=== PATIENT | female | born 1985 | race Caucasian/White ===

== ENCOUNTER 2020-12-20 15:36 | Emergency (ER) | payer OTHER, SELFPAY ==
[2020-12-20 15:43] VITALS: BP 152/84; PULSE 92; RESP 17; TEMP 36.2; O2SAT 100
[2020-12-20 16:01] LABS: Basophils Percent Auto 0.3 % (0.2-1.2); Eosinophils Absolute Auto 0.3 K/mm3 (0-0.3); Eosinophils Percent Auto 5.2 % (0-4.4); Hematocrit 41.9 % (37.0-47.0); Hemoglobin 14.3 g/dL (12.0-15.0); Immature Granulocyte Absolute 0.01 K/mm3 (0.00-0.031); Immature Granulocyte Percent A 0.2 % (0-0.5); Lymphocytes Absolute Auto 1.57 K/mm3 (0.9-3.2); Lymphocytes Percent Auto 27.1 % (18.3-44.2); Mean Corpuscular HGB Conc 34.1 g/dl (32-36); Mean Corpuscular Hemoglobin 29.1 pg (26-34); Mean Corpuscular Volume 85.3 fl (80-100); Mean Platelet Volume 9.7 fl (7.4-10.4); Monocytes Absolute Auto 0.4 K/mm3 (0.1-0.6); Monocytes Percent Auto 6.2 % (2.6-8.5); Neutrophils Absolute Auto 3.5 K/mm3 (1.3-6.7); Platelet Count Result 223 k/mm3 (150-375); Red Blood Count 4.91 M/mm3 (4.2-5.4); Red Cell Distribution Width 12.7 % (11.5-14.5); White Blood Count 5.8 K/mm3 (4.5-10.0)
[2020-12-20 16:10] LABS: Alanine Aminotransferase 22 U/L (4-35); Albumin Level 3.9 g/dL (3.5-5.1); Alkaline Phosphatase 51 U/L (38-126); Anion Gap 5 mmol/L (8-16); Aspartate Amino Transferase 32 U/L (14-36); Bilirubin,Total 0.2 mg/dL (0.2-1.3); Blood Urea Nitrogen 8 mg/dL (7-17); Calcium 8.7 mg/dL (8.4-10.2); Carbon Dioxide 29 mmol/L (22-30); Chloride 104 mmol/L (98-107); Estimated CRCL calculation 119 ml/min; Estimated Glomerular Filt Rate > 60; Glucose 104 mg/dL (65-105); Lipase 42 U/L (23-300); Potassium 3.3 mmol/L (3.4-5.0); Sodium 138 mmol/L (137-145)
--- NOTE | 2020-12-20 16:31 | PC.NURSE ---
pt states pmd never saw pt but sent her in for this possible dx over the phone. pt states was in [facility] last weekend. pt c/o generalized rash and itching. onset last .
--- NOTE | 2020-12-20 16:40 | ED.GENADULT ---
HPI - General Adult General Chief complaint: Unspecified Stated complaint: I think I have Stebbins spotted fever Time Seen by Provider: 12/20/20 16:40 History of Present Illness HPI narrative: Not feeling well for the past 4 days. Initially symptoms included diarrhea and nausea. The following day she developed a fever up to 101.5. She also noted a rash. She thinks that the rash may have started on her hands between her fingers. She now has a diffuse rash on all extremities. She reports that when she gets a rash it usually starts on her hands because she has eczema. Last fever was 2 days ago. She continues to have diarrhea. She saw her PCP and she sent her here for suspected RMSF. The patient is not aware of any tick bites, but says she has been around dogs that had ticks. Related Data Allergies Allergy/AdvReac Type Severity Reaction Status Date / Time Penicillins Allergy Mild Hives Verified 12/20/20 17:30 adhesive Allergy Unknown Rash Verified 12/20/20 17:30 amoxicillin Allergy Unknown Hives Verified 12/20/20 17:30 tramadol Allergy Unknown Other Verified 12/20/20 17:30 Review of Systems Review of Systems: All systems reviewed & are unremarkable except as noted in HPI and below Constitutional: Constitutional: Reports fever(s) Eyes: Eyes: Reports no additional eye complaints ENT: Reports system reviewed and no additional complaints, except as documented Cardiovascular: Cardiovascular: Denies chest pain Respiratory: Respiratory: Reports no additional respiratory complaints Gastrointestinal: Gastrointestinal: Denies abdominal pain, Reports diarrhea and Reports nausea Genitourinary: Genitourinary: Reports no additional female genitourinary complaints Musculoskeletal: Musculoskeletal: Reports no additional musculoskeletal complaints Integumentary/Breasts: Skin/Breast: Reports as per HPI Neurologic: Reports system reviewed and no additional complaints, except as documented [facility] Social History Social History Smoking status: Never smoker Alcohol intake: never Gender identity (if verbalized by the patient): Female Exam Const: General: no acute distress and alert Nutritional Appearance: overweight Orientation/consciousness: patient oriented x3 HENMT: Head: normal to inspection Neck: Neck: normal visual inspection and no lymphadenopathy Resp: Effort & Inspection: normal respiratory effort Auscultation: clear to auscultation bilaterally, no rales, no rhonchi and no wheezes Cardio: Jugular venous distension: no JVD Rate: regular rate Rhythm: regular rhythm Heart sounds: no murmurs GI: Inspection: non-distended GI Palp: Yes Soft to palpation and No Tenderness to palpation present (GI) Skin: Other: diffuse fine papular rash on trunk and extremities. Present on dorsum of hands with relative sparing of palms Neuro: General: patient oriented x3 and moves all extremities Speech: normal speech Extrem: General: no edema Psych: Appearance: well kempt Affect: normal affect Course Vital Signs Vital signs: Vital Signs Temperature 36.2 C L 12/20/20 15:43 Pulse Rate 92 12/20/20 15:43 Respiratory Rate 17 12/20/20 15:43 Blood Pressure 152/84 H 12/20/20 15:43 Pulse Oximetry 100 12/20/20 15:43 Temperature 36.2 C L 12/20/20 15:43 Pulse Rate 92 12/20/20 15:43 Respiratory Rate 16 12/20/20 18:35 Blood Pressure 152/84 H 12/20/20 15:43 Pulse Oximetry 100 12/20/20 15:43 Medical Decision Making MDM Narrative Medical decision making narrative: I think RMSF is very unlikely. But given that the disease has a high degree of variability it is difficult to completely rule it out. She has known tick exposure and a diffuse rash with some involvement of the palms. I will send confirmatory testing and start treatment empirically. I think this is reasonable given the high mortality rate of untreated infection. Differential Diagnosis
[2020-12-20 17:04] LABS: Add Urine Microscopic? YES; Appearance Urine Cloudy (Clear); Bacteria Urine 1+ /hpf; Bilirubin Urine Negative (Negative); Blood Urine 3+ (Negative); Calcium Oxalate Crystals Urine Present /hpf; Color Urine Red (Yellow); Glucose Urine UA Negative (Negative); Ketones Urine Negative (Negative); Leukocyte Esterase Ur Trace LEU/UL (Negative); Mucus Urine Heavy /lpf; Nitrate Urine Negative (Negative); Protein Urine 2+ mg/dL (Negative); RBC Urine >75 /hpf (0-2); Specific Grav Ur 1.024 (1.001-1.035); Squamous Epithelial Cell Urine Occasional /hpf (Few); Urobilinogen Urine Negative mg/dL (<2.0); WBC Urine 21-30 /hpf
--- NOTE | 2020-12-20 17:06 | PC.NURSE ---
Called Lab spoke with doe and added on rickettsia DNA.
[2020-12-20] MEDS: DOXYCYCLINE HYCLATE 100 MG TABLET PO (17:31)
[2020-12-20] MEDS: predniSONE 20 MG TABLET 60 MG PO (17:31)
[2020-12-20 18:35] VITALS: RESP 16
[2020-12-20] MEDS: LOPERAMIDE HCL 2 MG CAPSULE 4 MG PO (18:38)
[2020-12-24 11:29] LABS: Rickettsia rickettsii DNA, PCR NOT DETECTED
== END 2020-12-20 18:35 | disposition home or self-care (01) ==
PROVIDERS: Emergency Provider Emergency Medicine; PCP Family Medicine
DX: R21 Rash and other nonspecific skin eruption (principal); R19.7 Diarrhea, unspecified; R82.998 Other abnormal findings in urine
CPT/HCPCS: 36415; 80053; 81001; 81025; 83690; 85025; 87086; 87088; 87798; 99283; A9270; J7512

== ENCOUNTER 2022-12-03 01:45 | Emergency (ER) | payer BC, SELFPAY ==
--- NOTE | ~2022-12-03 | XR_ITS ---
Portable chest x-ray Comparison: 09/11/2016 Clinical History: Altered mental status Findings: Lungs are clear, without focal consolidation or pleural effusion. Cardiomediastinal silho uette is stable. Bones and soft tissues are unremarkable. Impression: Normal chest. Reviewed, dictated and finalized at location . Impression: Normal chest.
--- NOTE | ~2022-12-03 | CT_ITS ---
Non-contrast Head CT History: Altered mental status Technique: Axial non-contrast imaging of the brain was performed. Dose reduction technique was used on this scan by utilizing automated exposure control and iterative reconstruction technique. The dose -length product (DLP) was 605.33 mGy-cm. Findings: There is no evidence of intracranial hemorrhage, mass lesion, or acute infarct. Brain par enchyma appears normal. The ventricles and subarachnoid spaces are normal in size. The calvarium ap pears normal. The visualized paranasal sinuses and mastoid air cells are clear. Impression: No significant abnormality seen. Reviewed, dictated and finalized at location . Impression: No significant abnormality seen.
[2022-12-03 01:51] VITALS: BP 143/88; PULSE 76; RESP 16; TEMP 36.7; O2SAT 100
--- NOTE | 2022-12-03 02:50 | ECG_ITS ---
Measurements Intervals Early [place] Rate: 72 P: 54 AL: 144 QRS: 12 QRSD: 92 T: 26 QT: 402 QTc: 441 Interpretive Statements SINUS RHYTHM POOR R-WAVE PROGRESSION RSR' V1 BORDERLINE ECG NO PREVIOUS ECG AVAILABLE FOR COMPARISON Electronically Signed On 12-03-2022 16:56:58 CDT by Patrick Bonilla M.D.
--- NOTE | 2022-12-03 02:57 | ED.ANXIETY ---
HPI - Anxiety General Chief Complaint: Anxiety <Eloisa Marks PA-C - Last Filed: 12/03/22 03:15> Stated Complaint: panic attack <Eloisa Marks PA-C - Last Filed: 12/03/22 03:15> Time Seen by Provider: 12/03/22 02:35 <Eloisa Marks PA-C - Last Filed: 12/03/22 03:15> History of Present Illness HPI narrative: 37-year-old female with a history of anxiety, depression, hypoglycemia, endometriosis reports with her for evaluation of panic attack . Patient states she started having a panic attack while she was eating cookies. The cookie stuck her mouth and she became scared. Patient is reporting she is not anxious at this time, but she is complaining of a frontal headache and right arm paresthesias, which she reports is baseline secondary to herniated disks in her neck due to an injury that occurred 2 years ago. Patient's assist with history and states the patient was laying in bed when the heard the patient laugh, then cry, finished eating her cookies but then continued to act like she was still eating food. Pt's states this is bizarre behavior for the patient and she has never acted like this before. Pt and her deny history of panic attacks. She take buspirone TID for anxiety, took 2 today. Denies SI/HI, drug use, alcohol use, fever, body aches, chills, chest pain or shortness of breath, difficulty ambulating, vision changes. <Eloisa Marks PA-C - Last Filed: 12/03/22 03:15> Related Data Home Medications: Home Medications Medication Instructions Recorded Confirmed bupropion HCl 150 mg 24 hr tablet, mg PO 12/03/22 extended release buspirone 10 mg tablet mg 12/03/22 cyclobenzaprine 10 mg tablet mg 12/03/22 escitalopram oxalate 20 mg tablet mg 12/03/22 meloxicam 7.5 mg tablet mg 12/03/22 metoprolol succinate 25 mg mg PO 12/03/22 tablet,extended release 24 hr <FIDEL Mcmanus Last Filed: 12/03/22 03:15> Allergies/Adverse Reactions: Allergies Allergy/AdvReac Type Severity Reaction Status Date / Time Penicillins Allergy Mild Hives Verified 12/03/22 01:45 adhesive Allergy Unknown Rash Verified 12/03/22 01:45 amoxicillin Allergy Unknown Hives Verified 12/03/22 01:45 tramadol Allergy Unknown Other Verified 12/03/22 01:45 <Eloisa Marks PA-C - Last Filed: 12/03/22 03:15> Review of Systems Review of Systems: CONSTITUTIONAL: Denies fever, chills EYES: Denies visual changes, redness, or discharge. ENT: Denies rhinorrhea, congestion, sore throat, or otalgia. CARDIOVASCULAR: Denies chest pain, palpitations, or edema. RESPIRATORY: Denies cough or dyspnea. GASTROINTESTINAL: Denies abdominal pain, nausea, vomiting, or diarrhea. GENITOURINARY: Denies dysuria or hematuria. SKIN: Denies rash or itching. MUSCULOSKELETAL: Denies back pain, joint pain, or myalgia. NEUROLOGIC: See HPI PSYCHIATRIC: See HPI <Eloisa Marks PA-C - Last Filed: 12/03/22 03:15> [facility] Social History Social History: Social History Smoking status: Never smoker Alcohol intake: never Gender identity (if verbalized by the patient): Female <Eloisa Marks PA-C - Last Filed: 12/03/22 03:15> Exam Narrative: GENERAL: Well-appearing, well-nourished, and in no acute distress. Patient resting in the exam bed. She is conversational. HEAD: Normocephalic, atraumatic. EYES: PERRLA and EOMI. ENT: Nares clear, no rhinorrhea or epistaxis. Mucous membranes moist. Oropharynx without tonsillar hypertrophy exudate or other lesions. NECK: Supple. No adenopathy or masses. CHEST: Clear to auscultation. No respiratory distress. No wheezes rales or rhonchi HEART: Regular rate and rhythm. No murmur heard. Normal peripheral pulses. ABDOMEN: Soft, nontender, nondistended, normal active bowel sounds. EXTREMITIES: Normal range of motion. No edema. Radial and DP pulses 2+. SKIN: Warm, dry, no rash. NEURO: No foc
[2022-12-03] MEDS: PROCHLORPERAZINE EDISYLATE 10 MG/2 ML VIAL IM (03:26)
[2022-12-03] MEDS: diphenhydrAMINE HCl INJ 50 MG/ML VIAL 25 MG IV PUSH (03:26)
[2022-12-03] MEDS: KETOROLAC 15 MG/ML VIAL (*BKC) IV PUSH (03:27)
[2022-12-03 03:39] LABS: Basophils Absolute Auto 0.1 K/mm3 (0.0-0.1); Basophils Percent Auto 0.5 % (0.2-1.2); Eosinophils Absolute Auto 0.1 K/mm3 (0-0.3); Eosinophils Percent Auto 0.9 % (0-4.4); Hematocrit 39.8 % (37.0-47.0); Hemoglobin 12.9 g/dL (12.0-15.0); Immature Granulocyte Absolute 0.02 K/mm3 (0.00-0.031); Immature Granulocyte Percent A 0.2 % (0-0.5); Lymphocytes Percent Auto 24.4 % (18.3-44.2); Mean Corpuscular HGB Conc 32.4 g/dl (32-36); Mean Corpuscular Hemoglobin 27.3 pg (26-34); Mean Corpuscular Volume 84.1 fl (80-100); Mean Platelet Volume 9.7 fl (7.4-10.4); Monocytes Absolute Auto 0.7 K/mm3 (0.1-0.6); Monocytes Percent Auto 5.5 % (2.6-8.5); Neutrophils Absolute Auto 8.2 K/mm3 (1.3-6.7); Neutrophils Percent Auto 68.5 % (45.5-73.1); Platelet Count Result 284 k/mm3 (150-375); Red Blood Count 4.73 M/mm3 (4.2-5.4); Red Cell Distribution Width 13.4 % (11.5-14.5); White Blood Count 11.9 K/mm3 (4.5-10.0)
[2022-12-03 03:48] LABS: Appearance Urine Clear (Clear); Bacteria Urine 1+ /hpf; Bilirubin Urine Negative (Negative); Blood Urine Negative (Negative); Color Urine Yellow (Yellow); Glucose Urine UA Negative (Negative); Ketones Urine Negative (Negative); Leukocyte Esterase Ur 1+ LEU/UL (Negative); Nitrate Urine Negative (Negative); Non Pathogenic Casts 0-2; Protein Urine Negative (Negative); RBC Urine 0-2 /hpf (0-2); Specific Grav Ur 1.015 (1.001-1.035); Squamous Epithelial Cell Urine Few /hpf (Few); Urobilinogen Urine 0.2 mg/dL (<2.0); pH Urine 5.5 (5.0-9.0)
[2022-12-03 03:56] LABS: Add Urine Microscopic? YES
[2022-12-03 04:16] LABS: Acetaminophen < 10 ug/mL (10-30); Alanine Aminotransferase 15 U/L (6-35); Albumin Level 4.3 g/dL (3.5-5.1); Alkaline Phosphatase 70 U/L (38-126); Anion Gap 5 mmol/L (8-16); Aspartate Amino Transferase 19 U/L (14-36); Bilirubin,Total 0.4 mg/dL (0.2-1.3); Blood Urea Nitrogen 12 mg/dL (7-17); Calcium 9.2 mg/dL (8.4-10.2); Carbon Dioxide 29 mmol/L (22-30); Chloride 104 mmol/L (98-107); Estimated CRCL calculation 129 ml/min; Estimated Glomerular Filt Rate > 60; Ethanol < 10 mg/dL (<10); Glucose 185 mg/dL (65-110); Potassium 3.8 mmol/L (3.4-5.0); Salicylate < 1.0 mg/dL (2-20); Sodium 138 mmol/L (137-145)
[2022-12-03 04:27] LABS: Troponin I < 0.012 ng/mL (0.000-0.034)
[2022-12-03] MEDS: SODIUM CHLORIDE 0.9% IV 1,000 ML 999 ML IV CONT (04:39)
[2022-12-03 04:48] LABS: Barbiturate Screen Urine Negative (Negative); Benzodiazepines Screen Urine Negative (Negative)
[2022-12-03 04:49] LABS: Cannabinoid Screen Urine Negative (Negative); Cocaine Screen Urine Negative (Negative); Methadone Screen Urine Negative (Negative); Opiate Screen Urine Negative (Negative); Phencyclidine Screen Urine Negative (Negative)
[2022-12-03 04:53] LABS: Amphetamine Screen Urine Negative (Negative)
[2022-12-03 04:55] LABS: Lactic Acid Reflex 1.3 mmol/L (0.7-2.0)
[2022-12-03 06:11] VITALS: BP 126/74; PULSE 75; RESP 17; O2SAT 100
[2022-12-03 06:16] VITALS: BP 128/74; PULSE 74; RESP 16; O2SAT 100
[2022-12-03] MEDS: HYDROcodone/acetaminophen (*CRX) 5-325 MG TABLET 1 TAB PO (06:35)
== END 2022-12-03 06:40 | disposition home or self-care (01) ==
PROVIDERS: Emergency Provider Physician Assistant; PCP Family Medicine Sports Medicine
DX: F41.9 Anxiety disorder, unspecified (principal)
CPT/HCPCS: 36415; 70450; 71045; 80053; 80307; 81001; 81025; 83605; 84484; 85025; 87086; 87088; 93005; 96361; 96372; 96374; 96375; 99284; A9270; J0780; J1200; J1885; J7030

== ENCOUNTER 2023-07-12 09:31 | Emergency (ER) | payer BC, SELFPAY ==
--- NOTE | ~2023-07-12 | XR_ITS ---
Clinical Indication: Cough PA and lateral views of the chest: Comparison: 12/03/2022 Findings: The lungs are clear, without evidence of focal consolidation or pleural effusion. Cardiome diastinal silhouette is within normal limits. Bones and soft tissues are unremarkable. Impression: Normal chest. Reviewed, dictated and finalized at location . COM MANAGER Impression: Normal chest.
--- NOTE | 2023-07-12 09:34 | ED.GENADULT ---
HPI - General Adult General Chief complaint: Upper Respiratory Infection Stated complaint: cough, wheezing Time Seen by Provider: 07/12/23 09:45 Source: patient, RN notes reviewed and old records reviewed Mode of arrival: ambulatory Limitations: no limitations History of Present Illness HPI narrative: 38-year-old female presents to the [facility] with complaints cough and wheezing. Tried getting in with her primary care provider but was unable to. Onset (ago): week(s) (1.5) Related Data Home Medications Medication Instructions Recorded Confirmed bupropion HCl 150 mg 24 hr tablet, 150 mg PO DAILY 12/03/22 07/12/23 extended release buspirone 10 mg tablet 10 mg PO DAILY 12/03/22 07/12/23 cyclobenzaprine 10 mg tablet 10 mg PO DAILY 12/03/22 07/12/23 escitalopram oxalate 20 mg tablet 20 mg PO DAILY 12/03/22 07/12/23 meloxicam 7.5 mg tablet 7.5 mg PO DAILY 12/03/22 07/12/23 metoprolol succinate 25 mg 25 mg PO DAILY 12/03/22 07/12/23 tablet,extended release 24 hr atorvastatin 10 mg tablet 10 mg PO DAILY 07/12/23 07/12/23 lamotrigine 25 mg tablet 25 mg PO DAILY 07/12/23 07/12/23 lisinopril 20 mg tablet 20 mg PO DAILY 07/12/23 07/12/23 montelukast 10 mg tablet 10 mg PO DAILY 07/12/23 07/12/23 pantoprazole 20 mg tablet,delayed 20 mg PO DAILY 07/12/23 07/12/23 release prazosin 1 mg capsule 1 mg PO DAILY 07/12/23 07/12/23 Allergies Allergy/AdvReac Type Severity Reaction Status Date / Time Penicillins Allergy Mild Hives Verified 07/12/23 09:42 adhesive Allergy Unknown Rash Verified 07/12/23 09:42 amoxicillin Allergy Unknown Hives Verified 07/12/23 09:42 tramadol Allergy Unknown Other Verified 07/12/23 09:42 Review of Systems Review of Systems: All systems reviewed & are unremarkable except as noted in HPI and below Constitutional: Constitutional: Reports no additional constitutional complaints Eyes: Eyes: Reports no additional eye complaints ENT: Reports system reviewed and no additional complaints, except as documented Cardiovascular: Cardiovascular: Reports no additional cardiovascular complaints, Denies chest pain and Denies dyspnea Respiratory: Respiratory: Reports as per HPI, Reports chest congestion, Reports cough, Denies hemoptysis, Denies excessive phlegm production, Reports dyspnea and Reports wheezing Gastrointestinal: Gastrointestinal: Reports no additional gastrointestinal complaints, Denies abdominal pain, Denies nausea and Denies vomiting Musculoskeletal: Musculoskeletal: Reports no additional musculoskeletal complaints Integumentary/Breasts: Skin/Breast: Reports system reviewed and no additional complaints, except as docu Neurologic: Reports system reviewed and no additional complaints, except as documented Psychiatric: Psychiatric: Reports no additional psychiatric complaints Allergic/Immunologic: Allergic/Immunologic: Reports no additional allergic/immunologic complaints PMFSH Past Medical History Medical History (Updated 07/12/23 @ 10:40 by Janine Méndez APRN) Anxiety and depression Asthma Endometriosis History of high blood pressure Social History Social History Smoking status: Never smoker Alcohol intake: never Gender identity (if verbalized by the patient): Female Comments At the time of my signature, I reviewed and agree with the nursing past medical, surgical, social, and family history. There is no relevant family history pertinent to the patient complaint. Exam Const: General: cooperative, healthy appearing, comfortable, no acute distress, well developed, alert and well nourished Nutritional Appearance: well nourished and obese Orientation/consciousness: patient oriented x3 Limitations: no limitations HENMT: Head: normal to inspection Ears: hearing grossly normal bilaterally, external ears normal, TM's normal bilaterally, EAC's normal, mastoids normal and no periauricular adenopathy Face/Nose/Sinus: Normal exte
[2023-07-12 09:43] VITALS: BP 119/73; PULSE 75; RESP 16; TEMP 37.3; O2SAT 98
[2023-07-12 09:47] VITALS: BP 119/73; PULSE 75; RESP 16; TEMP 37.3; O2SAT 98
[2023-07-12] MEDS: IPRATROPIUM BR 0.02% INH SOLN 0.5 MG/2.5 ML VIAL INHALATION (10:04)
[2023-07-12] MEDS: ALBUTEROL SULFATE NEB 2.5 MG/3 ML INH INHALATION (10:04)
[2023-07-12] MEDS: predniSONE 20 MG TABLET 40 MG PO (10:04)
== END 2023-07-12 10:45 | disposition home or self-care (01) ==
PROVIDERS: Emergency Provider Nurse Practitioner; PCP Physician Assistant
DX: J45.901 Unspecified asthma with (acute) exacerbation (principal); N80.9 Endometriosis, unspecified; I10 Essential (primary) hypertension; F41.9 Anxiety disorder, unspecified; F32.A Depression, unspecified
CPT/HCPCS: 71046; 87081; 87880; 94640; 99213; G0463; J7512

== ENCOUNTER 2023-10-23 23:12 | Emergency (ER) | payer BC, SELFPAY ==
[2023-10-23 23:14] VITALS: BP 119/66; PULSE 84; RESP 16; TEMP 37.2; O2SAT 100
[2023-10-23 23:37] VITALS: BP 106/60; PULSE 74; RESP 14; TEMP 37.1; O2SAT 100
--- NOTE | 2023-10-24 00:01 | ED.GENADULT ---
HPI - General Adult General Chief complaint: Unspecified Stated complaint: bruising to face, needles going down neck Time Seen by Provider: 10/23/23 23:45 Source: patient Mode of arrival: ambulatory Limitations: no limitations History of Present Illness HPI narrative: This is a 38 year old female that presents to the ER for left sided facial pain. Ongoing over the last couple of days. Reports tingling, sharp pains. Reports today she started to develop a rash. Denies fever, vision changes, vomiting. Related Data Home Medications Medication Instructions Recorded Confirmed bupropion HCl 150 mg 24 hr tablet, 150 mg PO DAILY 12/03/22 07/12/23 extended release buspirone 10 mg tablet 10 mg PO DAILY 12/03/22 07/12/23 cyclobenzaprine 10 mg tablet 10 mg PO DAILY 12/03/22 07/12/23 escitalopram oxalate 20 mg tablet 20 mg PO DAILY 12/03/22 07/12/23 meloxicam 7.5 mg tablet 7.5 mg PO DAILY 12/03/22 07/12/23 metoprolol succinate 25 mg 25 mg PO DAILY 12/03/22 07/12/23 tablet,extended release 24 hr atorvastatin 10 mg tablet 10 mg PO DAILY 07/12/23 07/12/23 lamotrigine 25 mg tablet 25 mg PO DAILY 07/12/23 07/12/23 lisinopril 20 mg tablet 20 mg PO DAILY 07/12/23 07/12/23 montelukast 10 mg tablet 10 mg PO DAILY 07/12/23 07/12/23 pantoprazole 20 mg tablet,delayed 20 mg PO DAILY 07/12/23 07/12/23 release prazosin 1 mg capsule 1 mg PO DAILY 07/12/23 07/12/23 Allergies Allergy/AdvReac Type Severity Reaction Status Date / Time Penicillins Allergy Mild Hives Verified 07/12/23 09:42 adhesive Allergy Unknown Rash Verified 07/12/23 09:42 amoxicillin Allergy Unknown Hives Verified 07/12/23 09:42 tramadol Allergy Unknown Other Verified 07/12/23 09:42 Review of Systems Review of Systems: CONSTITUTIONAL: Denies fever EYES: Denies visual changes GASTROINTESTINAL: Denies vomiting SKIN: Reports rash All systems reviewed & are unremarkable except as noted in HPI and below PMFSH Past Medical History Medical History (Updated 10/24/23 @ 00:04 by Zandra Boateng PA-C) Anxiety and depression Asthma Endometriosis History of high blood pressure Social History Social History Smoking status: Never smoker Alcohol intake: never Gender identity (if verbalized by the patient): Female Exam Narrative: GENERAL: Well-appearing, well-nourished, and in no acute distress. HEAD: Normocephalic, atraumatic. EYES: PERRLA and EOMI. ENT: Nares clear, no rhinorrhea or epistaxis. Mucous membranes moist. Oropharynx without tonsillar hypertrophy exudate or other lesions. Bilateral TMs pearly heart non-bulging NECK: Supple. No adenopathy or masses. CHEST: Clear to auscultation. No respiratory distress. No wheezes rales or rhonchi HEART: Regular rate and rhythm. No murmur heard. Normal peripheral pulses. EXTREMITIES: Normal range of motion. No edema. SKIN: Warm, dry. Vesicles present on the left side of the chin/cheek NEURO: No focal deficits. Alert and oriented x3. PSYCH: Normal mood and affect Course Course Emergency Course: Patient agrees with plan of care Vital Signs Vital signs: Vital Signs Temperature 98.9 F 10/23/23 23:14 Pulse Rate 84 10/23/23 23:14 Respiratory Rate 16 10/23/23 23:14 Blood Pressure 119/66 10/23/23 23:14 Pulse Oximetry 100 10/23/23 23:14 Oxygen Delivery Room Air 10/23/23 23:14 Temperature 98.8 F 10/23/23 23:37 Pulse Rate 74 10/23/23 23:37 Respiratory Rate 14 10/23/23 23:37 Blood Pressure 106/60 10/23/23 23:37 Pulse Oximetry 100 10/23/23 23:37 Oxygen Delivery Room Air 10/23/23 23:14 Medical Decision Making MDM Narrative Medical decision making narrative: Patient presents to the emergency department for a rash on her face. Reports prodromal pain in the area. History and exam consistent with likely shingles. Patient will be started on Valtrex and was instructed to have follow-up with her primary provider. Anni
[2023-10-24] MEDS: valACYclovir HCL 500 MG TABLET 1000 MG PO (00:23)
== END 2023-10-24 00:30 | disposition home or self-care (01) ==
PROVIDERS: Emergency Provider Physician Assistant; PCP Physician Assistant
DX: B02.9 Zoster without complications (principal); I10 Essential (primary) hypertension; J45.909 Unspecified asthma, uncomplicated; N80.9 Endometriosis, unspecified; F41.9 Anxiety disorder, unspecified; F32.A Depression, unspecified
CPT/HCPCS: 99283; A9270

== ENCOUNTER 2023-11-27 18:22 | Emergency (ER) | payer BC, SELFPAY ==
--- NOTE | ~2023-11-27 | CT_ITS ---
EXAMINATION: CT cervical spine wo con DATE: 11/27/2023 21:28 INDICATION: Neck pain TECHNIQUE: Computed tomography (CT) of the cervical spine was performed without intravenous contrast. Automated exposure control and iterative reconstruction technique were employed. The dose-length pro duct was 575.01 mGy-cm. COMPARISON: None FINDINGS: Likely positional mild reversal of the normal cervical lordosis. No spondylolisthesis or facet sublux ation. Vertebral body heights are normal. No fracture. Mild disc height loss at C3-C4 through C6-C7. There are small posterior endplate osteophytes at C3-C4 and at C5-C6. There is also some ossification along the posterior longitudinal ligament posterior to the C6 vertebral body. This results in mild c entral canal stenosis at both C3-C4 and C5-C6. There is multilevel minimal to mild cervical facet and osteoarthritis. There is mild neural foraminal stenosis on the right at C3-C4 and minimal on the rig ht at C4-C5. Remaining cervical neural foramina appear patent. Cervical soft tissues are unremarkable . IMPRESSION: 1. Mild cervical spondylosis. No acute osseous abnormalities. Reviewed, dictated and finalized at location A.
[2023-11-27 18:32] VITALS: BP 137/80; PULSE 101; RESP 20; TEMP 36.5; O2SAT 100
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
[2023-11-27] MEDS: KETOROLAC 30 MG/ML VIAL (*BKC) 15 MG IM (21:10)
[2023-11-27] MEDS: ACETAMINOPHEN 500 MG TABLET 1000 MG PO (21:10)
== END 2023-11-27 22:14 | disposition home or self-care (01) ==
PROVIDERS: Emergency Provider Student in an Organized Health Care Education/Training Program; PCP Physician Assistant
DX: M47.812 Spondylosis without myelopathy or radiculopathy, cervical region (principal); W51.XXXA Accidental striking against or bumped into by another person, initial encounter; F41.8 Other specified anxiety disorders
CPT/HCPCS: 72125; 96372; 99284; A9270; J1885

== ENCOUNTER 2024-08-16 11:41 | Emergency (ER) | payer OTHER, SELFPAY ==
[2024-08-16] VITALS (20 sets, daily range): BP systolic 101–145; BP diastolic 60–80; PULSE 78–128; RESP 12–21; TEMP 36.3; O2SAT 97–100
[2024-08-16] MEDS: KETOROLAC 15 MG/ML VIAL (*BKC) IV PUSH (12:20)
[2024-08-16] MEDS: diazePAM INJ (*CRX) 10 MG/2 ML SYRINGE 5 MG IV PUSH (12:21)
[2024-08-16 12:31] LABS: Basophils Percent Auto 0.6 % (0.2-1.2); Eosinophils Absolute Auto 0.2 K/mm3 (0-0.3); Eosinophils Percent Auto 3.2 % (0-4.4); Hematocrit 35.2 % (37.0-47.0); Hemoglobin 11.4 g/dL (12.0-15.0); Immature Granulocyte Absolute 0.01 K/mm3 (0.00-0.031); Immature Granulocyte Percent A 0.2 % (0-0.5); Lymphocytes Absolute Auto 2.01 K/mm3 (0.9-3.2); Lymphocytes Percent Auto 30.5 % (18.3-44.2); Mean Corpuscular HGB Conc 32.4 g/dl (32-36); Mean Corpuscular Hemoglobin 28.3 pg (26-34); Mean Corpuscular Volume 87.3 fl (80-100); Mean Platelet Volume 10.3 fl (7.4-10.4); Monocytes Absolute Auto 0.4 K/mm3 (0.1-0.6); Monocytes Percent Auto 6.2 % (2.6-8.5); Neutrophils Absolute Auto 3.9 K/mm3 (1.3-6.7); Neutrophils Percent Auto 59.3 % (45.5-73.1); Platelet Count Result 239 k/mm3 (150-375); Red Blood Count 4.03 M/mm3 (4.2-5.4); Red Cell Distribution Width 13.1 % (11.5-14.5); White Blood Count 6.6 K/mm3 (4.5-10.0)
--- NOTE | 2024-08-16 12:36 | ED_ITS ---
HPI - General Adult General Chief complaint: Unspecified Stated complaint: I'm having tremors , herniated discs, passed out Time Seen by Provider: 08/16/24 11:50 History of Present Illness HPI narrative: Patient is a 39-year-old female with history of chronic neck issues and anxiety who presents the ER with reports of tremors in her right arm and right leg. Began yesterday. She has had which she reports is unprovoked syncope while at rest. No chest pain or chest pressure. She also reports increased stress in the past has caused her to have the mental capacity of a 6-year-old for 4 hours. No chest pain or chest pressure. No new numbness or tingling. Has achiness in her neck bilaterally but maintains full range of motion. Typically treats her neck pain with meloxicam and cyclobenzaprine. Related Data Home Medications ?Medication ?Instructions ?Recorded ?Confirmed ?Last Taken ?Type bupropion HCl 150 mg 24 hr tablet, 150 mg PO DAILY 12/03/22 07/12/23 Unknown History extended release buspirone 10 mg tablet 10 mg PO DAILY 12/03/22 07/12/23 Unknown History cyclobenzaprine 10 mg tablet 10 mg PO DAILY 12/03/22 07/12/23 Unknown History escitalopram oxalate 20 mg tablet 20 mg PO DAILY 12/03/22 07/12/23 Unknown History meloxicam 7.5 mg tablet 7.5 mg PO DAILY 12/03/22 07/12/23 Unknown History metoprolol succinate 25 mg 25 mg PO DAILY 12/03/22 07/12/23 Unknown History tablet,extended release 24 hr atorvastatin 10 mg tablet 10 mg PO DAILY 07/12/23 07/12/23 Unknown History lamotrigine 25 mg tablet 25 mg PO DAILY 07/12/23 07/12/23 Unknown History lisinopril 20 mg tablet 20 mg PO DAILY 07/12/23 07/12/23 Unknown History montelukast 10 mg tablet 10 mg PO DAILY 07/12/23 07/12/23 Unknown History pantoprazole 20 mg tablet,delayed 20 mg PO DAILY 07/12/23 07/12/23 Unknown History release prazosin 1 mg capsule 1 mg PO DAILY 07/12/23 07/12/23 Unknown History Allergies Allergy/AdvReac Type Severity Reaction Status Date / Time Penicillins Allergy Mild Hives Verified 11/17/23 09:42 adhesive Allergy Unknown Rash Verified 07/12/23 09:42 amoxicillin Allergy Unknown Hives Verified 07/12/23 09:42 tramadol Allergy Unknown Other Verified 07/12/23 09:42 Review of Systems 2 Review of Systems: All systems reviewed & are unremarkable except as noted in HPI and below Constitutional: Constitutional: Reports no additional constitutional complaints ENT: Reports system reviewed and no additional complaints, except as documented Cardiovascular: Cardiovascular: Reports no additional cardiovascular complaints Respiratory: Respiratory: Reports no additional respiratory complaints Neurologic: Denies focal weakness, Denies numbness and Reports tremor(s) PMFSH Past Medical History Medical History (Updated 08/16/24 @ 14:39 by George Engel MD) Endometriosis Asthma History of high blood pressure Anxiety and depression Social History Social History Smoking status: Never smoker Alcohol intake: never Gender identity (if verbalized by the patient): Female Exam 2 Narrative: GENERAL: Well-appearing, well-nourished, and in no acute distress. HEAD: Normocephalic, atraumatic. ENT: Mucous membranes moist. NECK: Supple. Full range of motion without midline tenderness and mild paraspinal discomfort in the lower cervical area. CHEST: Clear to auscultation. No respiratory distress. HEART: Regular rate and rhythm. Normal peripheral pulses. EXTREMITIES: Normal range of motion. No edema. SKIN: Warm, dry, no rash. NEURO: Alert and oriented x3. Tremors right arm and right leg that improved with examination of the affected extremity. PSYCH: Normal mood and affect. Course Course Emergency Course: Patient may even have cramping from dehydration as well as syncope given mild elevation in creatinine and elevated BUN. Patient received IV fluids. Her tremors and discomfort abated with Toradol and Valium. She has been ambulatory in the ER without issue and is appropriate for discharge home. Previous imaging studies of the neck reviewed. Vital Signs Vital signs: Vital Signs Temperature 97.4 F L 08/16/24 11:43 Pulse Rate 108 H 08/16/24 11:43 Respiratory Rate 17 08/16/24 11:43 Blood Pressure 145/78 H 08/16/24 11:43 Pulse Oximetry 100 08/16/24 11:43 Oxygen Delivery Room Air 08/16/24 11:43 Temperature 97.4 F L 08/16/24 11:43 Pulse Rate 107 H 08/16/24 12:09 Respiratory Rate 17 08/16/24 12:09 Blood Pressure 115/80 08/16/24 12:09 Pulse Oximetry 100 08/16/24 12:09 Oxygen Delivery Room Air 08/16/24 11:43 Medical Decision Making Vital Signs Vital Signs: Vital Signs Temperature 97.4 F L 08/16/24 11:43 Pulse Rate 108 H 08/16/24 11:43 Respiratory Rate 17 08/16/24 11:43 Blood Pressure 145/78 H 08/16/24 11:43 Pulse Oximetry 100 08/16/24 11:43 Oxygen Delivery Room Air 08/16/24 11:43 Temperature 97.4 F L 08/16/24 11:43 Pulse Rate 107 H 08/16/24 12:09 Respiratory Rate 17 08/16/24 12:09 Blood Pressure 115/80 08/16/24 12:09 Pulse Oximetry 100 08/16/24 12:09 Oxygen Delivery Room Air 08/16/24 11:43 Lab Data 08/16/24 12:23 08/16/24 12:23 Labs: Lab Results 08/16/24 Range/Units 12:23 WBC 6.6 (4.5-10.0) K/mm3 RBC 4.03 L (4.2-5.4) M/mm3 Hgb 11.4 L (12.0-15.0) g/dL Hct 35.2 L (37.0-47.0) % MCV 87.3 (80-100) fl MCH 28.3 (26-34) pg MCHC 32.4 (32-36) g/dl RDW 13.1 (11.5-14.5) % Plt Count 239 (150-375) k/mm3 MPV 10.3 (7.4-10.4) fl Immature Gran % (Auto) 0.2 (0-0.5) % Neut % (Auto) 59.3 (45.5-73.1) % Lymph % (Auto) 30.5 (18.3-44.2) % Floyd % (Auto) 6.2 (2.6-8.5) % Eos % (Auto) 3.2 (0-4.4) % Baso % (Auto) 0.6 (0.2-1.2) % Lymph # (Auto) 2.01 (0.9-3.2) K/mm3 Floyd # (Auto) 0.4 (0.1-0.6) K/mm3 Eos # (Auto) 0.2 (0-0.3) K/mm3 Baso # (Auto) 0.0 (0.0-0.1) K/mm3 Abs Immat Gran (auto) 0.01 (0.00-0.031) K/mm3 Absolute Neuts (auto) 3.9 (1.3-6.7) K/mm3 Absolute Nucleated RBC 0.000 (0.0-0.012) K/mm3 Nucleated RBC % 0.0 (0.0-0.2) % Sodium 137 (137-145) mmol/L Potassium 4.4 (3.4-5.0) mmol/L Chloride 106 (98-107) mmol/L Carbon Dioxide 26 (22-30) mmol/L Anion Gap 5 (4-12) mmol/L BUN 23 H D (7-17) mg/dL Creatinine 1.20 H (0.7-1.0) mg/dL Estim Creat Clear Calc 69 ml/min Estimated GFR 50 L (59 - ) Glucose 129 H (65-110) mg/dL Calcium 9.3 (8.4-10.2) mg/dL Magnesium 2.0 (1.6-2.3) mg/dL Total Bilirubin 0.5 (0.2-1.3) mg/dL AST 21 (14-36) U/L ALT 15 (6-35) U/L Alkaline Phosphatase 63 (38-126) U/L Total Protein 7.0 (6.3-8.2) g/dL Albumin 4.3 (3.5-5.1) g/dL Discharge Plan Discharge Clinical Impression: Dehydration, Neck pain Patient Disposition: Home, Self-Care Condition: Stable Instructions: Dehydration (ED) Additional Instructions: return ER if you have chest pain and shortness of breath, he can not keep down food water, you lose consciousness, or have additional concerns. Patient Language: Icelandic Prescriptions: No Action atorvastatin 10 mg tablet 10 mg PO DAILY prazosin 1 mg capsule 1 mg PO DAILY lisinopril 20 mg tablet 20 mg PO DAILY lamotrigine 25 mg tablet 25 mg PO DAILY pantoprazole 20 mg tablet,delayed release (DR/EC) 20 mg PO DAILY montelukast 10 mg tablet 10 mg PO DAILY prednisone 20 mg tablet See Rx Instructions .ROUTE .COMPLEX Qty: 9 0RF Rx Instructions: Take 40 mg daily for 3 days, 20 mg daily for 3 days doxycycline monohydrate 100 mg tablet 100 mg PO BID Qty: 14 0RF (DME) Aerochamber MV Spacer See Rx Instructions .Route Qty: 1 0RF Rx Instructions: As directed cyclobenzaprine 10 mg tablet 10 mg PO DAILY meloxicam 7.5 mg tablet 7.5 mg PO DAILY buspirone 10 mg tablet 10 mg PO DAILY metoprolol succinate 25 mg tablet extended release 24 hr 25 mg PO DAILY escitalopram oxalate 20 mg tablet 20 mg PO DAILY bupropion HCl 150 mg tablet extended release 24 hr 150 mg PO DAILY acetaminophen 500 mg capsule 1,000 mg PO Q6H PRN (Reason: pain) Qty: 20 0RF ibuprofen 600 mg tablet 600 mg PO TID PRN (Reason: pain) Qty: 20 0RF valacyclovir 1 gram tablet 1,000 mg PO Q8H 10 Days Qty: 30 0RF Follow-up/Referrals: María,CESAR Meneses [Primary Care Provider] - 1 Week
[2024-08-16 12:40] LABS: Alanine Aminotransferase 15 U/L (6-35); Albumin Level 4.3 g/dL (3.5-5.1); Alkaline Phosphatase 63 U/L (38-126); Anion Gap 5 mmol/L (4-12); Aspartate Amino Transferase 21 U/L (14-36); Bilirubin,Total 0.5 mg/dL (0.2-1.3); Blood Urea Nitrogen 23 mg/dL (7-17); Calcium 9.3 mg/dL (8.4-10.2); Carbon Dioxide 26 mmol/L (22-30); Chloride 106 mmol/L (98-107); Estimated CRCL calculation 69 ml/min; Estimated Glomerular Filt Rate 50; Glucose 129 mg/dL (65-110); Potassium 4.4 mmol/L (3.4-5.0); Sodium 137 mmol/L (137-145)
[2024-08-16] MEDS: SODIUM CHLORIDE 0.9% IV 1,000 ML 999 ML IV CONT (13:00)
--- NOTE | 2024-08-16 13:29 | ECG_ITS ---
Test Date: 2024-08-16 13:36:45 Measurements Intervals [place] Rate: 78 P: 53 DC: 125 QRS: 26 QRSD: 93 T: 44 QT: 358 QTc: 408 Interpretive Statements SINUS RHYTHM No previous ECG available for comparison Electronically Signed On 08-16-2024 14:24:02 WEB INTERFACE DEVELOPER by Dante Guzman M.D.
--- OUTSIDE RECORDS SUMMARY | 2024-08-23 17:12 | XMS_ITS | CONTINUITY OF CARE DOCUMENT ---
Author Name josé miguel valdez Address Unknown Organization [facility] Address [address] [place] [address] Phone [phone] Care Team Providers Care Newsstand Vendor Name Role Phone Mario Rodriguez MD Unavailable [phone] Mario Rodriguez MD Unavailable [phone] SIL SAUCEDO MD Unavailable [phone] INSURANCE PROVIDERS Payer name Policy type / Coverage type [place] [employer] green party ID [place] [employer] Medicare [id number] [facility] [id number]
--- OUTSIDE RECORDS SUMMARY | 2024-08-23 17:12 | XMS_ITS | Encounter Summary ---
Author Organization [facility] Address [address] [place] [address]. [place], [place] [id number] [place] [address] Care Team Providers Care Tanning Wheel Operator Name Role Phone Merlyn Jeffers MD Primary Care Provider [phone] Reason for Visit * Reason Comments Toe Pain Encounter Details Date Type Department Care Team (Late st Contact Info) Description 07/19/2020 12:02 PM PROCEDURE ANALYST - 07/19/2020 12:52 PM PROCEDURE ANALYST Emergency [facility] [place] [address] Sabrina Dimas, PASTING INSPECTOR- Toe Pain Discharge Disposition: Home or Self Care (Routine Discharge) Social History Tobacco Use Types Packs/Day Years Used Date Smoking Tobacco: Former Cigars Smokeless Tobacco: Never Comments:social Alcohol Use Standard Drinks/Week Comments Yes 0 (1 standard drink = 0.6 oz pur e alcohol) rare Comments No Sex and Gender Information Value Date Recorded Sex Assigned at Not on file Legal Sex Female 8:51 AM CDT Gender Identity Not on file Sexual Orientation Not on file COVID-19 Exposure Response Date Recorded In the last month, have you been in contact with someone who was confirmed or suspected to have Coronavirus / COVID-19? No / Unsure 07/19/2020 11:51 AM PROCEDURE ANALYST documented as of this encounter Last Filed Vital Signs Vital Sign Reading Time Taken Comments Blood Pressure 154/84 07/19/2020 11:58 AM PROCEDURE ANALYST Pulse 80 07/19/2020 11:58 AM PROCEDURE ANALYST Temperature 36.1 ??C (97 ??F) 07/19/2020 11:58 AM PROCEDURE ANALYST Respiratory Rate 16 07/19/2020 11:58 AM PROCEDURE ANALYST Oxygen Saturation 100% 07/19/2020 11:58 AM PROCEDURE ANALYST Inhaled Oxygen Concentration - - Weight 102.1 kg (225 lb) 07/19/2020 11:58 AM PROCEDURE ANALYST Height 165.1 cm (5' 5 ) 07/19/2020 11:58 AM PROCEDURE ANALYST Body Mass Index 37.44 07/19/2020 11:58 AM PROCEDURE ANALYST documented in this encounter Discharge Instructions * Discharge Instructions* SABRINA Green - 07/19/2020 12:45 PM PROCEDURE ANALYST As discussed, DO NOT pick at or vigorously scrub the area. Picking or scrubbing will only make the abscess worse and/or worsen the infection. Shower and wash gently, keep clean with soapy water. Towel dry and keep area clean and dry. Reapply bandage daily or more often if soiled. Apply warm moist heat for 20 minutes 4 x daily. Take the full course of antibiotics as prescribed. Follow up with primary care medical provider in 7-10 days, sooner if condition worsens. Call for appointment. Return to ER for worsening symptoms or problems. EDURE ANALYST * Attachments The following attachments cannot be sent through Care Everywhere. * Paronychia Discharge Instructions (Uzbek) documented in this encounter Medications at Time of Discharge albuterol sulfate HFA 108 (90 Base) MCG/ACT inhaler Inhale 2 puffs into the lungs every 6 (six) hours as needed for Wheezing. cloNIDine 0.1 MG tablet Take 0.1 mg by mouth 4 (four) times daily as needed. escitalopram 20 MG tablet Take 20 mg by mouth daily. loratadine 10 MG tablet Take 10 mg by mouth daily. naproxen 500 MG tablet Take 1 tablet (500 mg total) by mouth 2 (two) times daily with meals for 40 doses. Take with food 40 tablet 07/19/2020 08/08/2020 sulfamethoxazole- trimethoprim (BACTRIM DS) 800-160 MG tablet Take 1 tablet by mouth 2 (two) times daily for 5 days. 10 tablet 07/19/2020 07/24/2020 documented as of this encounter ED Notes * SABRINA Green - 07/19/2020 12:38 PM CST History Chief Complaint Patient presents with ??? Toe Pain Maryann Philippe is a 35-year-old female who presented to the ED with c/o right great toe pain. Patient states that she had an ingrown toenail approximately 1 week ago and remove part of it. She reports that now it is red, swollen, and painful. She states she has been putting bacitracin and a Band-Aid on it. She states it sore to the touch. She said no medications for pain. She denies fevers. Shedenies nausea/vomiting. Past Medical History: Diagnosis Date ??? Abnormal uterine bleeding (AUB) ??? Asthma allergies ??? Depression ??? Endometrial polyp ??? Generalized anxiety disorder Anxiety, Generalized depression ??? Hearing loss left ear ??? Migraine without status migrainosus, not intractable Migraine Prior to Admission medications Medication Sig Start Date End Date Taking? Authorizing Provider albuterol sulfate HFA 108 (90 Base) MCG/ACT inhaler Inhale 2 puffs into the lungs every 6 (six) hours as needed for Wheezing. Yes Doc Abstract cloNIDine 0.1 MG tablet Take 0.1 mg by mouth 4 (four) times daily as needed. Yes Doc Abstract escitalopram 20 MG tablet Take 20 mg by mouth daily. Yes Doc Abstract loratadine 10 MG tablet Take 10 mg by mouth daily. Yes Doc Abstract naproxen 500 MG tablet Take 1 tablet (500 mg total) by mouth 2 (two) times daily with meals for 40 doses. Take with food 07/19/20 08/08/20 Yes SABRINA Green sulfamethoxazole-trimethoprim (BACTRIM DS) 800-160 MG tablet Take 1 tablet by mouth 2 (two) times daily for 5 days. 07/19/20 07/24/20 Yes SABRINA Green Past Surgical History: Procedure Laterality Date ??? ADENOIDECTOMY ??? CREATE EARDRUM OPENING,GEN ANESTH EAR TUBES x4 ??? DENTAL PROCEDURE wisdom teeth ??? HYSTEROSCOPY,DX,SEP PROC HYSTEROSCOPY, DIAGNOSTIC ??? LAP,DIAGNOSTIC ABDOMEN LAPAROSCOPY ??? MYRINGOTOMY WITH TUBE INSERTION ??? REMOV ETHMOID SINUS,INTRANASAL,ANT ETHMOIDECTOMY ? ? REMOVAL ADENOIDS,PRIMARY,<12 Y/O ADENOIDECTOMY <12 YEARS OLD Family History Adopted: Yes Problem Relation Name Age of Onset ??? Diabetes Father Social History Tobacco Use ??? Smoking status: Former Smoker Types: Cigars ??? Smokeless tobacco: Never Used ??? Tobacco comment: social Substance Use Topics ??? Alcohol use: Yes Comment: rare ??? Drug use: No No LMP recorded. (Menstrual status: Oral Contraception). Review of Systems Constitutional: Negative for fever. Respiratory: Negative for cough, shortness of breath, wheezing and stridor. Cardiovascular: Negative for chest pain, palpitations and leg swelling. Gastrointestinal: Negative for abdominal pain. Skin: Positive for color change and wound. All other systems reviewed and are negative. Physical Exam Filed Vitals: 07/19/20 1158 BP: (!) 154/84 Pulse: 80 Resp: 16 Temp: 97 ??F (36.1 ??C) TempSrc: Oral SpO2: 100% Weight: 102.1 kg (225 lb) Height: 5' 5 (1.651 m) Physical Exam Constitutional: She is oriented to person, place, and time. She appears well- developed and well-nourished. HENT: Head: Normocephalic and atraumatic. Right Ear: External ear normal. Left Ear: External ear normal. Nose: Nose normal. Mouth/Throat: Oropharynx is clear and moist. Eyes: Pupils are equal, round, and reactive to light. Conjunctivae and EOM are normal. Neck: Normal range of motion. Neck supple. Cardiovascular: Normal rate, regular rhythm, normal heart sounds and intact distal pulses. Pulmonary/Chest: Effort normal and breath sounds normal. Abdominal: Soft. Bowel sounds are normal. Musculoskeletal: Normal range of motion. Neurological: She is alert and oriented to person, place, and time. Skin: Skin is warm and dry. There is erythema. Right great toe with medial aspect of the nailbed with erythema, mild edema, and tenderness upon palpation. Scant purulent drainage noted to to the medial aspect of the nailbed with scabbing present.2+ pedal pulses, cap refill < 2 secs. Sensation intact. Psychiatric: She has a normal mood and affect. Her behavior is normal. Thought content normal. Vitals reviewed. ED Course Procedures Plan of care discussed with patient. Patient agreeable with plan of care. I have discussed today's findings with the patient and provided information regarding the likely diagnosis. I believe at thistime that the patient has no medical emergency and is appropriate for outpatient management. The patient has been given information regarding their treatment, follow up and concerning symptoms for which they should seek urgent or emergent attention; all questions were answered. I have expressed thethe importance of seeking attention should there be any new, or worsening symptoms or persistence of their condition. The patient is stable at discharge and has verbalized understanding of these instructions. Medications - No data to display Current Discharge Medication List START taking these medications Details naproxen 500 MG tablet Take 1 tablet (500 mg total) by mouth 2 (two) times daily with meals for 40 doses. Take with food Qty: 40 tablet, Refills: 0 Class: Eprescribe Pharmacy: [facility]/pharmacy #[address] [place] [place] [address] - [address] [place] [address] (Ph #: [phone]) sulfamethoxazole-trimethoprim (BACTRIM DS) 800-160 MG tablet Take 1 tablet by mouth 2 (two) times daily for 5 days. Qty: 10 tablet, Refills: 0 Class: Eprescribe Pharmacy: [facility]/pharmacy [address] [place], [place] [address] (Ph #: [phone]) MDM Number of Diagnoses or Management Options Patient Progress Patient progress: stable SNOMED CT(R) 1. Onychia, toe, right ONYCHIA OF TOE OF RIGHT FOOT Disposition: Discharge Follow up instructions: Tarik Ramirez DPM [address] [facility] [address] [address] Call today call for a wound recheck SABRINA GREEN Please excuse any grammatical or spelling errors as this chart was documented using Zazoom, a dictation software. SABRINA Green 07/19/20 1246 Cosigned by Frank Najera MD at 07/19/2020 1:32 PM PROCEDURE ANALYST EDURE ANALYST EDURE ANALYST * Merlyn Mathias RN - 07/19/2020 11:57 AM CST Amb to ED with limp, c/o infected RT great toe x 1 week, pps 05/05, no pain meds taken. EDURE ANALYST documented in this encounter Plan of Treatment Not on file documented as of this encounter Visit Diagnoses Diagnosis Onychia, toe, right- Primary documented in this encounter Care Teams Tanning Wheel Operator Relationship Specialty Start Date End Date Merlyn Jeffers MD [facility] [place] [address] PCP - General FAMILY PRACTICE 07/19/20 documented as of this encounter
--- OUTSIDE RECORDS SUMMARY | 2024-08-23 17:12 | XMS_ITS | Clinical Summary ---
Author Organization [facility] Address [address] [facility] Attn: Epic Prelude ADT [place] [address] Care Team Providers Care Supervisor Receiving And Processing Name Role Phone Unavailable Primary Care Provider Unavailabl e Social History Tobacco Use Types Packs/Day Years Used Date Smoking Tobacco: Never Assessed Sex and Gender Information Value Date Recorded Sex Assigned at Not on file Gender Identity Not on file Sexual Orientation Not on file Plan of Treatment Health Maintenance Due Date Last Done Comments DTAP/TDAP/TD VACCINES (1 - Tdap) 01/24/2004 HEPATITIS B VACCINES (1 of 3 - 19+ 3-dose series) 01/24/2004 CERVICAL CANCER SCREENING 2015 INFLUENZA VACCINE (#1) 2024 HPV VACCINES Aged Out No longer eligi ble based on patient's age to complete this topic PNEUMOCOCCAL VACCINE 0-64 YEARS Aged Out No longer eligible based on patient's age to complete this topic
--- OUTSIDE RECORDS SUMMARY | 2024-08-23 17:12 | XMS_ITS | Encounter Summary ---
Author Organization [facility] Address [address] [place] [address]. [place], [place] [address] [place] [address] Care Team Providers Care Anhydrous Ammonia Production Supervisor Name Role Phone eMrlyn Jeffers MD Primary Care Provider [phone] Encounter Details Date Type Department Care Team (Latest Contact Info) Description 07/19/2020 Travel Social History Tobacco Use Types Packs/Day Years [...] COVID-19? No / Unsure 07/19/2020 11:51 AM DINING HOST documented as of this encounter Plan of Treatment Not on file documented as of this encounter Visit Diagnoses Not on filedocumented in this encounter Care Teams Anhydrous Ammonia Production Supervisor Relationship Specialty Start Date End Date Merlyn Jeffers MD [facility] [address] [place] [address] PCP - General FAMILY PRACTICE 07/19/20 documented as of this encounter
--- OUTSIDE RECORDS SUMMARY | 2024-08-23 17:12 | XMS_ITS | Encounter Summary ---
Author Organization [employer] [facility] Address [address] [place] [address] Care Team Providers Care Law Firm Administrator Name Role Phone Unavailable Primary Care Provider Unavailabl e Encounter Details Date Type Department Care Team (Late st Contact Info) Description 10/12/2004 Outpatient Historical HIS MRI DEPT Wilver Robledo MD [address] [address] OTOSCLEROSIS NOS (Primary Dx) Social History Tobacco Use Types Packs/Day Years Used Date Smoking Tobacco: Never Assessed Sex and Gender Information Value Date Recorded Sex Assigned at Not on file Gender Identity Not on file Sexual Orientation Not on file documented as of this encounter Plan of Treatment Not on file documented as of this encounter Visit Diagnoses Diagnosis Otosclerosis, unspecified- Primary documented in this encounter
--- OUTSIDE RECORDS SUMMARY | 2024-08-23 17:12 | XMS_ITS | Clinical Summary ---
Author Organization [facility] Address [facility]. [place], [place] [id number] [place] [id number] Care Team Providers Care Sports Statistician Name Role Phone Merlyn Jeffers MD Primary Care Provider [phone] Allergies Active Allergy Reactions Criticality Noted Date Comments Amoxicillin Hives High 04/30/2019 Tramadol Hallucinations Medium 04/30/2019 Medications escitalopram 20 MG tablet Take 20 mg by mouth daily. Active cloNIDine 0.1 MG tablet Take 0.1 mg by mouth 4 (four) times daily as needed. Active albuterol sulfate HFA 108 (90 Base) MCG/ACT inhaler Inhale 2 puffs into the lungs every 6 (six) hours as needed for Wheezing. Active loratadine 10 MG tablet Take 10 mg by mouth daily. Active Active Problems No known active problems Family History * Patient is adopted Medical History Relation Comments Diabetes Father Relation Status Comments Father Alive Mother Alive Social History Tobacco Use Types Packs/Day Years [...] on file Sexual Orientation Not on file Last Filed Vital Signs Vital Sign Reading Time Taken Comments Blood Pressure 154/84 07/19/2020 11:58 AM PHYSICIST [employer] Pulse 80 07/19/2020 11:58 AM PHYSIC[employer] Temperature 36.1 ??C (97 ??F) 07/19/2020 11:58 AM PHYSICIST [employer] Respiratory Rate 16 07/19/2020 11:58 AM PHYSICIST [employer] Oxygen Saturation 100% 07/19/2020 11:58 AM PHYSICIST [employer] Inhaled Oxygen Concentration - - Weight 102.1 kg (225 lb) 07/19/2020 11:58 AM PHYSICIST [employer] Height 165.1 cm (5' 5 ) 07/19/2020 11:58 AM PHYSICIST [employer] Body Mass Index 37.44 07/19/2020 11:58 AM PHYSICIST [employer] Plan of Treatment Health Maintenance Due Date Last Done Comments Cervical Cancer Screening Pa p Smear (Age 30 to 64) Every 3 Years 1985 Annual Physical 01/24/1988 Hepatitis C 2003 DTaP, Tdap and Td Vaccines ( 1 - Tdap) 01/24/2004 Hepatitis B Vaccines (1 of 3 - 19+ 3-dose series) 01/24/2004 Cervical Cancer Screening Pa p with HPV Testing (Age 30 to 64) Every 5 Years 2015 Cervical Cancer Screening with HPV 2015 COVID-19 Vaccine (2023-2 5 season) 2024 Influenza Adult (#1) 2024 HPV Vaccines Aged Out No longer eligi ble based on patient's age to complete this topic Meningococcal Vaccine Aged Out No jelly edmund eligible based on patient's age to complete this topic Pneumococcal Vaccine: Pediat rics (0 to 5 Years) and At-Risk Patients (6 to 64 Years) Aged Out No longer eligible b ased on patient's age to complete this topic RSV Immunizations Under 20 Months Aged Out No longer eligible based on patient's age to complete this topic Insurance MEDICAID Member Subscriber Plan / Payer (Ef fective 2019-Present) Name:Maryann Philippe Relation to Subscriber:Self Name:Maryann Philippe Payer ID:Not on file Group ID:Not on file Type:Not on file Address[facility] [address] [address] Advance Directives * Full Code (Latest Code Status on File) Date Activated Date Inactivated Comments 05/05/2019 10:16 AM 05/05/2019 1:31 PM Care Teams Sports Statistician Relationship Specialty Start Date End Date Merlyn Jeffers MD [facility] [address] [address] PCP - General FAMILY PRACTICE 07/19/20
--- OUTSIDE RECORDS SUMMARY | 2024-08-23 17:12 | XMS_ITS | Data Portability ---
Author Organization [facility] Address [address] [place] [address] Care Team Providers Care Baseball Coach Name Role Phone VENKATESH MARCELINO Primary Care Provider Assessment No assessment recorded. Plan of Treatment Reminders Order Date Submit Date Provider Last Modified By Organization Details Last Modified Time Details Appointments None recorded. Lab CBC w/ auto diff 2023 [facility] (Lab), [address] [place], [address], 4 04:07:54 CMP, serum or plasma 2023 024 [facility] (Lab), [address] [place], [address], 4 04:07:54 type + screen, serum 2023 024 [facility] (Lab), [address] [place], [address], 4 04:07:55 Referral None recorded. Procedures None recorded. Surgeries robotic assisted hysterectom y with salpingecto my (SURG) [address], [address], 4 16:35:16 oophorectom y (SURG) [address], [address] [place] [address], [address], 4 16:35:16 Imaging None recorded. Medication Orders None recorded. Patient TargetsNo targets recorded. Patient InstructionsNo instructions recorded. Reason for Referral None Reported. Problems Name Problem SNOMED Code Status Onset Date Resolution Date Notes Provider Name and Address Organization Details Recorded Time Finding of menstrual bleeding Active 2016 Excessive and frequent menstruati on with regular cycle;Matthew rded Elsewhere: No Locatio n: [facility] rce: EHR Chroni c: N Practice ID: [id number] Billa ble Time: 03:15:00 PM Not Available [facility] 0 17:42:43 Adult health 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 Active 2014 ROUTINE MEDICAL EXAM;Recor ded Elsewhere: No Locatio n: [facility] rce: EHR Chroni c: N Practice ID: [id number] Billa ble Time: 03:15:00 PM Not Available [facility] 0 17:42:43 Endometri osis (clinical ) 945840013 Active 2012 Endometrio sis, site unspecifie d;Recorded Elsewhere: No Locatio n: [facility] rce: EHR Chroni c: N Practice ID: [id number] Billa ble Time: 02:30:00 PM Not Available [facility] 0 17:42:43 Pre-surge ry evaluatio n Active 2012 Pre-operat hira examinatio n, unspecifie d;Recorded Elsewhere: No Locatio n: [facility] rce: EHR Chroni c: N Practice ID: [id number] Billa ble Time: 02:30:00 PM Not Available [facility] 0 17:42:43 Screening for malignant neoplasm of cervix Active 2012 Screening for malignant neoplasms of the cervix;Rec orded Elsewhere: No Locatio n: [facility] rce: EHR Chroni c: N Practice ID: [id number] Billa ble Time: 10:30:00 AM Not Available [facility] 0 17:42:43 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 care managemen t Active 2014 Encounter for other general counseling on procreatio n;Recorded Elsewhere: No Locatio n: [facility] rce: EHR Chroni c: N Practice ID: [id number] Billa ble Time: 03:00:00 PM Not Available [facility] 0 17:[facility]:[address] Concept Active 2016 Encntr for acquisition editor exam (general) (routine) w/o abn findings;R ecorded Elsewhere: No Locatio n: [facility] rce: EHR Chroni c: N Practice ID: [id number] Billa ble Time: 04:30:00 PM Not Available [facility] 0 17:42:43 Hypertrop hy of uterus 156473415 Active 2012 Hypertroph y of uterus;Rec orded Elsewhere: No Locatio n: [facility] rce: EHR Chroni c: N Practice ID: [id number] Billa ble Time: 02:00:00 PM Not Available [facility] 0 17:42:43 Body mass index 30+ - obesity 981795178 Active 2016 Body mass index (BMI) 33.0-33.9, adult;Matthew rded Elsewhere: No Locatio n: [facility] rce: EHR Chroni c: N Practice ID: [id number] Billa ble Time: 04:30:00 PM Not Available [facility] 0 17:42:43 Specializ ed medical 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 Active 2014 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 N;Recorded Elsewhere: No Locatio n: [facility] rce: EHR Chroni c: N Practice ID: 0001 Billa ble Time: 03:15:00 PM Not Available [facility] 0 17:42:43 Pain in female genitalia Active 2016 Dysmenorrh ea;Recorde d Elsewhere: No Locatio n: [facility] rce: EHR Chroni c: N Practice ID: 0001 Billa ble Time: 03:15:00 PM Not Available [facility] 0 17:42:43 Polyp of corpus uteri 33377775 Active 2012 Polyp of corpus uteri;Matthew rded Elsewhere: No Locatio n: [facility] rce: EHR Chroni c: N Practice ID: 0001 Billa ble Time: 05:00:00 PM Not Available [facility] 0 17:42:[address] Concept Active 2016 Encntr for general adult medical exam w/o abnormal findings;R ecorded Elsewhere: No Locatio n: [facility] rce: EHR Chroni c: N Practice ID: 0001 Billa ble Time: 04:30:00 PM Not Available [facility] 0 17:42:43 test negative 416294897 Active 2014 examinatio n or test, negative result;Rec orded Elsewhere: No Locatio n: [facility] rce: EHR Chroni c: N Practice ID: [id number] Billa ble Time: 03:15:00 PM Not Available [facility] 0 17:42:43 Obesity 223259456 Active 2014 Obesity;Re corded Elsewhere: No Locatio n: [facility] rce: EHR Chroni c: N Practice ID: 0001 Billa ble Time: 03:15:00 PM Not Available [facility] 0 17:42:43 Menstruat ion finding Active 2012 Excessive or frequent menstruati on;Recorde d Elsewhere: No Locatio n: [facility] rce: EHR Chroni c: N Practice ID: 0001 Billa ble Time: 02:30:00 PM Not Available [facility] 0 17:42:44 Radiology result abnormal 720861218 Active 2012 Nonspecifi c abnormal findings on radiologic al and other examinatio n of genitourin augustin organs;Rec orded Elsewhere: No Locatio n: [facility] rce: EHR Chroni c: N Practice ID: 0001 Billa ble Time: 04:30:00 PM Not Available [facility] 0 17:42:44 Female genital organ symptoms 391694428 Active 2012 Unspecifie d symptom associated with female genital organs;Pra ctice ID: 0001 Not Available [facility] 0 17:42:44 Postopera tive follow-up visit Active 2012 Follow-up examinatio n, following other surgery;Pr actice ID: 0001 Not Available [facility] 0 17:42:45 Problem Notes None recorded. Procedures Surgical History Date Name Laterality Status Provider Name and Address Organization Details Recorded Time 3 Date of Last Pap Smear completed [facility] 07/30/2024 15:37:48 0 Laparoscopy completed [facility] 07/30/2024 15:37:59 4 Other completed [facility] 07/30/2024 15:37:59 0 completed [facility] 07/30/2024 15:37:48 0 Date of Last Colonoscopy completed [facility] 07/30/2024 15:37:48 Imaging Results None recorded. Procedure Notes None recorded. Medical Equipment None Reported. Allergies Allergen ID Allergen Name Allergen Category Reaction Reaction Severity Criticality Documentation Date Start Date Code Code System Note Provider Name and Address Organization Details Recorded Time 77135 tramadol medicatio n palpitati ons severe Not available 08/12/2020 23389 [facility] 4 15:37:36 03598 amoxicill in medicatio n hives severe Not available 08/12/2020 723 [facility] 4 15:37:36 Medications Name Sig Start Date Stop Date Status Note LastModified by Organization Details LastModified Time cyclobenz aprine 10 mg tablet TAKE 1 TABLET BY MOUTH AT BEDTIME NEEDED FOR SPASM active Not Available Not Available No t Available Aviane 0.1 mg-20 mcg tablet take 1 tablet by oral route every day 06/01 completed Prescrib ed Elsewher e: No Locat ion: [facility] odify By: hortensia villalpando DateTime : 06/01/20 13 05:00:00 PM Not Available Not Available Not Available cetirizin e 10 mg tablet TAKE 1 TABLET BY MOUTH EVERY MORNING active Not Available Not Available No t Available atorvasta tin 10 mg tablet TAKE 1 TABLET BY MOUTH EVERY DAY AT BEDTIME FOR HIGH CHOLESTE ROL active Not Available Not Available No t Available valacyclo vir 1 gram tablet TAKE 1 TABLET BY MOUTH EVERY 8 HOURS FOR 10 DAYS active Not Available Not Available No t Available Loestrin 1.5/30 (21) 1.5 mg-30 mcg tablet take 1 tablet by oral route every day 07/30 completed Prescrib ed Elsewher e: No Locat ion: [facility] jena By: louise villalpando DateTime : 03/29/20 17 03:15:00 PM Not Available Not Available Not Available prazosin 1 mg capsule TAKE 1 CAPSULE BY MOUTH DAILY AT BEDTIME active Not Available Not Available No t Available lisinopri l 20 mg tablet TAKE 1 TABLET BY MOUTH EVERY MORNING active Not Available Not Available No t Available lamotrigi ne 25 mg tablet TAKE 2 TABLETS BY MOUTH DAILY 07/30 completed Not Available Not Available Not Available pantopraz ole 20 mg tablet,de layed release TAKE 1 TABLET BY MOUTH EVERY DAY DIRECTED active Not Available Not Available No t Available meloxicam 7.5 mg tablet TAKE 1 TABLET BY MOUTH TWICE DAILY NEEDED FOR PAIN active Not Available Not Available No t Available gabapenti n 300 mg capsule TAKE 1 CAPSULE BY MOUTH THREE TIMES DAILY NEEDED active Not Available Not Available No t Available monteluka st 10 mg tablet TAKE 1 TABLET BY MOUTH EVERY DAY IN THE MORNING active Not Available Not Available No t Available metoprolo l succinate ER 25 mg tablet,ex tended release 24 hr TAKE 1 TABLET BY MOUTH EVERY DAY IN THE MORNING active Not Available Not Available No t Available ibuprofen 600 mg tablet TAKE 1 TABLET BY MOUTH THREE TIMES DAILY NEEDED FOR PAIN active Not Available Not Available No t Available albuterol sulfate HFA 90 mcg/actua tion aerosol inhaler INHALE 2 PUFFS BY MOUTH EVERY 4 TO 6 HOURS DIRECTED active Not Available Not Available No t Available Vitamin D2 1,250 mcg (50,000 unit) capsule take 1 capsule by oral route every week 07/15 completed Prescrib ed Elsewher e: No Locat ion: [facility] odify By: [email or web address] trick En counter DateTime : 11/19/19 15 09:31:19 AM Not Available Not Available Not Available lamotrigi ne 100 mg tablet TAKE 1 TABLET BY MOUTH DAILY active Not Available Not Available No t Available Xanax 1 mg tablet take 1 tablet by oral route 3 times every day 07/30 completed Prescrib ed Elsewher e: Yes Loca tion: [facility] odify By: [email or web address] trick En counter DateTime : 11/11/19 15 03:15:00 PM Not Available Not Available Not Available buspirone 15 mg tablet TAKE 1 TABLET BY MOUTH TWICE DAILY active Not Available Not Available No t Available escitalop alia 20 mg tablet TAKE 1 TABLET BY MOUTH DAILY active Not Available Not Available No t Available bupropion HCl XL 300 mg 24 hr tablet, extended release TAKE 1 TABLET BY MOUTH DAILY IN THE MORNING active Not Available Not Available No t Available bupropion HCl XL 150 mg 24 hr tablet, extended release TAKE 1 TABLET BY MOUTH EVERY DAY IN THE MORNING 07/30 completed Not Available Not Available Not Available Lexapro 5 mg tablet take 1 tablet by oral route every day 07/30 completed Prescrib ed Elsewher e: Yes Loca tion: [facility] odify By: [email or web address] trick En counter DateTime : 11/11/19 15 03:15:00 PM Not Available Not Available Not Available duloxetin e 20 mg capsule,d elayed release TAKE 1 CAPSULE BY MOUTH DAILY FOR 7 DAYS. INCREASE TO 2 CAPSULES 40 MG DAILY 30 DAYS 07/30 completed Not Available Not Available Not Available duloxetin e 60 mg capsule,d elayed release active Not Available Not Available Not Available Nicki 30 mg/5 mL oral suspensio n 11/10 completed Prescrib ed Elsewher e: Yes Loca tion: [facility] odify By: [email or web address] trick En counter DateTime : 04/10/20 13 10:30:00 AM Not Available Not Available Not Available ProChambe r USE DIRECTED 07/30 completed Not Available Not Available Not Available Lo Loestrin Fe 1 mg-10 mcg (24)/10 mcg (2) tablet take 1 tablet by oral route every day 11/18 completed Prescrib nydia Rao e: No Locat ion: [facility] M odify By: louise villalpando DateTime : 11/15/19 05:37:55 PM Not Available Not Available Not Available duloxetin e 60 mg capsule,d elayed release sprinkle 07/30 completed Not Available Not Available Not Available Vitals Date Recorded Body height Body mass index (BMI) Body weight Systolic blood pressure Diastolic blood pressure Provider Name and Address Organization Details Last Updated DateTime 07/30/2024 165.1 cm 40.3 kg/m2 043861.3 5 g 115 mm[Hg] 78 mm[Hg] Марина Guy [facility] 15:37:31 Social History Question Answer Notes LastModified by Organizat ion Details LastModified Time Do You Have An Advance Directive? No Information not available 07/30/2024 What Is Your Level Of Alcohol Consumption? Occasional Information not available 07/30/2024 How Many Years Have You Consumed Alcohol? 18 Information not available 07/30/2024 Are You Blind Or Do You Have Difficulty Seeing? No Information not available 07/30/2024 What Is Your Level Of Caffeine Consumption? Heavy Information not available 07/30/2024 How Much Tobacco Do You Chew? None Information not available 07/30/2024 In The 14 Days Before Symptom Onset, Have You Had Close Contact With A Laboratory-confir med COVID-19 While That Case Was Ill? No Information not available 07/30/2024 In The 14 Days Before Symptom Onset, Have You Had Close Contact With A Person Who Is Under Investigation For COVID-19 While That Person Was Ill? No Information not available 07/30/2024 Have You Been To An Area Known To Be High Risk For COVID-19? Yes Information not available 07/30/2024 Are You Deaf Or Do You Have Serious Difficulty Hearing? Yes Information not available 07/30/2024 What Type Of Diet Are You Following? SPECIFIC Information not available 07/30/2024 What Is The Highest Grade Or Level Of School You Have Completed Or The Highest Degree You Have Received? 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 No Information not available 07/30/2024 Do You Use Protection During Sex? No Information not available 07/30/2024 Do You Use Your Seat Belt Or Car Seat Routinely? Yes Information not available 07/30/2024 Do You Have Smoke And Carbon Monoxide Detectors In Your Home? Yes Information not available 07/30/2024 At What Age Did You Start Smoking Tobacco? 22 Information not available 07/30/2024 How Much Tobacco Do You Smoke? No Information not available 07/30/2024 Do You Feel Stressed (tense, Restless, Nervous, Or Anxious, Or Unable To Sleep At Night)? [id number] Information not available 07/30/2024 Do You Use Any Illicit Or Recreational Drugs? Yes Information not available 07/30/2024 Do You Use Sunscreen Routinely? Yes Information not available 07/30/2024 How Many Years Have You Smoked Tobacco? 2 Information not available 07/30/2024 Have You Used IV Drugs? No Information not available 07/30/2024 Sex: Unknown Functional Status Question Answer Note LastModified by Organization D etails LastModified Time Are you able to walk? YESWOREST Information not available 07/30/2024 What is your exercise level? Moderate Information not available 07/30/2024 Mental Status None recorded. Family History Relationship Description Onset Age of this Age Resolved Age Notes LastModified by Organization Details LastModified Time Father No current problems or disability Not available 07/30 15:41:38 Mother No current problems or disability Not available 07/30 15:41:38 Notes:Sister: Endometriosis, Asthma Medical History Condition Response Allergies (Food, seasonal, environmental ) N Other N Breast Cancer N Drug/Latex Allergies/Reactions N Blood Transfusion N Dermatologic Disorders N Lung Disease N Defects or Inherited Disease N Breast Problem N Gestational Diabetes N Hematologic disorders N Anesthesia Complications N History of STI Y Deep Vein Thrombosis N Polycystic ovary syndrome N Anxiety Disorder Y Autoimmune disease N Arthritis N Infertility N Polyps N Acid Reflux (GERD) N History of abnormal pap Y Cancer N Stroke N Varicosities N Neurologic/Epilepsy N Endometriosis Y High Cholesterol Y Headaches N Fibromyalgia N Kidney Disease N Heart Problems N Kidney or Bladder Problems N Thyroid Problems N GI Problems N Eating Disorder N Anemia N Art (IVF or FET) N Psychiatric Illness N Ovarian Cancer N Diabetes N Pulmonary (TB, Asthma) N Hepatitis/Liver Disease N No Past Medical History N Eczema N Urinary Tract Infection N Abuse/Domestic Violence N Asthma N Trauma/Violence N Depression/ depression Y Heart Disease N Pre-Eclampsia N Hypertension Y Osteoporosis N Thrombophilias N Gynecological History Statement/Question Response Flow Heavy Date of LMP 07/20/2024 N Was last menstrual period normal N STIs/STDs N Date of control 08/26/2019 Date of Last Colonoscopy 2010 Multiple Methods Desired Control Method Hysterectom y Abnormal Pap N On BCP's at Conception? N HPV Vaccine N Duration of Flow (days) 10 Current Control Method None Are cycles usually normal N Frequency of Cycle (Q days) 14 Sexually Active? Y Menses Monthly Y Age of first menstrual cycle 13 Date of Last Pap Smear 04/26/2023 Sexual Problems? N LMP Approximate 2010 N Obstetrics History GPAL:G 0 P 0 0 0 0 Past Encounters Encounter ID Performer Location Encounter Start Date Encounter Closed Date Diagnosis/Indication Diagnosis SNOMED-CT Code Diagnosis ICD10 Code [id number] Frederick Cantu MD [facility] [address] [address] 07/30/2024 14:38:08 07/30/2024 16:36:13 Menorrhagia 399914427 N92.0 Health Concerns Section Related Observation LastModified by Organization Detai ls LastModified Time None Recorded Concern Status LastModified by Organization Details LastModified Time None Recorded Advance Directives Directive N: Payers Encounter Date Sequence Insurance Name Policy Number Policy Mcclendon Covered Member ID Mcclendon Member ID Guarantor Name 07/30/2024 1 [facility] [id number] Maryann Philippe [id number] Maryann Philippe Notes Date Note Type Note Provider Name and Address Organization Details Recorded Time 07/30/2024 text/html This patient is a 39-year-old female presents for heavy vaginal bleeding. She has longstanding very heavy bleeding. Her menses are regular. However, they require double protection. Patient has accidents, getting blood on her bedding and clothing. Is affected work. She changes a pad or tampon every hour. She leaks blood around the pad and tampon. This bleeding has a profound impact on her quality of life and her activities of daily living. history of endometriosis. would like definitive treatment. we discussed medical treatments in detail. We discussed ablation and surgical procedures. She would like definitive surgical treatment. We agreed to proceed with total laparoscopic hysterectomy bilateral salpingectomy with left oophorectomy. I spent over 30 minutes in total on the care of this patient. Frederick Cantu MD [address], [place], [address], [facility] 07/30/2024 16:35:33 OBGyn Episode No OBEpisode recorded.
--- OUTSIDE RECORDS SUMMARY | 2024-08-23 17:12 | XMS_ITS | Continuity of Care Document ---
Author Organization [facility] Address [address] [place] [address] Care Team Providers Care Steam And Power Superintendent Name Role Phone VENKATESH MARCELINO Primary Care Provider [phone] Assessment No assessment recorded. Plan of Treatment Reminders Order Date Submit Date Provider Last Modified By Organization Details Last Modified Time Details Appointments None recorded. Lab CBC w/ auto diff 2023 [facility] (Lab), [address] [place], [address], 4 04:07:54 CMP, serum or plasma 2023 024 [facility] (Lab), [address] [place], [address], 4 04:07:54 type + screen, serum 2023 024 [facility] (Lab), [address] [place], [address], 4 04:07:55 Referral None recorded. Procedures None recorded. Surgeries robotic assisted hysterectom y with salpingecto my (SURG) [address], [address], 4 16:35:16 oophorectom y (SURG) [address], [facility] [address], [address], 4 16:35:16 Imaging None recorded. Medication Orders None recorded. Patient TargetsNo targets recorded. Patient InstructionsNo instructions recorded. Reason for Referral None Reported. Problems Name Problem SNOMED Code Status Onset Date Resolution Date Notes Provider Name and Address Organization Details Recorded Time Finding of menstrual bleeding Active 2016 Excessive and frequent menstruati on with regular cycle;Matthew rded Elsewhere: No Locatio n: [facility] rce: EHR Chroni c: N Practice ID: 0001 Billa ble Time: 03:15:00 PM Not Available [facility] 0 17:42:43 Adult health 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 Active 2014 ROUTINE MEDICAL EXAM;Recor ded Elsewhere: No Locatio n: [facility] rce: EHR Chroni c: N Practice ID: 0001 Billa ble Time: 03:15:00 PM Not Available [facility] 0 17:42:43 Endometri osis (clinical ) 880211341 Active 2012 Endometrio sis, site unspecifie d;Recorded Elsewhere: No Locatio n: [facility] rce: EHR Chroni c: N Practice ID: 0001 Billa ble Time: 02:30:00 PM Not Available [facility] 0 17:42:43 Pre-surge ry evaluatio n Active 2012 Pre-operat hira examinatio n, unspecifie d;Recorded Elsewhere: No Locatio n: [facility] rce: EHR Chroni c: N Practice ID: 0001 Billa ble Time: 02:30:00 PM Not Available [facility] 0 17:42:43 Screening for malignant neoplasm of cervix Active 2012 Screening for malignant neoplasms of the cervix;Rec orded Elsewhere: No Locatio n: [facility] rce: EHR Chroni c: N Practice ID: 0001 Billa ble Time: 10:30:00 AM Not Available [facility] 0 17:42:43 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 care 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 t Active 2014 Encounter for other general counseling on procreatio n;Recorded Elsewhere: No Locatio n: [facility] rce: EHR Chroni c: N Practice ID: 0001 Billa ble Time: 03:00:00 PM Not Available [facility] 0 [facility] Concept Active 2016 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) (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) w/o abn findings;R ecorded Elsewhere: No Locatio n: [facility] rce: EHR Chroni c: N Practice ID: 0001 Billa ble Time: 04:30:00 PM Not Available [facility] 0 17:42:43 Hypertrop hy of uterus 772691177 Active 2012 Hypertroph y of uterus;Rec orded Elsewhere: No Locatio n: [facility] rce: EHR Chroni c: N Practice ID: 0001 Billa ble Time: 02:00:00 PM Not Available [facility] 0 17:42:43 Body mass index 30+ - obesity 922882923 Active 2016 Body mass index (BMI) 33.0-33.9, adult;Matthew rded Elsewhere: No Locatio n: [facility] rce: EHR Chroni c: N Practice ID: 0001 Billa ble Time: 04:30:00 PM Not Available [facility] 0 17:42:43 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 ed medical 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 Active 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;Recorded Elsewhere: No Locatio n: [facility] rce: EHR Chroni c: N Practice ID: 0001 Billa ble Time: 03:15:00 PM Not Available [facility] 0 17:42:43 Pain in female genitalia Active 2016 Dysmenorrh ea;Recorde d Elsewhere: No Locatio n: [facility] rce: EHR Chroni c: N Practice ID: 0001 Billa ble Time: 03:15:00 PM Not Available [facility] 0 17:42:43 Polyp of corpus uteri 59942000 Active 2012 Polyp of corpus uteri;Matthew rded Elsewhere: No Locatio n: [facility] rce: EHR Chroni c: N Practice ID: 0001 Billa ble Time: 05:00:00 PM Not Available [facility] 0 17:42:[address] Concept Active 2016 Encntr for general adult medical exam w/o abnormal findings;R ecorded Elsewhere: No Locatio n: [facility] rce: EHR Chroni c: N Practice ID: 0001 Billa ble Time: 04:30:00 PM Not Available [facility] 0 17:42:43 test negative 640197997 Active 2014 examinatio n or test, negative result;Rec orded Elsewhere: No Locatio n: [facility] rce: EHR Chroni c: N Practice ID: 0001 Billa ble Time: 03:15:00 PM Not Available [facility] 0 17:42:43 Obesity 292762135 Active 2014 Obesity;Re corded Elsewhere: No Locatio n: [facility] rce: EHR Chroni c: N Practice ID: 0001 Billa ble Time: 03:15:00 PM Not Available [facility] 0 17:42:43 Menstruat ion finding Active 2012 Excessive or frequent menstruati on;Recorde d Elsewhere: No Locatio n: [facility] rce: EHR Chroni c: N Practice ID: 0001 Billa ble Time: 02:30:00 PM Not Available [facility] 0 17:42:44 Radiology result abnormal 710319167 Active 2012 Nonspecifi c abnormal findings on radiologic al and other examinatio n of genitourin augustin organs;Rec orded Elsewhere: No Locatio n: [facility] rce: EHR Chroni c: N Practice ID: 0001 Billa ble Time: 04:30:00 PM Not Available [facility] 0 17:42:44 Female genital organ symptoms 725164226 Active 2012 Unspecifie d symptom associated with female genital organs;Pra ctice ID: 0001 Not Available [facility] 0 17:42:44 Postopera tive follow-up visit Active 2012 Follow-up examinatio n, following other surgery;Pr actice ID: 0001 Not Available [facility] 0 17:42:45 Problem Notes None recorded. Procedures Surgical History Date Name Laterality Status Provider Name and Address Organization Details Recorded Time 3 Date of Last Pap Smear completed [facility] 07/30/2024 15:37:48 0 Laparoscopy completed [facility] 07/30/2024 15:37:59 4 Other completed [facility] 07/30/2024 15:37:59 0 completed [facility] 07/30/2024 15:37:48 0 Date of Last Colonoscopy completed [facility] 07/30/2024 15:37:48 Imaging Results None recorded. Procedure Notes None recorded. Medical Equipment None Reported. Allergies Allergen ID Allergen Name Allergen Category Reaction Reaction Severity Criticality Documentation Date Start Date Code Code System Note Provider Name and Address Organization Details Recorded Time 77912 tramadol medicatio n palpitati ons severe Not available 08/12/2020 24510 [facility]Norm [facility] 4 15:37:36 71467 amoxicill in medicatio n hives severe Not available 08/12/2020 723 [facility] 4 15:37:36 Medications Name Sig [...] Prescrib ed Elsewher e: No Locat ion: [place] [facility] odify By: hortensia villalpando DateTime : [...] Prescrib ed Elsewher e: No Locat ion: [facility] odify By: louise villalpando DateTime : 03/29/20 17 [...] Elsewher e: No Locat ion: [place] [facility] odify By: [email or web address] trick En counter DateTime : 11/19/19 15 09:31:19 AM Not Available Not Available Not Available lamotrigi ne 100 mg tablet TAKE 1 TABLET BY MOUTH DAILY active Not Available Not Available No t Available Xanax 1 mg tablet take 1 tablet by oral route 3 times every day 07/30 completed Prescrib ed Elsewher e: Yes [facility] By: [email or web address] trick En counter DateTime : 11/11/19 15 03:15:00 PM Not Available Not Available Not Available buspirone 15 mg tablet TAKE 1 TABLET BY MOUTH TWICE DAILY active Not Available Not Available No t Available escitalop laia 20 mg tablet TAKE 1 TABLET BY [...] Prescrib ed Elsewher e: Yes Loca tion: [facility] odify By: [email or web address] trick En counter [...] Prescrib ed Elsewher e: Yes Loca tion: [facility] odify By: [email or web address] trick En counter DateTime : 04/10/20 13 10:30:00 AM Not Available Not Available Not Available ProChambe r USE DIRECTED 07/30 completed Not Available Not Available Not Available Lo Loestrin Fe 1 mg-10 mcg (24)/10 mcg (2) tablet take 1 tablet by oral route every day 11/18 completed Prescrib nydia Rao e: No Locat ion: [facility] odify By: louise villalpando DateTime : 11/15/19 17 05:37:55 PM Not Available Not Available Not Available duloxetin e 60 mg capsule,d elayed release sprinkle 07/30 completed Not Available Not Available Not Available Vitals Date Recorded Body height Body mass index (BMI) Body weight Systolic blood pressure Diastolic blood pressure Provider Name and Address Organization Details Last Updated DateTime 07/30/2024 165.1 cm 40.3 kg/m2 935342.3 5 g 115 mm[Hg] 78 mm[Hg] Марина Guy [facility] 15:37:31 Social History Question Answer Notes [...] Or The Highest Degree You Have Received? 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 [id number] Information not available 07/30/2024 Do You Use [...] N Drug/Latex Allergies/Reactions N Blood Transfusion N Lung Disease N Dermatologic Disorders N Defects or Inherited Disease N Breast [...] Diagnosis/Indication Diagnosis SNOMED-CT Code Diagnosis ICD10 Code [id number] Frederick Cantu MD [place] [address] [address] 07/30/2024 14:38:08 07/30/2024 16:36:13 Menorrhagia 329878274 N92.0 Health Concerns Section Related Observation LastModified by Organization Detai ls LastModified Time None Recorded Concern Status LastModified by Organization Details LastModified Time None Recorded Payers Encounter Date Sequence Insurance Name Policy Number Policy Mcclendon Covered Member ID Mcclendon Member ID Guarantor Name 07/30/2024 1 [facility] [id number] Maryann Philippe [id number] Maryann Philippe Notes Date Note Type Note [...] patient. Frederick Cantu MD [address], [place], [address], [facility] 07/30/2024 16:35:33 OBGyn Episode No OBEpisode recorded.
--- OUTSIDE RECORDS SUMMARY | 2024-08-23 17:12 | XMS_ITS | Encounter Summary ---
Author Organization [facility] Address [address] [place] [address]. [place], [place] [id number] [place] [id number] Care Team Providers Care Carbon Paper Machine Operator Name Role Phone None, Provider Primary Care Provider Arnulfo ware Encounter Details Date Type Department Care Team (Latest Contact Info) Description 05/13/2019 Abstract [facility] , Generic MD Parminder Social History Tobacco Use Types Packs/Day Years Used Date Smoking Tobacco: Some Days Cigars Smokeless Tobacco: Never Comments:social Alcohol Use Standard Drinks/Week Comments Yes 0 (1 standard drink = 0.6 oz pur e alcohol) social Comments No Sex and Gender Information Value Date Recorded Sex Assigned at Not on file Legal Sex Female 8:51 AM CDT Gender Identity Not on file Sexual Orientation Not on file documented as of this encounter Last Filed Vital Signs Vital Sign Reading Time Taken Comments Blood Pressure 118/68 05/13/2019 1:52 PM CDT Pulse - - Temperature - - Respiratory Rate - - Oxygen Saturation - - Inhaled Oxygen Concentration - - Weight 91.2 kg (201 lb) 05/13/2019 1:52 PM CDT Height 165.1 cm (5' 5 ) 05/13/2019 1:52 PM CDT Body Mass Index 33.45 05/13/2019 1:52 PM CDT documented in this encounter Progress Notes * Trista Patterson MD - 05/13/2019 12:00 AM CDT CHIEF COMPLAINT The Chief Complaint is: Pt. here for post-op #1-TW. HISTORY OF PRESENT ILLNESS Maryann Philippe is a 34 year old female. ? Medication list reviewed ?? Allergy list reviewed ?? Medication reconciliation performed ?? No symptoms Pt presents s/p hysteroscopy d&c for AUB. Doing well. States developed a UTI andwent to ED on 05/09 @ [facility] and received 7 day course of cipro. No pelvic pain or bleeding CURRENT MEDICATION ? cloNIDine HCl ER 0.1MG Oral Tablet Extended Release 12 Hour 0.1 MG 0 days, 0 refills ? Lexapro 20MG Oral Tablet 20 MG 0 days, 0 refills ? Ortho Micronor 0.35MG Oral Tablet 0.35 MG one once daily, 28 days, 11 refills PAST MEDICAL/SURGICAL HISTORY Reported: LMP: 05/07/2019, Last pap smear date 03/2018 result: abnormal, and Contraception: Surgical / Procedural: Prior surgery Adnoids 1994 Exploritory Left ear 1996 Colon/endoscopy 2009 Endometriosis 2010 Uterian polyp 2013 [place] teeth 2002 Tubes (3 sets) [id number] and recent surgery HYSTEROCOPY and D&C-05/05/19. : 0 and para 0. Diagnoses: Asthma. Depression Anxiety disorder NOS Allergies . SOCIAL HISTORY Behavioral: Cigarette smoking and smoking status: Current everyday smoker. Alcohol: Alcohol use alcohol use: 2 drinks or less per day. Drug Use: Not using drugs. Sexual: Sexually active. ALLERGIES ? Amoxicillin 250 MG Oral Capsule, conventional ? tramadol 50mg Oral Capsule, conventional FAMILY HISTORY Pt is adopted. Pt states there is a family hx of diabetes, depression, anxiety, bipolar, endometriosis, cancers, pneumonia. --ALS No malignant neoplasm of large intestine Malignant female breast neoplasm pts aunt and uncle No malignant neoplasm of the ovary PHYSICAL FINDINGS ? Vitals taken 05/13/2019 01:52 pm BP-Sitting L 118/68 mmHg Height 65 in Weight 201 lbs Body Mass Index 33.4 kg/m2 Body Surface Area 1.98 m2 General Appearance: ?? Well developed. ?? Well nourished. ?? In no acute distress. ASSESSMENT ? Follow-up exam following other surgery THERAPY ? Clinical summary provided to patient. DISCUSSED Discussed benign pathology results Discussed OCP for management of AUB- patient will start ortho micronor Complete abx RTC in 1 year for annual exam or CANDIDA Leroy MD. HEALTH REMINDERS ? Assess Alcohol Use satisfied 04/29/2019. ? Assess BMI satisfied 05/13/2019. ? Assess Tobacco Use satisfied 04/29/2019. ? Blood Pressure Measurement satisfied 05/13/2019. Trista Patterson M.D. Electronically signed by: Trista Patterson Date: 05/13/2019 14:18 documented in this encounter Plan of Treatment Not on file documented as of this encounter Visit Diagnoses Not on filedocumented in this encounter Care Teams Carbon Paper Machine Operator Relationship Specialty Start Date End Date None, Provider, PCP - General 05/01/19 07/18/20 documented as of this encounter
--- OUTSIDE RECORDS SUMMARY | 2024-08-23 17:13 | XMS_ITS | Encounter Summary ---
Author Organization [facility] Address [address] [place] [address]. 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 Name Role Phone None, Provider Primary Care Provider Unavaila ble Reason for Referral * Imaging (Emergency) - Closed Specialty Diagnoses / Procedures Referred By Contac t Referred To Contact RADIOLOGY Procedures CT ABD+PEL W IV CON ONLY Mimi Schreiber MD [address] [place] [address] [place] [address] Phone: tel: fax: Referral ID Status Reason Start Date Expiration Date Visits Re quested Visits Authorized [id number] Closed 05/09/2019 06/08/2020 1 1 Reason for Visit * Reason Comments Abdominal Pain Flank Pain Encounter Details Date Type Department Care Team (Late st Contact Info) Description 05/09/2019 7:12 PM CDT - 05/09/2019 9:36 PM CDT Emergency [facility] [address] [place] [address] [place] [address] Mimi Schreiber MD [address] [place] [address] [address] [place] [id number] Abdominal Pain; Flank Pain Discharge Disposition: Home or Self Care [...] Sign Reading Time Taken Comments Blood Pressure 135/80 05/09/2019 9:08 PM CDT Pulse 80 05/09/2019 9:08 PM CDT Temperature 36.7 ??C (98.1 ??F) 05/09/2019 9:08 PM CD T Respiratory Rate 18 05/09/2019 9:08 PM CDT Oxygen Saturation 99% 05/09/2019 9:08 PM CDT Inhaled Oxygen Concentration - - Weight - - Height - - Body Mass Index - - documented in this encounter Discharge Instructions * Discharge Instructions* Mimi Schreiber MD - 05/09/2019 9:22 PM CDT Return to the ER as needed or if symptoms get any worse Follow-up with OB and primary care physician next week. Call for appointment to discuss about abnormal CT results and visit to the emergency room. Antibiotic as instructed with food for 7 days. Rleq-rbo-[id number] probiotics daily. Plenty of fluids. * Attachments The following attachments cannot be sent through Care Everywhere. * Urinary Tract Infections in Adults ([place]) * Mesenteric Lymphadenitis Discharge Instructions ([place]) documented in this encounter Medications at Time of Discharge albuterol sulfate HFA 108 (90 Base) MCG/ACT inhaler Inhale 2 puffs into the lungs every 6 (six) hours as needed for Wheezing. cloNIDine 0.1 MG tablet Take 0.1 mg by mouth 4 (four) times daily as needed. escitalopram 20 MG tablet Take 20 mg by mouth daily. cephALEXin 500 MG capsule Take 500 mg by mouth 4 (four) times daily. 07/19/2020 ciprofloxacin (CIPRO) 500 MG tablet Take 1 tablet (500 mg total) by mouth 2 (two) times daily for 7 days. 14 tablet 05/09/2019 05/16/2019 docusate sodium 100 MG capsule Take 1 capsule (100 mg total) by mouth 2 (two) times daily as needed for Constipation. 60 capsule 1 05/05/2019 05/15/2019 ibuprofen 800 MG tablet Take 1 tablet (800 mg total) by mouth every 8 (eight) hours as needed for Pain. 40 tablet 05/05/2019 05/15/2019 documented as of this encounter ED Notes * Delma Parson RN - 05/09/2019 8:00 PM CDT PATIENT PRESENTS TO THE ER VIA WALK IN WITH COMPLAINT OF ABDOMINAL PAIN AND FLANK PAIN. PATIENT STSSYMPTOMS DEVELOPED Saturday. PT STATES ON Saturday SHE HAD A D/C PROCEDURE, AND HAD A PALMA PLACED.PT STATES SINCE THEN SHE HAS HAD EXTREME BELLY PAIN AND FLANK PAIN WITH TENDERNESS. PT STATES SHE HAS MILD VAGINAL BLEEDING. PATIENT ASSESSMENT REVEALED PATIENT IN NO ACUTE DISTRESS, ALERT AND ORIENTED X 4, PINK WARM DRY, LUNGS CLEAR IN ALL EDMONDS, AND PUPILS PERRL. BOWEL SOUNDS ACTIVE IN ALL FOUR QUADRANTS, ABDOMEN SOFT, TENDER, LEFT SIDED FLANK PAIN. * Mimi Schreiber MD - 05/09/2019 7:14 PM CDT I, nathanael Calix, am personally taking down the notes in the presence of Mimi Schreiber MD.?Take no action on this note until reviewed and authenticated??by the physician. Chief Complaint Chief Complaint Patient presents with ??? Abdominal Pain History of Present Illness Maryann Philippe is a 34-year-old female who presents to the ED for evaluation of left sided abdominal pain with associated left flank pain that has been began 3 days ago. The patient reports that she had a D&C done 4 days ago that was performed by a doctor from [facility]. The patient also complainsof increase in urinary frequency, fever and chills. The patient denies any nausea, vomiting, and dysuria. The patient does not report any further symptoms upon examination. Medical History ALLERGIES: Allergies Allergen Reactions ??? Amoxicillin Hives ??? Tramadol Hallucinations MEDICATIONS: Prior to Admission medications Medication Sig Start Date End Date Taking? Authorizing Provider ciprofloxacin (CIPRO) 500 MG tablet Take 1 tablet (500 mg total) by mouth 2 (two) times daily for 7days. 05/09/19 05/16/19 Yes Mimi Schreiber MD albuterol sulfate HFA 108 (90 Base) MCG/ACT inhaler Inhale 2 puffs into the lungs every 6 (six) hours as needed for Wheezing. Doc Abstract cephALEXin 500 MG capsule Take 500 mg by mouth 4 (four) times daily. Doc Abstract cloNIDine 0.1 MG tablet Take 0.1 mg by mouth 4 (four) times daily as needed. Doc Abstract docusate sodium 100 MG capsule Take 1 capsule (100 mg total) by mouth 2 (two) times daily as neededfor Constipation. 05/05/19 05/15/19 Trista Patterson MD escitalopram 20 MG tablet Take 20 mg by mouth daily. Doc Abstract ibuprofen 800 MG tablet Take 1 tablet (800 mg total) by mouth every 8 (eight) hours as needed for Pain. 05/05/19 05/15/19 Trista Patterson MD PAST MEDICAL HISTORY: Past Medical History: Diagnosis Date ??? Abnormal uterine bleeding (AUB) ??? Asthma allergies ??? Depression ??? Endometrial polyp ??? Generalized anxiety disorder Anxiety, Generalized depression ??? Migraine without status migrainosus, not intractable Migraine PAST SURGICAL HISTORY: Past Surgical History: Procedure Laterality Date ??? CREATE EARDRUM OPENING,GEN ANESTH EAR TUBES x4 ??? DENTAL PROCEDURE wisdom teeth ??? HYSTEROSCOPY,DX,SEP PROC HYSTEROSCOPY, DIAGNOSTIC ??? LAP,DIAGNOSTIC ABDOMEN LAPAROSCOPY ??? REMOV ETHMOID SINUS,INTRANASAL,ANT ETHMOIDECTOMY ? ? REMOVAL ADENOIDS,PRIMARY,<12 Y/O ADENOIDECTOMY <12 YEARS OLD FAMILY HISTORY: No family history on file. SOCIAL HISTORY: Social History Tobacco Use ??? Smoking status: Current Some Day Smoker Types: Cigars ??? Smokeless tobacco: Never Used ??? Tobacco comment: social Substance Use Topics ??? Alcohol use: Yes Comment: social ??? Drug use: No Review of Systems Review of Systems Constitutional: Positive for chills and fever. HENT: Negative. Eyes: Negative. Respiratory: Negative. Cardiovascular: Negative. Gastrointestinal: Positive for abdominal pain. Negative for nausea and vomiting. Endocrine: Negative. Genitourinary: Positive for flank pain and frequency. Negative for dysuria. Skin: Negative. Allergic/Immunologic: Negative. Neurological: Negative. Hematological: Negative. Psychiatric/Behavioral: Negative. All other systems reviewed and are negative. Physical Exam Filed Vitals: 05/09/19 1907 05/09/19 2108 BP: 138/83 135/80 Pulse: 78 80 Resp: 18 18 Temp: 98.1 ??F (36.7 ??C) 98.1 ??F (36.7 ??C) TempSrc: Oral Tympanic SpO2: 98% 99% Physical Exam Constitutional: She is oriented to person, place, and time. She appears well- developed and well-nourished. No distress. HENT: Head: Normocephalic and atraumatic. Mouth/Throat: Oropharynx is clear and moist. Eyes: Conjunctivae and EOM are normal. Pupils are equal, round, and reactive to light. Neck: Neck supple. No thyromegaly present. Cardiovascular: Normal rate, regular rhythm, normal heart sounds and intact distal pulses. No murmur heard. Pulmonary/Chest: Effort normal and breath sounds normal. No respiratory distress. Abdominal: Soft. Bowel sounds are normal. She exhibits no mass. There is tenderness in the suprapubic area, left upper quadrant and left lower quadrant. There is CVA tenderness (left). Musculoskeletal: She exhibits no edema or deformity. Lymphadenopathy: She has no cervical adenopathy. Neurological: She is alert and oriented to person, place, and time. No cranial nerve deficit. Skin: Skin is warm and dry. Psychiatric: She has a normal mood and affect. Her behavior is normal. Nursing note and vitals reviewed. Diagnostic Studies / Procedures ELECTROCARDIOGRAMS: No results found for this visit on 05/09/19. LABORATORY STUDIES: Results for orders placed or performed during the hospital encounter of 05/09/19 URINALYSIS WI REFLEX TO CULTURE Result Value Ref Range Specimen Type URINE VOIDED COLOR YELLOW TRANSPARENCY HAZY Specific [place] (U) 1.010 1.002 - 1.035 U PH 6.0 5.0 - 9.0 LEUKOCYTE ESTERASE 1+ (A) NEGATIVE NITRITES NEGATIVE NEGATIVE PROTEIN, URINE NEGATIVE NEGATIVE URINE GLUCOSE NEGATIVE NEGATIVE U KETONES NEGATIVE NEGATIVE UROBILINOGEN < 2.0 0 - 1 EU/DL Urine Bilirubin NEGATIVE NEGATIVE BLOOD 3+ (A) NEGATIVE CULTURE & SENSITIVITY INDICATED? CULTURE IS INDICATED WBC/HPF 10-20 /HPF RBC/HPF FILLED FIELD /HPF SQUAMOUS EPITHELIALS MODERATE CBC W/DIFF AUTOMATED Result Value Ref Range WBC 8.0 3.6 - 10.6 x10'3/uL RBC 4.55 3.71 - 5.17 x10'6/uL HGB 12.5 12.0 - 15.0 G/DL HCT 37.8 35.0 - 49.0 % MCV 83.1 81.0 - 99.0 FL MCH 27.5 27.0 - 34.0 PG MCHC 33.1 32.0 - 36.0 G/DL RDW 13.4 11.5 - 14.5 % PLT 224 150.0 - 450.0 x10'3/uL MPV 10.5 7.0 - 12.0 FL DIFFERENTIAL TYPE AUTOMATED SEG NEUTROPHILS 54.4 % LYMPHOCYTES 37.4 % MONOCYTES 5.2 % EOSINOPHILS 2.4 % BASOPHILS 0.5 % IMMATURE GRANS 0.1 % NRBC 0.0 % ABS. NEUTROPHILS 4.33 1.7 - 7.0 x10'3/uL ABS. LYMPHOCYTES 2.97 (H) 0.90 - 2.90 x10'3/uL ABS. MONOCYTES 0.41 0.30 - 0.90 x10'3/uL ABS. EOSINOPHILS 0.19 0.05 - 0.50 x10'3/uL ABS. BASOPHILS 0.04 0.00 - 0.30 x10'3/uL ABS. IMMATURE GRANULOCYTES 0.01 0.00 - 0.03 x10'3/uL ABS. NUCLEATED RBC'S 0.00 0.00 x10'3/uL COMPREHENSIVE METABOLIC PANEL Result Value Ref Range SODIUM 141 136 - 145 MMOL/L POTASSIUM 3.6 3.6 - 5.0 MMOL/L CHLORIDE 108 (H) 98 - 107 MMOL/L CO2 27.3 21.0 - 32.0 MMOL/L GLUCOSE 76 74 - 106 MG/DL BUN 15 7 - 18 MG/DL CREATININE 0.79 0.55 - 1.02 MG/DL CALCIUM 9.2 8.5 - 10.1 MG/DL TOTAL BILIRUBIN 0.2 0.2 - 1.0 MG/DL ALK PHOS 59 37 - 98 U/L AST 8 (L) 15 - 37 U/L ALT 11 (L) 13 - 56 U/L TOTAL PROTEIN 7.0 6.4 - 8.2 G/DL ALBUMIN 3.5 3.4 - 5.0 G/DL ANION GAP 5.7 5 - 15 MMOL/L OSMOLALITY (CALC) 292 MOSM/KG eGFR Non-Afr. Amer. >90 >90 ML/MIN/1.73 M2 eGFR Afr. Amer. >90 >90 ML/MIN/1.73 M2 GFR NOTES THE ESTIMATED GFR IS CALCULATED USING THE 2009 CKD-EPI EQUATION. THE FOLLOWING CATEGORIES FOR GRADING RENAL FUNCTION ARE RECOMMENDED BY THE INTERNATIONAL SOCIETY OF NEPHROLOGY (KDIGO 2012 CLINICAL PRACTICE GUIDELINE). LACTIC ACID - SINGLE Result Value Ref Range LACTIC ACID 0.9 0.4 - 2.0 MMOL/L LIPASE Result Value Ref Range LIPASE 114 73 - 393 UNITS/L IMAGING STUDIES CT ABD+PEL W IV CON ONLY Final Result by User, [id number] (05/09 2109) EXAMINATION: CT ABDOMEN AND PELVIS WITH CONTRAST HISTORY: Left-sided flank and abdominal pain. Recent D&C. COMPARISON: None Available. TECHNIQUE: 3 mm axial images were obtained through the abdomen and pelvis following the administration of 100 MLS of ISOVUE-370 intravenous contrast through an existing IV line. Additional sagittal & coronal reconstructions were performed. FINDINGS: ABDOMEN: Imaging of the lung bases demonstrates no airspace consolidation or effusions. Liver: Normal in size and CT density. No masses. Spleen: Normal size and CT density. Pancreas: Normal size and CT density. No duct dilatation. No masses. Adrenal Glands: Normal in size and CT density. No masses. Gallbladder and bile ducts: Normal in appearance. No duct dilatation. Kidneys: Normal shape, size and position. No right or left hydronephrosis. Symmetric perfusion. No masses. Aorta: Patent. Normal in caliber. IVC: Patent. Normal in caliber. GI Tract: No small bowel obstruction. Multiple enlarged central mesenteric lymph nodes with the largest measuring up to 1.5 cm. No ascites or pneumoperitoneum is seen. PELVIS: Colon: Normal in caliber and appearance without focal inflammatory changes. Appendix: Not distinctly visualized. Urinary Bladder: Well distended. Uterus & Adnexa: Unremarkable. No pelvic free fluid, hematoma, mass or adenopathy. BONES: No distinct destructive bony lesions. IMPRESSION: 1. Multiple nonspecific enlarged central mesenteric lymph nodes which can be seen with mesenteric adenitis and enteritis in the appropriate clinical setting. 2. No bowel obstruction or acute inflammation. 3. No acute obstructive uropathy. A radiation dose lowering technique was used for this procedure, which may include, but is not limited to, dose reduction technique, automated exposure control, the use of iterative reconstruction, ALARA (As Low As Reasonably Achievable) techniques, and Image Gently techniques. Interpreted By: Jameel Yin MD, 05/09/2019 9:03 PM ED Course / Medical Decision Making Clinical Impression Urinary tract infection (Primary) Mesenteric lymphadenitis Urine shows a blood along with leukocyte esterase and WBCs. CT scan of abdomen and pelvis showed nonspecific mesenteric adenitis otherwise negative for any other acute abnormalities. No stone or obstruction. Cipro 500 mg 1 p.o. twice daily for 7 days with food. Plenty of fluids. Further follow-up with PCP next week to discuss about the abnormal CT results and follow-up on UTI. Return to the ER ifsymptoms get any worse. All questions answered. Continue to follow-up with [facility] as well. Disposition: Discharge Hope Jones Sidhu, 05/09/19, 20:00. Provider Attestation: I, Mimi Schreiber MD personally Performed the services described in this documentation. All Medical record entries made by the scribe were at my direction and in my presence. I have reviewed the chart and agree that the record reflects my personal performance and is accurate and complete. MIMI SCHREIBER MD, 05/09/19, 21:22 Mimi Schreiber MD 05/09/192121 * Judson Uribe RN - 05/09/2019 7:12 PM CDT Bed: 20 Expected date: Expected time: Means of arrival: Comments: Next patient * Tong Pedro RN - 05/09/2019 7:07 PM CDT Patient presents to ed with complaint on left side abd pain & flank pain onset Saturday. Patient sts having d&c procedure Saturday. Patient in no acute distress at this time. A&ox4 documented in this encounter Plan of Treatment Not on file documented as of this encounter Procedures Procedure Name Priority Date/Time Associated Diagnosis Comments CT ABD+PEL W CON STAT 05/09/2019 8:43 PM CDT LACTIC ACID TIMED 05/09/2019 8:34 PM CDT COMPREHENSIVE METABOLIC PANEL STAT 05/09/2019 8:33 PM CDT CBC W/DIFF AUTOMATED STAT 05/09/2019 8:33 PM CDT LIPASE STAT 05/09/2019 8:33 PM CDT URINALYSIS WI REFLEX TO CULTURE STAT 05/09/2019 7:05 PM CDT URINE BACTERIA CULTURE Routine 9 7:05 PM CDT documented in this encounter Results * CT ABD+PEL W IV CON ONLY (05/09/2019 8:43 PM CDT) Anatomical Region Laterality Modality Abdomen Computed Tomogra phy 05/09/2019 9:03 PM CDT Impressions 05/09/2019 9:08 PM CDT IMPRESSION: 1. Multiple nonspecific enlarged central mesenteric lymph nodes which can be seen with mesenteric adenitis and enteritis in the appropriate clinical setting. 2. No bowel obstruction or acute inflammation. 3. No acute obstructive uropathy. A radiation dose lowering technique was used for this procedure, which may include, but is not limited to, dose reduction technique, automated exposure control, the use of iterative reconstruction, ALARA (As Low As Reasonably Achievable) techniques, and Image Gently techniques. Interpreted By: Jameel Yin MD, 05/09/2019 9:03 PM Narrative 05/09/2019 9:08 PM CDT EXAMINATION: CT ABDOMEN AND PELVIS WITH CONTRAST HISTORY: Left-sided flank and abdominal pain. ??Recent D&C. COMPARISON: None Available. TECHNIQUE: 3 mm axial images were obtained through the abdomen and pelvis following the administration of 100 MLS of ISOVUE-370 intravenous contrast through an existing IV line. Additional sagittal & coronal reconstructions were performed. FINDINGS: ABDOMEN: Imaging of the lung bases demonstrates no airspace consolidation or effusions. Liver: Normal in size and CT density. No masses. Spleen: Normal size and CT density. Pancreas: Normal size and CT density. No duct dilatation. No masses. Adrenal Glands: Normal in size and CT density. No masses. Gallbladder and bile ducts: Normal in appearance. No duct dilatation. Kidneys: Normal shape, size and position. No right or left hydronephrosis. Symmetric perfusion. No masses. Aorta: Patent. Normal in caliber. IVC: Patent. Normal in caliber. ?? GI Tract: No small bowel obstruction. Multiple enlarged central mesenteric lymph nodes with the largest measuring up to 1.5 cm. No ascites or pneumoperitoneum is seen. PELVIS: Colon: Normal in caliber and appearance without focal inflammatory changes. Appendix: Not distinctly visualized. Urinary Bladder: Well distended. Uterus & Adnexa: Unremarkable. No pelvic free fluid, hematoma, mass or adenopathy. BONES: No distinct destructive bony lesions. Procedure Note Jonathon Yin MD - 05/09/2019 EXAMINATION: CT ABDOMEN AND PELVIS WITH CONTRAST HISTORY: Left-sided flank and abdominal pain. Recent D&C. COMPARISON: None Available. TECHNIQUE: 3 mm axial images were obtained through the abdomen and pelvis followingthe administration of 100 MLS of ISOVUE-370 intravenous contrast throughan existing IV line. Additional sagittal & coronal reconstructions wereperformed. FINDINGS: ABDOMEN: Imaging of the lung bases demonstrates no airspace consolidation oreffusions. Liver: Normal in size and CT density. No masses. Spleen: Normal size and CT density. Pancreas: Normal size and CT density. No duct dilatation. No masses. Adrenal Glands: Normal in size and CT density. No masses. Gallbladder and bile ducts: Normal in appearance. No duct dilatation. Kidneys: Normal shape, size and position. No right or left hydronephrosis.Symmetric perfusion. No masses. Aorta: Patent. Normal in caliber. IVC: Patent. Normal in caliber. GI Tract: No small bowel obstruction. Multiple enlarged central mesenteric lymph nodes with the largestmeasuring up to 1.5 cm. No ascites or pneumoperitoneum is seen. PELVIS: Colon: Normal in caliber and appearance without focal inflammatorychanges. Appendix: Not distinctly visualized. Urinary Bladder: Well distended. Uterus & Adnexa: Unremarkable. No pelvic free fluid, hematoma, mass or adenopathy. BONES: No distinct destructive bony lesions. IMPRESSION: 1. Multiple nonspecific enlarged central mesenteric lymph nodes which canbe seen with mesenteric adenitis and enteritis in the appropriate clinicalsetting. 2. No bowel obstruction or acute inflammation. 3. No acute obstructive uropathy. A radiation dose lowering technique was used for this procedure, which mayinclude, but is not limited to, dose reduction technique, automatedexposure control, the use of iterative reconstruction, ALARA (As Low AsReasonably Achievable) techniques, and Image Gently techniques. Interpreted By: Jameel Yin MD, 05/09/2019 9:03 PM us Mimi Schreiber MD CT Final Result * LACTIC ACID - SINGLE (05/09/2019 8:34 PM CDT) LACTIC ACID VENOUS 0.9 0.4 - 2.0 MMOL/L 05/09/2019 9:02 PM CDT [facility] 05/09/2019 8:34 PM CDT us Mimi Schreiber MD LABORATORY Final Result [facility] [address] [place] [address], * LIPASE (05/09/2019 8:33 PM CDT) LIPASE 114 73 - 393 UNITS/L 05/09/2019 8:54 PM CDT [facility] 05/09/2019 8:33 PM CDT us Mimi Schreiber MD LABORATORY Final Result [facility] [address] [place] [id number], * (ABNORMAL) COMPREHENSIVE METABOLIC PANEL (05/09/2019 8:33 PM CDT) SODIUM S/P/B 141 136 - 145 MMOL/L 05/09/2019 9:00 PM CDT [facility] POTASSIUM S/P/B 3.6 3.6 - 5.0 MMOL/L 05/09/2019 9:00 PM T [facility] CHLORIDE S/P/B 108(H) 98 - 107 MMOL/L 05/09/2019 9:00 PM CDT [facility] CO2 27.3 21.0 - 32.0 MMOL/L 05/09/2019 9:00 PM T [facility] GLUCOSE 76 74 - 106 MG/DL 05/09/2019 9:00 PM T [facility] BUN 15 7 - 18 MG/DL 05/09/2019 9:00 PM T [facility] CREATININE S/P/B 0.79 0.55 - 1.02 MG/DL 05/09/2019 9:00 PM T [facility] CALCIUM S/P/B 9.2 8.5 - 10.1 MG/DL 05/09/2019 9:00 PM T [facility] BILIRUBIN TOTAL S/P/B 0.2 0.2 - 1.0 MG/DL 05/09/2019 9:00 PM T [facility] ALKALINE PHOSPHATASE S/P/B 59 37 - 98 U/L 05/09/2019 9:00 PM T [facility] AST 8(L) 15 - 37 U/L 05/09/2019 9:00 PM [facility] ALT 11(L) 13 - 56 U/L 05/09/2019 9:00 PM [facility] TOTAL PROTEIN S/P/B 7.0 6.4 - 8.2 G/DL 05/09/2019 9:00 PM [facility] ALBUMIN S/P/B 3.5 3.4 - 5.0 G/DL 05/09/2019 9:00 PM [facility] ANION GAP 5.7 5 - 15 MMOL/L 05/09/2019 9:00 PM [facility] Comment:PLEASE NOTE: Potassi um has been eliminated from the anion gap calculation OSMOLALITY (CALC) 292 MOSM/KG 05/09/2019 9:00 PM [facility] EGFR NON-AFR. AMER. >90 >90 ML/MIN/1 .73 M2 05/09/2019 9:00 PM [facility] EGFR AFR. AMER. >90 >90 ML/MIN/1 .73 M2 05/09/2019 9:00 PM [facility] GFR NOTES THE ESTIMATED GFR IS CALCULATED USING THE 2009 CKD-EPI EQUATION. THE FOLLOWING CATEGORIES FOR GRADING RENAL FUNCTION ARE RECOMMENDED BY THE INTERNATIONAL SOCIETY OF NEPHROLOGY (KDIGO 2012 CLINICAL PRACTICE GUIDELINE). 05/09/2019 9:00 PM [facility] Comment: G1,NORMAL OR HIGH: >89 ml/min/1.73 m2 G2,MILDLY DECREASED: 60-89 ml/min/1.73 m2 G3A,MILDLY TO MODERATELY DECREASED: 45-59 ml/min/1.73 m2 G3B,MODERATELY TO SEVERELY DECREASED: 30-44 ml/min/1.73 m2 G4,SEVERELY DECREASED: 15-29 ml/min/1.73 m2 G5,KIDNEY FAILURE: <15 ml/min/1.73 m2 05/09/2019 8:33 PM CDT Mimi Schreiber MD LABORATORY Final Result [facility] [address] [id number], * (ABNORMAL) CBC W/DIFF AUTOMATED (05/09/2019 8:33 PM CDT) [facility] WBC 8.0 3.6 - 10.6 x10'3/uL 05/09/2019 8:40 PM CDT [facility] RBC 4.55 3.71 - 5.17 x10'6/uL 05/09/2019 8:40 PM CDT [facility] HGB 12.5 12.0 - 15.0 G/DL 05/09/2019 8:40 PM CDT [facility] HCT 37.8 35.0 - 49.0 % 05/09/2019 8:40 PM CDT [facility] MCV 83.1 81.0 - 99.0 FL 05/09/2019 8:40 PM CDT [facility] MCH 27.5 27.0 - 34.0 PG 05/09/2019 8:40 PM CDT [facility] MCHC 33.1 32.0 - 36.0 G/DL 05/09/2019 8:40 PM CDT [facility] RDW 13.4 11.5 - 14.5 % 05/09/2019 8:40 PM CDT [facility] PLT 224 150.0 - 450.0 x10'3/uL 05/09/2019 8:40 PM CDT [facility] MPV 10.5 7.0 - 12.0 FL 05/09/2019 8:40 PM CDT [facility] DIFFERENTIAL TYPE AUTOMATED 05/09/2019 8:40 PM CDT [facility] SEG NEUTROPHILS 54.4 % 9 8:40 PM T [facility] LYMPHOCYTES 37.4 % 05/09/2019 8:40 PM T [facility] MONOCYTES 5.2 % 05/09/2019 8:40 PM T [facility] EOSINOPHILS 2.4 % 05/09/2019 8:40 PM T [facility] BASOPHILS 0.5 % 05/09/2019 8:40 PM T [facility] IMMATURE GRANS % 0.1 % 05/09/20 19 8:40 PM T [facility] NRBC 0.0 % 05/09/2019 8:40 PM [facility] ABS. NEUTROPHILS 4.33 1.7 - 7.0 x10'3/uL 05/09/2019 8:40 PM T [facility] ABS. LYMPHOCYTES 2.97(H) 0.90 - 2.90 x10'3/uL 05/09/2019 8:40 PM T [facility] ABS. MONOCYTES 0.41 0.30 - 0.90 x10'3/uL 05/09/2019 8:40 PM [facility] ABS. EOSINOPHILS 0.19 0.05 - 0.50 x10'3/uL 05/09/2019 8:40 PM T [facility] ABS. BASOPHILS 0.04 0.00 - 0.30 x10'3/uL 05/09/2019 8:40 PM [facility] ABS. IMMATURE GRANULOCYTES 0.01 0.00 - 0.03 x10'3/uL 05/09/2019 8:40 PM [facility] ABS. NUCLEATED RBC'S 0.00 0.00 x10'3/uL 05/09/2019 8:40 PM [facility] [facility] 05/09/2019 8:33 PM CDT Mimi Schreiber MD LABORATORY Final Result [facility] [address] [place] [address], [place] [phone] * CULTURE URINE (05/09/2019 7:05 PM CDT) SPEC DESCRIPTION URINE VOIDED 05/09/2019 7:23 PM CDT [facility] SPECIAL REQUESTS NO SPECIAL REQUEST 05/09/2019 7:23 PM CDT [facility] CULTURE RESULT NO SIGNIFICANT GROWTH 05/11/2019 8:24 AM CDT [facility] URINE SPECIMEN FROM URETHRA / Unknown 05/09/2019 7:05 PM CDT 05/09/2019 7:22 PM CDT Donell Daly MD MICROBIOLOGY - GENERAL [facility] Final Result [facility] [address] [place] [address], * (ABNORMAL) URINALYSIS WI REFLEX TO CULTURE (05/09/2019 7:05 PM CDT) SPECIMEN TYPE URINE VOIDED 9 7:12 PM CDT [facility] COLOR (U) YELLOW 05/09/2019 7:22 PM CDT [facility] TRANSPARENCY HAZY 05/09/2019 7:22 PM CDT [facility] SPECIFIC GRAVITY (U) 1.010 1.002 - 1.035 05/09/2019 7:22 PM CDT [facility] U PH 6.0 5.0 - 9.0 05/09/2019 7:22 PM CDT [facility] LEUKOCYTES (U) 1+(A) NEGATIVE 05/09/2019 7:22 PM [facility] NITRITES NEGATIVE NEGATIVE 05/09/2019 7:22 PM [facility] PROTEIN (U) NEGATIVE NEGATIVE 05/09/2019 7:22 PM [facility] URINE GLUCOSE NEGATIVE NEGATIVE 05/09/2019 7:22 PM [facility] KETONES MG/DL (U) NEGATIVE NEGATIVE 05/09/2019 7:22 PM [facility] UROBILINOGEN < 2.0 0 - 1 EU/DL 05/09/2019 7:22 PM [facility] BILIRUBIN (U) NEGATIVE NEGATIVE 05/09/2019 7:22 PM [facility] BLOOD (U) 3+(A) NEGATIVE 05/09/2019 7:22 PM [facility] CULTURE & SENSITIVITY INDICATED? CULTURE IS INDICATED 05/09/2019 7:22 PM [facility] WBC/HPF 10-20 /HPF 05/09/2019 7:22 PM [facility] RBC/HPF FILLED FIELD /HPF 05/09/2019 7:22 PM [facility] SQUAMOUS EPITHELIALS MODERATE 05/09/2019 7:22 PM [facility] URINE SPECIMEN FROM URETHRA / Unknown 05/09/2019 7:05 PM CDT us Donell Daly MD URINE ORDERABLES Final Resu lt [facility] [address] 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 PRN Medication Order 05/07/2019 05/08/2019 05/09/2019 iopamidol (ISOVUE-370) 76 % injection 100 mL (COMPLETED) 100 mL, Intravenous, IMG once as needed, Contrast, 1 dose, Starting on 05/09/19 at 2043, Until 05/09/19 at 2043 2043 (Given - Provid er: Mila Byrd RTJoe) documented in this encounter Care Teams Linoleum Tile Floor Layer Relationship Specialty Start Date End Date None, Provider, PCP - General 05/01/19 07/18/20 documented as of this encounter
--- OUTSIDE RECORDS SUMMARY | 2024-08-23 17:13 | XMS_ITS | Encounter Summary ---
Author Organization [facility] Address [facility]. [place], [place] [id number] [place] [id number] Care Team Providers Care Sales And Service Change Leader Name Role Phone None, Provider Primary Care Provider Merlyn Walter MD Primary Care Provider [phone] Encounter Details Date Type Department Care Team (Latest Contact Info) Description 05/07/2019 Abstract [facility] Trista Patterson MD [address] [place] [address] Social History Tobacco Use Types Packs/Day Years [...] on file documented as of this encounter Miscellaneous Notes * Letter - Trista Patterson MD - 05/07/2019 12:00 AM CDT [facility] [address] [place], [place] [address] Date: 05-07-2019 Maryann Philippe [address] [place] [id number] D.O.B: 1985 Dear: Maryann The result of your recent lab work was normal. If you have any questions please call our office at . Sincerely, Trista Patterson M.D. documented in this encounter Plan of Treatment Not on file documented as of this encounter Visit Diagnoses Not on filedocumented in this encounter Care Teams Sales And Service Change Leader Relationship Specialty Start Date End Date None, Provider, PCP - General 05/01/19 07/18/20 Merlyn Jeffers MD [facility] [id number] [address] PCP - General FAMILY PRACTICE 07/19/20 documented as of this encounter
--- OUTSIDE RECORDS SUMMARY | 2024-08-23 17:13 | XMS_ITS | Encounter Summary ---
Author Organization [facility] Address [facility]. [place], [place] [address] [place] [address] Care Team Providers Care Gynaecological Oncologist Name Role Phone None, Provider Primary Care Provider Arnulfo ware Encounter Details Date Type Department Care Team (Latest Contact Info) Description 05/01/2019 Abstract [facility] , Generic Conversion, Social History Tobacco Use Types Packs/Day Years Used Date Smoking Tobacco: Some Days Cigars Smokeless Tobacco: Never Alcohol Use Standard Drinks/Week Comments Yes 0 (1 standard drink = 0.6 oz pur e alcohol) social Comments Unknown Sex and Gender Information Value Date Recorded Sex Assigned at Not on file Legal Sex Female 8:51 AM CDT Gender Identity Not on file Sexual Orientation Not on file documented as of this encounter Plan of Treatment Not on file documented as of this encounter Visit Diagnoses Not on filedocumented in this encounter Care Teams Gynaecological Oncologist Relationship Specialty Start Date End Date None, Provider, PCP - General 05/01/19 07/18/20 documented as of this encounter
--- OUTSIDE RECORDS SUMMARY | 2024-08-23 17:13 | XMS_ITS | Encounter Summary ---
Author Organization [facility] Address [address] [place] [address]. [place], [place] [id number] [place] [address] Care Team Providers Care Wire Products Inspector Name Role Phone None, Provider Primary Care Provider Unavaila ble Reason for Visit * Reason Comments Generic Orders (SCAN) Encounter Details Date Type Department Care Team ([facility] Contact Info) Description 05/05/2019 Scan [facility]ALTH INFO [facility] Scanned, Documents Generic Orders (SCAN) Social History Tobacco Use Types Packs/Day Years [...] Procedure Name Priority Date/Time Associated Diagnosis Comments GENERIC ORDERS (SCAN ORDER) Routine 05/05/2019 documented in this encounter Results * GENERIC ORDERS (OTHER ORDERS TAB) (05/05/2019) us Documents Scanned SCANNING Final Result documented in this encounter Visit Diagnoses Not on filedocumented in this encounter Care Teams Wire Products Inspector Relationship Specialty Start Date End Date None, Provider, PCP - General 05/01/19 07/18/20 documented as of this encounter
--- OUTSIDE RECORDS SUMMARY | 2024-08-23 17:13 | XMS_ITS | Encounter Summary ---
Author Organization [facility] Address [facility]. [place], [place] [phone] [place] [address] Care Team Providers Care Easement Worker Name Role Phone None, Provider Primary Care Provider Arnulfo ware Encounter Details Date Type Department Care Team (Latest Contact Info) Description 05/05/2019 Abstract [facility] , Generic Conversion, Social [...] on filedocumented in this encounter Care Teams Easement Worker Relationship Specialty Start Date End Date None, Provider, PCP - General 05/01/19 07/18/20 documented as of this encounter
--- OUTSIDE RECORDS SUMMARY | 2024-08-23 17:13 | XMS_ITS | Encounter Summary ---
Author Organization [facility] Address [facility]. [place], [place] [id number] [place] [address] Care Team Providers Care Die Tripper Name Role Phone None, Provider Primary Care Provider Unavaila ble Reason for Visit * Reason Comments Image (SCAN) Encounter Details Date Type Department Care Team (Latest Contact Info) Description 05/08/2019 Scan [facility] Scanned, Documents Image (SCAN) Social History Tobacco Use Types Packs/Day [...] Procedure Name Priority Date/Time Associated Diagnosis Comments MAMMOGRAM GENERIC (SCAN ORDER) Routine 05/08/2019 documented in this encounter Results * MAMMOGRAM (05/08/2019) Anatomical Region Laterality Modality Other us Documents Scanned SCANNING Final Result documented in this encounter Visit Diagnoses Not on filedocumented in this encounter Care Teams Die Tripper Relationship Specialty Start Date End Date None, Provider, PCP - General 05/01/19 07/18/20 documented as of this encounter
--- OUTSIDE RECORDS SUMMARY | 2024-08-23 17:13 | XMS_ITS | Encounter Summary ---
Author Organization [facility] Address [facility] [address] [place] [address] Care Team Providers Care General Practice Name Role Phone None, Provider MD Primary Care Provider Unavaila ble Reason for Visit * Auth/Cert Specialty Diagnoses / Procedures Referred By Vijay t Referred To Contact Diagnoses ABNORMAL UTERINE BLEEDING,ENDOMETRIAL POLYP N93.8,N84.0 Procedures HYSTEROSCOPY DILATATION & CURETTAGE Referral ID Status Reason Start Date Expiration Date Visits Re quested Visits Authorized [id number] 1 1 Encounter Details Date Type Department Care Team (Latest Contact Info) Description 05/05/2019 7:23 AM CDT - 05/05/2019 11:26 AM CDT Hospital Encounter [place] [address] [place] [address] Trista Chavez MD [address] [place] [address] Discharge Disposition: Home or Self Care (Routine [...] Sign Reading Time Taken Comments Blood Pressure 136/75 05/05/2019 9:55 AM CDT Pulse 77 05/05/2019 9:50 AM CDT Temperature 36.8 ??C (98.2 ??F) 05/05/2019 9:50 AM CD T Respiratory Rate 16 05/05/2019 8:04 AM CDT Oxygen Saturation 100% 05/05/2019 10:45 AM CDT Inhaled Oxygen Concentration - - Weight 93.4 kg (206 lb) 05/05/2019 8:04 AM CDT Height 165.1 cm (5' 5 ) 05/05/2019 8:04 AM CDT Body Mass Index 34.28 05/05/2019 8:04 AM CDT documented in this encounter Discharge Instructions * Discharge Instructions* Delores Rasmussen RN - 05/05/2019 10:18 AM CDT No drinking alcohol, driving, or making legal decisions for 24 due to anesthesia. Continue regular diet, advance as tolerated. No intercourse until bleeding subsides. Call for Temperature greater than 100.4 times 2, or Bleeding greater than 1 max jia pad per hour, or Abdominal pain not controlled on your pain medication. * Attachments The following attachments cannot be sent through Care Everywhere. * Dilation and Curettage Discharge Instructions (Icelandic) documented in this encounter Medications at Time [...] by mouth 4 (four) times daily. 07/19/2020 docusate sodium 100 MG capsule Take 1 capsule (100 mg total) by mouth 2 (two) times daily as needed for Constipation. 60 capsule 1 05/05/2019 05/15/2019 ibuprofen 800 MG tablet Take 1 tablet (800 mg total) by mouth every 8 (eight) hours as needed for Pain. 40 tablet 05/05/2019 05/15/2019 documented as of this encounter H&P Notes * Trista Chavez MD - 05/05/2019 8:43 AM CDT Pre-operative History & Physical HPI: Keanu Hancock is a 34-year-old G0 presenting for hysteroscopy D&C for AUB, possible polyp Charter Representative Hx: G0 Denies hx of abnormal pap smears or cervical procedures. No history of STIs or pelvic infections. Past Medical History: Past Medical History: Diagnosis Date ??? Abnormal uterine bleeding (AUB) ??? Asthma allergies ??? Depression ??? Endometrial polyp ??? Generalized anxiety disorder Anxiety, Generalized depression ??? Migraine without status migrainosus, not intractable Migraine Past Surgical History: Past Surgical History: Procedure Laterality Date ??? CREATE EARDRUM OPENING,GEN ANESTH EAR TUBES x4 ??? DENTAL PROCEDURE wisdom teeth ??? HYSTEROSCOPY,DX,SEP PROC HYSTEROSCOPY, DIAGNOSTIC ??? LAP,DIAGNOSTIC ABDOMEN LAPAROSCOPY ??? REMOV ETHMOID SINUS,INTRANASAL,ANT ETHMOIDECTOMY ? ? REMOVAL ADENOIDS,PRIMARY,<12 Y/O ADENOIDECTOMY <12 YEARS OLD Current Medications: Current Facility-Administered Medications Medication Dose Route Frequency Provider Last Rate Last Dose ??? lactated ringers infusion Intravenous Continuous Lea Garcia MD Allergies: Allergies Allergen Reactions ??? Amoxicillin Hives ??? Tramadol Hallucinations Social History: Denies tobacco, alcohol, or illicit drug use Physical Exam: Vitals in office Gen: NAD HEENT: unremarkable, no thyroid masses noted CV: rrr, nml S1 S2, no murmurs Lungs: CTAB Abdomen: soft, NTND, no masses appreciated Pelvic: enlarged uterus, pelvic pain Imaging studies: suspected endometrial polyp Assessment/Plan: 34-year-old presenting for hysteroscopy D&C. Procedure and risks including bleeding, infection, damage to adjoining organs, VTE, and anesthetic risks were discussed in detail. All of her questions were answered to her satisfaction, and she wishes to proceed with surgery. TRISTA CHAVEZ MD documented in this encounter Procedure Notes * Trista Chavez MD - 05/05/2019 9:43 AM CDT Operative Note Date of Procedure: 05/05/2019 Surgeon(s): Surgeon(s) and Role: * Trista Chavez MD - Primary Pre-operative Diagnosis: ABNORMAL UTERINE BLEEDING,ENDOMETRIAL POLYP N93.8,N84.0 Post-operative Diagnosis: Same Procedure and Anesthesia: Procedure(s) and Anesthesia Type: * HYSTEROSCOPY DILATATION & CURETTAGE - Monitor Anesthesia Care Brief Findings: endometrial polyp noted at fundus of uterus Estimated Blood Loss: 10 ML Specimens: ID Type Source Tests Collected by Time 1 : Endometrial Curretings TISSUE ENDOMETRIUM PATHOLOGY Trista Chavez MD 05/05/2019 0923 Complications: none Procedure Details: The patient was seen in the Holding Room. The risks, benefits, complications, treatment options, and expected outcomes were discussed with the patient. The risks and potential complications of their problem and purposed treatment include but are not limited to infection, bleeding, pain, adverse drug reaction, pulmonary aspiration, the need for additional procedures, failure to diagnose a condition, creating a complication requiring transfusion or operation, complication secondary to the anesthetic, and perforation of the uterus. The patient concurred with the proposed plan, giving informed consent. The site of surgery was properly noted/marked. The patient was taken to the Operating Room, identified as Keanu Hancock with Date of 1985 and the procedure verified as HYSTEROSCOPY WITH UTERINE DILATION AND CURETTAGE . A Time Out was held and the above information confirmed. After administration of adequate anesthesia the patient was placed in the dorsolithotomy position, prepped and draped in routine manner. A red rubber catheter was utilized to drain the bladder prior to the procedure. Pelvic examination showed the uterus to be normal size. A bivalve speculum was placed in the vagina. A single tooth tenaculum was used to grasp the anterior cervix and the uterus wassounded. The cervix was serially dilated and the hysteroscope was placed into the cervix. Using normal saline as the distention media, the hysteroscope was utilized to visualize the endocervix and endometrial canal. Both tubal ostia were visualized without difficulty. The findings are recorded above. The hysteroscope was then removed from the uterus and cervix and a rat- tooth curette was introduced. Curettage of the endometrial lining was accomplished. Endometrial polyp forceps were introduced to assist in removing the polyp.A moderate amount of endometrial tissue was retrieved and sent to [facility] for tissue diagnosis. The instruments were then removed. There was minimal bleeding from the cervical tenaculum site which was controlled with silver nitrate and pressure. The patient tolerated the procedure well and was taken to the recovery room awake and in stable condition. Instrument, sponge, and needle counts were correct at the conclusion of the case. TRISTA CHAVEZ MD documented in this encounter Plan of Treatment Not on file documented as of this encounter Procedures Procedure Name Priority Date/Time Associated Diagnosis Comments PATHOLOGY Routine 05/05/2019 10:32 AM CDT HYSTEROSCOPY DILATATION & CURETTAGE 05/05/2019 8:38 AM CDT ABNORMAL UTERINE BLEEDING,ENDOMETRI AL POLYP N93.8,N84.0 COMPREHENSIVE METABOLIC PANEL STAT 05/05/2019 7:56 AM CDT CBC W/DIFF AUTOMATED STAT 05/05/2019 7:56 AM CDT POCT URINE (BACK OFFICE) STAT 05/05/2019 documented in this encounter Results * Pathology (05/05/2019 10:32 AM CDT) COPATH REPORT ?[facility] ?[address] ?[place] [address] ? Department of Pathology ? Pathology Report ? SURGICAL PATHOLOGY CONSULTATION REPORT Name: KEANU HANCOCK ? Age: 5 1985 (Age: 34) ?Location: [facility] Sex: F ?Collected Date: 05/05/2019 Hospital #: [id number] ?Date Received: 05/05/2019 Date Reported: 05/06/2019 Provider: TRISTA CHAVEZ SPECIMEN SUBMITTED Endometrial Curettings INTERPRETATION ENDOMETRIUM, CURETTAGE: ? - SECRETORY PHASE ENDOMETRIUM. Electronically Signed Out ? Jefe Foreman M.D. Pathologist [facility]:alexei Gross Description: Received in formalin, labeled with a patient label and as endometrial curettings are multiple fragments of pale rosen, soft and dark red probable blood clot measuring in aggregate 2.0 x 2.0 x 0.5 cm. ??The specimen is entirely submitted in cassettes A and B. CBG:rlb [facility] Tissue specimen (specimen) ENDOMETRIAL STRUCTURE / Unknown 05/05/2019 9:23 AM CDT us Trista Chavez MD PATHOLOGY/CYTOLOGY ORDERABL ES Final Result [facility] [address] [place] [address], * (ABNORMAL) COMPREHENSIVE METABOLIC PANEL (05/05/2019 7:56 AM CDT) SODIUM S/P/B 140 136 - 145 MMOL/L 05/05/2019 8:29 AM CDT [facility] POTASSIUM S/P/B 3.8 3.6 - 5.0 MMOL/L 05/05/2019 8:29 AM T [facility] CHLORIDE S/P/B 108(H) 98 - 107 MMOL/L 05/05/2019 8:29 AM T [facility] CO2 26.6 21.0 - 32.0 MMOL/L 05/05/2019 8:29 AM T [facility] GLUCOSE 100 74 - 106 MG/DL 05/05/2019 8:29 AM T [facility] BUN 12 7 - 18 MG/DL 05/05/2019 8:29 AM T [facility] CREATININE S/P/B 0.78 0.55 - 1.02 MG/DL 05/05/2019 8:29 AM T [facility] CALCIUM S/P/B 8.4(L) 8.5 - 10.1 MG/DL 05/05/2019 8:29 AM T [facility] BILIRUBIN TOTAL S/P/B 0.3 0.2 - 1.0 MG/DL 05/05/2019 8:29 AM T [facility] ALKALINE PHOSPHATASE S/P/B 52 37 - 98 U/L 05/05/2019 8:29 AM T [facility] AST 10(L) 15 - 37 U/L 05/05/2019 8:29 AM T [facility] ALT 10(L) 13 - 56 U/L 05/05/2019 8:29 AM CDT [facility] TOTAL PROTEIN S/P/B 6.8 6.4 - 8.2 G/DL 05/05/2019 8:29 AM [facility] ALBUMIN S/P/B 3.5 3.4 - 5.0 G/DL 05/05/2019 8:29 AM [facility] ANION GAP 5.4 5 - 15 MMOL/L 05/05/2019 8:29 AM [facility] Comment:PLEASE NOTE: Potassi um has been eliminated from the anion gap calculation OSMOLALITY (CALC) 290 MOSM/KG 05/05/2019 8:29 AM T [facility] EGFR NON-AFR. AMER. >90 >90 ML/MIN/1 .73 M2 05/05/2019 8:29 AM [facility] EGFR AFR. AMER. >90 >90 ML/MIN/1 .73 M2 05/05/2019 8:29 AM [facility] GFR NOTES THE ESTIMATED GFR IS CALCULATED USING THE 2009 CKD-EPI EQUATION. THE FOLLOWING CATEGORIES FOR GRADING RENAL FUNCTION ARE RECOMMENDED BY THE INTERNATIONAL SOCIETY OF NEPHROLOGY (KDIGO 2012 CLINICAL PRACTICE GUIDELINE). 05/05/2019 8:29 AM [facility] Comment: G1,NORMAL OR HIGH: >89 ml/min/1.73 m2 G2,MILDLY DECREASED: 60-89 ml/min/1.73 m2 G3A,MILDLY TO MODERATELY DECREASED: 45-59 ml/min/1.73 m2 G3B,MODERATELY TO SEVERELY DECREASED: 30-44 ml/min/1.73 m2 G4,SEVERELY DECREASED: 15-29 ml/min/1.73 m2 G5,KIDNEY FAILURE: <15 ml/min/1.73 m2 05/05/2019 7:56 AM CDT us Trista Chavez MD LABORATORY Final Resul t [facility] [address] [id number], * CBC W/DIFF AUTOMATED (05/05/2019 7:56 AM CDT) [facility] Signature WBC 7.2 3.6 - 10.6 x10'3/uL 05/05/2019 8:11 AM CDT [facility] RBC 4.49 3.71 - 5.17 x10'6/uL 05/05/2019 8:11 AM CDT [facility] HGB 12.5 12.0 - 15.0 G/DL 05/05/2019 8:11 AM CDT [facility] HCT 36.6 35.0 - 49.0 % 05/05/2019 8:11 AM CDT [facility] MCV 81.5 81.0 - 99.0 FL 05/05/2019 8:11 AM T [facility] MCH 27.8 27.0 - 34.0 PG 05/05/2019 8:11 AM CDT [facility] MCHC 34.2 32.0 - 36.0 G/DL 05/05/2019 8:11 AM T [facility] RDW 12.7 11.5 - 14.5 % 05/05/2019 8:11 AM CDT [facility] PLT 199 150.0 - 450.0 x10'3/uL 05/05/2019 8:11 AM CDT [facility] MPV 10.5 7.0 - 12.0 FL 05/05/2019 8:11 AM T [facility] DIFFERENTIAL TYPE AUTOMATED 05/05/2019 8:11 AM T [facility] SEG NEUTROPHILS 55.3 % 9 8:11 AM CDT [facility] LYMPHOCYTES 35.8 % 05/05/2019 8:11 AM CDT [facility] MONOCYTES 6.2 % 05/05/2019 8:11 AM CDT [facility] EOSINOPHILS 1.9 % 05/05/2019 8:11 AM T [facility] BASOPHILS 0.7 % 05/05/2019 8:11 AM T [facility] IMMATURE GRANS % 0.1 % 05/05/20 19 8:11 AM T [facility] NRBC 0.0 % 05/05/2019 8:11 AM T [facility] ABS. NEUTROPHILS 3.98 1.7 - 7.0 x10'3/uL 05/05/2019 8:11 AM T [facility] ABS. LYMPHOCYTES 2.58 0.90 - 2.90 x10'3/uL 05/05/2019 8:11 AM T [facility] ABS. MONOCYTES 0.45 0.30 - 0.90 x10'3/uL 05/05/2019 8:11 AM T [facility] ABS. EOSINOPHILS 0.14 0.05 - 0.50 x10'3/uL 05/05/2019 8:11 AM T [facility] ABS. BASOPHILS 0.05 0.00 - 0.30 x10'3/uL 05/05/2019 8:11 AM T [facility] ABS. IMMATURE GRANULOCYTES 0.01 0.00 - 0.03 x10'3/uL 05/05/2019 8:11 AM T [facility] ABS. NUCLEATED RBC'S 0.00 0.00 x10'3/uL 05/05/2019 8:11 AM [facility] 05/05/2019 7:56 AM CDT Trista Chavez MD LABORATORY Final Resul t [facility] [address] [place] [address], * POCT urine (05/05/2019) URINE HCG TEST NEGATIVE NEGATIVE Internal Control: VALID VALID 05/05/2019 Trista Chavez MD POINT OF CARE TEST ORDERABL ES Final Result documented in this encounter Visit Diagnoses Not on filedocumented in this encounter Administered Medications Inactive Administered Medications - up to 3 most recent administrations Medication Order MAR Action Action Date Dose Rate Site ePHEDrine injection 10 mg 10 mg, Intravenous, Once as needed, SBP less than 90 mmHg or DBP less than 40 mmHg. If blood pressure not improved with IV bolus and then notify anesthesia., 1 dose, Starting on Sat05/05/19 at 1016, Until Sat05/05/19 at 1326, PACU hydrALAZINE (APRESOLINE) injection 5 mg 5 mg, Intravenous, Every 5 min PRN, Other, High blood pressure, 4 doses, Starting on Sat05/05/19 at 1016, Until Sat05/05/19 at 1326, For SBP greater than 160 mmHg For IV push give over 1-2 minutes=5mg/min., PACU labetalol (TRANDATE) injection 5 mg 5 mg, Intravenous, Every 5 min PRN, High blood pressure, 4 doses, Starting on Sat05/05/19 at 1016, Until Sat05/05/19 at 1326, For SBP greater than 160 mmHg. HOLD for HR less than 70 bpm., PACU lactated ringers bolus infusion 500 mL 500 mL, Intravenous, Administer over 15 Minutes, Once as needed, SBP less than 90 mmHg or DBP less than 40 mmHg, 1 dose, Starting on Sat05/05/19 at 1016, Until Sat05/05/19 at 1326, PACU lactated ringers infusion at 10 mL/hr, Intravenous, Continuous, Starting on Sat05/05/19 at 0815, Until Sat05/05/19 at 1326, Infuse at TKO rate, Pre-Op New Bag 05/05/2019 8:59 AM CDT metoprolol tartrate (LOPRESSOR) injection 1 mg 1 mg, Intravenous, Every 5 min PRN, High blood pressure, 5 doses, Starting on Sat05/05/19 at 1016, Until Sat05/05/19 at 1326, For SBP greater than 160 mmHg. HOLD for HR less than 70 bpm., PACU ondansetron (ZOFRAN) injection 4 mg 4 mg, Intravenous, Once as needed, Nausea, Vomiting, 1 dose, Starting on Sat05/05/19 at 1016, Until Sat05/05/19 at 1326, Administer slowly over 3-4 minutes. If more than one antiemetic is ordered, use in this order: ondansetron, diphenhydramine, metoclopramide, haloperidol, promethazine. If nausea / vomiting still not controlled, move to next ordered medication., PACU documented in this encounter Active and Recently Administered Medications Times are shown in CDT. Continuous Medication Order 05/03/2019 05/04/2019 05/05/2019 lactated ringers infusion at 10 mL/hr, Intravenous, Continuous, Starting on Sat05/05/19 at 0815, Until Sat05/05/19 at 1326, Infuse at TKO rate, Pre-Op 0859 (New Bag - Prov ider: Magi Dobbs CRNA)0925 (Anesthesia Volume Adjustment - Provider: Magi Dobbs CRNA) PRN Medication Order 05/03/2019 05/04/2019 05/05/2019 ePHEDrine injection 10 mg 10 mg, Intravenous, Once as needed, SBP less than 90 mmHg or DBP less than 40 mmHg. If blood pressure not improved with IV bolus and then notify anesthesia., 1 dose, Starting on Sat05/05/19 at 1016, Until Sat05/05/19 at 1326, PACU hydrALAZINE (APRESOLINE) injection 5 mg 5 mg, Intravenous, Every 5 min PRN, Other, High blood pressure, 4 doses, Starting on Sat05/05/19 at 1016, Until Sat05/05/19 at 1326, For SBP greater than 160 mmHg For IV push give over 1-2 minutes=5mg/min., PACU labetalol (TRANDATE) injection 5 mg 5 mg, Intravenous, Every 5 min PRN, High blood pressure, 4 doses, Starting on Sat05/05/19 at 1016, Until Sat05/05/19 at 1326, For SBP greater than 160 mmHg. HOLD for HR less than 70 bpm., PACU lactated ringers bolus infusion 500 mL 500 mL, Intravenous, Administer over 15 Minutes, Once as needed, SBP less than 90 mmHg or DBP less than 40 mmHg, 1 dose, Starting on Sat05/05/19 at 1016, Until Sat05/05/19 at 1326, PACU metoprolol tartrate (LOPRESSOR) injection 1 mg 1 mg, Intravenous, Every 5 min PRN, High blood pressure, 5 doses, Starting on Sat05/05/19 at 1016, Until Sat05/05/19 at 1326, For SBP greater than 160 mmHg. HOLD for HR less than 70 bpm., PACU ondansetron (ZOFRAN) injection 4 mg 4 mg, Intravenous, Once as needed, Nausea, Vomiting, 1 dose, Starting on Sat05/05/19 at 1016, Until Sat05/05/19 at 1326, Administer slowly over 3-4 minutes. If more than one antiemetic is ordered, use in this order: ondansetron, diphenhydramine, metoclopramide, haloperidol, promethazine. If nausea / vomiting still not controlled, move to next ordered medication., PACU documented in this encounter Care Teams General Practice Relationship Specialty Start Date End Date None, Provider, PCP - General 05/01/19 07/18/20 documented as of this encounter
--- OUTSIDE RECORDS SUMMARY | 2024-08-23 17:13 | XMS_ITS | Encounter Summary ---
Author Organization [facility] Address [address] [place] [address]. [place], [place] [address] [place] [id number] Care Team Providers Care Community Service Director Name Role Phone None, Provider Primary Care Provider Unavaila ble Reason for Visit * Reason Comments Mammogram (SCAN) Encounter Details Date Type Department Care Team ([facility] Contact Info) Description 05/08/2019 Scan [facility] INFO SRV[facility] Scanned, Documents Mammogram (SCAN) Social History Tobacco Use Types Packs/Day [...] Comments MAMMOGRAM GENERIC (SCAN ORDER) Routine 05/08/2019 MAMMOGRAM GENERIC (SCAN ORDER) Routine 05/08/2019 documented in this encounter Results * MAMMOGRAM (05/08/2019) Anatomical Region Laterality Modality Other us Documents Scanned SCANNING Final Result * MAMMOGRAM (05/08/2019) Anatomical Region Laterality Modality Other us Documents Scanned SCANNING Final Result documented in this encounter Visit Diagnoses Not on filedocumented in this encounter Care Teams Community Service Director Relationship Specialty Start Date End Date None, Provider, PCP - General 05/01/19 07/18/20 documented as of this encounter
--- OUTSIDE RECORDS SUMMARY | 2024-08-23 17:13 | XMS_ITS | Encounter Summary ---
Author Organization [facility] Address [address] [place] [address]. [place], [place] [address] [place] [id number] Care Team Providers Care Aluminum Polisher Name Role Phone None, Provider Primary Care Provider Unavaila ble Reason for Visit * Reason Comments Mammogram (SCAN) Encounter Details Date Type Department Care Team ([facility] Contact Info) Description 05/08/2019 Scan MG [...] on filedocumented in this encounter Care Teams Aluminum Polisher Relationship Specialty Start Date End Date None, Provider, PCP - General 05/01/19 07/18/20 documented as of this encounter
--- OUTSIDE RECORDS SUMMARY | 2024-08-23 17:13 | XMS_ITS | Encounter Summary ---
Author Organization [facility] Address [address] [place] [address]. [place], [place] [address] [place] [address] Care Team Providers Care Vp Hr Diversity Name Role Phone None, Provider Primary Care Provider Germana ble Encounter Details Date Type Department Care Team (Latest Contact Info) Description 04/23/2019 Abstract [facility] , Generic Conversion, Social History Tobacco Use Types Packs/Day Years Used Date Smoking Tobacco: Never Assessed Comments Unknown Sex and Gender Information Value Date Recorded Sex Assigned at Not on file Legal Sex Female 8:51 AM CDT Gender Identity Not on file Sexual Orientation Not on file documented as of this encounter Plan of Treatment Not on file documented as of this encounter Visit Diagnoses Not on filedocumented in this encounter Care Teams Vp Hr Diversity Relationship Specialty Start Date End Date None, ProviderMD PCP - General 05/01/19 07/18/20 documented as of this encounter
--- OUTSIDE RECORDS SUMMARY | 2024-08-23 17:13 | XMS_ITS | Encounter Summary ---
Author Organization [facility] Address [address] [place] [address]. [place], [place] [id number] [place] [address] Care Team Providers Care Upholsterer Apprentice Name Role Phone None, Provider Primary Care Provider Arnulfo ware Encounter Details Date Type Department Care Team (Latest Contact Info) Description 04/29/2019 Abstract [facility] , Generic Conversion, Social [...] Sign Reading Time Taken Comments Blood Pressure 110/70 04/29/2019 3:33 PM CDT Pulse - - Temperature - - Respiratory Rate - - Oxygen Saturation - - Inhaled Oxygen Concentration - - Weight 93.3 kg (205 lb 12 oz) 04/29/2019 3:33 PM CDT Height 165.1 cm (5' 5 ) 04/29/2019 3:33 PM CDT Body Mass Index 34.24 04/29/2019 3:33 PM CDT documented in this encounter Progress Notes * Trista Patterson MD - 04/29/2019 12:00 AM CDT CHIEF COMPLAINT The Chief Complaint is: 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 --ALS. REASON FOR VISIT Gynecologic annual exam. HISTORY OF PRESENT ILLNESS Maryann Philippe is a 34 year old female. 34yo G0 presents for annual exam. States would like to get STI testing and discuss pelvic pain and AUB. States that has had painful periods for a while and when they come they are quite heavy. She issexually active with same sex partner. Recently diagnosed with HPV. Had surgery in past to diagnose endometriosis. ? Medication list reviewed. PAST MEDICAL/SURGICAL HISTORY Reported: Last pap smear date 03/2018 result: abnormal. Surgical / Procedural: Prior surgery Adnoids 1994 Exploritory Left ear 1996 Colon/endoscopy 2009 Endometriosis 2010 Uterian polyp 2013 [place] teeth 2002 Tubes (3 sets) [id number]. : 0 and para 0. Diagnoses: Asthma. Depression Anxiety disorder NOS Allergies . SOCIAL HISTORY Behavioral: Cigarette smoking and smoking status: Current everyday smoker. Alcohol: Alcohol use alcohol use: 2 drinks or less per day. Drug Use: Not using drugs. Sexual: Sexually active. FAMILY HISTORY Pt is adopted. Pt states there is a family hx of diabetes, depression, anxiety, bipolar, endometriosis, cancers, pneumonia. --ALS No malignant neoplasm of large intestine Malignant female breast neoplasm pts aunt and uncle No malignant neoplasm of the ovary PHYSICAL FINDINGS ? Vitals taken 04/29/2019 03:33 pm BP-Sitting R 110/70 mmHg Respiration Rate 16 per min Height 65 in Weight 205 lbs 12.8 oz Body Mass Index 34.2 kg/m2 Body Surface Area 2.00 m2 General Appearance: ?? Well developed. ?? Well nourished. ?? In no acute distress. Breasts: Right Breast: ?? Nipple was normal. ?? No abnormal secretion. ?? No mass was found. ?? No tenderness. Left Breast: ? A mass was found mass palpable on left side- mobile, round. ?? Nipple was normal. ?? No abnormal secretion. ?? No tenderness. Urinary System: Urethra: ?? Normal. Genitalia: External: ?? Genitalia showed no abnormalities. Pelvic: ?? No ovarian mass. Vagina: ?? Mucosa was normal. ?? No vaginal discharge was observed. ?? No cystocele was observed. ?? No rectocele was observed. Cervix: ?? Showed no lesion. Uterus: ?? Position was normal. ?? Contour was not irregular. ?? Not enlarged bulky. ?? Not tender. Uterine Adnexae: ? Uterine adnexa was tender left sided tenderness. ASSESSMENT Annual Exam Pelvic Pain Abnormal Uterine bleeding STI check. THERAPY ? Clinical summary provided to patient. DISCUSSED F/u Pap f/u Breast US f/u STI check Discussed findings of endometrial polyp and discussed management with d&c- patient very interested. Also discussed PCP management for chronic pelvic pain and patient is amenable. Will schedule procedure and have patient return to office for post op visit. Mariaa Kinney. PLAN ? Encntr for crusher and binder operator exam (general) (routine) w/o abn findings Lab: PAP, THINPREP W/HPV REGARDLESS OF RESULT ? Encntr screen for infections w sexl mode of transmiss Lab: Vaginitis/Vaginosis Panel [id number] Lab: GC/CHLAM on Probe [id number] room temp or refrigerated ? Other Ortho Micronor 0.35 MG tablet, one once daily, 28 days, 11 refills Trista Patterson M.D. Electronically signed by: Trista Patterson Date: 05/01/2019 08:56 * Trista Patterson MD - 04/29/2019 12:00 AM CDT TESTS Imaging: An ultrasound was performed by: JESUS. Ultrasound Trans-Vaginal: Value Endometrium thickness 11 mm Uterine length 74 mm Uterine width 57 mm Uterine depth 46 mm R ovary length 29 mm L ovary depth 19 mm R ovary width 21 mm R ovary depth 16 mm L ovary width 20 mm L ovary length 30 mm No uterine enlargement, no enlargement of the right ovary, not on the left, no mass on the right ovary, and not on the left. 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 endo polyp= 12 x 7 mm; normal ovaries; small amount of free fluid in CDS; LG. Trista Patterson M.D. Electronically signed by: Trista Patterson Date: 05/01/2019 08:48 documented in this encounter Plan of Treatment Not on file documented as of this encounter Procedures Procedure Name Priority Date/Time Associated Diagnosis Comments VAGINITIS SCREEN Routine 04/29/2019 4:45 PM CDT CHLAMYDIA GC BY PCR Routine 04/29/2019 4 :45 PM CDT documented in this encounter Results * CHLAMYDIA GC BY PCR (04/29/2019 4:45 PM CDT) CHLAMYDIA TRACHOMATIS RNA TMA Negative Negative MED GROUP TO EPIC CONVERSION Comment:Negative: Absence of C. trachomatis (by LIBERTAD) NEISSERIA GONORRHOEAE PCR Negative Negative MED GROUP TO EPIC CONVERSION Comment:Negative: Absence of N. gonorrhoeae (by LIBERTAD) 04/29/2019 4:45 PM CDT Narrative MED GROUP TO EPIC CONVERSION - 04/29/2019 4:45 PM CDT [Task Forwarded to ASNOW] Please inform patient that her swab for STIs was negative. Thanks! us Trista Patterson MD MICROBIOLOGY - GENERAL PATRICIA RANDOLPH Final Result Performing Organization Address [facility] Co de Phone Number MED GROUP TO EPIC CONVERSION * VAGINITIS SCREEN (04/29/2019 4:45 PM CDT) MAGALYS SPECIES Negative Negative MED GROUP TO EPIC CONVERSION GARDNERELLA VAGINALIS Negative Negative MED GROUP TO EPIC CONVERSION TRICHOMONAS VAGINALIS QL Negative Negative MED GROUP TO EPIC CONVERSION 04/29/2019 4:45 PM CDT Narrative MED GROUP TO EPIC CONVERSION - 04/29/2019 4:45 PM CDT [Task Forwarded to ASNOW] Please inform patient that her swab for STIs was negative. Thanks! us Trista Patterson MD MICROBIOLOGY - GENERAL PATRICIA RANDOLPH Final Result Performing Organization Address [facility] Co de Phone Number MED GROUP TO EPIC CONVERSION documented in this encounter Visit Diagnoses Not on filedocumented in this encounter Care Teams Upholsterer Apprentice Relationship Specialty Start Date End Date None, Provider, PCP - General 05/01/19 07/18/20 documented as of this encounter
--- OUTSIDE RECORDS SUMMARY | 2024-08-23 17:13 | XMS_ITS | Encounter Summary ---
Author Organization [facility] Address [address] [place] [address]. [place] [address] [place] [address] Care Team Providers Care Generator Technician Name Role Phone None, Provider MD Primary Care Provider Unavaila ble Reason for Visit * Auth/Cert Specialty Diagnoses / Procedures Referred By Vijay t Referred To Contact Diagnoses ABNORMAL UTERINE BLEEDING,ENDOMETRIAL POLYP N93.8,N84.0 Procedures HYSTEROSCOPY DILATATION & CURETTAGE Referral ID Status Reason Start Date Expiration Date Visits Re quested Visits Authorized [id number] 1 1 Encounter Details Date Type Department Care Team (Late st Contact Info) Description 05/05/2019 8:59 AM CDT Anesthesia Event [facility] [address] [place] [facility] [place] [address] Lea Garcia MD [address] [place], [place] [id number] Anesthesia Record Procedure Summary Procedure Name Responsible Anesthesiologist Anesthesia Start Time Anesthesia Stop Time HYSTEROSCOPY DILATATION & CURETTAGE (Uterus) Lea Garcia MD 05/05/19 0859 05/05/19 0950 Events Date Time Event Comment 05/05/2019 0812 0812 AN Anesthesia Prepped 0814 AN SLITTING AND SHIPPING SUPERVISOR Prepped 0859 An Start Patient ID and consent checked and patient reassessed. 0859 An Start Data 0859 Nasal Cannula Applied 0903 Anesthesia Ready 0908 Face Mask Applied NRB 0942 an stop data 0950 Post Anesthetic Care Handoff I completed my handoff to the receiving nurse during which we: 1. Identified the patient 2. Identified the responsible provider 3. Reviewed the pertinent medical history 4. Discussed the surgical course 5. Reviewed intra-op anesthesia management and issues during anesthesia 6. Set expectations for post-procedure period 7. Allowed opportunity for questions and acknowledgement of understanding. 0950 An Stop Meds Name Total midazolam (VERSED) 1 mg/mL injection 4 m g fentaNYL (SUBLIMAZE) 100 mcg/2 mL inject ion 100 mcg propofol (DIPRIVAN) 200 mg/20 mL injecti on 385.28 mg lactated ringers infusion 800 mL * Agents Name O2 N2O Air Ancillary O2 * Blood No blood administrations on file. Lines, Drains, and Airways Type Details Placement Removal Peripheral IV Placement Date: 05/05/19; Placement Time: 810; Placed Outside of This Facility?: No; Size: 20 G; Orientation: Left; Location: Hand; Site Prep: Chlorhexidine; Local Anesthetic: None; Inserted By: adngelo; Insertion attempts: 1; Ultrasound-guided Placement?: No; Patient Tolerance: Tolerated well; Removal Date: 05/05/19; Removal Time: 1126 05/05/19 0811 by Samina Byrd RN 05/05/19 1126 by Delores Orantes RN Surgical/Incision 05/05/19; 0844; Surgical Wound; Vagina; PK WND [id number] COTN VAG HANDL; 05/05/19; 1326 05/05/19 0844 by Tricia Ibarra RN 05/05/19 1326 by Automatic Discharge Provider documented in this encounter Social History Tobacco Use Types Packs/Day Years [...] on file documented as of this encounter OR Notes * Anesthesia Postprocedure Evaluation - Lea Garcia MD - 05/05/2019 7:06 PM CDT Anesthesia Post-op Note Maryann Philippe Procedure(s): HYSTEROSCOPY DILATATION & CURETTAGE (N/A Uterus) Anesthesia type: MAC Vitals: 05/05/19 0955 BP: 136/75 Vitals: 05/05/19 0950 Pulse: 77 Vitals: 05/05/19 0804 Resp: 16 Vitals: 05/05/19 0950 Temp: 36.8 ??C Vitals: 05/05/19 1045 SpO2: 100% Patient Location: PACU Level of Consciousness: awake and alert Pain Management: adequate analgesia Airway Patency: patent Respiratory Status: acceptable Cardiovascular Status: acceptable Post-Op Nausea: none Postoperative Hydration: euvolemic Complications: no anesthesia complication * Anesthesia Preprocedure Evaluation - Lea Garcia MD - 05/05/2019 8:08 AM CDT Images from the original note were not included. Anesthesia ROS/MED History Reviewed: Patient summary , Nursing notes , Family history anesthesia, Anesthesia history , Medications , Labs Pre-Anesthetic State: alert, awake and responds appropriately history of anesthetic complications, (delayed emergence) Pulmonary neg pulmonary ROS (+) asthma, (exercise induced), smoker Cardiovascular neg cardio ROS Exercise tolerance:good (+) Valvular problems/Murmurs Neuro/Psych neg neuro/psych ROS (+) depression, headaches GI/Hepatic/Renal neg GI/hepatic/renal ROS Endo/Other neg endo/other ROS (+) obese GENERAL COMMENTS Past Medical History: No date: Abnormal uterine bleeding (AUB) No date: Asthma Comment: allergies No date: Depression No date: Endometrial polyp No date: Generalized anxiety disorder Comment: Anxiety, Generalized depression No date: Migraine without status migrainosus, not intractable Comment: Migraine Physical Evaluation Airway Mallampati: II TM Distance: >3 FB Neck ROM: normal Dental Pulmonary Breath sounds clear to auscultation Cardiovascular Rhythm: regular Rate: normal Other findings: Patient Vitals in the past 24 hrs: 05/05/19 08, BP:122/74, Temp:36.3 ??C, Temp src:Temporal, Pulse:69, Resp:16, SpO2:99 %, Height:5'5 (1.651 m), Weight:93.4 kg (206 lb) No results found for: PH, PCO2, PO2, T1OGPTRTANZV, BICARBWB, BASEDEFICIT, BASEEXCESS No results found for: NA, K, BUN, CR, GLU No results found for: WBC, HGB, PLT No results found for: ABORH Anesthesia Plan ASA 3 Induction Anesthesia type: MAC Informed Consent Anesthetic plan and risks discussed with patient of whom consent was obtained. Use of blood products discussed with patient of whom consent was obtained. . documented in this encounter Plan of Treatment Not on file documented as of this encounter Visit Diagnoses Not on filedocumented in this encounter Administered Medications Inactive Administered Medications - up to 3 most recent administrations Medication Order MAR Action Action Date Dose Rate Site fentaNYL (SUBLIMAZE) injection PRN, Starting on Sat05/05/19 at 0902, Until Sat05/05/19 at 0950, Anesthesia Intra-Op Given 05/05/2019 9:02 AM CDT 100 mcg lactated ringers infusion at 10 mL/hr, Intravenous, Continuous, Starting on Sat05/05/19 at 0815, Until Sat05/05/19 at 1326, Infuse at TKO rate, Pre-Op New Bag 05/05/2019 8:59 AM CDT midazolam (VERSED) injection PRN, Starting on Sat05/05/19 at 0859, Until Sat05/05/19 at 0950, Anesthesia Intra-Op Given 05/05/2019 9:02 AM CDT 2 mg Given 05/05/2019 8:59 AM CDT 2 mg propofol (DIPRIVAN) IV bolus Continuous PRN, Starting on Sat05/05/19 at 0902, Until Sat05/05/19 at 0950, Anesthesia Intra-Op New Bag 05/05/2019 9:02 AM CDT 125 mcg/kg/min 70.1 mL/hr documented in this encounter Care Teams Generator Technician Relationship Specialty Start Date End Date None, Provider, PCP - General 05/01/19 07/18/20 documented as of this encounter
--- OUTSIDE RECORDS SUMMARY | 2024-08-23 17:13 | XMS_ITS | Encounter Summary ---
Author Organization [facility] Address [facility] [place] [address] [place] [address] Care Team Providers Care Direct Sales Representative Name Role Phone None, Provider MD Primary Care Provider Unavaila ble Reason for Visit * Auth/Cert Specialty Diagnoses / Procedures Referred By Contkam t Referred To Contact Diagnoses ABNORMAL UTERINE BLEEDING,ENDOMETRIAL POLYP N93.8,N84.0 Procedures HYSTEROSCOPY DILATATION & CURETTAGE Referral ID Status Reason Start Date Expiration Date Visits Re quested Visits Authorized [id number] 1 1 Encounter Details Date Type Department Care Team (Late st Contact Info) Description 05/05/2019 9:30 AM CDT - 05/05/2019 10:30 AM CDT [facility] [address] [address] Trista Chavez MD [address] [place] [address] HYSTEROSCOPY DILATATION & CURETTAGE Surgery Details Date/Time Status Location OR Service Patient Class Case Class Case Type Trauma Case? 05/05/2019 9:30 AM Posted [facility] OR OR 11 Gynecology Short Stay/Outpat ient Surgery No Panel 1 Procedure LRB Anes Op Region Wound Class Comments HYSTEROSCOPY DILATATION & CURETTAGE N/A Monitor Anesthesia Care Uterus Clean Contaminated post op: endometrial polyps Surgeon Surgeon Role Service Panel Trista Chavez MD Primary Gynecology 1 documented in this encounter Social History Tobacco [...] 16 05/05/2019 8:04 AM CDT Oxygen Saturation 98% 05/05/2019 10:30 AM CDT Inhaled Oxygen Concentration - - [...] Everywhere. * Dilation and Curettage Discharge Instructions (Surinamese) documented in this encounter Medications at Time [...] for hysteroscopy D&C for AUB, possible polyp Heel Molder Hx: G0 Denies hx of abnormal pap [...] endometrial tissue was retrieved and sent to [facility] for tissue diagnosis. The instruments were then [...] Pathology (05/05/2019 10:32 AM CDT) COPATH REPORT ?[facility] ?[address] ?[place] [address] ? Department of Pathology ? Pathology Report ? SURGICAL PATHOLOGY CONSULTATION REPORT Name: KEANU HANCOCK ? Age: 5 1985 (Age: 34) ?Location: [facility] Sex: F ?Collected Date: 05/05/2019 Hospital #: [id number] ?Date Received: 05/05/2019 Date Reported: 05/06/2019 Provider: TRISTA CHAVEZ SPECIMEN SUBMITTED Endometrial Curettings INTERPRETATION ENDOMETRIUM, CURETTAGE: ? - SECRETORY PHASE ENDOMETRIUM. Electronically Signed Out ? Jefe oFreman M.D. Pathologist DEJosef:alexei Gross Description: Received in formalin, labeled with a patient label and as endometrial curettings are multiple fragments of pale rosen, soft and dark red probable blood clot measuring in aggregate 2.0 x 2.0 x 0.5 cm. ??The specimen is entirely submitted in cassettes A and B. CBG:alexei [facility] Tissue specimen (specimen) ENDOMETRIAL STRUCTURE / Unknown 05/05/2019 9:23 AM CDT Trista Chavez MD PATHOLOGY/CYTOLOGY ORDERABL ES Final Result [facility] [address] [place] [address], * (ABNORMAL) COMPREHENSIVE METABOLIC PANEL (05/05/2019 7:56 AM CDT) SODIUM S/P/B 140 136 - 145 MMOL/L 05/05/2019 8:29 AM T [facility] POTASSIUM S/P/B 3.8 3.6 - 5.0 MMOL/L 05/05/2019 8:29 AM CDT [facility] CHLORIDE S/P/B 108(H) 98 - 107 MMOL/L 05/05/2019 8:29 AM T [facility] CO2 26.6 21.0 - 32.0 MMOL/L 05/05/2019 8:29 AM T [facility] GLUCOSE 100 74 - 106 MG/DL 05/05/2019 8:29 AM T [facility] BUN 12 7 - 18 MG/DL 05/05/2019 8:29 AM T [facility] CREATININE S/P/B 0.78 0.55 - 1.02 MG/DL 05/05/2019 8:29 AM T [facility] CALCIUM S/P/B 8.4(L) 8.5 - 10.1 MG/DL 05/05/2019 8:29 AM CDT [facility] BILIRUBIN TOTAL S/P/B 0.3 0.2 - 1.0 MG/DL 05/05/2019 8:29 AM CDT [facility] ALKALINE PHOSPHATASE S/P/B 52 37 - 98 U/L 05/05/2019 8:29 AM [facility] AST 10(L) 15 - 37 U/L 05/05/2019 8:29 AM [facility] ALT 10(L) 13 - 56 U/L 05/05/2019 8:29 AM [facility] TOTAL PROTEIN S/P/B 6.8 6.4 - 8.2 G/DL 05/05/2019 8:29 AM [facility] ALBUMIN S/P/B 3.5 3.4 - 5.0 G/DL 05/05/2019 8:29 AM [facility] ANION GAP 5.4 5 - 15 MMOL/L 05/05/2019 8:29 AM [facility] Comment:PLEASE NOTE: Potassi um has been eliminated from the anion gap calculation OSMOLALITY (CALC) 290 MOSM/KG 05/05/2019 8:29 AM [facility] EGFR NON-AFR. AMER. >90 >90 ML/MIN/1 .73 M2 05/05/2019 8:29 AM [facility] EGFR AFR. AMER. >90 >90 ML/MIN/1 .73 M2 05/05/2019 8:29 AM [facility] GFR NOTES THE ESTIMATED GFR IS CALCULATED USING THE 2009 CKD-EPI EQUATION. THE FOLLOWING CATEGORIES FOR GRADING RENAL FUNCTION ARE RECOMMENDED BY THE INTERNATIONAL SOCIETY OF NEPHROLOGY (KDIGO 2012 CLINICAL PRACTICE GUIDELINE). 05/05/2019 8:29 AM [facility] Comment: G1,NORMAL OR HIGH: >89 ml/min/1.73 m2 G2,MILDLY DECREASED: 60-89 ml/min/1.73 m2 G3A,MILDLY TO MODERATELY DECREASED: 45-59 ml/min/1.73 m2 G3B,MODERATELY TO SEVERELY DECREASED: 30-44 ml/min/1.73 m2 G4,SEVERELY DECREASED: 15-29 ml/min/1.73 m2 G5,KIDNEY FAILURE: <15 ml/min/1.73 m2 05/05/2019 7:56 AM CDT Trista Chavez MD LABORATORY Final Resul t [facility] [address] [place] [address], * CBC W/DIFF AUTOMATED (05/05/2019 7:56 AM CDT) WBC 7.2 3.6 - 10.6 x10'3/uL 05/05/2019 8:11 AM CDT [facility] RBC 4.49 3.71 - 5.17 x10'6/uL 05/05/2019 8:11 AM CDT [facility] HGB 12.5 12.0 - 15.0 G/DL 05/05/2019 8:11 AM CDT [facility] HCT 36.6 35.0 - 49.0 % 05/05/2019 8:11 AM CDT [facility] MCV 81.5 81.0 - 99.0 FL 05/05/2019 8:11 AM CDT [facility] MCH 27.8 27.0 - 34.0 PG 05/05/2019 8:11 AM CDT [facility] MCHC 34.2 32.0 - 36.0 G/DL 05/05/2019 8:11 AM CDT [facility] RDW 12.7 11.5 - 14.5 % 05/05/2019 8:11 AM CDT [facility] PLT 199 150.0 - 450.0 x10'3/uL 05/05/2019 8:11 AM CDT [facility] MPV 10.5 7.0 - 12.0 FL 05/05/2019 8:11 AM [facility] DIFFERENTIAL TYPE AUTOMATED 05/05/2019 8:11 AM [facility] SEG NEUTROPHILS 55.3 % 9 8:11 AM [facility] LYMPHOCYTES 35.8 % 05/05/2019 8:11 AM [facility] MONOCYTES 6.2 % 05/05/2019 8:11 AM [facility] EOSINOPHILS 1.9 % 05/05/2019 8:11 AM [facility] BASOPHILS 0.7 % 05/05/2019 8:11 AM [facility] IMMATURE GRANS % 0.1 % 05/05/20 19 8:11 AM [facility] NRBC 0.0 % 05/05/2019 8:11 AM [facility] ABS. NEUTROPHILS 3.98 1.7 - 7.0 x10'3/uL 05/05/2019 8:11 AM [facility] ABS. LYMPHOCYTES 2.58 0.90 - 2.90 x10'3/uL 05/05/2019 8:11 AM [facility] ABS. MONOCYTES 0.45 0.30 - 0.90 x10'3/uL 05/05/2019 8:11 AM [facility] ABS. EOSINOPHILS 0.14 0.05 - 0.50 x10'3/uL 05/05/2019 8:11 AM [facility] ABS. BASOPHILS 0.05 0.00 - 0.30 x10'3/uL 05/05/2019 8:11 AM [facility] ABS. IMMATURE GRANULOCYTES 0.01 0.00 - 0.03 x10'3/uL 05/05/2019 8:11 AM [facility] ABS. NUCLEATED RBC'S 0.00 0.00 x10'3/uL 05/05/2019 8:11 AM CDT [facility] 05/05/2019 7:56 AM CDT us Trista Chavez MD LABORATORY Final Resul t [facility] [address] [place] [id number], * POCT urine (05/05/2019) URINE HCG TEST NEGATIVE NEGATIVE Internal Control: VALID VALID 05/05/2019 us Trista Chavez MD POINT OF CARE TEST [...] PACU documented in this encounter Care Teams Direct Sales Representative Relationship Specialty Start Date End Date None, Provider, PCP - General 05/01/19 07/18/20 documented as of this encounter
--- OUTSIDE RECORDS SUMMARY | 2024-08-23 17:15 | XMS_ITS ---
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 ROS:?Constitutional?All systems negative unless indicated otherwise..?Psych?Denies AH/VH and delusions, Denies SI/HI.?*PSYCH ROS2:?mood swings?Denies mood lability.?Inattention?Denies attention deficits.?Compulsive behavior?Denies compusive/impulsive behaviors.?Depression?Endorses.?Nancy?Denies symptoms of nancy.?Appetite?Normal.?Concentration?Denies concentration deficits.?Substance use?Endorses, Cannabis, Caffeine.?Panic attacks?Endorses.?Anxiety/Worry?Endorses.?Irritability?Denies.?Self- Harm?Denies.?Sleep?Denies sleep difficulties.?Comments?See HPI for details.? * Medical History:? * Surgical History:?Ear tubes Adenoidectomy Jal tooth extraction Pelvic Laparotomy Head bumps * Hospitalization/Major Diagno stic Procedure:?[facility] for [facility]- Medication concerns 11/2022 * Family History:?1 brother(s) , 1 sister(s) - healthy. .? She is adopted. Biological Dad-Bipolar, Diabetes, Depression Biological Mother-unknown MH Twin Sister-Depression, ODALYS, PTSD, PPD, Bipolar. * Social History:?Primary Social History:?Living Arrangement?Living Arrangement:?Independent Living ?Is this a supportive environment??Yes ?Alcohol Use?Alcohol Use Frequency:?Monthly or less ?Illicit Substance Usage?Illicit Substance Usage:?No ?Employment Status?Employment Status:?On Disability ???Reviewed [place]. * Medications:?TakingWellbutri n XL 300 MG Tablet Extended Release 24 Hour 1 tablet in the morning Orally Once a day busPIRone HCl 15 MG Tablet 1 tablet Orally Twice a day Escitalopram Oxalate 20 MG Tablet 1 tablet Orally Once a day Prazosin HCl 1 MG Capsule 1 capsule at bedtime Orally Once a day lamoTRIgine 100 MG Tablet 1 tablet Orally Once a day Albuterol Sulfate HFA 108 (90 Base) MCG/ACT Aerosol Solution 1 puff as needed Inhalation every 4 hrs Montelukast Sodium 10 MG Tablet 1 tablet Orally Once a day Pantoprazole Sodium 20 MG Tablet Delayed Release 1 tablet Orally Once a day Atorvastatin Calcium 10 MG Tablet 1 tablet Orally Once a day Lisinopril 20 MG Tablet 1 tablet Orally Once a day Cyclobenzaprine HCl 10 MG Tablet 1 tablet two times every morning and bedtime x7 days then 1 tab daily at bedtime Orally as directed Meloxicam 7.5 MG Tablet 2 tablet x7 days, then 1 tablet daily x23 days Orally Once a day Taking Wellbutrin XL 300 MG Tablet Extended Release 24 Hour 1 tablet in the morning Orally Once a day Taking busPIRone HCl 15 MG Tablet 1 tablet Orally Twice a day Taking Escitalopram Oxalate 20 MG Tablet 1 tablet Orally Once a day Taking Prazosin HCl 1 MG Capsule 1 capsule at bedtime Orally Once a day Taking lamoTRIgine 100 MG Tablet 1 tablet Orally Once a day Taking Albuterol Sulfate HFA 108 (90 Base) MCG/ACT Aerosol Solution 1 puff as needed Inhalation every 4 hrs Taking Montelukast Sodium 10 MG Tablet 1 tablet Orally Once a day Taking Pantoprazole Sodium 20 MG Tablet Delayed Release 1 tablet Orally Once a day Taking Atorvastatin Calcium 10 MG Tablet 1 tablet Orally Once a day Taking Lisinopril 20 MG Tablet 1 tablet Orally Once a day Taking Cyclobenzaprine HCl 10 MG Tablet 1 tablet two times every morning and bedtime x7 days then 1 tab daily at bedtime Orally as directed Taking Meloxicam 7.5 MG Tablet 2 tablet x7 days, then 1 tablet daily x23 days Orally Once a day * Allergies:?Penicillin: Rash, ChildhoodAdhesive: blisterstraMADol HClno[Allergies Verified] Objective: * Vitals:?Initials: krs, Wt:25 0, Ht: 5ft 5in, BMI:41.6, LMP: 06/14/24, Pain scale:0. * Examination: ???General Examination: ?GENERAL APPEARANCE:?Unable to perform physical examination - patient verbalizes no concerns during telephone communication.?Mental Status Exam: ?SENSORIUM AND COGNITION?Alert, Oriented to Person, Oriented to Place, Oriented to Time, Oriented to Situation.?ATTENTION AND CONCENTRATION?No deficits.?APPEARANCE?Unable to assess due to telephone visit.?ATTITUDE AND BEHAVIOR?Cooperative.?MEMORY?Grossly intact.?EYE CONTACT?Unable to assess due to telephone visit.?AFFECT?Unable to assess due to telephone visit - inferred to be mildly anxious/dysthymic?based on conversation.?MOOD?inferred to be mildly anxious/dysthymic?based on conversation.?SPEECH QUANTITY?Appropriate.?SPEECH QUALITY?Spontaneous, Appropriate volume.?THOUGHT PROCESS?Coherent and goal directed.?THOUGHT CONTENT?Appropriate - WNL.?LANGUAGE?Appropriate- WNL.?MOTOR ACTIVITY?Unable to assess due to telephone visit - patient denies abnormal movements/gait.?SUICIDAL IDEATION?Denies suicidal ideation.?HOMICIDAL IDEATION?Denies homicidal ideation.?HALLUCINATIONS?Denies hallucinations.?INSIGHT?Good.?JUDGMENT?Good.? Assessment: * Assessment: 1.?Mood disorder - F39 (Prim augustin)???2.?Anxiety, generalized - F41.1???3.?Nightmares - F51.5???4.?Adult ADHD - F90.9???5.?Nicotine dependence, unspecified, uncomplicated - F17.200??? Plan: * Treatment: 2.?Anxiety, generalized? Notes: See assessment and plan for mood disorder?? 3.?Nightmares? Refill Prazosin HCl Capsule, 1 MG, 1 capsule at bedtime, Orally, Once a day, 30 days, 30, Refills 1.?? Notes: See assessment and plan for mood disorder?? 4.?Adult ADHD? Notes: Duration (acute/chronic), stability (controlled/uncontrolled): Chronic, stable on current medication regimen Current medications/efficacy: Yes Previous medication trials: I couldn't tell you what they were. Current/previous therapies: Follows up with therapy twice monthly Examination as documented - see pertinent aspects of office visit documentation. Pertinent diagnostics: LABS MONITORED BY PCP Differential diagnoses: RECOMMENDATIONS: Continue/modify medications as prescribed - educated patient/guardian on adverse effects, risks and benefits, as well as alternative treatments Consume well balanced diet, preferably low in saturated fats (solid at room temperature, such as butter, margarine, Crisco, etc) and low in sodium (<2,000mg per day). Consume plenty of fruits/vegetables, healthy grains/whole grains, unsaturated/healthy fats (liquid at room temperature, such as olive oil, sunflower seed oil, canola, vegetable, etc.). Exercise regularly - Develop an exercise routine. 30 minutes of moderate exercise (walking at a brisk pace) 5 times per week is recommended. You should work hard enough to cause a sweat but still be able to talk with others while exercising. Exercise improves overall health - improves blood pressure and blood sugar, helps control weight, reduces stress, and improves mood. Practice stress reduction techniques, such as guided imagery, journaling, aromatherapy, acupuncture/acupressure, deep breathing, etc. Practice healthy sleep hygiene - maintain regular routine, no caffeine after 1PM, no exercise 1-2 hours prior to bedtime, keep bedroom dark and cool, no TV or electronics while in bed. Consider melatonin as needed. Consider cognitive behavioral therapy for insomnia (CBT-I). Consider/Continue therapy. Consider/Continue substance cessation therapy as needed - contact office if desiring medication assisted therapy. Manage co-morbid conditions. Continue monitoring symptoms - report persistent or worsening/concerning symptoms to the office or go to the ER. For mental health CRISIS, please reach out to [phone] ([place] [facility]), 911, go to the emergency department, or contact the [facility] Crisis Unit/Team. Follow up as scheduled in 4 weeks or sooner if necessary. Follow up with PCP and/or other specialists as advised. NEXT STEP: Consider increasing bupropion as needed. Consider alternative treatment as needed.?? 5.?Nicotine dependence, unsp ecified, uncomplicated? Notes: Duration (acute/chronic), stability (controlled/uncontrolled): Cigars on New Year's and birthday - patient verbalized no intention to quit at this time Current medications/efficacy: N/A Previous medication trials: N/A RECOMMENDATIONS: Consider substance cessation therapy as needed - contact office if desiring medication assisted therapy. Manage co-morbid conditions. Continue monitoring symptoms - report persistent or worsening/concerning symptoms to the office or go to the ER. For mental health CRISIS, please reach out to [phone] ([place] [facility]), 911, go to the emergency department, or contact the [facility] Crisis Unit/Team. Follow up as scheduled or sooner if necessary. Follow up with PCP and/or other specialists as advised. NEXT STEP: Consider MAT as needed.?? * Recommended Wellness and Pre vention Guidelines: * ?Status ?Alert ?Last Done ?Next Due ?Action Taken ?NONCOMPLIANT ?Cervical cancer screening ?- ?06/17 ?- ?NONCOMPLIANT ?HIV screening ?- ?06/17/2024 ?- ?NONCOMPLIANT ?Influenza vaccine (high risk) ?- ?1 ?- * Procedure Codes:?CHS07 Flu V accine [id number] BODY MASS INDEX [id number] MEDICAL NUTRITION, INDIV, [id number] BEHAV CHNG SMOKING 3-10 MIN * Preventive Medicine:? ??Counseling:?Care goal follow-up plan:?BMI management provided?Yes ?Above Normal BMI Follow-up?Lifestyle education regarding diet ?SMOKING:?Patient counselled on the dangers of tobacco use and urged to quit.?. 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 Notes * HPI (History of Present Illness) Category Sub-Category Detail Notes Category Not es Depression Screening PHQ-9 Little inte rest or pleasure in doing things: Not at all Feeling down, depressed, or hopeless: No t at all Trouble falling or staying a sleep, or sleeping too much: More than half the days Feeling tired or having little energy: N ot at all Poor appetite or overeating: Nearly ever y day Feeling bad about yourself o r that you are a failure, or have let yourself or your family down: Not at all Trouble concentrating on thi ngs, such as reading the newspaper or watching television: Several days Moving or speaking so slowly that other people could have noticed; or the opposite, being so fidgety or restless that you have been moving around a lot more than usual: Several days Thoughts that you would be b wood off or of hurting yourself in some way: Not at all Total Score: 7 Interpretation: Mild Depression ODALYS-7 Screening 1. Feeling nervous, anxious, or on edg e 0 2. Not being able to stop or control wor rying 0 3. Worrying too much about different thi ngs 0 4. Trouble sleeping/relaxing 1 5. Being so restless that it is hard to sit still 1 6. Becoming easily annoyed or irritable 0 7. Feeling afraid, as if something awful might happen 0 ODALYS-7 Score Total score: 2 : Screening [place] Suicide Sev erity Rating Scale (LF) Do you want to initiate with: Screener form ?1. Wish to be : Have yo u wished you were or wished you could go to sleep and not wake up?: No ?2. Suicidal Thoughts: Have you actually had any thoughts of killing yourself?: No ?6. Suicide Behaviour: Have you ever done anything,started to do anything, or prepared to end your life?: No ?Interpretation:: Low Risk Flu vaccine Flu vaccine offered Flu Vaccine Declined: . CSSRS Interpretation and Follow Up Plan CSSRS Interpretation and Follow Up Plan CSSRS Screen documented using SF: Yes Moderate or High risk requir es selection of a follow up plan: CSSRS No/Low: intervention not needed at this time Preventative Health and Wellness follow-up Action Plans for Clinical Quality Measures: Cervical Cancer Screening:: Discussed need for cervical cancer screening. Patient declined. . HIV Screening:: Discussed need for HIV s creening. Patient declined. Examination Category Sub-Category Detail Notes Category Not es General Examination GENERAL APPEARANCE: Unable t o perform physical examination - patient verbalizes no concerns during telephone communication Mental Status Exam SENSORIUM AND COGNITION Alert, Oriented to Person, Oriented to Place, Oriented to Time, Oriented to Situation ATTENTION AND CONCENTRATION No deficits APPEARANCE Unable to assess due to telephone visit ATTITUDE AND BEHAVIOR Cooperative MEMORY Grossly intact EYE CONTACT Unable to assess due to telephone visit AFFECT Unable to assess due to telephone visit - inferred to be mildly anxious/dysthymic based on conversation MOOD inferred to be mildl y anxious/dysthymic based on conversation SPEECH QUANTITY Appropriate SPEECH QUALITY Spontaneous, Appropr iate volume THOUGHT PROCESS Coherent and goal di rected THOUGHT CONTENT Appropriate - WNL MOTOR ACTIVITY Unable to assess due to telephone visit - patient denies abnormal movements/gait SUICIDAL IDEATION Denies suicidal idea tion HOMICIDAL IDEATION Denies homicidal ihsan ation HALLUCINATIONS Denies hallucination s INSIGHT Good JUDGMENT Good LANGUAGE Appropriate- WNL
--- OUTSIDE RECORDS SUMMARY | 2024-08-23 17:15 | XMS_ITS | Continuity of Care Document ---
Author Organization [facility] Address [address] [place] [address] Phone Care Team Providers Care Student Success Coach Name Role Phone Kathy Beckwith MD Unavailable Unavailabl e Advance Directives Directive Yes / No Effective Date File Name No Information Encounters Encounter Description Practice Location Reason(s) For Visit Diagnoses Date Provider Providers Copied on Encounter [facility], [address], [place], [place], [id number] , tel: [phone] [place] [facility]AR[facility] NEC 0-200 5 Beckwith Kathy. [address], [place], [id number]. 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 [address] [place], [place], [id number]. tel:[phone] Family History Family Member Type Diagnosis Age At Onset No Information Payers Payer name Insurance type Covered alliance party ID Authoriza tion(s) No Information Social History Type Description Quantity Date Captured Comments Sex Female Smoking Status No Information Chief Complaint And Reason For Visit No Information Reason For Referral Reason For Referral No Information History Of Present Illness Encounter Date Complaint History Of Prese nt Illness No Information Functional Status Date Functional Assessmen t No Information Instructions Date Instruction Additional Infor mation No Information Assessments Type Assessment Date No Information Patient Care Teams Name Effective Dates (start - stop) Status Members No Information
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
--- OUTSIDE RECORDS SUMMARY | 2024-08-23 17:15 | XMS_ITS | Patient Health Record ---
Author Organization [facility] Address [address] [place] [address] Care Team Providers Care Equipment Operation Instructor Name Role Phone Ede Aguilar Primary Care Provider Justina Brown Unavailable [phone] Allergies Allergen (clinical drug ingredient) Drug/Non Drug Allergy documented on EMR Reaction Allergy Type Onset Date Status tramadol traMADol HCl Unknown Drug Allergy Acti ve Adhesive blisters Allergy Active Penicillin Rash, Childhood Drug Allergy Active Reason For Referral No Information Medications Medication SIG (Take, Route, Frequency, Duration) Notes Start Date End Date Status Pantoprazole Sodium 20 MG 1 tablet Orall y Once a day Active Gabapentin 300 MG 2 capsules (600mg) Orally once daily at bedtime to assist with sleep for 30 days Active Montelukast Sodium 10 MG 1 tablet Orally Once a day Active Atorvastatin Calcium 10 MG 1 tablet Oral ly Once a day Active Prazosin HCl 1 MG 1 capsule Orally twi ce daily to assist with PTSD for 30 days Active busPIRone HCl 15 MG 1 tablet Orally Twic e a day for 30 days Active DULoxetine HCl 60 MG 1 capsule Orally on ce daily for 30 days Active Albuterol Sulfate HFA 108 (9 0 Base) MCG/ACT 1 puff as needed Inhalation every 4 hrs Active lamoTRIgine 100 MG 1.5 tablets (150mg) Orally Once a day for 30 days Active Cyclobenzaprine HCl 10 MG 1 tablet two t imes every morning and bedtime x7 days then 1 tab daily at bedtime Orally as directed for 30 days Active Lisinopril 20 MG 1 tablet Orally Once a day Active Wellbutrin XL 300 MG 1 tablet [...] History Observation Description Sex Assigned At Female Dont use, Tobacco Use/Smoking Question Answer Notes Are you a current some day smoker Tobacco Control (Standard) Question Answer Notes Tobacco use: Current smoker Section Notes: PRESCRIPTION # FILLED WRITTEN DRUG LABEL QTY DAYS STRENGTH MME PRESCR[facility] PHARM[facility] REFILL NO. REFILLS STATE 02/27/2023 01/17/2023 Cyclobenzaprine Hcl 30.0 30 10 MG NA Roman Lewis Md [id number] [place], [place] NA 0 [place] 1 [id number] 01/17/2023 01/17/2023 Cyclobenzaprine Hcl 30.0 30 10 MG NA Roman Lewis Md [id number] [place]ed [place] PRESCRIPTION # FILLED WRITTEN DRUG LABEL QTY DAYS STRENGTH MME [facility] REFILL NO. REFILLS STATE 02/27/2023 01/17/2023 Cyclobenzaprine Hcl 30.0 30 10 MG NA Roman Lewis Md [id number] [place], [place] NA 0 [place] 1 [id number] 01/17/2023 01/17/2023 Cyclobenzaprine Hcl 30.0 30 10 MG NA Roman [place] Reviewed PDMP Reviewed PDMP Problems Problem Type SNOMED Code ICD Code Onset Dates Problem Status W/U Status Risk Notes Problem Tobacco user (747076778) Nicotine dependence, unspecified, uncomplicated (F17.200) Active confirmed Problem Obesity (288084246) Obesity (E66.9) Active confirmed Problem Mood disorder (38695508) Mood disorder (F39) Active confirmed Problem Posttraumatic stress disorder (85700243) PTSD (post-traumatic stress disorder) (F43.10) Active confirmed Problem Nightmares (396990013) Nightmares (F51.5) Active confirmed Problem Generalized anxiety disorder (90605783) Anxiety, generalized (F41.1) Active confirmed Problem Attention deficit hyperactivity disorder (612927107) Adult ADHD (F90.9) Active confirmed Vital Signs Height 65 in 08/20/2024 Weight 230 lbs 08/20/2024 BMI 38.27 kg/m2 08/20/2024 Encounters Encounter Location Date Provider Diagnosis [address] [address] 10/18/2023 Justina Stephanie [address] [address] 01/07/2024 Justina Stephanie Anxiety, generalized F41.[address] [address] 09/02/2023 Justina Stephanie Nicotine dependence, unspecified, uncomplicated F17.200 ; Nightmares F51.5 ; Anxiety, generalized F41.1 ; Mood disorder F39 and Adult ADHD F90.[address] [address] 10/24/2023 Justina Stephanie Nicotine dependence, unspecified, uncomplicated F17.200 ; Nightmares F51.5 ; Anxiety, generalized F41.1 ; Mood disorder F39 and Adult ADHD F90.[address] [address] 11/07/2023 Justina Stephanie Nicotine dependence, unspecified, uncomplicated F17.200 ; Nightmares F51.5 ; Anxiety, generalized F41.1 ; Mood disorder F39 and Adult ADHD F90.[address] [address] 12/09/2023 Justina Stephanie Nicotine dependence, unspecified, uncomplicated F17.200 ; Nightmares F51.5 ; Anxiety, generalized F41.1 ; Mood disorder F39 and Adult ADHD F90.[address] [address] 02/10/2024 Ujstina Stephanie Nicotine dependence, unspecified, uncomplicated F17.200 ; Nightmares F51.5 ; Anxiety, generalized F41.1 ; Mood disorder F39 and Adult ADHD F90.[address] [address] 04/09/2024 Justina Brown Nicotine dependence, unspecified, uncomplicated F17.200 ; Nightmares F51.5 ; Anxiety, generalized F41.1 ; Mood disorder F39 and Adult ADHD F90.[address] [address] 06/17/2024 Ede Aguilar Mood disorder F39 ; Anxiety, generalized F41.1 ; Nightmares F51.5 ; Adult ADHD F90.9 and Nicotine dependence, unspecified, uncomplicated F17.[address] [address] 07/28/2024 Ede Aguilar Mood disorder F39 ; Anxiety, generalized F41.1 ; PTSD (post-traumatic stress disorder) F43.10 ; Nightmares F51.5 ; Adult ADHD F90.9 and Nicotine dependence, unspecified, uncomplicated F17.[address] [address] 08/20/2024 Ede Aguilar Mood disorder F39 ; Anxiety, generalized F41.1 ; PTSD (post-traumatic stress disorder) F43.10 ; Nightmares F51.5 ; Adult ADHD F90.9 and Nicotine dependence, unspecified, uncomplicated F17.[address] [address] 10/01/2023 Justina Brown Nicotine dependence, unspecified, uncomplicated F17.200 ; Nightmares F51.5 ; Anxiety, generalized F41.1 ; Mood disorder F39 and Adult ADHD F90.9 Assessments Encounter Date Diagnosis (ICD Code) Assessment Notes Treatment Notes Treatment Clinical Notes Section Notes 09/02/2023 Nicotine dependence, unspecified, uncomplicated (ICD-10 - F17.200) 10/01/2023 Nicotine dependence, unspecified, uncomplicated (ICD-10 - F17.200) 10/24/2023 Nicotine dependence, unspecified, uncomplicated (ICD-10 - F17.200) 11/07/2023 Nicotine dependence, unspecified, uncomplicated (ICD-10 - F17.200) 12/09/2023 Nicotine dependence, unspecified, uncomplicated (ICD-10 - F17.200) 01/07/2024 Anxiety, generalized (ICD-10 - F41.1) 02/10/2024 Nicotine dependence, unspecified, uncomplicated (ICD-10 - F17.200) 04/09/2024 Nicotine dependence, unspecified, uncomplicated (ICD-10 - F17.200) 06/17/2024 Mood disorder (ICD-10 - F39) Duration (acute/chronic), stability (controlled/uncontrol led): Chronic, stable on current medication regimen; however, [...] techniques, such as guided imagery, journaling, aromatherapy, acupuncture/acupressu re, deep breathing, etc. Practice healthy sleep hygiene [...] health CRISIS, please reach out to [phone] ([employer] [facility]icide and Crisis Lif[facility]), 911, go to the emergency department, or contact the [facility] Crisis Unit/Team. Follow up as scheduled in 4 weeks or sooner if necessary. Follow up with PCP and/or other specialists as advised. NEXT STEP: Consider increasing duloxetine pending response/tolerability . Consider switching back to escitalopram pending response/tolerability of change. Consider adding gabapentin as needed. Consider increasing lamotrigine. Consider other medication adjustments as needed. 07/28/2024 Mood disorder (ICD-10 - F39) Duration (acute/chronic), stability (controlled/uncontrol led): Chronic, stable on current medication regimen; however, [...] techniques, such as guided imagery, journaling, aromatherapy, acupuncture/acupressu re, deep breathing, etc. Practice healthy sleep hygiene [...] to the emergency department, or contact the [facility] Crisis Unit/Team. Follow up as scheduled in 4 weeks or sooner if necessary. Follow up with PCP and/or other specialists as advised. NEXT STEP: Consider increasing duloxetine pending response/tolerability . Consider switching back to/reintroducing escitalopram pending response/tolerability of change. Consider increasing gabapentin as needed. Consider increasing lamotrigine. Consider other medication adjustments as needed. 07/28/2024 Anxiety, generalized (ICD-10 - F41.1) See assessment and plan for mood disorder 08/20/2024 Mood disorder (ICD-10 - F39) Duration (acute/chronic), stability (controlled/uncontrol led): Chronic, stable on current medication regimen, reports slight improvement in mood/pain with recent medication adjustments, still some room for improvement, see HPI Current medications/efficacy: Yes Previous medication trials: I couldn't tell you what they were. Current/previous therapies: Follows up with therapy twice monthly - will be starting EMDR soon (in 08/2024) Examination as documented - see pertinent aspects of office visit documentation. Pertinent diagnostics: LABS MONITORED BY PCP Differential diagnoses: suspect likely bipolar disorder based on history, possible BPD component (considering history of emotional lability and attempted/threatened suicide when relationships have become unstable) RECOMMENDATIONS: INCREASE lamotrigine as prescribed to help further with mood/stability - educated patient/guardian on adverse effects, risks and benefits, as well as alternative treatments INCREASE gabapentin as prescribed to assist with pain/sleep - educated patient/guardian on adverse effects, risks and benefits, as well as alternative treatments START prazosin as prescribed to assist with PTSD - educated patient/guardian on adverse effects, risks [...] techniques, such as guided imagery, journaling, aromatherapy, acupuncture/acupressu re, deep breathing, etc. Practice healthy sleep hygiene [...] to the emergency department, or contact the [facility] Crisis Unit/Team. Follow up as scheduled in 4 weeks or sooner if necessary. Follow up with PCP and/or other specialists as advised. NEXT STEP: Consider increasing duloxetine pending response/tolerability . Consider increasing prazosin as needed. Consider increasing gabapentin as needed. Consider increasing lamotrigine. Consider other medication adjustments as needed. 08/20/2024 Anxiety, generalized (ICD-10 - F41.1) See assessment and plan for mood disorder 07/28/2024 PTSD (post-traumatic stress disorder) (ICD-10 - F43.10) See assessment and plan for mood disorder 06/17/2024 Anxiety, generalized (ICD-10 - F41.1) See assessment and plan for mood disorder 04/09/2024 Nightmares (ICD-10 - F51.5) Continue Prazosin for nightmare Monitor BP Sleep hygiene - Discussed sleep hygiene measures that include: setting a goal to get at least 7-8 hours of sleep each night, maintaining a regular bedtime and wake up time even on weekends and days off; avoid naps during the day but if one is necessary, limit to no more than 30 minutes; avoid alcohol, caffeinated beverages and nicotine products for at least 6 hours prior to bedtime; avoid exercise and large meals within 4 hours of bedtime; limit or turn off electronics when in bed; and set aside some time to relax before bedtime. 02/10/2024 Nightmares (ICD-10 - F51.5) Continue Prazosin for nightmare Monitor BP Discussed Sleep Hygiene 12/09/2023 Nightmares (ICD-10 - F51.5) Continue Prazosin for nightmare Monitor BP Discussed Sleep Hygiene 11/07/2023 Nightmares (ICD-10 - F51.5) Continue Prazosin for nightmare Monitor BP Discussed Sleep Hygiene 10/24/2023 Nightmares (ICD-10 - F51.5) Continue Prazosin for nightmare Monitor BP Discussed Sleep Hygiene 10/01/2023 Nightmares (ICD-10 - F51.5) Continue Prazosin for nightmare Monitor BP Discussed Sleep Hygiene 09/02/2023 Nightmares (ICD-10 - F51.5) Continue Prazosin for nightmare Monitor BP Discussed Sleep Hygiene 09/02/2023 Anxiety, generalized (ICD-10 - F41.1) Vistaril DC'd due to side effects Refilled bupar and Lexapro 10/01/2023 Anxiety, generalized (ICD-10 - F41.1) Vistaril DC'd due to side effects Refilled bupar and Lexapro 10/24/2023 Anxiety, generalized (ICD-10 - F41.1) Vistaril DC'd due to side effects Refilled bupar and Lexapro 11/07/2023 Anxiety, generalized (ICD-10 - F41.1) Vistaril DC'd due to side effects Refilled bupar and Lexapro 12/09/2023 Anxiety, generalized (ICD-10 - F41.1) Vistaril DC'd due to side effects Refilled bupar and Lexapro 02/10/2024 Anxiety, generalized (ICD-10 - F41.1) Vistaril DC'd due to side effects Refilled bupar and Lexapro 04/09/2024 Anxiety, generalized (ICD-10 - F41.1) Vistaril DC'd due to side effects Refilled bupar and Lexapro Practice deep breathing daily Practice mindfulness techniques Practice relaxation techniques Continue therapy with Gunjan Ruiz [facility] [place] regarding EMDR Need copy of recent labs from PCP 06/17/2024 Nightmares (ICD-10 - F51.5) See assessment and plan for mood disorder 07/28/2024 Nightmares (ICD-10 - F51.5) See assessment and plan for mood disorder 08/20/2024 PTSD (post-traumatic stress disorder) (ICD-10 - F43.10) See assessment and plan for mood disorder 08/20/2024 Nightmares (ICD-10 - F51.5) See assessment and plan for mood disorder 07/28/2024 Adult ADHD (ICD-10 - F90.9) Duration (acute/chronic), stability (controlled/uncontrol led): Chronic, stable on current medication regimen Current [...] techniques, such as guided imagery, journaling, aromatherapy, acupuncture/acupressu re, deep breathing, etc. Practice healthy sleep hygiene [...] to the emergency department, or contact the [facility] Crisis Unit/Team. Follow up as scheduled in 4 weeks or sooner if necessary. Follow up with PCP and/or other specialists as advised. NEXT STEP: Consider increasing bupropion as needed. Consider alternative treatment as needed. 06/17/2024 Adult ADHD (ICD-10 - F90.9) Duration (acute/chronic), stability (controlled/uncontrol led): Chronic, stable on current medication regimen Current [...] techniques, such as guided imagery, journaling, aromatherapy, acupuncture/acupressu re, deep breathing, etc. Practice healthy sleep hygiene [...] to the emergency department, or contact the [facility] Crisis Unit/Team. Follow up as scheduled in 4 weeks or sooner if necessary. Follow up with PCP and/or other specialists as advised. NEXT STEP: Consider increasing bupropion as needed. Consider alternative treatment as needed. 04/09/2024 Mood disorder (ICD-10 - F39) Denies need for warm handoff to crisis She has crisis contact information Continue Lamotrigine DC if rash develops Continue with therapy Continue Wellbutrin to augment Lexapro Have sign disclosure for recent labs by PCP 02/10/2024 Mood disorder (ICD-10 - F39) Denies need for warm handoff to crisis She has crisis contact information Continue Lamotrigine DC if rash develops Continue with therapy Wellbutrin to augment Lexapro Have sign disclosure for recent labs by PCP 12/09/2023 Mood disorder (ICD-10 - F39) Denies need for warm handoff to crisis She has crisis contact information Continue Lamotrigine DC if rash develops Continue with therapy Wellbutrin to augment Lexapro Have sign disclosure for recent labs by PCP 11/07/2023 Mood disorder (ICD-10 - F39) Denies need for warm handoff to crisis She has crisis contact information Continue Lamotrigine DC if rash develops Continue with therapy Wellbutrin to augment Lexapro Have sign disclosure for recent labs by PCP 10/24/2023 Mood disorder (ICD-10 - F39) Denies need for warm handoff to crisis She has crisis contact information Continue Lamotrigine DC if rash develops Continue with therapy Wellbutrin increased to augment Lexapro Have sign disclosure for recent labs by PCP 10/01/2023 Mood disorder (ICD-10 - F39) Increase Lamotrigine to help with moods and irritability. DC if rash develops Continue with therapy Have sign disclosure for recent labs by PCP 09/02/2023 Mood disorder (ICD-10 - F39) Continue Lamotrigine to help with moods and irritability. DC if rash develops Continue with therapy Have sign disclosure for recent labs by PCP 09/02/2023 Adult ADHD (ICD-10 - F90.9) Refilled Wellbutrin 10/01/2023 Adult ADHD (ICD-10 - F90.9) Refilled Wellbutrin 10/24/2023 Adult ADHD (ICD-10 - F90.9) Refilled Wellbutrin 11/07/2023 Adult ADHD (ICD-10 - F90.9) Continue Wellbutrin 12/09/2023 Adult ADHD (ICD-10 - F90.9) Continue Wellbutrin 02/10/2024 Adult ADHD (ICD-10 - F90.9) Continue Wellbutrin 07/28/2024 Nicotine dependence, unspecified, uncomplicated (ICD-10 - F17.200) Duration (acute/chronic), stability (controlled/uncontrol led): Cigars on New Year's and birthday - [...] to the emergency department, or contact the [facility] Crisis Unit/Team. Follow up as scheduled or sooner if necessary. Follow up with PCP and/or other specialists as advised. NEXT STEP: Consider MAT as needed. 04/09/2024 Adult ADHD (ICD-10 - F90.9) Continue Wellbutrin 06/17/2024 Nicotine dependence, unspecified, uncomplicated (ICD-10 - F17.200) Duration (acute/chronic), stability (controlled/uncontrol led): Cigars on New ' and - patient verbalized no intention to quit at this time Current medications/efficacy: N/A Previous medication trials: N/A RECOMMENDATIONS: Consider substance cessation therapy as needed - contact office if desiring medication assisted therapy. Manage co-morbid conditions. Continue monitoring symptoms - report persistent or worsening/concerning symptoms to the office or go to the ER. For mental health CRISIS, please reach out to [phone] ([place] [facility] and Crisis Lifeline), 911, go to the emergency department, or contact the [facility] Crisis Unit/Team. Follow up as scheduled or sooner if necessary. Follow up with PCP and/or other specialists as advised. NEXT STEP: Consider MAT as needed. 08/20/2024 Adult ADHD (ICD-10 - F90.9) Duration (acute/chronic), stability (controlled/uncontrol led): Chronic, stable on current medication regimen Current [...] techniques, such as guided imagery, journaling, aromatherapy, acupuncture/acupressu re, deep breathing, etc. Practice healthy sleep hygiene [...] to the emergency department, or contact the [facility] Crisis Unit/Team. Follow up as scheduled in 4 weeks or sooner if necessary. Follow up with PCP and/or other specialists as advised. NEXT STEP: Consider increasing bupropion as needed. Consider alternative treatment as needed. 08/20/2024 Nicotine dependence, unspecified, uncomplicated (ICD-10 - F17.200) Duration (acute/chronic), stability (controlled/uncontrol led): Cigars on New Year's and birthday - [...] to the emergency department, or contact the [facility] Crisis Unit/Team. Follow up as scheduled or sooner if necessary. Follow up with PCP and/or other specialists as advised. NEXT STEP: Consider MAT as needed. 09/02/2023 Other Patient was educated on diagnosis and symptoms. Discussed the treatment plan, patient is agreeable and accepting of treatment plan. Patient denies further questions or concerns currently. Discussed sleep hygiene and caffeine intake. Encouraged to improve diet, get regular exercise, daily relaxation, and work on managing stress levels. Return to clinic 4 weeks. Obtain disclosure for recent lab work. Continue with counseling. Educated patient that if she is or planning to become , she is to let the provider know immediately. The Patient/Guardian is aware of the need to contact the office or return for an earlier appointment if any problems or concerns arise. May also contact the 24-hour crisis hotline (R), refer to the closest emergency room or call 911 if new symptoms arise of existing symptoms worsen; the Patient/Guardian is aware that this would apply to symptoms such as: suicidal ideation, homicidal ideation, high risk behaviors, manic symptoms, psychotic symptoms, physical symptoms, or any other symptoms that may be dangerous to self or others. Greater than 50% of time spent on coordination and counseling where psychopharmacology as well as psychotherapeutic interventions were discussed along with review of treatments in the past. Patient/Guardian was educated about treatments including benefits and risks, alternatives, potential medication side effects, black box warning, and risks of failure if not treated. The Patient/Guardian asked appropriate questions, appeared to understand the answers, and decided to accept the treatment and continue being followed. Discussed the importance of compliance with medications due to the risk of relapse of symptoms. Discussed the risks of taking psychotropic medication when combined with substance use/abuse and/or drinking alcohol. Client was educated about risks and benefits of medication, alternative to medication, alternative to no medications, suicidal ideation with SSRI, education related to psychiatric illness, self-administration, compliance with medication, storage and safeguarding of medication. Will assess appropriateness of medication reduction after client shows stability in current clinical s/s. Reduction will not result in a negative outcome. 10/01/2023 Other Patient was edu cated on diagnosis and symptoms. Discussed the treatment plan, patient is agreeable and accepting of treatment plan. Patient denies further questions or concerns currently. Discussed sleep hygiene and caffeine intake. Encouraged to improve diet, get regular exercise, daily relaxation, and work on managing stress levels.Return to clinic 4 weeks.Need disclosure for recent labs. Continue with counseling.Educated patient that if she is or planning to become , she is to let the provider know immediately.The Patient/Guardian is aware of the need to contact the office or return for an earlier appointment if any problems or concerns arise. May also contact the 24-hour crisis hotline (R), refer to the closest emergency room or call 911 if new symptoms arise of existing symptoms worsen; the Patient/Guardian is aware that this would apply to symptoms such as: suicidal ideation, homicidal ideation, high risk behaviors, manic symptoms, psychotic symptoms, physical symptoms, or any other symptoms that may be dangerous to self or others.Greater than 50% of time spent on coordination and counseling where psychopharmacology as well as psychotherapeutic interventions were discussed along with review of treatments in the past.Patient/Guardian was educated about treatments including benefits and risks, alternatives, potential medication side effects, black box warning, and risks of failure if not treated. The Patient/Guardian asked appropriate questions, appeared to understand the answers, and decided to accept the treatment and continue being followed.Discussed the importance of compliance with medications due to the risk of relapse of symptoms.Discussed the risks of taking psychotropic medication when combined with substance use/abuse and/or drinking alcohol. Client was educated about risks and benefits of medication, alternative to medication, alternative to no medications, suicidal ideation with SSRI, education related to psychiatric illness, self-administration, compliance with medication, storage and safeguarding of medication. Will assess appropriateness of medication reduction after client shows stability in current clinical s/s. Reduction will not result in a negative outcome. 10/24/2023 Other Patient was educated on diagnosis and symptoms. Discussed the treatment plan, patient is agreeable and accepting of treatment plan. Patient denies further questions or concerns currently. Discussed sleep hygiene and caffeine intake. Encouraged to improve diet, get regular exercise, daily relaxation, and work on managing stress levels.Return to clinic 2 weeks.Labs are up to date. Continue with counseling.Educated patient that if she is or planning to become , she is to let the provider know immediately.The Patient/Guardian is aware of the need to contact the office or return for an earlier appointment if any problems or concerns arise. May also contact the 24-hour crisis hotline ([facility] refer to the closest emergency room or call 911 if new symptoms arise of existing symptoms worsen; the Patient/Guardian is aware that this would apply to symptoms such as: suicidal ideation, homicidal ideation, high risk behaviors, manic symptoms, psychotic symptoms, physical symptoms, or any other symptoms that may be dangerous to self or others.Greater than 50% of time spent on coordination and counseling where psychopharmacology as well as psychotherapeutic interventions were discussed along with review of treatments in the past.Patient/Guardian was educated about treatments including benefits and risks, alternatives, potential medication side effects, black box warning, and risks of failure if not treated. The Patient/Guardian asked appropriate questions, appeared to understand the answers, and decided to accept the treatment and continue being followed.Discussed the importance of compliance with medications due to the risk of relapse of symptoms.Discussed the risks of taking psychotropic medication when combined with substance use/abuse and/or drinking alcohol. Client was educated about risks and benefits of medication, alternative to medication, alternative to no medications, suicidal ideation with SSRI, education related to psychiatric illness, self-administration, compliance with medication, storage and safeguarding of medication. Will assess appropriateness of medication reduction after client shows stability in current clinical s/s. Reduction will not result in a negative outcome. 11/07/2023 Other Patient was edu cated on diagnosis and symptoms. Discussed the treatment plan, patient is agreeable and accepting of treatment plan. Patient denies further questions or concerns currently. Discussed sleep hygiene and caffeine intake. Encouraged to improve diet, get regular exercise, daily relaxation, and work on managing stress levels.Return to clinic 4 weeks.Need disclosure signed for recent labs. Continue with counseling.Educated patient that if she is or planning to become , she is to let the provider know immediately.The Patient/Guardian is aware of the need to contact the office or return for an earlier appointment if any problems or concerns arise. May also contact the 24-hour crisis hotline ([facility] refer to the closest emergency room or call 911 if new symptoms arise of existing symptoms worsen; the Patient/Guardian is aware that this would apply to symptoms such as: suicidal ideation, homicidal ideation, high risk behaviors, manic symptoms, psychotic symptoms, physical symptoms, or any other symptoms that may be dangerous to self or others.Greater than 50% of time spent on coordination and counseling where psychopharmacology as well as psychotherapeutic interventions were discussed along with review of treatments in the past.Patient/Guardian was educated about treatments including benefits and risks, alternatives, potential medication side effects, black box warning, and risks of failure if not treated. The Patient/Guardian asked appropriate questions, appeared to understand the answers, and decided to accept the treatment and continue being followed.Discussed the importance of compliance with medications due to the risk of relapse of symptoms.Discussed the risks of taking psychotropic medication when combined with substance use/abuse and/or drinking alcohol. Client was educated about risks and benefits of medication, alternative to medication, alternative to no medications, suicidal ideation with SSRI, education related to psychiatric illness, self-administration, compliance with medication, storage and safeguarding of medication. Will assess appropriateness of medication reduction after client shows stability in current clinical s/s. Reduction will not result in a negative outcome. 12/09/2023 Other Patient was edu cated on diagnosis and symptoms. Discussed the treatment plan, patient is agreeable and accepting of treatment plan. Patient denies further questions or concerns currently. Discussed sleep hygiene and caffeine intake. Encouraged to improve diet, get regular exercise, daily relaxation, and work on managing stress levels.Return to clinic 4 weeks.Labs are up to date. Continue with counseling.Educated patient that if she is or planning to become , she is to let the provider know immediately.The Patient/Guardian is aware of the need to contact the office or return for an earlier appointment if any problems or concerns arise. May also contact the 24-hour crisis hotline ([facility] refer to the closest emergency room or call 911 if new symptoms arise of existing symptoms worsen; the Patient/Guardian is aware that this would apply to symptoms such as: suicidal ideation, homicidal ideation, high risk behaviors, manic symptoms, psychotic symptoms, physical symptoms, or any other symptoms that may be dangerous to self or others.Greater than 50% of time spent on coordination and counseling where psychopharmacology as well as psychotherapeutic interventions were discussed along with review of treatments in the past.Patient/Guardian was educated about treatments including benefits and risks, alternatives, potential medication side effects, black box warning, and risks of failure if not treated. The Patient/Guardian asked appropriate questions, appeared to understand the answers, and decided to accept the treatment and continue being followed.Discussed the importance of compliance with medications due to the risk of relapse of symptoms.Discussed the risks of taking psychotropic medication when combined with substance use/abuse and/or drinking alcohol. Client was educated about risks and benefits of medication, alternative to medication, alternative to no medications, suicidal ideation with SSRI, education related to psychiatric illness, self-administration, compliance with medication, storage and safeguarding of medication. Will assess appropriateness of medication reduction after client shows stability in current clinical s/s. Reduction will not result in a negative outcome. 02/10/2024 Other Patient was [facility] cated on diagnosis and symptoms. Discussed the treatment plan, patient is agreeable and accepting of treatment plan. Patient denies further questions or concerns currently. Discussed sleep hygiene and caffeine intake. Encouraged to improve diet, get regular exercise, daily relaxation, and work on managing stress levels.Return to clinic 8 weeks.Labs are up to date. Encouraged counseling.Educated patient that if she is or planning to become , she is to let the provider know immediately.The Patient/Guardian is aware of the need to contact the office or return for an earlier appointment if any problems or concerns arise. May also contact the 24-hour crisis hotline ([facility] refer to the closest emergency room or call 911 if new symptoms arise of existing symptoms worsen; the Patient/Guardian is aware that this would apply to symptoms such as: suicidal ideation, homicidal ideation, high risk behaviors, manic symptoms, psychotic symptoms, physical symptoms, or any other symptoms that may be dangerous to self or others.Greater than 50% of time spent on coordination and counseling where psychopharmacology as well as psychotherapeutic interventions were discussed along with review of treatments in the past.Patient/Guardian was educated about treatments including benefits and risks, alternatives, potential medication side effects, black box warning, and risks of failure if not treated. The Patient/Guardian asked appropriate questions, appeared to understand the answers, and decided to accept the treatment and continue being followed.Discussed the importance of compliance with medications due to the risk of relapse of symptoms.Discussed the risks of taking psychotropic medication when combined with substance use/abuse and/or drinking alcohol. 04/09/2024 Other Patient was edu cated on diagnosis and symptoms. Discussed the treatment plan, patient is agreeable and accepting of treatment plan. Patient denies further questions or concerns currently. Discussed sleep hygiene and caffeine intake. Encouraged to improve diet, get regular exercise, daily relaxation, and work on managing stress levels.Return to clinic 4-6 weeks.Need copy of labs from PCP.Continue with counseling.Educated patient that if she is or planning to become , she is to let the provider know immediately.The Patient/Guardian is aware of the need to contact the office or return for an earlier appointment if any problems or concerns arise. May also contact the 24-hour crisis hotline ([facility] refer to the closest emergency room or call 911 if new symptoms arise of existing symptoms worsen; the Patient/Guardian is aware that this would apply to symptoms such as: suicidal ideation, homicidal ideation, high risk behaviors, manic symptoms, psychotic symptoms, physical symptoms, or any other symptoms that may be dangerous to self or others.Greater than 50% of time spent on coordination and counseling where psychopharmacology as well as psychotherapeutic interventions were discussed along with review of treatments in the past.Patient/Guardian was educated about treatments including benefits and risks, alternatives, potential medication side effects, black box warning, and risks of failure if not treated. The Patient/Guardian asked appropriate questions, appeared to understand the answers, and decided to accept the treatment and continue being followed.Discussed the importance of compliance with medications due to the risk of relapse of symptoms.Discussed the risks of taking psychotropic medication when combined with substance use/abuse and/or drinking alcohol. Plan Of Treatment No Information Insurance Providers Payer Name Payer Address Payer Phone Subscriber Number Group Number Insured Name Patient Relationship to Insured Coverage Start Date Coverage End Date [facility] Plan [address] [place] [id number] 1 Maryann Philippe Self - patient is the insured 4 [facility] Plan [address] [place] [id number] 1 Maryann Philippe Self - patient is the insured 3 3 [facility] [address] [place] [address] [id number] 1 Maryann Philippe Self - patient is the insured 3 3 MED[employer] [address] [place] [address] [id number] Maryann Philippe Self - patient is the insured 3 4 [employer] [address] [place] [address] [id number] Maryann Philippe Self - patient is the insured 3 4 Medical (General) History Medical History History ICD Code HTN HLD Asthma Endometriosis Seasonal Allergies Herniated discs in neck Eczema Surgical History Surgery Date(Month/Year) Ear tubes Adenoidectomy [place] tooth extraction Pelvic Laparotomy Head bumps Hospitalization History Reason Date(Month/Year) - November Mental Health- Medicatio n concerns 11/2022 [facility] for 2019
--- OUTSIDE RECORDS SUMMARY | 2024-08-23 17:15 | XMS_ITS ---
Author Organization [facility] Address [address] [place] [address] Care Team Providers Care Psychiatric Lpn Name Role Phone AguilarEde Primary Care Provider Justina Brown Unavailable [phone] Allergies Allergen (clinical drug ingredient) Drug/Non Drug Allergy documented on EMR Reaction Allergy Type Onset Date Status tramadol traMADol HCl Unknown Drug Allergy Acti ve Adhesive blisters Allergy Active Penicillin Rash, Childhood Drug Allergy Active REASON FOR VISIT 2 Month Psych F/U & Med Refill Medications Medication SIG (Take, Route, Frequency, Duration) Notes Start Date End Date Status Cyclobenzaprine HCl 10 MG 1 tablet two t imes every morning and bedtime x7 days then 1 tab daily at bedtime Orally as directed for 30 days Active Lisinopril 20 MG 1 tablet Orally Once a day Active Atorvastatin Calcium 10 MG 1 tablet Oral ly Once a day Active Pantoprazole Sodium 20 MG 1 tablet Orall y Once a day Active Meloxicam 7.5 MG 2 tablet x7 days, th en 1 tablet daily x23 days Orally Once a day for 30 days Active Escitalopram Oxalate 20 MG 1 tablet Oral ly Once a day for 30 days Active Montelukast Sodium 10 MG 1 tablet Orally Once a day Active Albuterol Sulfate HFA 108 (9 0 Base) MCG/ACT 1 puff as needed Inhalation every 4 hrs Active lamoTRIgine 100 MG 1 tablet Orally Once a day for 30 days Active Prazosin HCl 1 MG 1 capsule at bedtime Orally Once a day for 30 days Active busPIRone HCl 15 MG 1 tablet Orally Twic e a day for 30 days Active Wellbutrin XL 300 MG 1 tablet in the mor rodney Orally Once a day for 30 days Active Social History Sex Assigned At : Social History Observation Description Sex Assigned At Female Section Notes: [place] Encounters Encounter Location Date Provider Diagnosis [address] [place] [address] 04/09/2024 Justina Brown Nicotine dependence, unspecified, uncomplicated F17.200 ; Nightmares F51.5 ; Anxiety, generalized F41.1 ; Mood disorder F39 and Adult ADHD F90.9 Assessments Encounter Date Diagnosis (ICD Code) Assessment Notes Treatment Notes Treatment Clinical Notes Section Notes 04/09/2024 Nicotine dependence, unspecified, uncomplicated (ICD-10 - F17.200) 04/09/2024 Nightmares (ICD-10 - F51.5) Continue Prazosin [...] aside some time to relax before bedtime. 04/09/2024 Anxiety, generalized (ICD-10 - F41.1) Vistaril DC'd due to side effects Refilled bupar and Lexapro Practice deep breathing daily Practice mindfulness techniques Practice relaxation techniques Continue therapy with Gunjan Masters regarding EMDR Need copy of recent labs from PCP 04/09/2024 Mood disorder (ICD-10 - F39) Denies need for warm handoff to crisis She has crisis contact information Continue Lamotrigine DC if rash develops Continue with therapy Continue Wellbutrin to augment Lexapro Have sign disclosure for recent labs by PCP 04/09/2024 Adult ADHD (ICD-10 - F90.9) Continue Wellbutrin 04/09/2024 Other Patient was edu cated on [...] May also contact the 24-hour crisis hotline ([facility]), refer to the closest emergency room or [...] use/abuse and/or drinking alcohol. Plan Of Treatment Medication Medication Name Sig Start Date Stop Date Notes Escitalopram Oxalate 20 MG 1 tablet Oral ly Once a day for 30 days lamoTRIgine 100 MG 1 tablet Orally Once a day for 30 days Prazosin HCl 1 MG 1 capsule at bedtime Orally Once a day for 30 days busPIRone HCl 15 MG 1 tablet Orally Twic e a day for 30 days Wellbutrin XL 300 MG 1 tablet in the mor rodney Orally Once a day for 30 days Treatment Notes Assessment Notes Nightmares Continue Prazosin for nightmare Monitor BP Sleep [...] aside some time to relax before bedtime. Anxiety, generalized Vistaril DC'd due to side effects Refilled bupar and Lexapro Practice deep breathing daily Practice mindfulness techniques Practice relaxation techniques Continue therapy with Gunjan Call Guerrero regarding EMDR Need copy of recent labs from PCP Mood disorder Denies need for warm handoff to crisis She has crisis contact information Continue Lamotrigine DC if rash develops Continue with therapy Continue Wellbutrin to augment Lexapro Have sign disclosure for recent labs by PCP Adult ADHD Continue Wellbutrin Other Patient was educated on diagnosis and [...] combined with substance use/abuse and/or drinking alcohol. Next Appt Details Follow Up: 6 Weeks, Reason: Medication management - can be telehealth appt. Progress Notes * Maryann HANCOCKDOB: [birth year] (39 yo F)Acc No.[id number]:04/09/2024 Patient:Maryann WELLER Provider:?Justina Brown, MSN, SOUBRETTE-BC, PMHNP-BC :1985???Age:39 Y???Sex:Female D ate:04/09/2024 Address:[address] [place], [place] [id number] Subjective: * Chief Complaints: * ???2 Month Psych F/U & Med R efill * HPI: ???Depression Screening:?This session was completed telephonically due to COVID-19 emergency, with client/parental/guardian consent. ?PHQ-9?Little interest or pleasure in doing things?Several days,?Feeling down, depressed, or hopeless?Several days,?Trouble falling or staying asleep, or sleeping too much?Nearly every day,?Feeling tired or having little energy Nearly every day,?Poor appetite or overeating?Nearly every day,?Feeling bad about yourself or that you are a failure, or have let yourself or your family down?Several days, Trouble concentrating on things, such as reading the newspaper or watching television?Several days,?Moving or speaking so slowly that other people could have noticed; or the opposite, being so fidgety or restless that you have been moving around a lot more than usual?Not at all,?Thoughts that you would be better off or of hurting yourself in some way?Not at all, Total Score?13,?Interpretation?Moderate Depression.?Intervention?Depression Screening Findings?Positive,?Follow-Up for Depression?No Referral necessary, patient involved in behavioral health treatment ..?Screening:?Schleicher Suicide Severity Rating Scale (LF)?Do you want to initiate with?Screener form,?1. Wish to be : Have you wished you were or wished you could go to sleep and not wake up??No,?2. Suicidal Thoughts: Have you actually had any thoughts of killing yourself??No,?6. Suicide Behaviour: Have you ever done anything,started to do anything, or prepared to end your life??No,?Interpretation:?Low Risk.?CSSRS Interpretation and Follow Up Plan:?CSSRS Interpretation and Follow Up Plan. ?CSSRS Interpretation and Follow Up Plan?CSSRS Screen documented using SF?Yes,?Moderate or High risk requires selection of a follow up plan?CSSRS No/Low: intervention not needed at this time.?Constitutional:? Chief Complaint: Medication management HPI: Maryann is a 39 y/o female (Trans nonbinary) that presents by telephone for her appt today. She was last seen on 02/10/2024 at which time we refilled Prazosin, Lamotrigine, buspirone, Wellbutrin, and Lexapro. PHQ-9 is 13. I think my medication is doing good. She has not experienced any side effects. She has been doing a lot of animal sitting. She reports that this is good because it is stressful there. My parents make me feel bad about everything and the money I owe them. 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 She reports that she has been doing well. She won her court case for her surgery, but they appealed again at the end of December. It will be another year for her next court case. She continues to live with her adoptive parents to help her financially. She has been going to latter-day functions and volunteering. She is hoping to become the president elect at her latter-day. She was officially on 2024. Depression is 1/10 and anxiety is 4-5/10. She admits it has been easier for her to get up. She has been sleeping good. Nightmares have been resolved. Discussed sleep hygiene. Appetite has been diminished due to the pain. She admits she sometimes takes her night dose late because she forgets. She now has a pill organizer. She feels her meds are effective, she denies any side effects. She denies any nancy or SIB/SI/HI/AVH. She has been dog and house sitting for money. She continues in therapy with Gunjan. She is going to call [facility] and look into EMDR therapy.? Hx: She fell at work 2 years ago and has been off since. 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 She continues to fight her workman's comp case in court. She finds out in 6-10 months if her surgery gets approved for her neck. She has chronic pain, and the pain limits her activity and interferes with her sleep. She reports a hx of Bipolar, ODALYS, Manic Depression, Winter Blues , OCPD, Autism, Dyslexia, Adult ADHD (all diagnosed in 2009). She was hospitalized for MH x1 in 2019 and that was when she was placed on her current medication regime. She reports 1 SA at age 20. PHQ-9 on 02/10/2024 was 6. Today's PHQ-9 is 13. Previous Diagnosis: Bipolar, ODALYS, Manic Depression, Winter Blues , OCPD, Autism, Dyslexia, Adult ADHD (all diagnosed in 2009) Goals: Putting together a positivity board. She also started a vision board. Get healthier exercise jefferson. She has been reading through positivity cards every morning. Coping strategies: Talking to family Social Activities/Hobbies: Reading, watching movies, playing DND, puzzles Drugs/ETOH/nicotine: Smokes cigar twice a year, ETOH twice a year, denies drug use Therapy: She is in therapy with Gunjan at [facility] in [place]. She is going every other week. Medications effective: Yes Medication Adherence: Yes Side effects: Hydroxyzine-dizzy, palpitations Past medications: I couldn't tell you what they were. Sleep: Sleep has improved. No nightmares.? Appetite: Appetite has been diminished due to pain Depression: 09/04, I have been doing good on that. ? Anxiety/Panic attacks: -01/02 No anxiety attacks Anger/Irritability: Denies any anger or irritability Hallucinations/Paranoia: May randomly hear a dog bark or kids cry when she has had lack of sleep. Current Suicidal ideation: Denies Past suicidal ideation: OD on pain pills at age 20; Last SI was in 05/2023 Homicidal ideation: Denies Medical concerns: Has hx 2 herniated discs in neck. HTN, HLD, Endometriosis, Eczema, Asthma, Seasonal Allergies. No hx head injury or seizures. PCP is Zaira Barajas at [facility] in [place] Hospitalizations/medication changes by other providers: ELICIA Hidalgo in 2018 ?SYEDA Pacheco 05/2923 [facility]: She is adopted. ?Biological Dad-Bipolar, Diabetes, Depression ?Biological Mother-unknown MH ?Twin Sister-Depression, ODALYS, PTSD, PPD, Bipolar Legal Concerns: Filed Bankruptcy ?Court case for work[employer]rip[employer]'s comp. Support system: Adoptive parents Labs: 1.5 months ago by her PCP. * ROS:?Psych ROS:?Constitutional?Denies.?Respiratory?Reports,?Asthma.?Allergic/Immunologic?Re ports,?Seasonal allergies.?Cardiovascular?Reports,?HTN,Hyperlipidemia.??Reports,?Endometriosis and irregular menses.?Musculoskeletal?Reports,?Chronic pain, herniated disc in neck.?Integumentary?Reports,?Eczema..?*PSYCH ROS2:?Elevated mood symptoms?Denies.?mood swings? Denies.?Thoughts of self harm?Denies.?Denies?Homicidal thoughts.?Hyperactivity?Denies.?Inattention?Admits.?Paranoia?Denies.?Difficulty concentrating Admits.?Admits?Anxiety.?Denies?Auditory/visual hallucinations.?Denies?Delusions.?Admits?Depressed mood.?Denies?Difficulty sleeping.?Denies?Loss of appetite.?Admits?Stressors.?Denies?Substance abuse.?Denies?Suicidal thoughts.? * Medical History:? * Surgical History:?Ear tubes Adenoidectomy [place] tooth extraction Pelvic Laparotomy Head bumps * Hospitalization/Major Diagno stic Procedure:?ELICIA Colbert for November Mental Health- Medication concerns 11/2022 * Family History:?1 brother(s) , 1 sister(s) - healthy. .? She is adopted. Biological Dad-Bipolar, Diabetes, Depression Biological Mother-unknown MH Twin Sister-Depression, ODALYS, PTSD, PPD, Bipolar. * Social History:?Primary Social History:?Living Arrangement?Living Arrangement:?Independent Living,?Is this a supportive environment??Yes.?Alcohol Use?Alcohol Use Frequency:?Monthly or less.?Illicit Substance Usage?Illicit Substance Usage:?No.?Employment Status?Employment Status:?On Disability.?Tobacco Use?Tobacco Use:?Status Reviewed with Patient.?Reviewed [place]. * Medications:?TakingAlbuterol Sulfate HFA 108 [...] daily x23 days Orally Once a day Wellbutrin XL 300 MG Tablet Extended Release 24 Hour 1 tablet in the morning Orally Once a day busPIRone HCl 15 MG Tablet 1 tablet Orally Twice a day Escitalopram Oxalate 20 MG Tablet 1 tablet Orally Once a day Prazosin HCl 1 MG Capsule 1 capsule at bedtime Orally Once a day lamoTRIgine 100 MG Tablet 1 tablet Orally Once a day Medication List reviewed and reconciled with the patientTaking Albuterol Sulfate HFA 108 (90 Base) MCG/ACT [...] Tablet 1 tablet Orally Once a day Medication List reviewed and reconciled with the patient * Allergies:?Penicillin: Rash, ChildhoodAdhesive: blisterstraMADol HClno[Allergies Verified] Objective: * Vitals:?Initials: CLS, LMP: 03/19/2024, Pain scale:4. Denies any physical symptoms; unable to obtain vital signs due to telephone encounter. * Examination: ???General Examination: ?PSYCH:?full range of affect/positive mood, speech clear , thought content without suicidal ideation or delusions , alert, oriented x4 , cognitive function intact , cognitive function intact , thought process logical, goal directed , judgement and insight fair, denies any current thoughts/plans of suidicial/homicidal ideation , suicidial ideation history.?Mental Status Exam?.? Assessment: * Assessment: 1.?Nicotine dependence, unsp ecified, uncomplicated - F17.200???2.?Nightmares - F51.5???3.?Anxiety, generalized - F41.1???4.?Mood disorder - F39???5.?Adult ADHD - F90.9??? Plan: * Treatment: 2.?Anxiety, generalized? Refill busPIRone HCl Tablet, 15 MG, 1 tablet, Orally, Twice a day, 30 days, 60 Tablet, Refills 1;?Refill Escitalopram Oxalate Tablet, 20 MG, 1 tablet, Orally, Once a day, 30 days, 30 Tablet, Refills 1.?? Notes: Vistaril DC'd due to side effects Refilled bupar and Lexapro Practice deep breathing daily Practice mindfulness techniques Practice relaxation techniques [facility] Need copy of recent labs from PCP?? 3.?Mood disorder? Refill lamoTRIgine Tablet, 100 MG, 1 tablet, Orally, Once a day, 30 days, 30 Tablet, Refills 1.?? Notes: Denies need for warm handoff to crisis She has crisis contact information Continue Lamotrigine DC if rash develops Continue with therapy Continue Wellbutrin to augment Lexapro Have sign disclosure for recent labs by PCP?? 4.?Adult ADHD? Refill Wellbutrin XL Tablet Extended Release 24 Hour, 300 MG, 1 tablet in the morning, Orally, Once a day, 30 days, 30 Tablet, Refills 1.?? Notes: Continue Wellbutrin?? 5.?Others? Notes: Patient was educated on diagnosis and symptoms. [...] combined with substance use/abuse and/or drinking alcohol. ?? * Procedure Codes:? 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 History and Physical Notes * HPI (History of Present Illness) Category Sub-Category Detail Notes Category Not es Depression Screening PHQ-9 Little inte rest or pleasure in doing things: Several days Feeling down, depressed, or hopeless: Se veral days Trouble falling or staying asleep, or sl eeping too much: Nearly every day Feeling tired or having little energy: N early every day Poor appetite or overeating: Nearly ever y [...] moving around a lot more than usual: Not at all Thoughts that you would be b wood off or of hurting yourself in some way: Not at all Total Score: 13 Interpretation: Moderate Depression Intervention Depression Screening Findings: P ositive Follow-Up for Depression: No Referral necessary, patient involved in behavioral health treatment . Screening Schleicher Suicide Sev erity Rating Scale (LF) Do [...] end your life?: No ?Interpretation:: Low Risk CSSRS Interpretation and Follow Up Plan CSSRS Interpretation and Follow Up Plan CSSRS Screen documented using SF: Yes Moderate or High risk requir es selection of a follow up plan: CSSRS No/Low: intervention not needed at this time Examination Category Sub-Category Detail Notes Category Not es General Examination PSYCH: full range o f affect/positive mood, speech clear , thought content without suicidal ideation or delusions , alert, oriented x4 , cognitive function intact , cognitive function intact , thought process logical, goal directed , judgement and insight fair, denies any current thoughts/plans of suidicial/homicidal ideation , suicidial ideation history Mental Status Exam Protective Factors: , Coping Skills, Cultural/Episcopal Ideology, Denies Intent/Desire/Means
== END 2024-08-16 14:53 | disposition home or self-care (01) ==
PROVIDERS: Emergency Provider Emergency Medicine; PCP Physician Assistant
DX: E86.0 Dehydration (principal); M54.2 Cervicalgia; J45.909 Unspecified asthma, uncomplicated; I10 Essential (primary) hypertension; F41.9 Anxiety disorder, unspecified; F32.A Depression, unspecified
CPT/HCPCS: 36415; 80053; 83735; 85025; 93005; 96361; 96374; 96375; 99284; J1885; J3360; J7030

== ENCOUNTER 2024-09-16 12:34 | Outpatient (CLI) | payer OTHER, SELFPAY ==
--- NOTE | 2024-09-16 12:53 | ECG_ITS ---
Test Date: 2024-09-16 13:10:21 Measurements Intervals [place] Rate: 90 P: 62 [place]: 128 QRS: 32 QRSD: 84 T: 50 QT: 342 QTc: 419 Interpretive Statements SINUS RHYTHM Compared to ECG 08/16/2024 13:36:45 No significant changes Electronically Signed On 09-17-2024 13:54:47 CONVERTER SKIMMER by Yaima Patel
--- OUTSIDE RECORDS SUMMARY | 2024-09-18 00:23 | XMS_ITS | Data Portability ---
Author Organization [facility] CAREYNimishavalente Bahena Address [address] [place] [address] Care Team Providers Care Foundry Superintendant Name Role Phone ZAIRA MARCELINO Primary Care Provider [phone] Assessment No assessment recorded. Plan of Treatment Reminders Order Date Submit Date Provider Last Modified By Organization Details Last Modified Time Details Appointments None recorded. Lab cytology report, thin prep, smear or scraping, cervical or vaginal 2022 023 [facility], [facility], [address], [place], [address], 3 23:02:55 bacterial vaginosis score, RUKHSANA+probe, vaginal fluid (OBS) 2022 023 [facility], [address], [address], [place], [address], 3 08:25:05 CMP, serum or plasma 2023 024 [facility], [address], [place], [address], 4 22:09:46 lipid panel, serum 2023 024 [facility], [address], [place], [address], 4 22:09:45 CBC w/ auto diff 2023 024 [facility], [address], [place], [address], 4 22:09:47 TSH + free T4, serum 2023 024 [facility], [address], [place], [address], 4 10:17:18 HbA1c (hemoglobi n A1c), blood 2023 024 [facility], [address], [place], [address], 4 10:17:19 CBC w/ auto diff 2024 025 [facility], [address], [address], [place], [address], 5 10:11:22 CMP, serum or plasma 2024 025 [facility], [address], [address], [place], [address], 5 10:11:18 PT/PTT, plasma 2024 025 [facility], [address], [address], [place], [address], 5 10:11:24 ESR (erythrocy te sedimentat ion rate), blood 2024 025 [facility], [address], [address], [place], [address], 5 10:11:23 hepatitis panel (A+B+C), acute, serum 2024 025 [facility], [address], [address], [place], [address], 5 10:11:16 HIV 1 + 2, meaningful use set 2024 025 [facility], [address], [address], [place], [address], 5 10:11:25 urinalysis , complete 2024 025 [facility], [address], [address], [place], [address], 5 10:11:21 HbA1c (hemoglobi n A1c), blood 2024 025 [facility], [address], [address], [place], [address], 5 10:11:20 Referral gynecologi c surgery referral 2023 024 [email or web address] [facility], [address], [place], [address], 4 08:14:04 dermatolog ist referral 2023 024 [email or web address] [facility], [address] [facility] [address] , [place], [address], 4 08:14:05 Procedures electrocar diogram, routine ECG, 12 leads min; interpreta tion and report (PROC) 2024 025 [facility] ([facility]), [address], [place], [address], 5 13:14:32 Surgeries None recorded. Imaging polysomnog alia 2022 023 [facility], [address] [place], [address], 4 15:23:00 Medication Orders gabapentin 300 mg capsule 2023 ATHENAFAX [id number], [address], [place], [place], [id number], 4 16:15:30 albuterol sulfate HFA 90 mcg/actuat ion aerosol inhaler 2023 024 SOF[facility][id number], [address], [place], [place], [id number], 16:09:40 Patient TargetsNo targets recorded. Patient Instructions Encounter Date Encounter Id Patient Instructions Last Modified By Organization Details Last Modified Time 01/30/2024 [id number] A healthy lifestyle: care instructions [email or web address] Not available 01/30/2024 11:04:09 09/16/2024 [id number] A healthy lifestyle: care instructions Not available 09/16/2024 13:22:57 rhythm strip, EKG* [email or web address] Not available 09/16/2024 13:30:33 Reason for Referral Gynecologic Surgery Referral for Endometriosis of pelvis Referring Physician: Zaira Marcelino [facility], Encounter Date: 07/08/2024 Eviscerator Referral for S kin tag skin tag to L nipple Referring Physician: Zaira Marcelino [facility] Medicine, Encounter Date: 07/08/2024 Results Created Date Observation Date Name Description Value Unit Range Abnormal Flag Note LastModifiedBy Organization Detail LastModifiedTime 08/07/2008/13/2023 NUA B VG+, HSV atopobium vaginae Low - 0 score Not Available [facility] ([facility]) [address] [facility] [address], [place], [address], 08/15/2023 08:25:05 08/07/2008/13/2023 NUSWA B VG+, HSV bvab 2 Low - 0 score Not Available [facility] ([facility]) [address] [facility] [address], [place], [address], 08/15/2023 08:25:05 08/07/20 23 08/13/2023 NUSWA B VG+, HSV megasphaera 1 Low - 0 score Calcu late total score by ward garcia the 3 indiv idual bacte rial vagin osis (BV) marke r score s toget her. Total score is inter prete d as follo ws: Total score 0-1: Indic ates the absen ce of BV. Total score 2: Indet ermin ate for BV. Addit ional clini jeffry data shoul d be evalu ated to estab maddi a diagn osis. Total score 3-6: Indic ates the prese nce of BV. This test was devel oped and its perfo rmanc e gill cteri stics deter mined by [facility]. It has not been clear ed or appro sirisha by the Food and Drug Admin istra tion. Not Available [facility] ([facility]) [address] [place], [address], 08/15/2023 08:25:05 08/07/2008/13/2023 NUSWA B VG+, HSV chris albicans, RUKHSANA Negati ve negati ve Not Available [facility] ([facility]) [address] [place], [address], 08/15/2023 08:25:05 08/07/20 23 08/13/2023 NUSWA B VG+, HSV chris glabrata, RUKHSANA Negati ve negati ve Not Available [facility] ([facility]) [address] [place], [address], 08/15/2023 08:25:05 08/07/2008/13/2023 NUSWA B VG+, HSV chlamydia trachomatis, RUKHSANA Negati ve negati ve Not Available [facility] ([facility]) [address] [place], [address], 08/15/2023 08:25:05 08/07/20 23 08/13/2023 NUSWA B VG+, HSV neisseria gonorrhoeae, RUKHSANA Negati ve negati ve Not Available [facility] ([facility]) [address] [facility] [address], [place], [address], 08/15/2023 08:25:05 08/07/20 23 08/13/2023 NUSWA B VG+, HSV hsv 1 RUKHSANA Negati ve negati ve Not Available [facility] ([facility]) [address] [facility] [address], [place], [address], 08/15/2023 08:25:05 08/07/2008/13/2023 NUSWA B VG+, HSV hsv 2 RUKHSANA Negati ve negati ve Not Available [facility] ([facility]) [address] [facility] [address], [place], [address], 08/15/2023 08:25:05 08/07/2008/15/2023 NUA B VG+, HSV trich vag by RUKHSANA Negati ve negati ve Not Available [facility] ([facility]) [address] [facility] [address], [place], [address], 08/15/2023 08:25:05 08/07/2008/09/2023 IGP, APTIM A HPV, RFX 16/18 ,45 diagnosis: Commen t NEGAT BARRON FOR INTRA EPITH ELIAL LESIO N OR MALMICHAEL PERLITA . Not Available [facility] ([facility]) [address] [facility] [address], [place], [address], 08/15/2023 16:03:28 08/07/20 23 08/09/2023 IGP, APTIM A HPV, RFX 16/18 ,45 specimen adequacy: Commen t Satis facto ry for evalu ation . Endoc ervic al and/o r squam ous metap lasti c cells (endo cervi jeffry compo nent) are prese nt. Not Available [facility] ([facility]) [address] [facility] [address], [place], [address], 08/15/2023 16:03:28 08/07/20 23 08/09/2023 IGP, APTIM A HPV, RFX 16/18 ,45 clinician provided ICD10: Oksana lechuga Z12.4 Not Available [facility] ([facility]) [address] [facility] [address], [place], [address], 08/15/2023 16:03:28 08/07/20 23 08/09/2023 IGP, APTIM A HPV, RFX 16/18 ,45 performed by: Oksana salcido, Cytoalexandrea lechuga (ASCP ) Not Available [facility] ([facility]) [address] [place], [address], 08/15/2023 16:03:28 08/07/20 23 08/09/2023 IGP, APTIM A HPV, RFX 16/18 ,45 . . Not Available [facility] ([facility]) [address] [facility] [address], [place], [address], 08/15/2023 16:03:28 08/07/20 23 08/09/2023 IGP, APTIM A HPV, RFX 16/18 ,45 note: Oksana lechuga The Pap smear is a scree rodney test desig beronica to aid in the detec tion of nereida ligna nt and malig nant condi tions of the uteri ne cervi x. It is not a diagn ostic proce dure and shoul d not be used as the sole means of detec ting cervi jeffry cance r. Both false -posi tive and false -nega tive repor ts do occur . Not Available [facility] ([facility]) [address] [place], [address], 08/15/2023 16:03:28 08/07/20 23 08/09/2023 IGP, APTIM A HPV, RFX 16/18 ,45 test methodology: Oksana lechuga This liqui d based ThinP rep(R ) pap test was scree beronica with the use of an image guide d syste m. Not Available [facility] ([facility]) [address] [facility] [address], [place], [address], 08/15/2023 16:03:28 08/07/20 23 08/09/2023 IGP, APTIM A HPV, RFX 16/18 ,45 HPV aptima Negati ve negati ve This nucle ic acid ampli ficat ion test detec ts fourt een high- risk HPV types (16,1 8,31, 33,35 ,39,4 5,51, 52,56 ,58,5 9,66, 68) witho ut diffe renti ation . Not Available [facility] ([facility]) [address] [facility] [address], [place], [address], 08/15/2023 16:03:28 08/07/20 23 08/09/2023 IGP, APTIM A HPV, RFX 16/18 ,45 HPV genotype reflex Commen t Crite tierra not met, HPV Genot ype not perfo rmed. Not Available [facility] ([facility]) [address] [facility] [address], [place], [address], 08/15/2023 16:03:28 01/30/20 24 01/30/2024 LIPID PANEL WITH LDL/H DL RATIO cholesterol, total 223 mg/dL 100-19 9 above high normal Not Available [facility] Department [address] [place], [address], 01/30/2024 22:09:45 01/30/20 24 01/30/2024 LIPID PANEL WITH LDL/H DL RATIO triglyceride s 127 mg/dL 0-149 Not Available [facility] Department [address] [place], [address], 01/30/2024 22:09:45 01/30/20 24 01/30/2024 LIPID PANEL WITH LDL/H DL RATIO HDL cholesterol 48 mg/dL 40-999 Not Available [facility] Department [address] [place], [address], 01/30/2024 22:09:45 01/30/20 24 01/30/2024 LIPID PANEL WITH LDL/H DL RATIO VLDL cholesterol jeffry 25 mg/dL 5-40 Not Available [facility] Department [address] [place] [address], [address], 01/30/2024 22:09:45 01/30/20 24 01/30/2024 LIPID PANEL WITH LDL/H DL RATIO LDL chol calc (nih) 168 mg/dL 0-99 above high normal Not Available [facility] [address] [place] [address], [address], 01/30/2024 22:09:45 01/30/20 24 01/30/2024 LIPID PANEL WITH LDL/H DL RATIO LDL/HDL ratio 3.5 0-3.2 above high normal Not Available [facility] [address] [place] [address], [address], 01/30/2024 22:09:45 01/30/20 24 01/30/2024 COMP. METAB OLIC PANEL (14) glucose 131 mg/dL 70-99 above high normal Not Available [facility] [address] [place] [address], [address], 01/30/2024 22:09:46 01/30/20 24 01/30/2024 COMP. METAB OLIC PANEL (14) BUN 14 mg/dL 6-20 Not Available [facility] [address] [place] [address], [address], 01/30/2024 22:09:46 01/30/20 24 01/30/2024 COMP. METAB OLIC PANEL (14) creatinine 0.87 mg/dL 0.76-1 .27 Not Available [facility] [address] [place] [address], [address], 01/30/2024 22:09:46 01/30/20 24 01/30/2024 COMP. METAB OLIC PANEL (14) eGFR 87 >=60 Units for eGFR value s are mL/mi n/1.7 3 The eGFR Calcu latio n has not been valid ated for patie nts under the age of 18. If test resul ts are displ ayed for a patie nt under the age of 18, disre nina that value . Not Available [facility] [address] [place] [address], [address], 01/30/2024 22:09:46 01/30/20 24 01/30/2024 COMP. METAB OLIC PANEL (14) BUN/creatini ne ratio 16 9-23 Not Available [facility] [address] [place] [address], [address], 01/30/2024 22:09:46 01/30/20 24 01/30/2024 COMP. METAB OLIC PANEL (14) sodium 141 mmol/ L 134-14 4 Not Available [facility] [address] [place] [address], [address], 01/30/2024 22:09:46 01/30/20 24 01/30/2024 COMP. METAB OLIC PANEL (14) potassium 4.5 mmol/ L 3.5-5. 2 Not Available [facility] [address] [place] [address], [address], 01/30/2024 22:09:46 01/30/20 24 01/30/2024 COMP. METAB OLIC PANEL (14) chloride 101 mmol/ L 96-106 Not Available [facility] [address] [place] [address], [address], 01/30/2024 22:09:46 01/30/20 24 01/30/2024 COMP. METAB OLIC PANEL (14) carbon dioxide, total 23 mmol/ L 20-29 Not Available [facility] [address] [place] [address], [address], 01/30/2024 22:09:46 01/30/20 24 01/30/2024 COMP. METAB OLIC PANEL (14) calcium 9.9 mg/dL 8.7-10 .2 Not Available [facility] [address] [place] [address], [place], [address], 01/30/2024 22:09:46 01/30/20 24 01/30/2024 COMP. METAB OLIC PANEL (14) protein, total 7.5 g/dL 6.0-8. 5 Not Available [facility] [address] [place], [address], 01/30/2024 22:09:46 01/30/20 24 01/30/2024 COMP. METAB OLIC PANEL (14) albumin 4.6 g/dL 3.9-4. 9 Not Available [facility] [address] [place], [address], 01/30/2024 22:09:46 01/30/20 24 01/30/2024 COMP. METAB OLIC PANEL (14) globulin, total 2.9 g/dL 1.5-4. 5 Not Available [facility] [address] [place], [address], 01/30/2024 22:09:46 01/30/20 24 01/30/2024 COMP. METAB OLIC PANEL (14) A/G ratio 2.0 1.2-2. 2 Not Available [facility] [address] [place], [address], 01/30/2024 22:09:46 01/30/20 24 01/30/2024 COMP. METAB OLIC PANEL (14) bilirubin, total 0.3 mg/dL 0.0-1. 2 Not Available [facility] [address] [place], [address], 01/30/2024 22:09:46 01/30/20 24 01/30/2024 COMP. METAB OLIC PANEL (14) alkaline phosphatase 82 IU/L 44-121 Not Available [facility] Department [address] [place], [address], 01/30/2024 22:09:46 01/30/20 24 01/30/2024 COMP. METAB OLIC PANEL (14) AST (SGOT) 10 IU/L 0-40 Not Available [facility] Department [address] [place], [address], 01/30/2024 22:09:46 01/30/20 24 01/30/2024 COMP. METAB OLIC PANEL (14) ALT (SGPT) 10 IU/L 0-32 Not Available [facility] Department [address] [place], [address], 01/30/2024 22:09:46 01/30/20 24 01/30/2024 CBC WITH DIFFE RENTI AL/PL ATELE T WBC 8.4 x10e3 /uL 3.4-10 .8 Not Available [facility] [address] [place] [address], [address], 01/30/2024 22:09:47 01/30/20 24 01/30/2024 CBC WITH DIFFE RENTI AL/PL ATELE T RBC 4.42 x10e6 /uL 3.77-5 .28 Not Available [facility] [address] [place] [address], [address], 01/30/2024 22:09:47 01/30/20 24 01/30/2024 CBC WITH DIFFE RENTI AL/PL ATELE T hemoglobin 12.4 g/dL 11.1-1 5.9 Not Available [facility] [address] [place], [address], 01/30/2024 22:09:47 01/30/20 24 01/30/2024 CBC WITH DIFFE RENTI AL/PL ATELE T hematocrit 39.6 % 34.0-4 6.6 Not Available [facility] [address] [place] [address], [address], 01/30/2024 22:09:47 01/30/20 24 01/30/2024 CBC WITH DIFFE RENTI AL/PL ATELE T MCV 90 fL 79-97 Not Available [facility] [address] [place], [address], 01/30/2024 22:09:47 01/30/20 24 01/30/2024 CBC WITH DIFFE RENTI AL/PL ATELE T MCH 28.1 pg 26.6-3 3.0 Not Available [facility] [address] [place], [address], 01/30/2024 22:09:47 01/30/20 24 01/30/2024 CBC WITH DIFFE RENTI AL/PL ATELE T MCHC 31.3 g/dL 31.5-3 5.7 below low normal Not Available [facility] [address] [place], [address], 01/30/2024 22:09:47 01/30/20 24 01/30/2024 CBC WITH DIFFE RENTI AL/PL ATELE T RDW 12.9 % 11.5-1 4.5 Not Available [facility] [address] [place], [address], 01/30/2024 22:09:47 01/30/20 24 01/30/2024 CBC WITH DIFFE RENTI AL/PL ATELE T platelets 328 x10e3 /uL 150-45 0 Not Available [facility] [address] [place], [address], 01/30/2024 22:09:47 01/30/20 24 01/30/2024 CBC WITH DIFFE RENTI AL/PL ATELE T neutrophils 75 % notest b. Not Available [facility] [address] [place], [address], 01/30/2024 22:09:47 01/30/20 24 01/30/2024 CBC WITH DIFFE RENTI AL/PL ATELE T lymphs 19 % notest b. Not Available [facility] [address] [place], [address], 01/30/2024 22:09:47 01/30/20 24 01/30/2024 CBC WITH DIFFE RENTI AL/PL ATELE T monocytes 4 % notest b. Not Available [facility] [address] [place], [address], 01/30/2024 22:09:47 01/30/20 24 01/30/2024 CBC WITH DIFFE RENTI AL/PL ATELE T eos 1 % notest b. Not Available [facility] [address] [place] [address], [address], 01/30/2024 22:09:47 01/30/20 24 01/30/2024 CBC WITH DIFFE RENTI AL/PL ATELE T basos 1 % notest b. Not Available [facility] [address] [place] [address], [address], 01/30/2024 22:09:47 01/30/20 24 01/30/2024 CBC WITH DIFFE RENTI AL/PL ATELE T neutrophils (absolute) 6.3 x10e3 /uL 1.4-7. 0 Not Available [facility] [address] [place] [address], [address], 01/30/2024 22:09:47 01/30/20 24 01/30/2024 CBC WITH DIFFE RENTI AL/PL ATELE T lymphs (absolute) 1.6 x10e3 /uL 0.7-3. 1 Not Available [facility] [address] [place], [address], 01/30/2024 22:09:47 01/30/20 24 01/30/2024 CBC WITH DIFFE RENTI AL/PL ATELE T monocytes(ab solute) 0.4 x10e3 /uL 0.1-0. 9 Not Available [facility] [address] [place], [address], 01/30/2024 22:09:47 01/30/20 24 01/30/2024 CBC WITH DIFFE RENTI AL/PL ATELE T eos (absolute) 0.1 x10e3 /uL 0.0-0. 4 Not Available [facility] [address] [place], [address], 01/30/2024 22:09:47 01/30/20 24 01/30/2024 CBC WITH DIFFE RENTI AL/PL ATELE T baso (absolute) 0.1 x10e3 /uL 0.0-0. 2 Not Available [facility] [address] [place] [address], [address], 01/30/2024 22:09:47 01/30/20 24 01/30/2024 CBC WITH DIFFE RENTI AL/PL ATELE T immature granulocytes 0.2 % notest b. Not Available [facility] [address] [place] [address], [address], 01/30/2024 22:09:47 01/30/20 24 01/30/2024 CBC WITH DIFFE RENTI AL/PL ATELE T immature grans (abs) 0.0 x10e3 /uL 0.0-0. 1 Not Available [facility] [address] [place] [address], [address], 01/30/2024 22:09:47 01/30/20 24 01/30/2024 CBC WITH DIFFE RENTI AL/PL ATELE T NRBC 0 % 0-0 Not Available [facility] [address] [place] [address], [address], 01/30/2024 22:09:47 01/30/20 24 01/31/2024 TSH+F REE T4 TSH 2.770 uIU/m L 0.450- 4.500 Not Available [facility] ([facility]) [address] [facility] [address], [place], [address], 01/31/2024 10:17:18 01/30/20 24 01/31/2024 TSH+F REE T4 T4,free(dire ct) 1.03 NG/dL 0.82-1 .77 Not Available [facility] ([facility]) [address] [facility], [place], [address], 01/31/2024 10:17:18 01/30/20 24 01/31/2024 HEMOG LOBIN A1C hemoglobin A1C 6.4 % 4.8-5. 6 above high normal Predi abete s: 5.7 - 6.4 Diabe david: >6.4 Glyce herminia contr ol for adult s with diabe david: <7.0 Not Available [facility] ([facility]) [address] [facility], [place], [address], 01/31/2024 10:17:19 07/12/20 23 07/12/2023 XR, chest , 2 view No observ ation record ed. [address], [address], 07/14/2023 20:19:08 11/28/19 24 11/27/2023 CT, cervi jeffry spine , w/o contr ast No observ ation record ed. [address], [address], 11/28/2023 12:47:28 09/17/19 25 09/16/2024 imagi ng/di agnos tic resul t No observ ation record ed. [facility] (P[facility]) [address] [place] [address], [address], 09/17/2024 18:38:41 Result Notes None recorded. Problems Name Problem SNOMED Code Status Onset Date Resolution Date Notes Provider Name and Address Organization Details Recorded Time History of depression 773099070 Active 2017 Not Available [facility] 11:42:50 Body mass index 40+ - severely obese 154194664 Active 2017 Not Available [facility] 11:42:51 Hearing loss 00873326 Active 2017 Not Available [facility] 04/24/202 1 11:42:51 Allergic reaction to insect bite Active 2017 Not Available [facility] 1 11:42:51 Cerebral herniation 46051935 Active 2022 Tiara Lawrence MA null, [place] [facility] 3 09:53:45 Mixed anxiety and depressive disorder 310526778 Active 2022 CESAR HARRIS Attn: Accounting ,[address], [place], [address] , [place] [facility] 3 13:52:58 Allergic rhinitis 58503019 Active 2022 CESAR HARRIS Attn: Accounting ,[address] [place], [address] , [place] [facility] 13:52:52 Morbid obesity 647183479 Active 2022 CESAR HARRIS Attn: Accounting ,[address] [place], [address] , [place] [facility] 13:53:00 Exercise-i nduced asthma 35754739 Active 2022 CESAR HARRIS Attn: Accounting ,[address] [place], [address] , [place] [facility] 13:52:56 Essential hypertensi on 12609531 Active 2022 CESAR HARRIS Attn: Accounting ,[address] [place], [address] , [place] [facility] 13:52:54 Chronic neck pain 6105748429786 Active 2022 CESAR HARRIS Attn: Accounting ,[address] [place], [address] , [place] [facility] 13:53:45 Gastroesop hageal reflux disease without esophagiti s 482145673 Active 2022 CESAR HARRIS Attn: Accounting ,[address] [place], [address] , [place] [facility] 13:54:29 Hyperlipid emia 19974214 Active 2022 CESAR HARRIS Attn: Accounting ,[address], [place], [address] , [place] [facility] 3 10:46:44 Borderline personalit y disorder 35880277 Active 2023 CESAR HARRIS Attn: Accounting ,[address], [place], [address] , [place] [facility] 4 11:10:05 Bipolar II disorder 57585265 Active 2023 CESAR HARRIS Attn: Accounting ,[address], [place], [address] , [place] [facility] 4 21:37:14 Nausea and vomiting 55606742 Active Anna Tucker null, [place] [facility] 5 09:05:49 Orthostati c headache 535105009 Active [place] [facility] 5 09:05:49 Diarrhea 17262922 Active [place] Tucker [place] [facility] 5 09:05:49 Problem Notes None recorded. Procedures Surgical History Date Name Laterality Status Provider Name and Address Organization Details Recorded Time 08/07/20 23 Date of Last Pap Smear completed CESAR HARRIS Attn: Accounting,[address], [place], [address], [place] [facility] 07/08/2024 16:04:06 04/23/20 18 Endometrial Biopsy completed GEREMIAS Mcallister Attn: Accounting,[address], [place], [address], [place] [facility] 04/23/2018 10:39:00 Tonsillectomy completed [place] Dmuont [place] [facility] 04/10/2018 16:11:28 Other completed [place] Dumont [place] [facility] 04/10/2018 16:11:50 Other completed [place] Dumont [place] [facility] 04/10/2018 16:12:20 Imaging Results Imaging Date Name Status LastModified by [facility] Details LastModified Time 07/12/2023 XR, chest, 2 view completed [place] [id number] [facility] [address] [facility], [place], [address], 07/14/2023 20:19:08 11/27/2023 CT, cervical spine, w/o contrast completed [place] [address] [facility] [address], [place], [address], 11/28/2023 12:47:28 09/16/2024 imaging/diagn ostic result active [facility] (Pulmonary) [address] [place] [address] [address], [place], [address], 09/17/2024 18:38:41 Procedure Notes None recorded. Medical Equipment None Reported. Allergies Allergen ID Allergen Name Allergen Category Reaction Reaction Severity Criticality Documentation Date Start Date Code Code System Note Provider Name and Address Organization Details Recorded Time [id number] amoxicill in medicatio n hives Not available Not available 04/10/2018 723 RxNorm Not Available Not Available Not Available [id number] tramadol medicatio n hallucina tions Not available Not available 04/10/2018 19854 RxNorm Not Available Not Available Not Available [id number] grass pollen environme nt,medica tion Not available Not available Not available 01/15/2023 95365 UNK Not Available Not Available Not Available [id number] dcbde hydroxyzi ne Not available hallucina tions Not available high 01/30/2024 5553 RxNorm suici ra ideat ions Not Available Not Available Not Available Medications Name Sig Start Date Stop Date Status Note LastModified by Organization Details LastModified Time cyclobenz aprine 10 mg tablet TAKE 1 TABLET BY MOUTH AT BEDTIME NEEDED FOR SPASM 09/16 completed Not Available Not Available Not Available atorvasta tin 40 mg tablet Take 1 tablet every day by oral route at bedtime for 30 days. 05/20 completed worsenin g anxiety Not Available Not Available Not Available lamotrigi ne 150 mg tablet Take 1 tablet every day by oral route. active Not Available Not Available No t Available clonidine HCl 0.1 mg tablet TAKE 1 TABLET BY MOUTH TWICE A DAY 01/15 completed Not Available Not Available Not Available cetirizin e 10 mg tablet TAKE 1 TABLET BY MOUTH EVERY MORNING 2023 active Not Available Not Available Not Avai lable atorvasta tin 10 mg tablet TAKE 1 TABLET BY MOUTH EVERY DAY AT BEDTIME FOR HIGH CHOLESTE ROL active Not Available Not Available No t Available ibuprofen 800 mg tablet Take 1 tablet every 8 hours by oral route as needed. 10/19 completed Not Available Not Available Not Available valacyclo vir 1 gram tablet TAKE 1 TABLET BY MOUTH EVERY 8 HOURS FOR 10 DAYS 11/07 completed Not Available Not Available Not Available clarithro mycin 500 mg tablet TAKE 1 TABLET BY MOUTH EVERY 12 HOURS 10/14 completed Not Available Not Available Not Available prazosin 1 mg capsule TAKE 1 CAPSULE BY MOUTH DAILY AT BEDTIME active Not Available Not Available No t Available lisinopri l 20 mg tablet TAKE 1 TABLET BY MOUTH EVERY MORNING active Not Available Not Available No t Available prednison e 20 mg tablet TAKE 2 TABLETS BY MOUTH DAILY FOR 3 DAYS THEN TAKE 1 TABLET BY MOUTH DAILY FOR 3 DAYS 11/07 completed Not Available Not Available Not Available sertralin e 100 mg tablet TAKE 1 TABLET BY MOUTH EVERY DAYLAS T REFILL, PATIENT MUST RESCHEDU LE FOLLOW UP APPT. PRIOR TO NEXT REFILL REQUEST* * 10/19 completed Not Available Not Available Not Available sulfameth oxazole 800 mg-trimet hoprim 160 mg tablet TAKE 1 TABLET BY MOUTH TWICE A DAY FOR 5 DAYS 10/14 completed Not Available Not Available Not Available doxycycli ne monohydra te 100 mg tablet TAKE 1 TABLET BY MOUTH TWICE DAILY 09/27 completed Not Available Not Available Not Available lamotrigi ne 25 mg tablet TAKE 2 TABLETS BY MOUTH DAILY 01/29 completed Not Available Not Available Not Available pantopraz ole 20 mg tablet,de layed release TAKE 1 TABLET BY MOUTH EVERY DAY DIRECTED 2024 active Not Available Not Available Not Avai lable meloxicam 7.5 mg tablet TAKE 1 TABLET BY MOUTH TWICE DAILY NEEDED FOR PAIN 09/16 completed Not Available Not Available Not Available doxycycli ne monohydra te 100 mg capsule TAKE 1 CAPSULE BY MOUTH TWICE DAILY WITH MEALS FOR 7 DAYS 09/27 completed Not Available Not Available Not Available ferrous sulfate 325 mg (65 mg iron) tablet TAKE 1 TABLET BY MOUTH THREE TIMES A WEEK 10/14 completed Not Available Not Available Not Available buspirone 10 mg tablet TAKE 1 TABLET BY MOUTH THREE TIMES DAILY NEEDED 11/07 completed Not Available Not Available Not Available promethaz ine 25 mg tablet 11/07 completed Not Available Not Available Not Available gabapenti n 300 mg capsule TAKE 1 CAPSULE BY MOUTH THREE TIMES DAILY NEEDED 07/08 completed Not Available Not Available Not Available monteluka st 10 mg tablet TAKE 1 TABLET BY MOUTH EVERY DAY IN THE MORNING 09/16 completed Not Available Not Available Not Available metoprolo l succinate ER 25 mg tablet,ex tended release 24 hr TAKE 1 TABLET BY MOUTH EVERY DAY IN THE MORNING 07/08 completed Not Available Not Available Not Available ibuprofen 600 mg tablet TAKE 1 TABLET BY MOUTH THREE TIMES DAILY NEEDED FOR PAIN 09/16 completed Not Available Not Available Not Available albuterol sulfate HFA 90 mcg/actua tion aerosol inhaler INHALE 2 PUFFS BY MOUTH EVERY 4 TO 6 HOURS DIRECTED active Not Available Not Available No t Available ondansetr on 4 mg disintegr ating tablet 01/15 completed Not Available Not Available Not Available lamotrigi ne 100 mg tablet TAKE 1 TABLET BY MOUTH DAILY 09/16 completed Not Available Not Available Not Available naproxen 500 mg tablet TAKE 1 TABLET BY MOUTH TWICE A DAY WITH FOOD 10/14 completed Not Available Not Available Not Available buspirone 15 mg tablet TAKE 1 TABLET BY MOUTH TWICE DAILY active Not Available Not Available No t Available hydroxyzi ne pamoate 25 mg capsule 01/29 completed caused SI Not Available Not Available Not Available escitalop alia 20 mg tablet TAKE 1 TABLET BY MOUTH DAILY 07/08 completed Not Available Not Available Not Available Sprintec (28) 0.25 mg-35 mcg tablet Take 1 tablet every day by oral route. 10/19 completed Not Available Not Available Not Available bupropion HCl XL 300 mg 24 hr tablet, extended release TAKE 1 TABLET BY MOUTH DAILY IN THE MORNING active Not Available Not Available No t Available bupropion HCl XL 150 mg 24 hr tablet, extended release TAKE 1 TABLET BY MOUTH EVERY DAY IN THE MORNING 11/07 completed Not Available Not Available Not Available duloxetin e 20 mg capsule,d elayed release TAKE 1 CAPSULE BY MOUTH DAILY FOR 7 DAYS. INCREASE TO 2 CAPSULES 40 MG DAILY 30 DAYS 09/16 completed Not Available Not Available Not Available duloxetin e 60 mg capsule,d elayed release Take 1 capsule every day by oral route. active Not Available Not Available No t Available clonidine 01/03 completed Not Available Not Available Not Available ferrous sulfate 10/14 completed Not Available Not Available Not Available L norgest/E estradiol -E estrad 0.15 mg-30 mcg (84)/10 mcg(7) tabs,3mos Take 1 tablet(s ) every day by oral route. 01/15 completed Not Available Not Available Not Available ProChambe r USE DIRECTED active Not Available Not Available No t Available EpiPen 2-Kadeem 0.3 mg/0.3 mL injection , auto-inje ctor Take 1 auto every day by injectio n route as needed. 10/19 completed 04/29/18- Olivier Ren gave pharmacy ok to change Epipen to Epinephr ine @ same dosage as Epipen is on back order. Not Available Not Available Not Available Daily-Vit e (with folic acid) 400 mcg tablet 01/29 completed Not Available Not Available Not Available Vitals Date Recorded Body height Provider Name an d Address Organization Details Last Updated DateTime 08/07/2023 165.1 cm Anna Tucker [facility] 08/07/2023 12:15:52 Date Recorded Body mass index (BMI) Body weight Provider Name and Address Organization Details Last Updated DateTime 08/07/2023 44.1 kg/m2 750055.98 g Anna Tucker [facility] 1 10/08/2022 12:17:13 Date Recorded Oxygen saturation Oxygen saturation in Arterial blood by Pulse oximetry Provider Name and Address Organization Details Last Updated DateTime 08/07/2023 99 % 99 % Anna Tucker [facility] 08/07/2023 12:18:21 Date Recorded Heart rate Provider Name an d Address Organization Details Last Updated DateTime 08/07/2023 82 /min Anna Tucker [place] - [facility] 08/07/2023 12:18:22 Date Recorded Respiratory rate Provider Name a nd Address Organization Details Last Updated DateTime 08/07/2023 18 /min CESAR HARRIS Attn: Accounting,[address], [place], [address], [place] [facility] 08/07/2023 12:28:04 Date Recorded Body height Provider Name an d Address Organization Details Last Updated DateTime 11/08/2023 165.1 cm Anna Tucker [place] [facility] 11/08/2023 17:17:00 Date Recorded Body mass index (BMI) Body weight Provider Name and Address Organization Details Last Updated DateTime 11/08/2023 41.6 kg/m2 386041.09 g Anna Tucker [place] [facility] 0 11/08/2023 17:25:49 Date Recorded Oxygen saturation Oxygen saturation in Arterial blood by Pulse oximetry Provider Name and Address Organization Details Last Updated DateTime 11/08/2023 98 % 98 % CESAR HARRIS Attn: Accounting,[address], [place], [address], [place] [facility] 11/08/2023 17:36:14 Date Recorded Heart rate Provider Name an d Address Organization Details Last Updated DateTime 11/08/2023 96 /min CESAR HARRIS Attn: Accounting,[address], [place], [address], [place] [facility] 11/08/2023 17:36:16 Date Recorded Respiratory rate Provider Name a nd Address Organization Details Last Updated DateTime 11/08/2023 18 /min CESAR HARRIS Attn: Accounting,[address], [place], [address], [place] [facility] 11/08/2023 17:36:23 Date Recorded Body height Provider Name an d Address Organization Details Last Updated DateTime 01/30/2024 165.1 cm REA Jones - [facility] 10:34:26 Date Recorded Respiratory rate Provider Name a nd Address Organization Details Last Updated DateTime 01/30/2024 16 /min Tiara Lawrence [facility] 10:36:58 Date Recorded Body mass index (BMI) Body weight Provider Name and Address Organization Details Last Updated DateTime 01/30/2024 41.9 kg/m2 017990.48 g Tiara Lawrence [facility] 01/30/2024 10:37:10 Date Recorded Oxygen saturation Oxygen saturation in Arterial blood by Pulse oximetry Provider Name and Address Organization Details Last Updated DateTime 01/30/2024 98 % 98 % Tiara Lawrence [facility] 01/30/2024 10:37:13 Date Recorded Heart rate Provider Name an d Address Organization Details Last Updated DateTime 01/30/2024 102 /min Tiara Lawrence [facility] 10:37:17 Date Recorded Heart rate Provider Name an d Address Organization Details Last Updated DateTime 01/30/2024 94 /min CESAR HARRIS Attn: Accounting[address] [place], [address], [facility] 01/30/2024 21:39:17 Date Recorded Body height Provider Name an d Address Organization Details Last Updated DateTime 07/08/2024 165.1 cm Paola England [facility] 15:42:37 Date Recorded Body mass index (BMI) Body weight Provider Name and Address Organization Details Last Updated DateTime 07/08/2024 40.4 kg/m2 707176.95 g Paola England [facility] 07/08/2024 15:46:10 Date Recorded Oxygen saturation Oxygen saturation in Arterial blood by Pulse oximetry Provider Name and Address Organization Details Last Updated DateTime 07/08/2024 98 % 98 % Paola England [facility] 07/08/2024 15:46:13 Date Recorded Heart rate Provider Name an d Address Organization Details Last Updated DateTime 07/08/2024 93 /min Paola England [facility] 15:46:15 Date Recorded Respiratory rate Provider Name a nd Address Organization Details Last Updated DateTime 07/08/2024 17 /min Paola England [facility] 15:46:17 Date Recorded Body height Provider Name an d Address Organization Details Last Updated DateTime 09/16/2024 165.1 cm iTara Lawrence [facility] 12:29:32 Date Recorded Body mass index (BMI) Body weight Provider Name and Address Organization Details Last Updated DateTime 09/16/2024 38.8 kg/m2 965768.02 g Tiara Lawrence [facility] 09/16/2024 12:29:37 Date Recorded Heart rate Provider Name an d Address Organization Details Last Updated DateTime 09/16/2024 104 /min Tiara Lawrence [facility] 12:29:47 Date Recorded Respiratory rate Provider Name a nd Address Organization Details Last Updated DateTime 09/16/2024 16 /min Tiara Lawrence [facility] 12:29:49 Date Recorded Oxygen saturation Oxygen saturation in Arterial blood by Pulse oximetry Provider Name and Address Organization Details Last Updated DateTime 09/16/2024 97 % 97 % Tiara Lawrence [facility] 09/16/2024 12:29:52 Date Recorded Systolic blood pressure Diastolic blood pressure Provider Name and Address Organization Details Last Updated DateTime 08/07/2023 117 mm[Hg] 86 mm[Hg] CESAR HARRIS Attn: [address]ing[address] [place], [address], [facility] 08/07/2023 12:27:58 Date Recorded Systolic blood pressure Diastolic blood pressure Provider Name and Address Organization Details Last Updated DateTime 08/07/2023 110 mm[Hg] 72 mm[Hg] CESAR HARRIS Attn: Accounting[address] [place], [address], [facility] 08/07/2023 12:45:34 Date Recorded Systolic blood pressure Diastolic blood pressure Provider Name and Address Organization Details Last Updated DateTime 11/08/2023 163 mm[Hg] 75 mm[Hg] Anna Tucker [facility] 11/08/2023 17:25:42 Date Recorded Systolic blood pressure Diastolic blood pressure Provider Name and Address Organization Details Last Updated DateTime 11/08/2023 120 mm[Hg] 84 mm[Hg] CESAR HARRIS Attn: Accounting,[address], [place], [address], [facility] 11/08/2023 17:37:31 Date Recorded Systolic blood pressure Diastolic blood pressure Provider Name and Address Organization Details Last Updated DateTime 01/30/2024 126 mm[Hg] 81 mm[Hg] Tiara Lawrence MA [facility] 01/30/2024 10:37:05 Date Recorded Systolic blood pressure Diastolic blood pressure Provider Name and Address Organization Details Last Updated DateTime 07/08/2024 123 mm[Hg] 74 mm[Hg] Paola England MA [facility] 07/08/2024 15:46:07 Date Recorded Systolic blood pressure Diastolic blood pressure Provider Name and Address Organization Details Last Updated DateTime 09/16/2024 144 mm[Hg] 77 mm[Hg] Tiara Lawrence MA [facility] 09/16/2024 12:29:43 Social History Question Answer Notes LastModified by Organizat ion Details LastModified Time Tobacco Smoking Status Former Smoker Anna ahn, [facility] 10/14/2020 14:19:07 What Is Your Level Of Alcohol Consumption? Occasional [email or web address] Information not available 04/10/2018 Are You Blind Or Do You Have Difficulty Seeing? No Information not available 12/20/2020 What Is Your Level Of Caffeine Consumption? Heavy Information not available 10/19/2019 How Much Tobacco Do You Chew? None Information not available 10/19/2019 In The 14 Days Before Symptom Onset, Have You Had Close Contact With A Laboratory-confir med COVID-19 While That Case Was Ill? No Information not available 12/20/2020 In The 14 Days Before Symptom Onset, Have You Had Close Contact With A Person Who Is Under Investigation For COVID-19 While That Person Was Ill? No Information not available 12/20/2020 Have You Been To An Area Known To Be High Risk For COVID-19? No Information not available 12/20/2020 Are You Currently Employed? Yes Information not available 10/19/2019 Are You Deaf Or Do You Have Serious Difficulty Hearing? No Information not available 12/20/2020 What Type Of Diet Are You Following? REGULAR Information not available 10/19/2019 Do You Or Have You Ever Used E-cigarettes Or Vape? Never Used Electronic Cigarettes Information not available 10/19/2019 Education 4 Year College Informatio n not available 10/19/2019 Are There Any Guns Present In Your Home? No Information not available 12/20/2020 Hard Of Hearing Or Deaf In One Or Both Ears? No Information not available 10/19/2019 Legally Blind In One Or Both Eyes? No Information no t available 10/19/2019 Live Alone Or With Others? With Others Information not available 10/19/2019 What Was The Date Of Your Most Recent Tobacco Screening? 09/16/2024 Information not available 09/16/2024 How Many Children Do You Have? 0 Information not available 10/19/2019 What Is Your Current Pack Years? 10packyears Information not available 01/15/2023 What Is Your Relationship Status? Single Information not available 12/20/2020 Do You Use Your Seat Belt Or Car Seat Routinely? Yes Information not available 12/20/2020 Smoke Alarm In Home Yes Information not available 10/19/2019 Do You Have Smoke And Carbon Monoxide Detectors In Your Home? Yes Information not available 12/20/2020 At What Age Did You Start Smoking Tobacco? 25 Smokes 1 Cigarette /year Information not available 01/15/2023 Are You Passively Exposed To Smoke? Yes Information no t available 10/19/2019 Do You Or Have You Ever Used Smokeless Tobacco? Never Used Smokeless Tobacco Information not available 10/19/2019 How Much Tobacco Do You Smoke? No [email or web address] Information not available 04/21/2018 General Stress Level High Information not available 10/14/2020 Do You Feel Stressed (tense, Restless, Nervous, Or Anxious, Or Unable To Sleep At Night)? [id number] Information not available 12/20/2020 Do You Use Any Illicit Or Recreational Drugs? No Information not available 12/20/2020 On What Date Was Tobacco Cessation Counseling Provided? 07/08/2024 [email or web address] Information not available 07/08/2024 How Many Years Have You Smoked Tobacco? 1 Information not available 10/19/2019 Sex: Unknown Functional Status Question Answer Note LastModified by Organizat ion Details LastModified Time Are you able to care for yourself? Yes Information not available 10/19/2019 What is your exercise level? Occasional Information not available 10/19/2019 Mental Status None recorded. Family History Nothing Reported Notes:adopted Medical History Condition Response Coronary Artery Disease N Other High Blood Pressure N Atrial Fibrillation N Thyroid Problems N Kidney or Bladder Problems N GI Problems Y Depression Y COPD N Blood Clots N Skin Problems Eating Disorder N Anemia N Heart Attack ([place]) N Diabetes N Anxiety Disorder Y Acid Reflux (GERD) N Cancer N Stroke N Asthma Y Allergies Y ADHD N Substance Abuse N High Cholesterol N Hepatitis N Liver Disease N Schizophrenia N Headaches N Osteoporosis N Heart Failure N Gynecological History Statement/Question Response Date of Last Mammogram Flow Light Date of LMP 06/20/2024 STIs/STDs N Duration of Flow (days) 7 Age at Menarche 12 Current Control Method None Age at First Child 1 Frequency of Cycle (Q days) 28 Sexually Active? Y Menses Monthly N Date of Last Pap Smear 08/07/2023 Sexual Problems? Y LMP Approximate Obstetrics History GPAL:G 0 P 0 0 0 0 Type Value Multiple Births 0 Full Term 0 Induced 0 Spontaneous 0 Premature 0 Living 0 Ectopics 0 Total 0 Immunizations Vaccine Type Date Status Note Provider Nam e and Address Organization Details Recorded Time Influenza, split virus, quadrivalent, PF 08/07/2023 completed CESAR HARRIS Attn: Accounting[address] [place], [address], [facility] 08/07/2023 17:01:35 Past Encounters Encounter ID Performer Location Encounter Start Date Encounter Closed Date Diagnosis/Indication Diagnosis SNOMED-CT Code Diagnosis ICD10 Code Diagnosis Note [id number] Olivier Whitehead [address] [facility] [address] 04/10/2018 15:53:35 04/11/2018 10:28:24 History of depression 209788497 Z86.59 Body mass index 40+ - severely obese 221991842 Z68.41 Adult heal th examination 708591985 Z00.00 Hearing loss 95973433 H9 1.93 [id number] GEREMIAS Mcallister [address] [place] [address] 04/21/2018 09:25:52 04/21/2018 12:19:31 Routine gynecologic examination done [id number] 9101 Z01.419 -Educated on the importance of SBE and awareness. -Discussed the importance of cervical cancer screenings -Educated osteoporos is prevention including calcium rich foods, weight bearing exercise. -Discussed the importance of exercise. -Nutrition discussed and the importance of a diet rich in fruits, vegetable, whole grains, and lean proteins. -Counseled regarding prevention of STD's and screening options, condom use and prevention . -Advised avoidance of tobacco, alcohol, and drugs. -Discussed sun safety and the importance of sunscreen. Abnormal u terine bleeding 3377188696 9100 N93.9 CBC and TSH already ordered by PCP and are pending. Prolactin and Pelvic US ordered to evaluated abnormal bleeding. Patient educated on EMB procedure and need for EMB related to obesity. Patient agreed to EMB. Patient following up for EMB on 04/23/18. Educated on managed on heavy menstrual bleeding. Patient undecided if she wants IUD or ROSIBEL. Patient said she will let us know on 04/23/18. Body mass index 30+ - obesity 665270047 Z68.39 Patient counseled on obesity management . Patient reports she has been working on nutrition and exercise and lost 6 lbs in 2 weeks. Patient notified to continue to follow up as needed. Dysmenorrhea 882376409 N 94.6 take ibuprofen 600 mg with food every 8 hours as needed for menstrual cramps. pt educated about menstrual cramps and supported measure like stress reduction, nutrition, exercise. Call office if cramps worsen or pain is not controlled with med [id number] GEREMIAS Mcallister [address] [place] [address] 04/23/2018 09:50:21 04/23/2018 11:45:38 Abnormal uterine bleeding [id number] 9100 N93.9 CBC negative for anemia and TSH and Prolactin normal on 04/21/18. Pelvic US ordered to evaluated abnormal bleeding. patient reminded she needs to schedule pelvic US. Patient educated on EMB procedure and need for EMB related to obesity. EMB completed today. Educated on management of heavy menstrual bleeding including ROSIBEL, DMPA, IUD, and ablation. Patient decided on ROSIBEL. Risks of hormonal control reviewed, patient was informed of risk including but not limited to thrombosis , embolism, pulmonary embolism, stroke, disability , sexual dysfunctio n & . Patient understand s these risk are increased with smoking. Pt understand s & accepts risks. Instructio ns/warning signs given. Safe sex counseling done. If pelvic US normal then Follow up in 3 months. [id number] Olivier Whitehead [address] [facility] [place] [address] 04/24/2018 16:20:23 04/25/2018 10:13:46 Allergic reaction to insect bite [id number] T78.40XA [id number] Merlyn Jeffers MD [facility] [address] [place] [address] 10/19/2019 15:28:58 10/26/2019 08:40:40 Mixed anxiety and depressive disorder 177988501 F41.8 Iron deficiency 57190445 E61.1 Restless legs 72900482 G 25.81 Menorrhagia 444844173 N9 2.0 Adult [facility] th examination 537216216 Z00.00 [id number] Merlyn Jeffers MD [facility] [address] [place] [address] 01/04/2020 10:10:46 01/05/2020 10:42:02 Bronchitis 16794066 J40 Chicken soup, orange juice, popsicles, snow cones, slurpees, ice cream, tea with honey and lemon, hot lemonade, gatorade, and yogurt may make you feel better. [id number] Merlyn Jeffers MD [facility] [address] [facility] [place] [address] 10/14/2020 07:55:34 10/19/2020 07:07:23 Anxiety 60084226 F41.9 Exercise-i nduced asthma 66272822 J45.143 [id number] Merlyn Jeffers MD [facility] [address] [place] [address] 12/20/2020 10:26:08 12/23/2020 12:18:28 Acute gastroenteritis 09230408 K52.9 Bananas, rice, applesauce , toast, tea with sugar in it, and yogurt may help calm down an upset stomach. Ginna tea may be helpful, but since you seem to have a systemic reaction, I would hold off on drinking or eating anything until you have been seen at the emergency room. Pruritic rash 16086040 L 28.2 unknown, but the pustules on the fingers are worrisome [id number] CESAR HARRIS [facility] [address] [place] [address] 01/15/2023 09:40:13 01/15/2023 11:48:05 Mixed anxiety and depressive disorder 069284264 F41.8 PHQ 22goes to counseling once a monthattri matthiases depression due to twin sister moving to [place] and doesn't want to be apart of her family anymoreref ill medstrial bupropion to help with anxiety symptomsf/ u in 1 mo Allergic rhinitis 946448 04 J30.9 nasal congestion , rhinorrhea , cough, watery eyes, itchy throaton claritin w/o relief x2 yrswas on allergy shots in the past, cannot afford nowswitch to zyrtechas flonase, encouraged to usetrial singulairf /u in 1 mo Gastroesop hageal reflux disease without esophagitis 364164666 K21.9 c/o waking up in the middle of the night with acid in her throattria l PPI Essential hypertension 82735063 I10 went to ED 1 yr ago for HTNpreviou s PCP put on metoprolol , no issues sinceBP today 122/84 Morbid obesity 322591303 E66.01 routine labs Exercise-i nduced asthma 15464290 J45.990 refill Chronic neck pain 606037 7962 107 M54.2 fell at work 04/2021told she has bulging discs C3-H7eeptg wing with workman's comp and ortho surgery[place], workman's comp does not want to cover surgeryon flexeril and meloxicam- ortho refillhas done PT and steroid injections [id number] CESAR HARRIS [facility] [address] [place] [address] 02/22/2023 10:32:39 02/22/2023 12:40:38 Morbid obesity 437015144 E66.01 repeat CBC, CMP, lipid -previous did not process Mixed anxi ety and depressive disorder 760593644 F41.8 02/22/23:PH Q 0forgets to take 3rd pill of buspironet rial 15 mg BID- will take 1.5 tabletsf/u in 1 mo 01/15/23:PH Q 22goes to counseling once a monthattri butes depression due to twin sister moving to [place] and doesn't want to be apart of her family anymoreref ill medstrial bupropion to help with anxiety symptomsf/ u in 1 mo Chronic neck pain 371825 3901 107 M54.2 02/22/23:un changed 01/15/23:fe ll at work 04/2021told she has bulging discs C3-S7olgmo wing with [facility] and [facility], [facility] [employer] does not want to cover surgeryon flexeril and meloxicam- ortho refillhas done PT and steroid injections Essential hypertension 02239551 I10 02/22/23:BP 120/84keep BP log before and after taking metoprolol to see if can discontinu eadvised to check BP at home, goal BP <130/80, f/u with BP log in 1 wk 01/15/23:we nt to ED 1 yr ago for HTNpreviou s PCP put on metoprolol , no issues sinceBP today 122/84 Allergic rhinitis 777821 04 J30.9 02/22/23:do ing well with singulair 01/15/23:na iris congestion , rhinorrhea , cough, watery eyes, itchy throaton claritin w/o relief x2 yrswas on allergy shots in the past, cannot afford nowswitch to yue baker, encouraged to usetrial singulairf /u in 1 mo Gastroesop hageal reflux disease without esophagitis 703405779 K21.9 02/22/23:re solved with pantoprazo leis not waking up in the middle of the night 01/15/23:c/ o waking up in the middle of the night with acid in her throattria l PPI [id number] CESAR HARRIS [facility] [address] [place] [address] 05/20/2023 15:44:57 05/20/2023 16:07:05 Paronychia of toe of right foot [id number] 7756920 L03.031 x2 wksPEx- erythema, edema, and purulence surroundin g nail bed of R big toeallergi c to penicillin skeep clean and coveredtri al doxy Hyperlipidemia 66008515 E78.5 05/21/23:st ates that atorvastat in is making her anxiety worse, increased irritabili tytrial lower dose, ator 10 02/2023:LDL 189start ator 40 Essential hypertension 73003473 I10 05/20/23:BP today 150/100, 130/85BP at home 140s-150s/ 90s-100sst op metoprolol start lisinopril 20advised to check BP at home, goal BP <130/80, f/u with BP log in 1 wk 02/22/23:BP 120/84keep BP log before and after taking metoprolol to see if can discontinu eadvised to check BP at home, goal BP <130/80, f/u with BP log in 1 wk 01/15/23:we nt to ED 1 yr ago for HTNpreviou s PCP put on metoprolol , no issues sinceBP today 122/84 [id number] CESAR HARRIS [facility] [address] [place] [address] 08/07/2023 11:55:21 08/07/2023 12:52:34 Screening for malignant neoplasm of cervix 640936565 Z12.4 last pap 2 yrs agoLMP 07/08/23st arted menstrual cycle todayPEx- blood present in vaginal introitus and surroundin g cervix, difficulty visualizin g cervix, attempted to obtain samplenu swab sent Daytime hypersomnia 3177 450767 5773 G47.19 sleeps with mouth openchroni c sore throatrec' d humidifier in bedroomwou ld like to be tested for sleep apneasent referral Administra tion of influenza vaccine 26259304 Z23 [id number] CESAR HARRIS [facility] [address] [place] [address] 11/08/2023 16:56:39 11/08/2023 17:40:55 Postherpetic neuralgia 1916485 B02.29 diagnosed with shingles to L cheek and L arm two weeks agowent to ED, given valtrex for 10 daysstill c/o burning and stinging pain to L cheek and L armPEx- nl, no lesions presenttri al gabapentin for nerve pain, advised of ADR [id number] CESAR HARRIS [facility] [address] [place] [address] 01/30/2024 10:30:26 01/30/2024 11:15:48 Chronic neck pain 7459475990 107 M54.2 01/30/24: reports that she won court case, but was then appealed 02/22/23:un changed 01/15/23:fe ll at work 04/2021told she has bulging discs C3-B0bgkmw wing with workman's comp and ortho surgery[place], workman's comp does not want to cover surgeryon flexeril and meloxicam- ortho refillhas done PT and steroid injections Essential hypertension 02335485 I10 01/30/24: BP 126/81c/w lisinopril 20 05/20/23:BP today 150/100, 130/85BP at home 140s-150s/ 90s-100sst op metoprolol start lisinopril 20advised to check BP at home, goal BP <130/80, f/u with BP log in 1 wk 02/22/23:BP 120/84keep BP log before and after taking metoprolol to see if can discontinu eadvised to check BP at home, goal BP <130/80, f/u with BP log in 1 wk 01/15/23:we nt to ED 1 yr ago for HTNpreviou s PCP put on metoprolol , no issues sinceBP today 122/84 Morbid obesity 529480520 E66.01 discussed increasing exercise and healthier food options, high protein, low fat dietroutin e labs Mixed anxi ety and depressive disorder 967733722 F41.8 01/30/24: PHQ 8[facility] prescribes medsgoes to counseling every 3 wks 02/22/23:PH Q 0forgets to take 3rd pill of buspironet rial 15 mg BID- will take 1.5 tabletsf/u in 1 mo 01/15/23:PH Q 22goes to counseling once a monthattri butes depression due to twin sister moving to [place] and doesn't want to be apart of her family anymoreref ill medstrial bupropion to help with anxiety symptomsf/ u in 1 mo Borderline personality disorder 66840527 F60.3 per pt diagnosed per psych Bipolar II disorder 8322 5003 F31.81 per pt diagnosed per psych [id number] CESAR HARRIS [facility] [address] [place] [address] 07/08/2024 15:21:16 07/08/2024 16:12:03 Endometriosis of pelvis 12395668 N80.9 requesting hysterecto mysent referral Skin tag 142136492 L91.8 to L nipplesame size for 2 yrsflesh colored pedunculat ed skin tag to L nipplerefe rral sent to [facility] Exercise-i nduced asthma 66634929 J45.990 refill Influenza vaccination declined 652018154 Z28.21 Mixed anxi ety and depressive disorder 596446190 F41.8 07/08/24: PHQ 0 01/30/24: PHQ 8Psych at [facility] prescribes medsgoes to counseling every 3 wks 02/22/23:PH Q 0forgets to take 3rd pill of buspironet rial 15 mg BID- will take 1.5 tabletsf/u in 1 mo 01/15/23:PH Q 22goes to counseling once a monthattri butes depression due to twin sister moving to [place] and doesn't want to be apart of her family anymoreref ill medstrial bupropion to help with anxiety symptomsf/ u in 1 mo [id number] CESAR TONG [facility] [address] [place] [address] 09/16/2024 12:25:59 09/16/2024 12:57:54 Pre-surgery evaluation 763784430 Z01.818 Maryann is a non-smoker Female here for clearance. having surgery with Dr Lewis [facility] in [facility]/ for anterior cervical disc replacemen t C3-4, C5-6. She denies cp, sob, palpitatio ns. Exam normal. medication s updated. pending EKG and labs. Needs: CBC, UA W/ MICRO, CMP, SED RATE, viT d, HEPATITIS, HIV , EKGwill go get EKG at [place] today Obesity 176574817 E66.9 Health Concerns Section Related Observation LastModified by Organization Detai ls LastModified Time None Recorded Concern Status LastModified by Organization Details LastModified Time None Recorded Advance Directives Directive None Recorded Payers Encounter Date Sequence Insurance Name Policy Number Policy Mcclendon Covered Member ID Mcclendon Member ID Guarantor Name 08/07/2023 1 [place] [facility] [place]MED[place]ID [place]PLACEMENT - HMO) [id number] Maryann Philippe [id number] Maryann Philippe 11/08/2023 1 *SELF PAY* Jhonny Philippe 01/30/2024 3 [place] Maryann Philippe [id number] Maryann Philippe 01/30/2024 2 [place] Maryann Philippe [id number] Maryann Philippe 07/08/2024 3 [place] Maryann Philippe [id number] Maryann Philippe 07/08/2024 2 [place] [id number] Maryann Philippe [id number] Mrayann Philippe 09/16/2024 2 [place] [id number] Maryann Philippe [id number] Maryann Philippe 09/16/2024 1 [facility] [id number] Maryann Philippe [id number] Maryann Philippe Notes Date Note Type Note Provider Name and Address Organization Details Recorded Time 08/07/2023 text/html Pt presents for WWE. Nulliparous. Last pap 2 yrs ago, cervical cancer cells positive 5 yrs ago. LMP 07/08/23. Reports h/o endometriosis and never knows when she will have her cycle. Denies hematuria, dysuria, odor, irritation, urinary frequency/urgency, or discharge. No h/o STDs. Pt is not sexually active. Last mammogram 10 yrs ago due to swollen lymph node in R breast, no h/o abnormals. FH of paternal aunt with cervical cancer age 50s-60s. CESAR HARRIS Attn: Accounting[address] [place], [address], [facility] 08/07/2023 17:05:46 11/08/2023 text/html Pt presents with shingles. Reports 2 wks ago, she developed blisters on her L cheek and L arm. Pt went to ED, diagnosed wtih shingles and given valtrex for 10 days. States that blisters have resolved, but still c/o burning and stinging pain to L cheek and L arm. CESAR HARRIS Attn: Accounting[address] [place], [address], [facility] 11/11/2023 10:21:26 01/30/2024 text/html Pt presents for annual exam and blood work. Reports that she won court case for injury at work/chronic neck pain and then 2 wks later case was appealed. Denies fever, chills, chest pain, SOB, n/v/d, abd pain, dizziness, weakness, or headaches. CESAR HARRIS Attn: Accounting[address] [place], [address], [facility] 01/30/2024 21:40:50 07/08/2024 text/html Pt presents for referrals. Requesting referral to for hysterectomy. States that she has history of endometriosis, chronic menstrual pain and irregular cycles. Requesting referral to dermatology for skin tag to L nipple. Endorses that it has remained the same size for 2 yrs. CESAR HARRIS Attn: Accounting[address] [facility], [place], [address], [facility] 07/08/2024 16:40:13 09/16/2024 text/html Maryann is a 39 YO F PMHXZ HTN, neck pain, bipolar II, gerd here for clearance She has been following Dr Rosado for workman comp case x 4 years. a weeks ago they told her she is scheduled for neck surgery next week. She has to get some labs and EKG done. she denies cp, sob, seizure hx, palpitations, LE edema. CESAR TONG Attn: Accounting[address] [facility], [place], [address], [facility] 09/16/2024 13:23:19 OBGyn Episode No OBEpisode recorded.
--- OUTSIDE RECORDS SUMMARY | 2024-09-18 00:23 | XMS_ITS | Continuity of Care Document ---
Author Organization [facility] Address [address] [place] [address] Care Team Providers Care Investment Banking Associate Name Role Phone VENKATESH MARCELINO Primary Care Provider [phone] Assessment No assessment recorded. Plan of Treatment Reminders Order Date Submit Date Provider Last Modified By Organization Details Last Modified Time Details Appointments None recorded. Lab CBC w/ auto diff 2024 025 [facility], [address] [place] [address], [place] [address], [place], [address], 5 10:11:22 CMP, serum or plasma 2024 025 [facility], [address] [place] [address], [place] [address], [place], [address], 5 10:11:18 PT/PTT, plasma 2024 025 [facility], [address] [place] [address], [place] [address], [place], [address], 5 10:11:24 ESR (erythrocy te sedimentat ion rate), blood 2024 025 [facility], [address] [place] [address], [facility] [address], [place], [address], 5 10:11:23 hepatitis panel (A+B+C), acute, serum 2024 025 [facility], [address], [address], [place], [address], 5 10:11:16 HIV 1 + 2, meaningful use set 2024 025 [facility], [address], [address], [place], [address], 5 10:11:25 urinalysis , complete 2024 025 [facility], [address], [address], [place], [address], 10:11:21 HbA1c (hemoglobi n A1c), blood 2024 025 [facility], [address], [address], [place], [address], 10:11:20 Referral None recorded. Procedures electrocar diogram, routine ECG, 12 leads min; interpreta tion and report (PROC) [address] [place] [address] (Cardiology & Emg), [address] [place] [address] [address], [place], [address], 13:14:32 Surgeries None recorded. Imaging None recorded. Medication Orders None recorded. Patient TargetsNo targets recorded. Patient Instructions Encounter Date Encounter Id Patient Instructions Last Modified By Organization Details Last Modified Time 09/16/2024 [id number] A healthy lifestyle: care instructions Not available 09/16/2024 13:22:57 rhythm strip, EKG* ATHENAFAX Not available 09/16/2024 13:30:33 Reason for Referral None Reported. Results Created Date Observation Date Name Description Value Unit Range Abnormal Flag Note LastModifiedBy Organization Detail LastModifiedTime 09/17/19 25 09/16/2024 imagi ng/di landonos tic resul t No observ ation record ed. [facility] (Pulmonary) [address], [place], [address], 09/17/2024 18:38:41 Result Notes None recorded. Problems Name Problem SNOMED Code Status Onset Date Resolution Date Notes Provider Name and Address Organization Details Recorded Time History of depression 173653944 Active 2017 Not Available [facility] 11:42:50 Body mass index 40+ - severely obese 246850540 Active 2017 Not Available [facility] 11:42:51 Hearing loss 71937742 Active 2017 Not Available [facility] 11:42:51 Allergic reaction to insect bite Active 2017 Not Available [facility] 11:42:51 Cerebral herniation 76286955 Active 2022 Tiara Lawrence MA null, [place] - [facility] 3 09:53:45 Mixed anxiety and depressive disorder 947692236 Active 2022 CESAR HARRIS Attn: Accounting ,[address] [place], [address] , [place] - [facility] 3 13:52:58 Allergic rhinitis 17015328 Active 2022 CESAR HARRIS Attn: Accounting ,[address] [place], [address] , [place] - [facility] 3 13:52:52 Morbid obesity 191515994 Active 2022 CESAR HARRIS Attn: Accounting ,[address] [facility], [place], [address] , [place] [facility] 3 13:53:00 Exercise-i nduced asthma 70956457 Active 2022 CESAR HARRIS Attn: Accounting ,[address] [place], [address] , [place] - [facility] 3 13:52:56 Essential hypertensi on 92248915 Active 2022 CESAR HARRIS Attn: Accounting ,[address] [place], [address] , [place] - [facility] 13:52:54 Chronic neck pain 0505471334513 Active 2022 CESAR HARRIS Attn: Accounting ,[address] [place], [address] , [place] - [facility] 13:53:45 Gastroesop hageal reflux disease without esophagiti s 339943025 Active 2022 CESAR HARRIS Attn: Accounting ,[address] [place], [address] , [place] [facility] 13:54:29 Hyperlipid emia 71245720 Active 2022 CESAR HARRIS Attn: Accounting ,[address] [place], [address] , [place] - [facility] 10:46:44 Borderline personalit y disorder 51829278 Active 2023 CESAR HARRIS Attn: Accounting ,[address] [place], [address] , [place] - [facility] 4 11:10:05 Bipolar II disorder 13390812 Active 2023 CESAR HARRIS Attn: Accounting ,[address] [place], [address] , [place] [facility] 21:37:14 Nausea and vomiting 80907139 Active Anna Tucker null, [place] [facility] 09:05:49 Orthostati c headache 169934828 Active Anna Tucker [place], [place] [facility] 09:05:49 Diarrhea 62273362 Active Anna Tucker [place], [place] [facility] 09:05:49 Problem Notes None recorded. Procedures Surgical History Date Name Laterality Status Provider Name and Address Organization Details Recorded Time 08/07/20 Date of Last Pap Smear completed CESAR HARRIS Attn: Accounting,[address] [place], [address], [place] [facility] 07/08/2024 16:04:06 04/23/20 18 Endometrial Biopsy completed GEREMIAS Mcallister Attn: Accounting,[address] [facility], [place], [address], [facility] 04/23/2018 10:39:00 Tonsillectomy completed Paris Dumont MA [facility] 04/10/2018 16:11:28 Other completed Paris Dumont MA [facility] 04/10/2018 16:11:50 Other completed Paris Dumont MA [facility] 04/10/2018 16:12:20 Imaging Results None recorded. Procedure Notes None recorded. Medical Equipment None Reported. Allergies Allergen ID Allergen Name Allergen Category Reaction Reaction Severity Criticality Documentation Date Start Date Code Code System Note Provider Name and Address Organization Details Recorded Time [id number] 98868 amoxicill in medicatio n hives Not available Not available 04/10/2018 723 RxNorm Not Available Not Available Not Available [id number] 845ji57j8 dcbde tramadol medicatio n hallucina tions Not available Not available 04/10/2018 26384 RxNorm Not Available Not Available Not Available [id number] 5787466q3 2824e grass pollen environme nt,medica tion Not available Not available Not available 01/15/2023 67113 UNK Not Available Not Available Not Available [id number] wb2d950f3 909ip22b9 dcbde hydroxyzi ne Not available hallucina tions [...] Details Last Updated DateTime 09/16/2024 165.1 cm REA [facility] 12:29:32 Date Recorded Body mass index (BMI) Body weight Provider Name and Address Organization Details Last Updated DateTime 09/16/2024 38.8 kg/m2 277078.02 g Tiara Lawrence MA [facility] 09/16/2024 12:29:37 Date Recorded Heart rate Provider Name an d Address Organization Details Last Updated DateTime 09/16/2024 104 /min Tiara Lawrence MA [facility] 12:29:47 Date Recorded Respiratory rate Provider Name a nd Address Organization Details Last Updated DateTime 09/16/2024 16 /min Tiara Lawrence MA [facility] 12:29:49 Date Recorded Oxygen saturation Oxygen saturation in Arterial blood by Pulse oximetry Provider Name and Address Organization Details Last Updated DateTime 09/16/2024 97 % 97 % Tiara Lawrence MA [facility] 09/16/2024 12:29:52 Date Recorded Systolic blood pressure Diastolic blood pressure Provider Name and Address Organization Details Last Updated DateTime 09/16/2024 144 mm[Hg] 77 mm[Hg] Tiara Lawrence MA [facility] 09/16/2024 12:29:43 Social History Question Answer Notes LastModified by Organizat ion Details LastModified Time Tobacco Smoking Status Former Smoker [facility] 10/14/2020 14:19:07 What Is Your Level Of [...] Anxious, Or Unable To Sleep At Night)? NW38019-9 Information not available 12/20/2020 Do You Use [...] Condition Response Coronary Artery Disease N Other Atrial Fibrillation N High Blood Pressure N Thyroid Problems N Kidney or Bladder Problems N Depression Y COPD N Blood Clots N GI Problems Y Skin Problems Eating Disorder N Anemia N Heart Attack ([place]) N Diabetes N Anxiety Disorder Y Acid Reflux (GERD) N Cancer N Stroke N Allergies Y Asthma Y ADHD N Substance Abuse N High [...] 08/07/2023 completed CESAR HARRIS Attn: Accounting[address] [place], [address], [facility] 08/07/2023 17:01:35 Past Encounters Encounter ID Performer Location Encounter Start Date Encounter Closed Date Diagnosis/Indication Diagnosis SNOMED-CT Code Diagnosis ICD10 Code Diagnosis Note [id number] CESAR TONG [facility] [address] [place] [address] 09/16/2024 12:25:59 09/16/2024 12:57:54 Pre-surgery evaluation 180269787 Z01.818 Maryann is a non-smoker Female here for clearance. having surgery with Dr Lewis at [facility] in [facility] ld/ for anterior cervical disc replacemen t C3-4, C5-6. She denies cp, sob, palpitatio ns. Exam normal. medication s updated. pending EKG and labs. Needs: CBC, UA W/ MICRO, CMP, SED RATE, viT d, HEPATITIS, HIV , EKGwill go get EKG at [place] today Obesity 558794912 E66.9 Health Concerns Section Related Observation LastModified by Organization Detai ls LastModified Time None Recorded Concern Status LastModified by Organization Details LastModified Time None Recorded Payers Encounter Date Sequence Insurance Name Policy Number Policy Mcclendon Covered Member ID Mcclendon Member ID Guarantor Name 09/16/2024 2 [place] [id number] Maryann Lilly Philippe [id number] Maryann Gela Philippe 09/16/2024 1 [facility] [id number] Maryann Philippe [id number] Maryann Philippe Notes Date Note Type Note Provider Name and Address Organization Details Recorded Time 09/16/2024 text/html Maryann is a 39 YO [...] hx, palpitations, LE edema. CESAR TONG Attn: Accounting,[address] [facility], [place], [address], [facility] 09/16/2024 13:23:19 OBGyn Episode No OBEpisode recorded.
== END 2024-09-16 12:35 | disposition home or self-care (01) ==
PROVIDERS: PCP Physician Assistant; Visit Provider Physician Assistant
DX: Z01.818 Encounter for other preprocedural examination (principal)
CPT/HCPCS: 93005

== ENCOUNTER 2024-10-28 10:31 | Outpatient (CLI) | payer OTHER, SELFPAY ==
[2024-10-28 11:20] LABS: Alanine Aminotransferase 17 U/L (6-35); Alkaline Phosphatase 45 U/L (38-126); Anion Gap 6 mmol/L (4-12); Aspartate Amino Transferase 21 U/L (14-36); Bilirubin,Total 0.3 mg/dL (0.2-1.3); Blood Urea Nitrogen 19 mg/dL (7-17); Calcium 9.3 mg/dL (8.4-10.2); Carbon Dioxide 26 mmol/L (22-30); Chloride 107 mmol/L (98-107); Estimated Glomerular Filt Rate > 60; Glucose 123 mg/dL (65-110); Potassium 4.6 mmol/L (3.4-5.0); Sodium 139 mmol/L (137-145)
--- OUTSIDE RECORDS SUMMARY | 2024-10-28 12:01 | XMS_ITS | CONTINUITY OF CARE DOCUMENT ---
Author Name josé miguel valdez Address Unknown Organization [facility] Address [address] [place] [address] Phone [phone] Care Team Providers Care Cook Fruit Name Role Phone Mario Rodriguez MD Unavailable [phone] Mario Rodriguez MD Unavailable [phone] SIL SAUCEDO MD Unavailable INSURANCE PROVIDERS Payer name Policy type / Coverage type [place] red republican ID [place] [employer] Medicare [id number] [facility] [id number]
--- OUTSIDE RECORDS SUMMARY | 2024-10-28 12:01 | XMS_ITS | Encounter Summary ---
Author Organization [facility] Address [address] [place] [address] Care Team Providers Care Low Pressure Firer Name Role Phone None, Provider Primary Care Provider Merlyn Walter MD Primary Care Provider [phone] Encounter Details Date Type Department Care Team (Latest Contact Info) Description 05/07/2019 Abstract [facility] Trista Patterson MD [address] [place] [address] Social History Tobacco Use Types [...] Patterson MD - 05/07/2019 12:00 AM CDT [facility] [address] [place] [address] Date: 05-07-2019 Maryann Philippe [address] [place] [address] D.O.B: 1985 Dear: Maryann The result of your recent lab work was normal. If you have any questions please call our office at . Sincerely, Trista Patterson M.D. documented in this encounter Plan of Treatment Not on file documented as of this encounter Visit Diagnoses Not on filedocumented in this encounter Care Teams Low Pressure Firer Relationship Specialty Start Date End Date None, Provider, PCP - General 05/01/19 07/18/20 Merlyn Jeffers MD [facility] [address] [address] PCP - General FAMILY PRACTICE 07/19/20 documented as of this encounter
--- OUTSIDE RECORDS SUMMARY | 2024-10-28 12:01 | XMS_ITS | Data Portability ---
Author Organization [facility] [place] Address [address] [place] [address] Care Team Providers Care Pediatric Care Coordinator Name Role Phone VENKATESH MARCELINO Primary Care Provider [phone] Assessment No assessment recorded. Plan of Treatment Reminders Order Date Submit Date Provider Last Modified By Organization Details Last Modified Time Details Appointments SURG PRE OP 2024 01:30P Karen ROSE MD Not available Not available Not available Robotic TLH 2024 01:30P Karen ROSE MD Not available Not available Not available SURG POST OP 2024 01:15P Karen ROSE MD Not available Not available Not available Lab CBC w/ auto diff [address] [facility] (Lab), [address] [place], [address], 09/16/2024 05:15:10 CMP, serum or plasma [address] [facility] (Lab), [address] , [place], [address], 09/16/2024 05:15:10 type + screen, serum [address] [facility] (Lab), [address] [place], [address], 09/16/2024 05:15:11 Referral None recorded. Procedures None recorded. Surgeries robotic assisted hysterect doroteo with salpingec vangie (SURG) [address] Surgery [facility], [address] [address], [place], [address], 09/21/2024 16:52:28 oophorect doroteo (SURG) 2023 025 [facility], [address] [address], [place], [address], 09/17/2024 10:55:08 Imaging None recorded. Medication Orders None recorded. Patient TargetsNo targets recorded. Patient InstructionsNo instructions recorded. Reason for Referral None Reported. Results Created Date Observation Date Name Description Value Unit Range Abnormal Flag Note LastModifiedBy Organization Detail LastModifiedTime 09/15/1909/15/2024 CBC W/DIF F WBC 7.3 10'3/ uL 3.5-10 .5 Not Available [facility] (Lab) [address], [place], [address], 09/16/2024 05:15:10 09/15/19 25 09/15/2024 CBC W/DIF F RBC 4.53 10'6/ uL (based on docume nted legal sex) 3.80-5 .20 Not Available [facility] (Lab) [address], [place], [address], 09/16/2024 05:15:10 09/15/19 25 09/15/2024 CBC W/DIF F HGB 12.8 g/dL (based on docume nted legal sex) 11.6-1 5.4 Not Available [facility] (Lab) [address], [place], [address], 09/16/2024 05:15:10 09/15/19 25 09/15/2024 CBC W/DIF F HCT 40.4 % (based on docume nted legal sex) 34.0-4 5.0 Not Available [facility] (Lab) [address], [place], [address], 09/16/2024 05:15:10 09/15/19 25 09/15/2024 CBC W/DIF F MCV 89.2 fL 80.0-9 9.0 Not Available [facility] (Lab) [address] [facility], [place], [address], 09/16/2024 05:15:10 09/15/19 25 09/15/2024 CBC W/DIF F MCH 28.3 pg 27.0-3 4.0 Not Available [facility] (Lab) [address] [facility], [place], [address], 09/16/2024 05:15:10 09/15/19 25 09/15/2024 CBC W/DIF F MCHC 31.7 g/dL 32.0-3 5.5 low Not Available [facility] (Lab) [address] [facility], [place], [address], 09/16/2024 05:15:10 09/15/19 25 09/15/2024 CBC W/DIF F RDW 13.0 % 11.0-1 5.0 Not Available [facility] (Lab) [address] [facility], [place], [address], 09/16/2024 05:15:10 09/15/19 25 09/15/2024 CBC W/DIF F plt 287 10'3/ uL 150-40 0 Not Available [facility] (Lab) [address] [facility], [place], [address], 09/16/2024 05:15:10 09/15/19 25 09/15/2024 CBC W/DIF F MPV 10.9 fL 8.8-12 .1 Not Available [facility] (Lab) [address] [facility], [place], [address], 09/16/2024 05:15:10 09/15/19 25 09/15/2024 CBC W/DIF F neutrophils 68.4 % 34.0-7 3.0 Not Available [facility] (Lab) [address] [facility], [place], [address], 09/16/2024 05:15:10 09/15/19 25 09/15/2024 CBC W/DIF F lymphocytes 24.3 % 15.0-5 0.0 Not Available [facility] (Lab) [address] [facility], [place], [address], 09/16/2024 05:15:10 09/15/19 25 09/15/2024 CBC W/DIF F monocytes 4.5 % 1.0-15 .0 Not Available [facility] (Lab) [address] [facility], [place], [address], 09/16/2024 05:15:10 09/15/19 25 09/15/2024 CBC W/DIF F eosinophils 2.1 % 0.0-8. 0 Not Available [facility] (Lab) [address] [facility], [place], [address], 09/16/2024 05:15:10 09/15/19 25 09/15/2024 CBC W/DIF F basophils 0.4 % 0.0-2. 0 Not Available [facility] (Lab) [address] [facility], [place], [address], 09/16/2024 05:15:10 09/15/19 25 09/15/2024 CBC W/DIF F immature granulocytes 0.3 % no define d refere nce range Immat ure Granu locyt es (IG) repre sents autom ated enume ratio n of Metam yeloc ytes, Myelo cytes and Promy elocy david when IG is < 5%. Blast s are not inclu ded in IG and repor rosario separ ately if prese nt. Not Available [facility] (Lab) [address] [facility], [place], [address], 09/16/2024 05:15:10 09/15/19 25 09/15/2024 CBC W/DIF F absolute neutrophils 5.0 10'3/ uL 1.5-8. 0 Not Available [facility] (Lab) [address] [facility], [place], [address], 09/16/2024 05:15:10 09/15/19 25 09/15/2024 CBC W/DIF F absolute lymphocytes 1.8 10'3/ uL 1.0-4. 0 Not Available [facility] (Lab) [address] [facility], [place], [address], 09/16/2024 05:15:10 09/15/19 25 09/15/2024 CBC W/DIF F absolute monocytes 0.3 10'3/ uL 0.2-1. 0 Not Available [facility] (Lab) [address] [facility], [place], [address], 09/16/2024 05:15:10 09/15/19 25 09/15/2024 CBC W/DIF F absolute eosinophils 0.2 10'3/ uL 0.0-0. 6 Not Available [facility] (Lab) [address] [facility], [place], [address], 09/16/2024 05:15:10 09/15/19 25 09/15/2024 CBC W/DIF F absolute basophils 0.0 10'3/ uL 0.0-0. 3 Not Available [facility] (Lab) [address] [facility], [place], [address], 09/16/2024 05:15:10 09/15/19 25 09/15/2024 CBC W/DIF F absolute immature granulocytes 0.0 10'3/ uL 0.00-0 .10 Refer ence range s for nonbi nary/ inter sex or unspe cifie d gende r patie nts have not been estab lishe d. Pleas e refer to the follo wing table for range s estab lishe d for cisge nder patie nts and evalu ate in the clini jeffry ashutosh xt of the indiv idual patie nt: https ://berta palma book. nm.or g/Gen derX Not Available [facility] (Lab) [address] [facility], [place], [address], 09/16/2024 05:15:10 09/15/19 25 09/15/2024 CMP(C OMPRE HENSI VE METAB OLIC PANEL ) sodium 137 mmol/ L 133-14 6 Not Available [facility] (Lab) [address] [facility], [place], [address], 09/16/2024 05:15:10 09/15/19 25 09/15/2024 CMP(C OMPRE HENSI VE METAB OLIC PANEL ) potassium 4.7 mmol/ L 3.5-5. 1 Not Available [facility] (Lab) [address] [facility], [place], [address], 09/16/2024 05:15:10 09/15/19 25 09/15/2024 CMP(C OMPRE HENSI VE METAB OLIC PANEL ) chloride 101 mmol/ L 98-107 Not Available [facility] (Lab) [address] [facility], [place], [address], 09/16/2024 05:15:10 09/15/19 25 09/15/2024 CMP(C OMPRE HENSI VE METAB OLIC PANEL ) carbon dioxide 29 mmol/ L 21-31 Not Available [facility] (Lab) [address] [facility], [place], [address], 09/16/2024 05:15:10 09/15/19 25 09/15/2024 CMP(C OMPRE HENSI VE METAB OLIC PANEL ) anion gap 7 mmol/ L 4-13 Not Available [facility] (Lab) [address] [facility], [place], [address], 09/16/2024 05:15:10 09/15/19 25 09/15/2024 CMP(C OMPRE HENSI VE METAB OLIC PANEL ) blood urea nitrogen 23 mg/dL 7-25 Not Available [facility] (Lab) [address] [place], [address], 09/16/2024 05:15:10 09/15/19 25 09/15/2024 CMP(C OMPRE HENSI VE METAB OLIC PANEL ) creatinine 1.22 mg/dL 0.60-1 .30 Not Available [facility] (Lab) [address] [facility], [place], [address], 09/16/2024 05:15:10 09/15/19 25 09/15/2024 CMP(C OMPRE HENSI VE METAB OLIC PANEL ) egfrcr (CKD-epi 2020) 58 mL/mi n/1.7 3_m2 >=60 low Not Available [facility] (Lab) [address] [facility], [place], [address], 09/16/2024 05:15:10 09/15/19 25 09/15/2024 CMP(C OMPRE HENSI VE METAB OLIC PANEL ) calcium 9.7 mg/dL 8.3-10 .5 Not Available [facility] (Lab) [address] [facility], [place], [address], 09/16/2024 05:15:10 09/15/19 25 09/15/2024 CMP(C OMPRE HENSI VE METAB OLIC PANEL ) glucose 120 mg/dL 70-100 high Not Available [facility] (Lab) [address] [facility], [place], [address], 09/16/2024 05:15:10 09/15/19 25 09/15/2024 CMP(C OMPRE HENSI VE METAB OLIC PANEL ) protein, total 7.0 g/dL 6.4-8. 3 Not Available [facility] (Lab) [address] [place], [address], 09/16/2024 05:15:10 09/15/19 25 09/15/2024 CMP(C OMPRE HENSI VE METAB OLIC PANEL ) albumin 4.5 g/dL 3.5-5. 0 Not Available [facility] (Lab) [address] [place], [address], 09/16/2024 05:15:10 09/15/19 25 09/15/2024 CMP(C OMPRE HENSI VE METAB OLIC PANEL ) ALT 9 units /L 9-43 Not Available [facility] (Lab) [address] [facility], [place], [address], 09/16/2024 05:15:10 09/15/19 25 09/15/2024 CMP(C OMPRE HENSI VE METAB OLIC PANEL ) alkaline phosphatase 61 units /L 34-104 Not Available [facility] (Lab) [address] [facility], [place], [address], 09/16/2024 05:15:10 09/15/19 25 09/15/2024 CMP(C OMPRE HENSI VE METAB OLIC PANEL ) AST 12 units /L 13-39 low Not Available [facility] (Lab) [address] [facility], [place], [address], 09/16/2024 05:15:10 09/15/19 25 09/15/2024 CMP(C OMPRE HENSI VE METAB OLIC PANEL ) bilirubin, total 0.4 mg/dL 0.2-1. 2 Not Available [facility] (Lab) [address] [facility], [place], [address], 09/16/2024 05:15:10 09/15/19 25 09/15/2024 TYPE/ RH/SC REEN ABO/Rh type A POS Not Available [facility] (Lab) [address] [place], [address], 09/16/2024 05:15:11 09/15/19 25 09/15/2024 TYPE/ RH/SC REEN antibody screen NEG Not Available [facility] (Lab) [address] [place], [address], 09/16/2024 05:15:11 09/15/19 25 09/15/2024 TYPE/ RH/SC REEN exp date 2024 23:59 Not Available [facility] (Lab) [address] [place], [address], 09/16/2024 05:15:11 Result Notes None recorded. Problems Name Problem SNOMED Code Status Onset Date Resolution Date Notes Provider Name and Address Organization Details Recorded Time Finding of menstrual bleeding Active 2016 Excessive and frequent menstruati on with regular cycle;Matthew rded Elsewhere: No Locatio n: [facility]: EHR Chroni c: N Practice ID: 0001 Billa ble Time: 03:15:00 PM Not Available [facility] 0 17:42:43 Adult health 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 Active 2014 ROUTINE MEDICAL EXAM;Recor ded Elsewhere: No Locatio n: [facility]: EHR Chroni c: N Practice ID: 0001 Billa ble Time: 03:15:00 PM Not Available [facility] 0 17:42:43 Endometri osis (clinical ) 498093635 Active 2012 Endometrio sis, site unspecifie d;Recorded Elsewhere: No Locatio n: [facility]: EHR Chroni c: N Practice ID: 0001 Billa ble Time: 02:30:00 PM Not Available [facility] 0 17:42:43 Pre-surge ry evaluatio n Active 2012 Pre-operat hira examinatio n, unspecifie d;Recorded Elsewhere: No Locatio n: [facility]: EHR Chroni c: N Practice ID: 0001 Billa ble Time: 02:30:00 PM Not Available [facility] 0 17:42:43 Screening for malignant neoplasm of cervix Active 2012 Screening for malignant neoplasms of the cervix;Rec orded Elsewhere: No Locatio n: [facility]: EHR Chroni c: N Practice ID: 0001 [place] Time: 10:30:00 AM Not Available [facility] 0 17:42:43 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 care managemen t Active 2014 Encounter for other general counseling on procreatio n;Recorded Elsewhere: No Locatio n: [facility]: EHR Chroni c: N Practice ID: 0001 [place] Time: 03:00:00 PM Not Available [facility] 0 17:42:[address] Concept Active 2016 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 (general) (routine) w/o abn findings;R ecorded Elsewhere: No Locatio n: [facility]: EHR Chroni c: N Practice ID: 0001 [place] Time: 04:30:00 PM Not Available [facility] 0 17:42:43 Hypertrop hy of uterus 478419447 Active 2012 Hypertroph y of uterus;Rec orded Elsewhere: No Locatio n: [facility]: EHR Chroni c: N Practice ID: 0001 [place] Time: 02:00:00 PM Not Available [facility] 0 17:42:43 Body mass index 30+ - obesity 648069293 Active 2016 Body mass index (BMI) 33.0-33.9, adult;Matthew rded Elsewhere: No Locatio n: [facility]: EHR Chroni c: N Practice ID: 0001 [place] Time: 04:30:00 PM Not Available [facility] 0 17:42:43 Specializ ed medical 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 Active 2014 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 N;Recorded Elsewhere: No Locatio n: [facility]: EHR Chroni c: N Practice ID: 0001 [place] Time: 03:15:00 PM Not Available [facility] 0 17:42:43 Pain in female genitalia Active 2016 Dysmenorrh ea;Recorde d Elsewhere: No Locatio n: [facility]: EHR Chroni c: N Practice ID: 0001 [place] Time: 03:15:00 PM Not Available [facility] 0 17:42:43 Polyp of corpus uteri 38598519 Active 2012 Polyp of corpus uteri;Matthew rded Elsewhere: No Locatio n: [facility]: EHR Chroni c: N Practice ID: 0001 [place] Time: 05:00:00 PM Not Available [facility] 0 17:42:[address] Concept Active 2016 Encntr for general adult medical exam w/o abnormal findings;R ecorded Elsewhere: No Locatio n: [facility]: EHR Chroni c: N Practice ID: 0001 [place] ble Time: 04:30:00 PM Not Available [facility] 0 17:42:43 test negative 781760735 Active 2014 examinatio n or test, negative result;Rec orded Elsewhere: No Locatio n: [facility]: EHR Chroni c: N Practice ID: 0001 [place] Time: 03:15:00 PM Not Available [facility] 0 17:42:43 Obesity 932142919 Active 2014 Obesity;Re corded Elsewhere: No Locatio n: [facility]: EHR Chroni c: N Practice ID: 0001 [place] Time: 03:15:00 PM Not Available [facility] 0 17:42:43 Menstruat ion finding Active 2012 Excessive or frequent menstruati on;Recorde d Elsewhere: No Locatio n: [facility]: EHR Chroni c: N Practice ID: 0001 [place] Time: 02:30:00 PM Not Available [facility] 0 17:42:44 Radiology result abnormal 159842248 Active 2012 Nonspecifi c abnormal findings on radiologic al and other examinatio n of genitourin augustin organs;Rec orded Elsewhere: No Locatio n: [facility]: EHR Chroni c: N Practice ID: 0001 [place] ble Time: 04:30:00 PM Not Available [facility] 0 17:42:44 Female genital organ symptoms 331810837 Active 2012 Unspecifie d symptom associated with female genital organs;Pra ctice ID: 0001 Not Available [facility] 0 17:42:44 Postopera tive follow-up visit Active 2012 Follow-up examinatio n, following other surgery;Pr actice ID: 0001 Not Available [facility] 0 17:42:45 Problem Notes None recorded. Procedures Surgical History Date Name Laterality Status Provider Name and Address Organization Details Recorded Time 3 Date of Last Pap Smear completed Марина [facility] 07/30/2024 15:37:48 0 Laparoscopy completed [facility] 07/30/2024 15:37:59 4 Other completed [facility] 07/30/2024 15:37:59 0 completed [facility] 07/30/2024 15:37:48 0 Date of Last Colonoscopy completed [facility] 07/30/2024 15:37:48 Imaging Results None recorded. Procedure Notes None recorded. Medical Equipment None Reported. Allergies Allergen ID Allergen Name Allergen Category Reaction Reaction Severity Criticality Documentation Date Start Date Code Code System Note Provider Name and Address Organization Details Recorded Time 44061 tramadol medicatio n palpitati ons severe Not available 08/12/2020 14525 [facility]Norm [facility] 4 15:37:36 31214 amoxicill in medicatio n hives severe Not available 08/12/2020 723 [facility] 4 15:37:36 Medications Name Sig Start [...] ed Elsewher e: No Locat ion: [facility] M odify By: hortensia villalpando DateTime : 06/01/20 [...] Not Available Not Available No t Available hydrocodo ne 5 mg-acetam inophen 325 mg tablet TAKE 1 TO 2 TABLETS BY MOUTH EVERY 6 HOURS NEEDED FOR PAIN active Not Available Not Available No t Available Loestrin 1.5/30 (21) 1.5 mg-30 mcg tablet take 1 tablet by oral route every day 07/30 completed Prescrib ed Elsewher e: No Locat ion: [facility] odify By: tgingric h Dion ter DateTime : 03/29/20 17 03:15:00 PM Not Available Not Available Not Available prazosin 1 mg capsule TAKE ONE CAPSULE BY MOUTH TWICE DAILY active Not Available [...] Available gabapenti n 300 mg capsule TAKE 2 CAPSULES BY MOUTH ONCE DAILY AT BEDTIME TO ASSIST WITH SLEEP active Not Available Not Available No t [...] Prescrib ed Elsewher e: No Locat ion: [facility] odify By: [email or web address] mikek En counter DateTime : 11/19/19 15 09:31:19 AM Not Available Not Available Not Available lamotrigi ne 100 mg tablet TAKE 1 AND A HALF TABLETS BY MOUTH ONCE DAILY active Not Available Not Available No t Available Xanax 1 mg tablet take 1 tablet by oral route 3 times every day 07/30 completed Prescrib ed Elsewher e: Yes Loca tion: [facility] odify By: [email or web address] trick En counter DateTime [...] Prescrib ed Elsewher e: Yes Loca tion: [facility] odify By: [email or web address] trick En counter DateTime : 11/11/19 15 03:15:00 PM Not Available Not Available Not Available duloxetin e 20 mg capsule,d elayed release TAKE 1 CAPSULE BY MOUTH DAILY FOR 7 DAYS. INCREASE TO 2 CAPSULES 40 MG DAILY 30 DAYS 07/30 completed Not Available Not Available Not Available duloxetin e 60 mg capsule,d elayed release TAKE 1 CAPSULE BY MOUTH DAILY active Not Available Not Available No t Available Nicki 30 mg/5 mL oral suspensio n 11/10 completed Prescrib ed Elsewher e: Yes Loca tion: [facility] odify By: [email or web address] trick En counter DateTime : 04/10/20 13 10:30:00 AM Not Available Not Available Not Available ProChambe r USE DIRECTED 07/30 completed Not Available Not Available Not Available Lo Loestrin Fe 1 mg-10 mcg (24)/10 mcg (2) tablet take 1 tablet by oral route every day 11/18 completed Prescrib ed Elsewher e: No Locat ion: [facility] M odify By: louise villalpando DateTime : [...] Updated DateTime 07/30/2024 165.1 cm 40.3 kg/m2 422987.3 5 g 115 mm[Hg] 78 mm[Hg] Марина [facility] 15:37:31 Social History Question Answer [...] Or The Highest Degree You Have Received? [id number] Information not available 07/30/2024 What Is Your Occupation? [employer] Information not available 07/30/2024 Are [...] Anxious, Or Unable To Sleep At Night)? [id number] Information not available 07/30/2024 Do You Use [...] SNOMED-CT Code Diagnosis ICD10 Code Diagnosis Note [id number] Frederick Rose MD [place] [address] [address] 07/30/2024 14:38:08 07/30/2024 16:36:13 Menorrhagia 586294720 N92.0 This patient is a 39-year-ol d female presents for heavy vaginal bleeding. She has longstandi ng very heavy bleeding. Her menses are regular. However, they require double protection . Patient has accidents, getting blood on her bedding and clothing. Is affected work. She changes a pad or tampon every hour. She leaks blood around the pad and tampon. This bleeding has a profound impact on her quality of life and her activities of daily living. history of endometrio sis. would like definitive treatment. we discussed medical treatments in detail. We discussed ablation and surgical procedures . She would like definitive surgical treatment. We agreed to proceed with total laparoscop ic hysterecto my bilateral salpingect doroteo with left oophorecto my. I spent over 30 minutes in total on the care of this patient. Health Concerns Section Related Observation LastModified by Organization Detai ls LastModified Time None Recorded Concern Status LastModified by Organization Details LastModified Time None Recorded Advance Directives Directive N: Payers Encounter Date Sequence Insurance Name Policy Number Policy Mcclendon Covered Member ID Mcclendon Member ID Guarantor Name 07/30/2024 1 [facility] [id number] Mrayann Philippe [id number] Maryann Philippe Notes Date Note Type Note [...] on the care of this patient. Frederick Rose MD [address], [place], [address], [facility] 07/30/2024 16:35:33 OBGyn Episode No OBEpisode recorded.
--- OUTSIDE RECORDS SUMMARY | 2024-10-28 12:01 | XMS_ITS ---
Author Organization [facility] Address [address] [place] [address] Care Team Providers Care Foreign Language Professor Name Role Phone Ede Aguilar Primary Care Provider [phone] REASON FOR VISIT 4 week F/U Medications Medication SIG (Take, Route, Frequency, Duration) Notes Start Date End Date Status Lisinopril 20 MG 1 tablet Orally Once a day Active busPIRone HCl 15 MG 1 tablet Orally Twic e a day for 30 days Active Wellbutrin XL 300 MG 1 tablet in the mor rodney Orally Once a day for 30 days Active Meloxicam 7.5 MG 1 tablet Orally twic e daily as needed for pain for 30 days Active Cyclobenzaprine HCl 10 MG 1 tablet two t imes every morning and bedtime x7 days then 1 tab daily at bedtime Orally as directed for 30 days Active Atorvastatin Calcium 10 MG 1 tablet Oral ly Once a day Active Pantoprazole Sodium 20 MG 1 tablet Orall y Once a day Active Montelukast Sodium 10 MG 1 tablet Orally Once a day Active Albuterol Sulfate HFA 108 (9 0 Base) MCG/ACT 1 puff as needed Inhalation every 4 hrs Active Gabapentin 300 MG 2 capsules (600mg) Orally once daily at bedtime to assist with sleep for 30 days Active DULoxetine HCl 60 MG 1 capsule Orally on ce daily for 30 days Active lamoTRIgine 100 MG 1.5 tablets (150mg) Orally Once a day for 30 days Active Prazosin HCl 1 MG 1 capsule Orally twi ce daily to assist with PTSD for 30 days Active Social History Sex Assigned At : Social History Observation Description Sex Assigned At Female Encounters Encounter Location Date Provider Diagnosis [address] [place] [address] 09/17/2024 Ede Aguilar Plan Of Treatment No Information Progress Notes * Deysi HANCOCKlaloDOB: [birth year] (39 yo F)Acc No.[id number]:09/17/2024 UNLOCKED PROGRESS NOTE Patient: Christiano KUMARMIQUELDeysi Merinoica Provider: Ailyn Aguilar APN :1985 A ge:39 Y S ex:Female Date:09/17/2024 [id number] Subjective: * Chief Complaints: * 1 . 4 week F/U. * Medical History: * Medications: T aking Albuterol Sulfate HFA 108 (90 Base) MCG/ACT Aerosol Solution 1 puff as needed Inhalation every 4 hrs , Taking Montelukast Sodium 10 MG Tablet 1 tablet Orally Once a day , Taking Pantoprazole Sodium 20 MG Tablet Delayed Release 1 tablet Orally Once a day , Taking Atorvastatin Calcium 10 MG Tablet 1 tablet Orally Once a day , Taking Lisinopril 20 MG Tablet 1 tablet Orally Once a day , Taking Cyclobenzaprine HCl 10 MG Tablet 1 tablet two times every morning and bedtime x7 days then 1 tab daily at bedtime Orally as directed , Taking Meloxicam 7.5 MG Tablet 1 tablet Orally twice daily as needed for pain , Taking Wellbutrin XL 300 MG Tablet Extended Release 24 Hour 1 tablet in the morning Orally Once a day , Taking busPIRone HCl 15 MG Tablet 1 tablet Orally Twice a day , Taking Prazosin HCl 1 MG Capsule 1 capsule Orally twice daily to assist with PTSD , Taking lamoTRIgine 100 MG Tablet 1.5 tablets (150mg) Orally Once a day , Taking DULoxetine HCl 60 MG Capsule Delayed Release Particles 1 capsule Orally once daily , Taking Gabapentin 300 MG Capsule 2 capsules (600mg) Orally once daily at bedtime to assist with sleep Objective: * Vitals: Assessment: Plan: * Treatment: * * Electronic signature of Ede Aguilar on 10/28/2024 at 12:00 PM UNDERWEAR CUTTER Sign off status: Pending * Provider: Ailyn Aguilar APN Date: 0 09/17/2024 Generated for Kendra sotne/Alma/Toan on: 0 10/28/2024 12:00 PM UNDERWEAR CUTTER
--- OUTSIDE RECORDS SUMMARY | 2024-10-28 12:02 | XMS_ITS | Encounter Summary ---
Author Organization [facility] Address 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
--- OUTSIDE RECORDS SUMMARY | 2024-10-28 12:02 | XMS_ITS | Continuity of Care Document ---
Author Organization [facility] Address [address] [place] [address] Phone Care Team Providers Care Rug Sample Beveler Name Role Phone Kathy Beckwith MD Unavailable Unavailabl e Advance Directives Directive Yes / No Effective Date File Name No Information Encounters Encounter Description Practice Location Reason(s) For Visit Diagnoses Date Provider Providers Copied on Encounter [facility], [address], [place], [place], [id number] , tel: [phone] [facility] 0-200 [address] Beckwith Kathy. [address] [place], [place], [id number]. 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 [address] [place], [place], [id number]. tel:[phone] Family History Family Member Type Diagnosis Age At Onset No Information Payers Payer name Insurance type Covered democrat ID Authoriza tion(s) No Information Social History [...]
--- OUTSIDE RECORDS SUMMARY | 2024-10-28 12:02 | XMS_ITS | Clinical Summary ---
Author Organization [facility] Address [address] [place] [address] Care Team Providers Care Dog Boarder Name Role Phone Merlyn Jeffers MD Primary Care Provider Allergies Active Allergy Reactions Criticality Noted Date [...] Comments Blood Pressure 154/84 07/19/2020 11:58 AM SISAL PICKER Pulse 80 07/19/2020 11:58 AM SISAL PICKER Temperature 36.1 C (97 F) 07/19/2020 11:58 AM SISAL PICKER Respiratory Rate 16 07/19/2020 11:58 AM SISAL PICKER Oxygen Saturation 100% 07/19/2020 11:58 AM SISAL PICKER Inhaled Oxygen Concentration - - Weight 102.1 kg (225 lb) 07/19/2020 11:58 AM SISAL PICKER Height 165.1 cm (5' 5 ) 07/19/2020 11:58 AM SISAL PICKER Body Mass Index 37.44 07/19/2020 11:58 AM SISAL PICKER Plan of Treatment Health Maintenance Due Date [...] patient's age to complete this topic Meningococcal B Vaccine Aged Out No l onger eligible based on patient's age to complete [...] age to complete this topic Insurance MEDICAID DEPT OF [address] Advance Directives * Full Code (Latest Code Status on File) Date Activated Date Inactivated Comments 05/05/2019 10:16 AM 05/05/2019 1:31 PM Care Teams Dog Boarder Relationship Specialty Start Date End Date Merlyn Jeffers MD [address] [id number] PCP - General FAMILY PRACTICE 07/19/20
--- OUTSIDE RECORDS SUMMARY | 2024-10-28 12:02 | XMS_ITS | Data Portability ---
Author Organization [facility] Pappas Address [address] [place] [address] Care Team Providers Care Electronic Publishing Specialist Name Role Phone ZAIRA MARCELINO Primary Care Provider [phone] Assessment No assessment recorded. Plan of Treatment Reminders Order Date Submit Date Provider Last Modified By Organization Details Last Modified Time Details Appointments None recorded. Lab CBC w/ auto diff [address] [facility], [address] [place] [address], [place] [address], [place], [address], 5 10:11:22 CMP, serum or plasma [address] [facility], [address] [place] [address], [place] [address], [place], [address], 5 10:11:18 PT/PTT, plasma [address] [facility], [address] [place] [address], [place] [address], [place], [address], 5 10:11:24 ESR (erythrocy te sedimentat ion rate), blood [address] [facility], [address] [place] [address], [facility] [address], [place], [address], 5 10:11:23 hepatitis panel (A+B+C), acute, serum [address] [facility], [address], [address], [place], [place], [address], 5 10:11:16 HIV 1 + 2, meaningful use set 2024 025 [facility], [address], [address], [place], [address], 5 10:11:25 urinalysis , complete 2024 025 [facility], [address], [address], [place], [address], 5 10:11:21 HbA1c (hemoglobi n A1c), blood 2024 025 [facility], [address], [address], [place], [address], 5 10:11:20 CMP, serum or plasma 2023 024 [facility], [address], [place], [address], 4 22:09:46 lipid panel, serum 2023 024 [facility], [address], [place], [address], 4 22:09:45 CBC w/ auto diff 2023 024 [facility] [address], [place], [address], 4 22:09:47 TSH + free T4, serum 2023 024 [facility], [address], [place], [address], 4 10:17:18 HbA1c (hemoglobi n A1c), blood 2023 024 [facility], [address], [place], [address], 4 10:17:19 cytology report, thin prep, smear or scraping, cervical or vaginal [address] [facility], [address] [facility], [address], [place], [address], 3 23:02:55 bacterial vaginosis score, RUKHSANA+probe, vaginal fluid (OBS) 2022 023 [facility], [address] [facility], [address], [place], [address], 3 08:25:05 Referral gynecologi c surgery referral 2023 024 [email or web address] [facility], [address], [place], [address], 4 08:14:04 dermatolog ist referral 2023 024 [email or web address] [facility], [address] [place] [address] , [place], [address], 4 08:14:05 Procedures electrocar diogram, routine ECG, 12 leads min; interpreta tion and report (PROC) 2024 025 [facility]), [address], [place], [address], 5 08:53:34 Surgeries None recorded. Imaging polysomnog alia 2022 023 [facility], [address] [place], [address], 4 15:23:00 Medication Orders albuterol sulfate HFA 90 mcg/actuat ion aerosol inhaler 2023 024 [id number], [address], [place], [place], [id number], 16:09:40 gabapentin 300 mg capsule 2023 024 [id number], [address], [place], [place], [id number], 16:15:30 Patient TargetsNo targets recorded. Patient Instructions Encounter Date Encounter Id Patient Instructions Last Modified By Organization Details Last Modified Time 01/30/2024 [id number] A healthy lifestyle: care instructions [email or web address] Not available 01/30/2024 11:04:09 09/16/2024 [id number] A healthy lifestyle: care instructions Not available 09/16/2024 13:22:57 rhythm strip, EKG* [email or web address] Not available 09/16/2024 13:30:33 Reason for Referral Gynecologic Surgery Referral for Endometriosis of pelvis Referring Physician: Zaira Marcelino [facility], Encounter Date: 07/08/2024 Speech Lang Path Referral for S kin tag skin tag to L nipple Referring Physician: Zaira Marcelino [facility], Encounter Date: 07/08/2024 Results Created Date Observation Date Name Description Value Unit Range Abnormal Flag Note LastModifiedBy Organization Detail LastModifiedTime 08/07/2008/13/2023 NUA B VG+, HSV atopobium vaginae Low - 0 score Not Available [facility] ([facility]) [address] [facility], [place], [address], 08/15/2023 08:25:05 08/07/2008/13/2023 NUSWA B VG+, HSV bvab 2 Low - 0 score Not Available [facility] ([facility]) [address] [facility], [place], [address], 08/15/2023 08:25:05 08/07/20 23 08/13/2023 NUSWA B [...] Drug Admin istra tion. Not Available [facility] ([facility]) [address] [place], [address], 08/15/2023 08:25:05 08/07/2008/13/2023 NUSWA B VG+, HSV chris albicans, RUKHSANA Negati ve negati ve Not Available [facility] ([facility]) [address] [place], [address], 08/15/2023 08:25:05 08/07/20 23 08/13/2023 NUSWA B VG+, HSV chris glabrata, RUKHSANA Negati ve negati ve Not Available [facility] ([facility]) [address] [place], [address], 08/15/2023 08:25:05 08/07/2008/13/2023 NUSWA B VG+, HSV chlamydia trachomatis, RUKHSANA Negati ve negati ve Not Available [facility] ([facility]) [address] [place], [address], 08/15/2023 08:25:05 08/07/20 23 08/13/2023 NUSWA B VG+, HSV neisseria gonorrhoeae, RUKHSANA Negati ve negati ve Not Available [facility] ([facility]) [address] [facility], [place], [address], 08/15/2023 08:25:05 08/07/20 23 08/13/2023 NUSWA B VG+, HSV hsv 1 RUKHSANA Negati ve negati ve Not Available [facility] ([facility]) [address] [facility], [place], [address], 08/15/2023 08:25:05 08/07/20 23 08/13/2023 NUSWA B VG+, HSV hsv 2 RUKHSANA Negati ve negati ve Not Available [facility] ([facility]) [address] [facility], [place], [address], 08/15/2023 08:25:05 08/07/20 23 08/15/2023 NUSWA B VG+, HSV trich vag by RUKHSANA Negati ve negati ve Not Available [facility] ([facility]) [address] [facility], [place], [address], 08/15/2023 08:25:05 08/07/20 23 08/09/2023 IGP, APTIM A HPV, RFX 16/18 ,45 diagnosis: Commen t NEGAT BARRON FOR INTRA EPITH ELIAL LESIO N OR MALMICHAEL PERLITA . Not Available [facility] ([facility]) [address] [facility], [place], [address], 08/15/2023 16:03:28 08/07/20 23 08/09/2023 IGP, APTIM A HPV, RFX 16/18 ,45 specimen adequacy: Commen t Satis facto ry for evalu ation . Endoc ervic al and/o r squam ous metap lasti c cells (endo cervi jeffry compo nent) are prese nt. Not Available [facility] ([facility]) [address] [facility], [place], [address], 08/15/2023 16:03:28 08/07/20 23 08/09/2023 IGP, APTIM A HPV, RFX 16/18 ,45 clinician provided ICD10: Oksana lechuga Z12.4 Not Available [facility] ([facility]) [address] [place], [address], 08/15/2023 16:03:28 08/07/20 23 08/09/2023 IGP, APTIM A HPV, RFX 16/18 ,45 performed by: Oksana salcido, Cytoalexandrea lechuga (ASCP ) Not Available [facility] ([facility]) [address] [place], [address], 08/15/2023 16:03:28 08/07/20 23 08/09/2023 IGP, APTIM A HPV, RFX 16/18 ,45 . . Not Available [facility] ([facility]) [address] [place], [address], 08/15/2023 16:03:28 08/07/20 23 08/09/2023 IGP, APTIM A HPV, RFX 16/18 ,45 note: Oksana lechuga The Pap smear is a scree rodney test desmichael loco to aid in the detec tion of nereida ligna nt and malig nant condi tions of the uteri ne cervi x. It is not a diagn ostic proce dure and shoul d not be used as the sole means of detec ting cervi jeffry cance r. Both false -posi tive and false -nega tive repor ts do occur . Not Available [facility] ([facility]) [address] [place], [address], 08/15/2023 16:03:28 08/07/20 23 08/09/2023 IGP, APTIM A HPV, RFX 16/18 ,45 test methodology: Oksana lechuga This liqui d based ThinP rep(R ) pap test was scree beronica with the use of an image guide julia nichole. Not Available [facility] ([facility]) [address] [facility], [place], [address], 08/15/2023 16:03:28 08/07/20 23 08/09/2023 IGP, APTIM A HPV, RFX 16/18 ,45 HPV aptima Negati ve negati ve This nucle ic acid ampli ficat ion test detec ts fourt een high- risk HPV types (16,1 8,31, 33,35 ,39,4 5,51, 52,56 ,58,5 9,66, 68) witho ut diffe renti ation . Not Available [facility] ([facility]) [address] [facility], [place], [address], 08/15/2023 16:03:28 08/07/20 23 08/09/2023 IGP, APTIM A HPV, RFX 16/18 ,45 HPV genotype reflex Commen t Crite tierra not met, HPV Genot ype not perfo rmed. Not Available [facility] ([facility]) [address] [facility], [place], [address], 08/15/2023 16:03:28 01/30/20 24 01/30/2024 LIPID PANEL WITH LDL/H DL RATIO cholesterol, total 223 mg/dL 100-19 9 above high normal Not Available [facility] [address] [place], [address], 01/30/2024 22:09:45 01/30/20 24 01/30/2024 LIPID PANEL WITH LDL/H DL RATIO triglyceride s 127 mg/dL 0-149 Not Available [facility] [address] [place], [address], 01/30/2024 22:09:45 01/30/20 24 01/30/2024 LIPID PANEL WITH LDL/H DL RATIO HDL cholesterol 48 mg/dL 40-999 Not Available [facility] [address] [place], [address], 01/30/2024 22:09:45 01/30/20 24 01/30/2024 LIPID PANEL WITH LDL/H DL RATIO VLDL cholesterol jeffry 25 mg/dL 5-40 Not Available [facility] [address] [place] [address], [address], 01/30/2024 22:09:45 01/30/20 24 01/30/2024 LIPID PANEL WITH LDL/H DL RATIO LDL chol calc (nih) 168 mg/dL 0-99 above high normal Not Available [facility] [address] [place] [address], [address], 01/30/2024 22:09:45 01/30/20 24 01/30/2024 LIPID PANEL WITH LDL/H DL RATIO LDL/HDL ratio 3.5 0-3.2 above high normal Not Available [facility] [address] [place] [address], [address], 01/30/2024 22:09:45 01/30/20 24 01/30/2024 COMP. METAB OLIC PANEL (14) glucose 131 mg/dL 70-99 above high normal Not Available [facility] [address] [place] [address], [address], 01/30/2024 22:09:46 01/30/20 24 01/30/2024 COMP. METAB OLIC PANEL (14) BUN 14 mg/dL 6-20 Not Available [facility] [address] [place] [address], [address], 01/30/2024 22:09:46 01/30/20 24 01/30/2024 COMP. METAB OLIC PANEL (14) creatinine 0.87 mg/dL 0.76-1 .27 Not Available [facility] [address] [place] [address], [address], 01/30/2024 22:09:46 01/30/20 24 01/30/2024 COMP. METAB OLIC PANEL (14) eGFR 87 >=60 Units for eGFR value s are mL/mi n/1.7 3 The eGFR Calcu latio n has not been valid ated for patie nts under the age of 18. If test resul ts are displ ayed for a patie nt under the age of 18, disre nina that value . Not Available [facility] [address] [place] [address], [address], 01/30/2024 22:09:46 01/30/20 24 01/30/2024 COMP. METAB OLIC PANEL (14) BUN/creatini ne ratio 16 9-23 Not Available [facility] [address] [place] [address], [address], 01/30/2024 22:09:46 01/30/20 24 01/30/2024 COMP. METAB OLIC PANEL (14) sodium 141 mmol/ L 134-14 4 Not Available [facility] [address] [place] [address], [address], 01/30/2024 22:09:46 01/30/20 24 01/30/2024 COMP. METAB OLIC PANEL (14) potassium 4.5 mmol/ L 3.5-5. 2 Not Available [facility] [address] [place] [address], [address], 01/30/2024 22:09:46 01/30/20 24 01/30/2024 COMP. METAB OLIC PANEL (14) chloride 101 mmol/ L 96-106 Not Available [facility] [address] [place] [address], [address], 01/30/2024 22:09:46 01/30/20 24 01/30/2024 COMP. METAB OLIC PANEL (14) carbon dioxide, total 23 mmol/ L 20-29 Not Available [facility] [address] [place] [address], [address], 01/30/2024 22:09:46 01/30/20 24 01/30/2024 COMP. METAB OLIC PANEL (14) calcium 9.9 mg/dL 8.7-10 .2 Not Available [facility] [address] [place] [address], [address], 01/30/2024 22:09:46 01/30/20 24 01/30/2024 COMP. METAB OLIC PANEL (14) protein, total 7.5 g/dL 6.0-8. 5 Not Available [facility] [address] [place], [address], 01/30/2024 22:09:46 01/30/20 24 01/30/2024 COMP. METAB OLIC PANEL (14) albumin 4.6 g/dL 3.9-4. 9 Not Available [facility] [address] [place], [address], 01/30/2024 22:09:46 01/30/20 24 01/30/2024 COMP. METAB OLIC PANEL (14) globulin, total 2.9 g/dL 1.5-4. 5 Not Available [facility] [address] [place], [address], 01/30/2024 22:09:46 01/30/20 24 01/30/2024 COMP. METAB OLIC PANEL (14) A/G ratio 2.0 1.2-2. 2 Not Available [facility] [address] [place], [address], 01/30/2024 22:09:46 01/30/20 24 01/30/2024 COMP. METAB OLIC PANEL (14) bilirubin, total 0.3 mg/dL 0.0-1. 2 Not Available [facility] [address] [place], [address], 01/30/2024 22:09:46 01/30/20 24 01/30/2024 COMP. METAB OLIC PANEL (14) alkaline phosphatase 82 IU/L 44-121 Not Available [facility] [address] [place], [address], 01/30/2024 22:09:46 01/30/20 24 01/30/2024 COMP. METAB OLIC PANEL (14) AST (SGOT) 10 IU/L 0-40 Not Available [facility] Department [address] [place], [address], 01/30/2024 22:09:46 01/30/20 24 01/30/2024 COMP. METAB OLIC PANEL (14) ALT (SGPT) 10 IU/L 0-32 Not Available [facility] [address] [place], [address], 01/30/2024 22:09:46 01/30/20 24 01/30/2024 CBC WITH DIFFE RENTI AL/PL ATELE T WBC 8.4 x10e3 /uL 3.4-10 .8 Not Available [facility] [address] [place], [address], 01/30/2024 22:09:47 01/30/20 24 01/30/2024 CBC WITH DIFFE RENTI AL/PL ATELE T RBC 4.42 x10e6 /uL 3.77-5 .28 Not Available [facility] [address] [place], [address], 01/30/2024 22:09:47 01/30/20 24 01/30/2024 CBC WITH DIFFE RENTI AL/PL ATELE T hemoglobin 12.4 g/dL 11.1-1 5.9 Not Available [facility] [address] [place], [address], 01/30/2024 22:09:47 01/30/20 24 01/30/2024 CBC WITH DIFFE RENTI AL/PL ATELE T hematocrit 39.6 % 34.0-4 6.6 Not Available [facility] [address] [place], [address], 01/30/2024 22:09:47 01/30/20 24 01/30/2024 CBC WITH DIFFE RENTI AL/PL ATELE T MCV 90 fL 79-97 Not Available [facility] [address] [place], [address], 01/30/2024 22:09:47 01/30/20 24 01/30/2024 CBC WITH DIFFE RENTI AL/PL ATELE T MCH 28.1 pg 26.6-3 3.0 Not Available [facility] [address] [place], [address], 01/30/2024 22:09:47 01/30/20 24 01/30/2024 CBC WITH DIFFE RENTI AL/PL ATELE T MCHC 31.3 g/dL 31.5-3 5.7 below low normal Not Available [facility] [address] [place], [address], 01/30/2024 22:09:47 01/30/20 24 01/30/2024 CBC WITH DIFFE RENTI AL/PL ATELE T RDW 12.9 % 11.5-1 4.5 Not Available [facility] [address] [place], [address], 01/30/2024 22:09:47 01/30/20 24 01/30/2024 CBC WITH DIFFE RENTI AL/PL ATELE T platelets 328 x10e3 /uL 150-45 0 Not Available [facility] [address] [place], [address], 01/30/2024 22:09:47 01/30/20 24 01/30/2024 CBC WITH DIFFE RENTI AL/PL ATELE T neutrophils 75 % notest b. Not Available [facility] [address] [place], [address], 01/30/2024 22:09:47 01/30/20 24 01/30/2024 CBC WITH DIFFE RENTI AL/PL ATELE T lymphs 19 % notest b. Not Available [facility] [address] [place], [address], 01/30/2024 22:09:47 01/30/20 24 01/30/2024 CBC WITH DIFFE RENTI AL/PL ATELE T monocytes 4 % notest b. Not Available [facility] [address] [place] [address], [address], 01/30/2024 22:09:47 01/30/20 24 01/30/2024 CBC WITH DIFFE RENTI AL/PL ATELE T eos 1 % notest b. Not Available [facility] [address] [place] [address], [address], 01/30/2024 22:09:47 01/30/20 24 01/30/2024 CBC WITH DIFFE RENTI AL/PL ATELE T basos 1 % notest b. Not Available [facility] [address] [place] [address], [address], 01/30/2024 22:09:47 01/30/20 24 01/30/2024 CBC WITH DIFFE RENTI AL/PL ATELE T neutrophils (absolute) 6.3 x10e3 /uL 1.4-7. 0 Not Available [facility] [address] [place] [address], [address], 01/30/2024 22:09:47 01/30/20 24 01/30/2024 CBC WITH DIFFE RENTI AL/PL ATELE T lymphs (absolute) 1.6 x10e3 /uL 0.7-3. 1 Not Available [facility] [address] [place] [address], [address], 01/30/2024 22:09:47 01/30/20 24 01/30/2024 CBC WITH DIFFE RENTI AL/PL ATELE T monocytes(ab solute) 0.4 x10e3 /uL 0.1-0. 9 Not Available [facility] [address] [place] [address], [address], 01/30/2024 22:09:47 01/30/20 24 01/30/2024 CBC WITH DIFFE RENTI AL/PL ATELE T eos (absolute) 0.1 x10e3 /uL 0.0-0. 4 Not Available [facility] [address] [place] [address], [address], 01/30/2024 22:09:47 01/30/20 24 01/30/2024 CBC WITH DIFFE RENTI AL/PL ATELE T baso (absolute) 0.1 x10e3 /uL 0.0-0. 2 Not Available [facility] [address] [place] [address], [address], 01/30/2024 22:09:47 01/30/20 24 01/30/2024 CBC WITH DIFFE RENTI AL/PL ATELE T immature granulocytes 0.2 % notest b. Not Available [facility] [address] [place] [address], [address], 01/30/2024 22:09:47 01/30/20 24 01/30/2024 CBC WITH DIFFE RENTI AL/PL ATELE T immature grans (abs) 0.0 x10e3 /uL 0.0-0. 1 Not Available [facility] [address] [place] [address], [address], 01/30/2024 22:09:47 01/30/20 24 01/30/2024 CBC WITH DIFFE RENTI AL/PL ATELE T NRBC 0 % 0-0 Not Available [facility] [address] [place] [address], [address], 01/30/2024 22:09:47 01/30/20 24 01/31/2024 TSH+F REE T4 TSH 2.770 uIU/m L 0.450- 4.500 Not Available [facility] ([facility]) [address] [facility], [place], [address], 01/31/2024 10:17:18 01/30/20 24 01/31/2024 TSH+F REE T4 T4,free(dire ct) 1.03 NG/dL 0.82-1 .77 Not Available [facility] ([facility]) [address] [facility], [place], [address], 01/31/2024 10:17:18 01/30/20 24 01/31/2024 HEMOG LOBIN A1C hemoglobin A1C 6.4 % 4.8-5. 6 above high normal Predi abete s: 5.7 - 6.4 Diabe david: >6.4 Glyce herminia contr ol for adult s with diabe david: <7.0 Not Available [facility] ([facility]) [address] [facility], [place], [address], 01/31/2024 10:17:19 09/16/19 25 09/17/2024 ACUTE HEPAT ITIS hep A Ab, IgM NEGATI VE negati ve A negat barron anti- HAV IgM resul t sugge sts no recen t or curre nt HAV infec tion. Not Available [facility] ([facility]) [address] [facility], [place], [address], 09/17/2024 10:11:16 09/16/19 25 09/17/2024 ACUTE HEPAT ITIS HBsAg screen NEGATI VE negati ve Not Available [facility] ([facility]) [address] [place], [address], 09/17/2024 10:11:16 09/16/19 25 09/17/2024 ACUTE HEPAT ITIS hep B core Ab, IgM NEGATI VE negati ve Not Available [facility] ([facility]) [address] [place], [address], 09/17/2024 10:11:16 09/16/19 25 09/17/2024 ACUTE HEPAT ITIS HCV Ab NON REACTI VE nonrea ctive Not Available [facility] ([facility]) [address] [place], [address], 09/17/2024 10:11:16 09/16/19 25 09/17/2024 INTER PRETA TION: interpretati on: Commen t Not infec rosario with HCV unles s early or acute infec tion is suspe cted (whic h may be delay ed in an immun ocomp romis ed indiv idual ), or other evide nce exist s to indic ate HCV infec tion. Not Available [facility] ([facility]) [address] [place], [address], 09/17/2024 10:11:17 09/16/19 25 09/17/2024 COMP. METAB OLIC PANEL (14) glucose 119 mg/dL 70-99 above high normal Not Available [facility] ([facility]) [address] [place], [address], 09/17/2024 10:11:18 09/16/19 25 09/17/2024 COMP. METAB OLIC PANEL (14) BUN 17 mg/dL 6-20 Not Available [facility] ([facility]) [address] [place], [address], 09/17/2024 10:11:18 09/16/19 25 09/17/2024 COMP. METAB OLIC PANEL (14) creatinine 1.04 mg/dL 0.57-1 .00 above high normal Not Available [facility] ([facility]) [address] [place], [address], 09/17/2024 10:11:18 09/16/19 25 09/17/2024 COMP. METAB OLIC PANEL (14) eGFR 70 mL/mi n/1.7 3 >59 Not Available [facility] ([facility]) [address] [place], [address], 09/17/2024 10:11:18 09/16/19 25 09/17/2024 COMP. METAB OLIC PANEL (14) BUN/creatini ne ratio 16 9-23 Not Available [facility] ([facility]) [address] [place], [address], 09/17/2024 10:11:18 09/16/19 25 09/17/2024 COMP. METAB OLIC PANEL (14) sodium 138 mmol/ L 134-14 4 Not Available [facility] ([facility]) [address] [facility], [place], [address], 09/17/2024 10:11:18 09/16/19 25 09/17/2024 COMP. METAB OLIC PANEL (14) potassium 4.7 mmol/ L 3.5-5. 2 Not Available [facility] ([facility]) [address] [facility], [place], [address], 09/17/2024 10:11:18 09/16/19 25 09/17/2024 COMP. METAB OLIC PANEL (14) chloride 101 mmol/ L 96-106 Not Available [facility] ([facility]) [address] [facility] [place], [address], 09/17/2024 10:11:18 09/16/19 25 09/17/2024 COMP. METAB OLIC PANEL (14) carbon dioxide, total 23 mmol/ L 20-29 Not Available [facility] ([facility]) [address] [facility], [place], [address], 09/17/2024 10:11:18 09/16/19 25 09/17/2024 COMP. METAB OLIC PANEL (14) calcium 9.7 mg/dL 8.7-10 .2 Not Available [facility] ([facility]) [address] [facility] [place], [address], 09/17/2024 10:11:18 09/16/19 25 09/17/2024 COMP. METAB OLIC PANEL (14) protein, total 7.1 g/dL 6.0-8. 5 Not Available [facility] ([facility]) [address] [facility] [place], [address], 09/17/2024 10:11:18 09/16/19 25 09/17/2024 COMP. METAB OLIC PANEL (14) albumin 4.6 g/dL 3.9-4. 9 Not Available [facility] ([facility]) [address] [place], [address], 09/17/2024 10:11:18 09/16/19 25 09/17/2024 COMP. METAB OLIC PANEL (14) globulin, total 2.5 g/dL 1.5-4. 5 Not Available [facility] ([facility]) [address] [place], [address], 09/17/2024 10:11:18 09/16/19 25 09/17/2024 COMP. METAB OLIC PANEL (14) bilirubin, total <0.2 mg/dL 0.0-1. 2 Not Available [facility] ([facility]) [address] [place], [address], 09/17/2024 10:11:18 09/16/19 25 09/17/2024 COMP. METAB OLIC PANEL (14) alkaline phosphatase 70 IU/L 44-121 Not Available [facility] ([facility]) [address] [place], [address], 09/17/2024 10:11:18 09/16/19 25 09/17/2024 COMP. METAB OLIC PANEL (14) AST (SGOT) 15 IU/L 0-40 Not Available [facility] ([facility]) [address] [place], [address], 09/17/2024 10:11:18 09/16/19 25 09/17/2024 COMP. METAB OLIC PANEL (14) ALT (SGPT) 14 IU/L 0-32 Not Available [facility] ([facility]) [address] [place], [address], 09/17/2024 10:11:18 09/16/19 25 09/17/2024 MICRO SCOPI C EXAMI NATIO N WBC 0-5 /hpf 0-5 Not Available [facility] ([facility]) [address] [facility], [place], [address], 09/17/2024 10:11:19 09/16/19 25 09/17/2024 MICRO SCOPI C EXAMI NATIO N RBC None seen /hpf 0-2 Not Available [facility] ([facility]) [address] [facility], [place], [address], 09/17/2024 10:11:19 09/16/19 25 09/17/2024 MICRO SCOPI C EXAMI NATIO N epithelial cells (non renal) 0-10 /hpf 0-10 Not Available [facility] ([facility]) [address] [facility], [place], [address], 09/17/2024 10:11:19 09/16/19 25 09/17/2024 MICRO SCOPI C EXAMI NATIO N casts None seen /lpf nonese en Not Available [facility] ([facility]) [address] [facility], [place], [address], 09/17/2024 10:11:19 09/16/19 25 09/17/2024 MICRO SCOPI C EXAMI NATIO N bacteria Modera te nonese en/few abnormal Not Available [facility] ([facility]) [address] [facility], [place], [address], 09/17/2024 10:11:19 09/16/19 25 09/17/2024 HEMOG LOBIN A1C hemoglobin A1C 5.9 % 4.8-5. 6 above high normal Predi abete s: 5.7 - 6.4 Diabe david: >6.4 Glyce herminia contr ol for adult s with diabe david: <7.0 Not Available [facility] ([facility]) [address] [facility], [place], [address], 09/17/2024 10:11:20 09/16/19 25 09/17/2024 URINA LYSIS , COMPL ETE specific gravity 1.008 1.005- 1.030 Not Available [facility] ([facility]) [address] [place], [address], 09/17/2024 10:11:21 09/16/19 25 09/17/2024 URINA LYSIS , COMPL ETE pH 6.0 5.0-7. 5 Not Available [facility] ([facility]) [address] [facility], [place], [address], 09/17/2024 10:11:21 09/16/19 25 09/17/2024 URINA LYSIS , COMPL ETE urine-color YELLOW yellow Not Available [facility] ([facility]) [address] [place], [address], 09/17/2024 10:11:21 09/16/19 25 09/17/2024 URINA LYSIS , COMPL ETE appearance CLEAR clear Not Available [facility] ([facility]) [address] [place], [address], 09/17/2024 10:11:21 09/16/19 25 09/17/2024 URINA LYSIS , COMPL ETE WBC esterase NEGATI VE negati ve Not Available [facility] ([facility]) [address] [place], [address], 09/17/2024 10:11:21 09/16/19 25 09/17/2024 URINA LYSIS , COMPL ETE protein NEGATI VE negati ve/tra ce Not Available [facility] ([facility]) [address] [place], [address], 09/17/2024 10:11:21 09/16/19 25 09/17/2024 URINA LYSIS , COMPL ETE glucose NEGATI VE negati ve Not Available [facility] ([facility]) [address] [place], [address], 09/17/2024 10:11:21 09/16/19 25 09/17/2024 URINA LYSIS , COMPL ETE ketones NEGATI VE negati ve Not Available [facility] ([facility]) [address] [place], [address], 09/17/2024 10:11:21 09/16/19 25 09/17/2024 URINA LYSIS , COMPL ETE occult blood NEGATI VE negati ve Not Available [facility] ([facility]) [address] [facility], [place], [address], 09/17/2024 10:11:21 09/16/19 25 09/17/2024 URINA LYSIS , COMPL ETE bilirubin NEGATI VE negati ve Not Available [facility] ([facility]) [address] [facility], [place], [address], 09/17/2024 10:11:21 09/16/19 25 09/17/2024 URINA LYSIS , COMPL ETE urobilinogen ,semi-qn 0.2 mg/dL 0.2-1. 0 Not Available [facility] ([facility]) [address] [facility], [place], [address], 09/17/2024 10:11:21 09/16/19 25 09/17/2024 URINA LYSIS , COMPL ETE nitrite, urine NEGATI VE negati ve Not Available [facility] ([facility]) [address] [place], [address], 09/17/2024 10:11:21 09/16/19 25 09/17/2024 URINA LYSIS , COMPL ETE microscopic examination COMMEN T Micro scopi c follo ws if indic ated. Not Available [facility] ([facility]) [address] [place], [address], 09/17/2024 10:11:21 09/16/19 25 09/17/2024 URINA LYSIS , COMPL ETE microscopic examination SEE BELOW: Micro scopi c was indic ated and was perfo rmed. Not Available [facility] ([facility]) [address] [facility], [place], [address], 09/17/2024 10:11:21 09/16/19 25 09/17/2024 CBC WITH DIFFE RENTI AL/PL ATELE T WBC 9.2 x10e3 /uL 3.4-10 .8 Not Available [facility] ([facility]) [address] [facility], [place], [address], 09/17/2024 10:11:22 09/16/19 25 09/17/2024 CBC WITH DIFFE RENTI AL/PL ATELE T RBC 4.63 x10e6 /uL 3.77-5 .28 Not Available [facility] ([facility]) [address] [facility], [place], [address], 09/17/2024 10:11:22 09/16/19 25 09/17/2024 CBC WITH DIFFE RENTI AL/PL ATELE T hemoglobin 12.9 g/dL 11.1-1 5.9 Not Available [facility] ([facility]) [address] [facility], [place], [address], 09/17/2024 10:11:22 09/16/19 25 09/17/2024 CBC WITH DIFFE RENTI AL/PL ATELE T hematocrit 40.5 % 34.0-4 6.6 Not Available [facility] ([facility]) [address] [facility], [place], [address], 09/17/2024 10:11:22 09/16/19 25 09/17/2024 CBC WITH DIFFE RENTI AL/PL ATELE T MCV 88 fL 79-97 Not Available [facility] ([facility]) [address] [facility], [place], [address], 09/17/2024 10:11:22 09/16/19 25 09/17/2024 CBC WITH DIFFE RENTI AL/PL ATELE T MCH 27.9 pg 26.6-3 3.0 Not Available [facility] ([facility]) [address] [facility], [place], [address], 09/17/2024 10:11:22 09/16/19 25 09/17/2024 CBC WITH DIFFE RENTI AL/PL ATELE T MCHC 31.9 g/dL 31.5-3 5.7 Not Available [facility] ([facility]) [address] [facility], [place], [address], 09/17/2024 10:11:22 09/16/19 25 09/17/2024 CBC WITH DIFFE RENTI AL/PL ATELE T RDW 13.1 % 11.7-1 5.4 Not Available [facility] ([facility]) [address] [facility], [place], [address], 09/17/2024 10:11:22 09/16/19 25 09/17/2024 CBC WITH DIFFE RENTI AL/PL ATELE T platelets 319 x10e3 /uL 150-45 0 Not Available [facility] ([facility]) [address] [facility], [place], [address], 09/17/2024 10:11:22 09/16/19 25 09/17/2024 CBC WITH DIFFE RENTI AL/PL ATELE T neutrophils 74 % notest ab. Not Available [facility] ([facility]) [address] [facility], [place], [address], 09/17/2024 10:11:22 09/16/19 25 09/17/2024 CBC WITH DIFFE RENTI AL/PL ATELE T lymphs 19 % notest ab. Not Available [facility] ([facility]) [address] [facility], [place], [address], 09/17/2024 10:11:22 09/16/19 25 09/17/2024 CBC WITH DIFFE RENTI AL/PL ATELE T monocytes 4 % notest ab. Not Available [facility] ([facility]) [address] [facility], [place], [address], 09/17/2024 10:11:22 09/16/19 25 09/17/2024 CBC WITH DIFFE RENTI AL/PL ATELE T eos 2 % notest ab. Not Available [facility] ([facility]) [address] [facility], [place], [address], 09/17/2024 10:11:22 09/16/19 25 09/17/2024 CBC WITH DIFFE RENTI AL/PL ATELE T basos 1 % notest ab. Not Available [facility] ([facility]) [address] [place], [address], 09/17/2024 10:11:22 09/16/19 25 09/17/2024 CBC WITH DIFFE RENTI AL/PL ATELE T neutrophils (absolute) 6.8 x10e3 /uL 1.4-7. 0 Not Available [facility] ([facility]) [address] [place], [address], 09/17/2024 10:11:22 09/16/19 25 09/17/2024 CBC WITH DIFFE RENTI AL/PL ATELE T lymphs (absolute) 1.8 x10e3 /uL 0.7-3. 1 Not Available [facility] ([facility]) [address] [place], [address], 09/17/2024 10:11:22 09/16/19 25 09/17/2024 CBC WITH DIFFE RENTI AL/PL ATELE T monocytes(ab solute) 0.4 x10e3 /uL 0.1-0. 9 Not Available [facility] ([facility]) [address] [place], [address], 09/17/2024 10:11:22 09/16/19 25 09/17/2024 CBC WITH DIFFE RENTI AL/PL ATELE T eos (absolute) 0.1 x10e3 /uL 0.0-0. 4 Not Available [facility] ([facility]) [address] [place], [address], 09/17/2024 10:11:22 09/16/19 25 09/17/2024 CBC WITH DIFFE RENTI AL/PL ATELE T baso (absolute) 0.1 x10e3 /uL 0.0-0. 2 Not Available [facility] ([facility]) [address] [facility], [place], [address], 09/17/2024 10:11:22 09/16/19 25 09/17/2024 CBC WITH DIFFE RENTI AL/PL ATELE T immature granulocytes 0 % notest ab. Not Available [facility] ([facility]) [address] [facility], [place], [address], 09/17/2024 10:11:22 09/16/19 25 09/17/2024 CBC WITH DIFFE RENTI AL/PL ATELE T immature grans (abs) 0.0 x10e3 /uL 0.0-0. 1 Not Available [facility] ([facility]) [address] [facility], [place], [address], 09/17/2024 10:11:22 09/16/19 25 09/17/2024 SEDIM ENTAT ION RATE- WESTE RGREN sedimentatio n rate-westerg zach 9 mm/HR 0-32 Not Available [facility] ([facility]) [address] [facility], [place], [address], 09/17/2024 10:11:23 09/16/19 25 09/17/2024 PT AND PTT INR 1.0 0.9-1. 2 Refer ence inter jose is for non-a ntico agula rosario patie nts. Sugge sted INR thera peuti c range for Vitam in K antag onist thera py: Stand sandra Dose (mode rate inten sity thera peuti c range ): 2.0 - 3.0 Highe r inten sity thera peuti c range 2.5 - 3.5 Not Available [facility] ([facility]) [address] [facility], [place], [address], 09/17/2024 10:11:24 09/16/19 25 09/17/2024 PT AND PTT prothrombin time 10.6 sec 9.1-12 .0 Not Available [facility] ([facility]) [address] [facility], [place], [address], 09/17/2024 10:11:24 09/16/19 25 09/17/2024 PT AND PTT APTT 26 sec 24-33 This test has not been valid ated for monit oring unfra ction ated hepar in thera py. aPTT- based thera peuti c range s for unfra ction ated hepar in thera py have not been estab mann dumont. For gener al guide lines on Hepar in monit oring , refer to the [facility] Noreen [facility]ner. Not Available [facility] ([facility]) [address] [facility], [place], [address], 09/17/2024 10:11:24 09/16/19 25 09/17/2024 HIV AB/P2 4 AG WITH REFLE X HIV Ab/P24 Ag screen NON REACTI VE nonrea ctive HIV-1 /HIV- 2 antib odies and HIV-1 p24 antig en were NOT detec rosario. There is no labor atory evide nce of HIV infec tion. HIV Negat barron Not Available [facility] ([facility]) [address] [facility], [place], [address], 09/17/2024 10:11:25 07/12/20 23 07/12/2023 XR, chest , 2 view No observ ation record ed. [address] [place] [address], [address], 07/14/2023 20:19:08 11/28/19 24 11/27/2023 CT, cervi jeffry spine , w/o contr ast No observ ation record ed. [address], [place], [address], 11/28/2023 12:47:28 09/17/19 25 09/16/2024 jam yas brett am, harish ne ECG, 12 leads min; inter preta tion and repor t (PROC ) No observ ation record ed. [facility] [address] [facility] [address], [place], [address], 09/18/2024 08:53:35 Result Notes None recorded. Problems Name Problem SNOMED Code Status Onset Date Resolution Date Notes Provider Name and Address Organization Details Recorded Time History of depression 515252086 Active 2017 Not Available [facility] 11:42:50 Body mass index 40+ - severely obese 386456305 Active 2017 Not Available [facility] 11:42:51 Hearing loss 02553022 Active 2017 Not Available [facility] 11:42:51 Allergic reaction to insect bite Active 2017 Not Available [facility] 11:42:51 Cerebral herniation 04211611 Active 2022 Tiara Lawrence MA null, [place] - [facility] 3 09:53:45 Mixed anxiety and depressive disorder 129640608 Active 2022 CESAR HARRIS Attn: Accounting ,[address] [facility], [place], [address] , [place] - [facility] 3 13:52:58 Allergic rhinitis 64692328 Active 2022 CESAR HARRIS Attn: Accounting ,[address] [facility], [place], [address] , [place] [facility] 3 13:52:52 Morbid obesity 040195944 Active 2022 CESAR HARRIS Attn: Accounting ,[address] [facility], [place], [address] , [place] [facility] 3 13:53:00 Exercise-i nduced asthma 11964766 Active 2022 CESAR HARRIS Attn: Accounting ,[address] [facility], [place], [address] , [place] [facility] 3 13:52:56 Essential hypertensi on 90628108 Active 2022 CESAR HARRIS Attn: Accounting ,[address] [facility], [place], [address] , [place] - [facility] 3 13:52:54 Chronic neck pain 4035002372999 Active 2022 CESAR HARRIS Attn: Accounting ,[address] [place], [address] , [place] - [facility] 3 13:53:45 Gastroesop hageal reflux disease without esophagiti s 531211281 Active 2022 CESAR HARRIS Attn: Accounting ,[address] [place], [address] , [place] [facility] 3 13:54:29 Hyperlipid emia 34010668 Active 2022 CESAR HARRIS Attn: Accounting ,[address] [place], [address] , [place] [facility] 3 10:46:44 Borderline personalit y disorder 92453234 Active 2023 CESAR HARRIS Attn: Accounting ,[address] [place], [address] , [place] [facility] 4 11:10:05 Bipolar II disorder 13157349 Active 2023 CESAR HARRIS Attn: Accounting ,[address] [place], [address] , [place] [facility] 4 21:37:14 Nausea and vomiting 42797318 Active Anna Tucker [place], [place] [facility] 5 09:05:49 Orthostati c headache 306798145 Active Anna Tucker [place], [place] [facility] 5 09:05:49 Diarrhea 96387611 Active Anna Tucker MA null, [place] - [place] 09:05:49 Problem Notes None recorded. Procedures Surgical History Date Name Laterality Status Provider Name and Address Organization Details Recorded Time 08/07/20 23 Date of Last Pap Smear completed CESAR HARRIS Attn: Accounting,[address] [facility], [place], [address], [facility] - [facility] 07/08/2024 16:04:06 04/23/20 18 Endometrial Biopsy completed GEREMIAS Mcallister Attn: Accounting,[address] [facility], [place], [address], [facility] - [facility] 04/23/2018 10:39:00 Tonsillectomy completed Paris Dumont MA [place] - [facility] 04/10/2018 16:11:28 Other completed Paris Dumont MA [place] - [facility] 04/10/2018 16:11:50 Other completed Paris Dumont MA [facility] 04/10/2018 16:12:20 Imaging Results Imaging Date Name Status LastModified by Organization Details LastModified Time 07/12/2023 XR, chest, 2 view [address], [address], 07/14/2023 20:19:08 11/27/2023 CT, cervical spine, w/o contrast completed [address], [address], 11/28/2023 12:47:28 09/16/2024 electrocardiogram, routine ECG, 12 leads min; interpretation and report (PROC) completed [facility]) [address] [place] [address], [address], 09/18/2024 08:53:35 Procedure Notes None recorded. Medical Equipment None Reported. Allergies Allergen ID Allergen Name Allergen Category Reaction Reaction Severity Criticality Documentation Date Start Date Code Code System Note Provider Name and Address Organization Details Recorded Time 966442 amoxicill in medicatio n hives Not available Not available 04/10/2018 723 RxNorm Not Available Not Available Not Available 356652 tramadol medicatio n hallucina tions Not available Not available 04/10/2018 85368 RxNorm Not Available Not Available Not Available 206814 grass pollen environme nt,medica tion Not available Not available Not available 01/15/2023 91495 UNK Not Available Not Available Not Available 352294 hydroxyzi ne Not available hallucina tions Not [...] TAKE 1 TABLET BY MOUTH EVERY MORNING 2024 active Not Available Not Available Not Avai lable atorvasta tin 10 mg tablet TAKE 1 TABLET BY MOUTH EVERY DAY AT BEDTIME FOR HIGH CHOLESTE ROL 2024 active Not Available Not Available Not Avai lable ibuprofen 800 mg tablet Take 1 tablet [...] height Body mass index (BMI) Body weight Oxygen saturation Oxygen saturation in Arterial blood by Pulse oximetry Heart rate Provider Name and Address Organization Details Last Updated DateTime 3 165.1 cm 44.1 kg/m2 342497. 98 g 99 % 99 % 82 /min Anna Tucker MA [facility] 3 12:18:22 Date Recorded Respiratory rate Systolic blood pressure Diastolic blood pressure Systolic blood pressure Diastolic blood pressure Provider Name and Address Organization Details Last Updated DateTime 3 18 /min 117 mm[Hg] 86 mm[Hg] 110 mm[Hg] 72 mm[Hg] CESAR HARRIS Attn: Dottie garcia,[address] [place], [address], [facility] 3 12:45:34 Date Recorded Body height Body mass index (BMI) Body weight Systolic blood pressure Diastolic blood pressure Provider Name and Address Organization Details Last Updated DateTime 11/08/2023 165.1 cm 41.6 kg/m2 319541.0 9 g 163 mm[Hg] 75 mm[Hg] Anna Tucker MA [facility] 4 17:25:42 Date Recorded Oxygen saturation Oxygen saturation in Arterial blood by Pulse oximetry Heart rate Respiratory rate Systolic blood pressure Diastolic blood pressure Provider Name and Address Organization Details Last Updated DateTime 4 98 % 98 % 96 /min 18 /min 120 mm[Hg] 84 mm[Hg] CESAR HARRIS Attn: Saraparish garcia,[address] [place], [address], [facility] 4 17:37:31 Date Recorded Body height Respiratory rate Body mass index (BMI) Body weight Oxygen saturation Oxygen saturation in Arterial blood by Pulse oximetry Heart rate Systolic blood pressure Diastolic blood pressure Provider Name and Address Organization Details Last Updated DateTime 4 165.1 cm 16 /min 41.9 kg/m2 201049. 48 g 98 % 98 % 102 /min 126 mm[Hg] 81 mm[Hg] Tiara Lawrence MA [facility] 4 10:37:05 Date Recorded Heart rate Provider Name an d Address Organization Details Last Updated DateTime 01/30/2024 94 /min CESAR HARRIS Attn: Accounting,[address] [facility], [place], [address], [place] - [place] 01/30/2024 21:39:17 Date Recorded Body height Body mass index (BMI) Body weight Oxygen saturation Oxygen saturation in Arterial blood by Pulse oximetry Heart rate Respiratory rate Systolic blood pressure Diastolic blood pressure Provider Name and Address Organization Details Last Updated DateTime 4 165.1 cm 40.4 kg/m2 763033. 95 g 98 % 98 % 93 /min 17 /min 123 mm[Hg] 74 mm[Hg] Paola England MA [facility] 4 15:46:07 Date Recorded Body height Body mass index (BMI) Body weight Heart rate Respiratory rate Oxygen saturation Oxygen saturation in Arterial blood by Pulse oximetry Systolic blood pressure Diastolic blood pressure Provider Name and Address Organization Details Last Updated DateTime 5 165.1 cm 38.8 kg/m2 966260. 02 g 104 /min 16 /min 97 % 97 % 144 mm[Hg] 77 mm[Hg] Tiara Lawrence MA [facility] 5 12:29:43 Social History Question Answer Notes LastModified by Organizat ion Details LastModified Time Tobacco Smoking Status Former Smoker Anna Tucker MA null, [facility] 10/14/2020 14:19:07 What Is [...] Anxious, Or Unable To Sleep At Night)? [id number] Information not available 12/20/2020 Do You Use [...] Eating Disorder N Anemia N Heart Attack (TN) N Anxiety Disorder Y Diabetes N Acid Reflux (GERD) N Cancer N Stroke N Asthma Y Allergies Y ADHD N Substance Abuse N High Cholesterol N Hepatitis N Liver Disease N Schizophrenia N Headaches N Heart Failure N Osteoporosis N Gynecological History Statement/Question Response Date of [...] 08/07/2023 completed CESAR HARRIS Attn: Accounting,[address] [place], [address], [place] [facility] 08/07/2023 17:01:35 Past Encounters Encounter ID Performer Location Encounter Start Date Encounter Closed Date Diagnosis/Indication Diagnosis SNOMED-CT Code Diagnosis ICD10 Code Diagnosis Note [id number] Olivier Self Saadia 14 IM [address] [facility] [place] [address] 04/10/2018 15:53:35 04/11/2018 10:28:24 History of depression 827256452 Z86.59 Body mass index 40+ - severely obese 582145868 Z68.[address] [facility] th examination 012180607 Z00.00 Hearing loss 76815289 H9 1.93 [id number] GEREMIAS Mcallister 14 OB [address] [facility] [place] [address] 04/21/2018 09:25:52 04/21/2018 12:19:31 Routine gynecologic examination done 0364565588 9101 Z01.419 -Educated on the importance of [...] importance of sunscreen. Abnormal u terine bleeding 4058916763 9100 N93.9 CBC and TSH already ordered [...] 04/23/18. Body mass index 30+ - obesity 920193161 Z68.39 Patient counseled on obesity management . Patient reports she has been working on nutrition and exercise and lost 6 lbs in 2 weeks. Patient notified to continue to follow up as needed. Dysmenorrhea 460998094 N 94.6 take ibuprofen 600 mg with food every 8 hours as needed for menstrual cramps. pt educated about menstrual cramps and supported measure like stress reduction, nutrition, exercise. Call office if cramps worsen or pain is not controlled with med [id number] GEREMIAS Mcallister 14 OB [address] [facility] [place] [address] 04/23/2018 09:50:21 04/23/2018 11:45:38 Abnormal uterine bleeding 0469596473 9100 N93.9 CBC negative for anemia and [...] normal then Follow up in 3 months. [id number] Olivier Whitehead 14 IM [address] [facility] [place] [address] 04/24/2018 16:20:23 04/25/2018 10:13:46 Allergic reaction to insect bite 819703337 T78.40XA [id number] Merlyn Jeffers MD [facility] [address] [place] [address] 10/19/2019 15:28:58 10/26/2019 08:40:40 Mixed anxiety and depressive disorder 421102804 F41.8 Iron deficiency 13283729 E61.1 Restless legs 98818699 G 25.81 Menorrhagia 566687419 N9 2.0 Adult heal th examination 670066284 Z00.00 [id number] Merlyn Jeffers MD [facility] [address] [place] [address] 01/04/2020 10:10:46 01/05/2020 10:42:02 Bronchitis 24344487 J40 Chicken soup, orange juice, popsicles, snow cones, slurpees, ice cream, tea with honey and lemon, hot lemonade, gatorade, and yogurt may make you feel better. [id number] Merlyn Jeffers MD [facility] [address] [place] [address] 10/14/2020 07:55:34 10/19/2020 07:07:23 Anxiety 62039363 F41.9 Exercise-i nduced asthma 18877419 J45.555 [id number] Merlyn Jeffers MD [facility] [address] [place] [address] 12/20/2020 10:26:08 12/23/2020 12:18:28 Acute gastroenteritis 23043538 K52.9 Bananas, rice, applesauce , toast, tea with sugar in it, and yogurt may help calm down an upset stomach. Ginna tea may be helpful, but since you seem to have a systemic reaction, I would hold off on drinking or eating anything until you have been seen at the emergency room. Pruritic rash 62312275 L 28.2 unknown, but the pustules on the fingers are worrisome [id number] CESAR HARRIS [facility] [address] [place] [address] 01/15/2023 09:40:13 01/15/2023 11:48:05 Mixed anxiety and depressive disorder 779966119 F41.8 PHQ 22goes to counseling once a monthattri butes depression due to twin sister moving to [place] and doesn't want to be apart of her family anymoreref ill medstrial bupropion to help with anxiety symptomsf/ u in 1 mo Allergic rhinitis 448849 04 J30.9 nasal congestion , rhinorrhea , cough, watery eyes, itchy throaton claritin w/o relief x2 yrswas on allergy shots in the past, cannot afford nowswitch to yue baker, encouraged to usetrial singulairf /u in 1 mo Gastroesop hageal reflux disease without esophagitis 064627284 K21.9 c/o waking up in the middle of the night with acid in her throattria l PPI Essential hypertension [id number] I10 went to ED 1 yr ago for HTNliam s PCP put on metoprolol , no issues sinceBP today 122/84 Morbid obesity 484666613 E66.01 routine labs Exercise-i nduced asthma 04184904 J45.990 refill Chronic neck pain 288613 2378 107 M54.2 fell at work 04/2021told she has bulging discs [id number] wing with workMayvenns comp and ortho surgeryin [place], workman's comp does not want to cover surgeryon flexeril and meloxicam- ortho refillhas done PT and steroid injections [id number] CESAR HARRIS [facility] [address] [place] [address] 02/22/2023 10:32:39 02/22/2023 12:40:38 Morbid obesity [id number] E66.01 repeat CBC, CMP, lipid -previous did not process Mixed anxi ety and depressive disorder [id number] F41.8 02/22/23:PH Q 0forgets to take 3rd pill of buspironet rial 15 mg BID- will take 1.5 tabletsf/u in 1 mo 01/15/23:PH Q 22goes to counseling once a monthattri butes depression due to twin sister moving to [place] and doesn't want to be apart of her family anymoreref ill medstrial bupropion to help with anxiety symptomsf/ u in 1 mo Chronic neck pain 639215 0144 107 M54.2 02/22/23:un changed 01/15/23:fe ll at work 04/2021told she has bulging discs C3-[id number] wing with workMayvenns comp and ortho surgeryin [place], workman's comp does not want to cover surgeryon flexeril and meloxicam- ortho refillhas done PT and steroid injections Essential hypertension 67187293 I10 02/22/23:BP 120/84keep BP log before and after taking metoprolol to see if can discontinu eadvised to check BP at home, goal BP <130/80, f/u with BP log in 1 wk 01/15/23:we nt to ED 1 yr ago for HTNpresilvio s PCP put on metoprolol , no issues sinceBP today 122/84 Allergic rhinitis 972817 04 J30.9 02/22/23:do ing well with singulair 01/15/23:na iris congestion , rhinorrhea , cough, watery eyes, itchy throaton claritin w/o relief x2 yrswas on allergy shots in the past, cannot afford nowswitch to zyrtechas flonase, encouraged to usetrial singulairf /u in 1 mo Gastroesop hageal reflux disease without esophagitis 237025982 K21.9 02/22/23:re solved with pantoprazo leis not waking up in the middle of the night 01/15/23:c/ o waking up in the middle of the night with acid in her throattria l PPI [id number] CESAR HARRIS [facility] [address] [place] [address] 05/20/2023 15:44:57 05/20/2023 16:07:05 Paronychia of toe of right foot [id number] L03.031 x2 wksPEx- erythema, edema, and purulence surroundin g nail bed of R big toeallergi c to penicillin skeep clean and coveredtri al doxy Hyperlipidemia 25934220 E78.5 05/21/23:st ates that atorvastat in is making her anxiety worse, increased irritabili tytrial lower dose, ator 10 02/2023:LDL 189start ator 40 Essential hypertension 01248859 I10 05/20/23:BP today 150/100, 130/85BP at home [...] metoprolol , no issues sinceBP today 122/84 [id number] CESAR HARRIS [facility] [address] [place] [address] 08/07/2023 11:55:21 08/07/2023 12:52:34 Screening for malignant neoplasm of cervix 839597239 Z12.4 last pap 2 yrs agoLMP 07/08/23st arted menstrual cycle todayPEx- blood present in vaginal introitus and surroundin g cervix, difficulty visualizin g cervix, attempted to obtain samplenu swab sent Daytime hypersomnia 3177 [id number] 7241 G47.19 sleeps with mouth openchroni c sore throatrec' d humidifier in bedroomwou ld like to be tested for sleep apneasent referral Administra tion of influenza vaccine 99198291 Z23 [id number] CESAR HARRIS [facility] [address] [place] [address] 11/08/2023 16:56:39 11/08/2023 17:40:55 Postherpetic neuralgia 4365765 B02.29 diagnosed with shingles to L cheek and L arm two weeks agowent to ED, given valtrex for 10 daysstill c/o burning and stinging pain to L cheek and L armPEx- nl, no lesions presenttri al gabapentin for nerve pain, advised of ADR [id number] CESAR HARRIS [facility] [address] [place] [address] 01/30/2024 10:30:26 01/30/2024 11:15:48 Chronic neck pain 1693044718 107 M54.2 01/30/24: reports that she won court case, but was then appealed 02/22/23:un changed 01/15/23:fe ll at work 04/2021told she has bulging discs C3-X5ugjoo wing with workman's comp and ortho surgeryin [place], workman's comp does not want to cover surgeryon flexeril and meloxicam- ortho refillhas done PT and steroid injections Essential hypertension 54413956 I10 01/30/24: BP 126/81c/w lisinopril 20 05/20/23:BP [...] no issues sinceBP today 122/84 Morbid obesity 270022797 E66.01 discussed increasing exercise and healthier food options, high protein, low fat dietroutin e labs Mixed anxi ety and depressive disorder 332337153 F41.8 01/30/24: PHQ 8[facility] at [facility] prescribes medsgoes to counseling every 3 wks 02/22/23:PH Q 0forgets to take 3rd pill of buspironet rial 15 mg BID- will take 1.5 tabletsf/u in 1 mo 01/15/23:PH Q 22goes to counseling once a monthattri butes depression due to twin sister moving to [place] and doesn't want to be apart of her family anymoreref ill medstrial bupropion to help with anxiety symptomsf/ u in 1 mo Borderline personality disorder 82248768 F60.3 per pt diagnosed per psych Bipolar II disorder 8322 5003 F31.81 per pt diagnosed per psych [id number] CESAR HARRIS [facility] [address] [place] [address] 07/08/2024 15:21:16 07/08/2024 16:12:03 Endometriosis of pelvis 88146815 N80.9 requesting hysterecto mysent referral Skin tag [id number] L91.8 to Vin garciaame size for 2 yrsflesh colored pedunculat ed skin tag to Vin levin rral sent to Derm Exercise-i nduced asthma 64507346 J45.990 refill Influenza vaccination declined 319116401 Z28.21 Mixed anxi ety and depressive disorder 338354841 F41.8 07/08/24: PHQ 0 01/30/24: PHQ 8Psych at [facility] prescribes medsgoes to counseling every 3 wks 02/22/23:PH Q 0forgets to take 3rd pill of buspironet rial 15 mg BID- will take 1.5 tabletsf/u in 1 mo 01/15/23:PH Q 22goes to counseling once a monthattri butes depression due to twin sister moving to [place] and doesn't want to be apart of her family anymoreref ill medstrial bupropion to help with anxiety symptomsf/ u in 1 mo [id number] CESAR TONG [facility] [address] [place] [address] 09/16/2024 12:25:59 09/16/2024 12:57:54 Pre-surgery evaluation 941177682 Z01.818 Maryann is a non-smoker Female here for clearance. having surgery with Dr Lewis at [facility]/ for anterior cervical disc replacemen t C3-4, C5-6. She denies cp, sob, palpitatio ns. Exam normal. medication s updated. pending EKG and labs. Needs: CBC, UA W/ MICRO, CMP, SED RATE, viT d, HEPATITIS, HIV , EKGwill go get EKG at [facility] today Obesity 422266342 E66.9 Health Concerns Section Related Observation LastModified by Organization Detai ls LastModified Time None Recorded Concern Status LastModified by Organization Details LastModified Time None Recorded Advance Directives Directive None Recorded Payers Encounter Date Sequence Insurance Name Policy Number Policy Mcclendon Covered Member ID Mcclendon Member ID Guarantor Name 08/07/2023 1 [place] [facility] (MEDICAID REPLACEMENT - HMO) [id number] Maryann Philippe [id number] Maryann Philippe 11/08/2023 1 *SELF PAY* Jhonny Philippe 01/30/2024 3 [place] [employer] Maryann Philippe [id number] Maryann Philippe 01/30/2024 2 [place] Maryann Philippe [id number] Maryann Philippe 07/08/2024 3 [place] Maryann Philippe [id number] Maryann Philippe 07/08/2024 1 [place] [id number] Maryann Philippe [id number] Maryann Philippe 09/16/2024 1 [place] [id number] Maryann Philippe [id number] Maryann Philippe 09/16/2024 2 [facility] [id number] Maryann Philippe [id number] Maryann Philippe Notes Date Note Type Note [...] age 50s-60s. CESAR HARRIS Attn: Accounting[address] [facility], [place], [address], [facility] 08/07/2023 17:05:46 11/08/2023 text/html Pt presents with shingles. Reports 2 wks ago, she developed blisters on her L cheek and L arm. Pt went to ED, diagnosed wtih shingles and given valtrex for 10 days. States that blisters have resolved, but still c/o burning and stinging pain to L cheek and L arm. CESAR HARRIS Attn: Accounting,[address] [facility], [place], [address], [facility] 11/11/2023 10:21:26 01/30/2024 text/html Pt presents for annual exam and blood work. Reports that she won court case for injury at work/chronic neck pain and then 2 wks later case was appealed. Denies fever, chills, chest pain, SOB, n/v/d, abd pain, dizziness, weakness, or headaches. CESAR HARRIS Attn: Accounting,[address] [facility], [place], [address], [facility] 01/30/2024 21:40:50 07/08/2024 text/html Pt presents for referrals. Requesting referral to for hysterectomy. States that she has history of endometriosis, chronic menstrual pain and irregular cycles. Requesting referral to dermatology for skin tag to L nipple. Endorses that it has remained the same size for 2 yrs. CESAR HARRIS Attn: Accounting,[address] [facility], [place], [address], [facility] 07/08/2024 16:40:13 09/16/2024 text/html Maryann is a [...] LE edema. CESAR TONG Attn: Accounting,[address] [facility], [place], [address], [facility] 09/16/2024 13:23:19 OBGyn Episode No OBEpisode recorded.
--- OUTSIDE RECORDS SUMMARY | 2024-10-28 12:02 | XMS_ITS | Patient Health Record ---
Author Organization [facility] Address [address] [place] [address] Care Team Providers Care Prefinish Operator Name Role Phone Ede Aguilar Primary Care Provider Jusitna Brown Unavailable [phone] Allergies Allergen (clinical drug ingredient) Drug/Non Drug Allergy documented on EMR Reaction Allergy Type Onset Date Status tramadol traMADol HCl Unknown Drug Allergy Acti ve Adhesive blisters Allergy Active Penicillin Rash, Childhood Drug Allergy Active Reason For Referral No Information Medications Medication SIG (Take, Route, Frequency, Duration) Notes Start Date End Date Status Wellbutrin XL 300 MG 1 tablet in [...] on ce daily for 30 days Active Calcium Citrate + D3 Maximum 315-6.25 MG-MCG 2 tablets twice daily Orally Active lamoTRIgine 100 MG 1.5 tablets (150mg) Orally Once a day for 30 days Active Cholecalciferol 50 MCG (2000 UT) 1 capsule Orally Once a day Active Albuterol Sulfate HFA 108 (9 0 Base) MCG/ACT 1 puff as needed Inhalation every 4 hrs Active Cyclobenzaprine HCl 10 MG 1 tablet two t imes every morning and bedtime x7 days then 1 tab daily at bedtime Orally as directed for 30 days Active Gabapentin 300 MG 2 capsules (600mg) Orally once daily at bedtime to assist with sleep for 30 days Active Cetirizine HCl 10 MG 1 tablet Orally Onc e a day Active Atorvastatin Calcium 10 MG 1 tablet Oral ly Once a day Active Pantoprazole Sodium 20 MG 1 tablet Orall y Once a day Active Meloxicam 7.5 MG 1 tablet Orally twic e daily as needed for pain for 30 days Active Lisinopril 20 MG 1 tablet Orally Once a day Active Social History Tobacco Use: Social History Observation Description Date Details (start date - stop date) Current some da y smoker NA - NA Sex Assigned At : Social History Observation Description Sex Assigned At Female Dont use, Tobacco Use/Smoking Question Answer Notes Are you a current some day smoker Tobacco Control (Standard) Question Answer Notes Tobacco use: Current some day smoker Section Notes: PRESCRIPTION # FILLED WRITTEN DRUG LABEL QTY DAYS STRENGTH MME PRESCR[facility] REFILL NO. REFILLS [facility], [facility] 02/27/2023 01/17/2023 Cyclobenzaprine Hcl 30.0 30 10 MG NA Roman Lewis Md [id number] [place], [place] NA 0 [place] 1 [id number] 01/17/2023 01/17/2023 Cyclobenzaprine Hcl 30.0 30 10 MG NA Roman Lewis [facility] PRESCRIPTION # FILLED WRITTEN DRUG LABEL QTY DAYS STRENGTH MME [facility] REFILL NO. REFILLS STATE 02/27/2023 01/17/2023 Cyclobenzaprine Hcl 30.0 30 10 MG NA Roman Lewis Md [id number] [place], [place] NA 0 [place] 1 [id number] 01/17/2023 01/17/2023 Cyclobenzaprine Hcl 30.0 30 10 MG NA Roman Lewis Md [id number] Review[place]ed [place] Problems Problem Type SNOMED Code ICD Code Onset Dates Problem Status W/U Status Risk Notes Problem Tobacco user (217848675) Nicotine dependence, unspecified, uncomplicated (F17.200) Active confirmed Problem Obesity (365615637) Obesity (E66.9) Active confirmed Problem Mood disorder (38826596) Mood disorder (F39) Active confirmed Problem Posttraumatic stress disorder (69655151) PTSD (post-traumatic stress disorder) (F43.10) Active confirmed Problem Nightmares (761631524) Nightmares (F51.5) Active confirmed Problem Generalized anxiety disorder (33167384) Anxiety, generalized (F41.1) Active confirmed Problem Attention deficit hyperactivity disorder (704638328) Adult ADHD (F90.9) Active confirmed Vital Signs Height 65 in 10/20/2024 Weight 230 lbs 10/20/2024 BMI 38.27 kg/m2 10/20/2024 Encounters Encounter Location Date Provider Diagnosis [address] [address] 11/07/2023 Justina Stephanie Nicotine dependence, unspecified, uncomplicated F17.200 ; Nightmares F51.5 ; Anxiety, generalized F41.1 ; Mood disorder F39 and Adult ADHD F90.[address] [address] 12/09/2023 Justina Stephanie Nicotine dependence, unspecified, uncomplicated F17.200 ; Nightmares F51.5 ; Anxiety, generalized F41.1 ; Mood disorder F39 and Adult ADHD F90.[address] [address] 02/10/2024 Justina Stephanie Nicotine dependence, unspecified, uncomplicated F17.200 ; Nightmares F51.5 ; Anxiety, generalized F41.1 ; Mood disorder F39 and Adult ADHD F90.[address] [address] 04/09/2024 Justina Stephanie Nicotine dependence, unspecified, uncomplicated F17.200 ; Nightmares F51.5 ; Anxiety, generalized F41.1 ; Mood disorder F39 and Adult ADHD F90.[address] [address] 06/17/2024 Ede Aguilar Mood disorder F39 ; Anxiety, generalized F41.1 ; Nightmares F51.5 ; Adult ADHD F90.9 and Nicotine dependence, unspecified, uncomplicated F17.[address] [address] 07/28/2024 Ede Aguilar Mood disorder F39 ; Anxiety, generalized F41.1 ; PTSD (post-traumatic stress disorder) F43.10 ; Nightmares F51.5 ; Adult ADHD F90.9 and Nicotine dependence, unspecified, uncomplicated F17.[address] [address] 08/20/2024 Ede Aguilar Mood disorder F39 ; Anxiety, generalized F41.1 ; PTSD (post-traumatic stress disorder) F43.10 ; Nightmares F51.5 ; Adult ADHD F90.9 and Nicotine dependence, unspecified, uncomplicated F17.[address] [address] 09/23/2024 Ede Aguilar Mood disorder F39 ; Anxiety, generalized F41.1 ; PTSD (post-traumatic stress disorder) F43.10 ; Nightmares F51.5 ; Adult ADHD F90.9 and Nicotine dependence, unspecified, uncomplicated F17.[address] [address] 10/20/2024 Ede Aguilar Mood disorder F39 ; Anxiety, generalized F41.1 ; PTSD (post-traumatic stress disorder) F43.10 ; Nightmares F51.5 ; Adult ADHD F90.9 and Nicotine dependence, unspecified, uncomplicated F17.[address] [address] 01/07/2024 Justina Brown Anxiety, generalized F41.1 Assessments Encounter Date Diagnosis (ICD Code) Assessment Notes Treatment Notes Treatment Clinical Notes Section Notes 11/07/2023 Nicotine dependence, unspecified, uncomplicated (ICD-10 - [...] to the emergency department, or contact the [facility] Crisis Unit/Team. Follow up as scheduled [...] mental health CRISIS, please reach out to [phone] ([facility]), 911, go to the emergency department, or contact the [facility] Crisis Unit/Team. Follow up as scheduled [...] to the emergency department, or contact the [facility] Crisis Unit/Team. Follow up as scheduled in 4 weeks or sooner if necessary. Follow up with PCP and/or other specialists as advised. NEXT STEP: Consider increasing duloxetine pending response/tolerability . Consider increasing prazosin as needed. Consider increasing gabapentin as needed. Consider increasing lamotrigine. Consider other medication adjustments as needed. 09/23/2024 Mood disorder (ICD-10 - F39) Duration (acute/chronic), stability (controlled/uncontrol led): Chronic, subjective improvement with most recent medication adjustments, doesn't feel further adjustments are required at this time, see HPI Current medications/efficacy: Yes Previous medication [...] suicide when relationships have become unstable) RECOMMENDATIONS: Continue/modify medications as prescribed - educated [...] to the emergency department, or contact the [facility] Crisis Unit/Team. Follow up as scheduled in 4 weeks or sooner if necessary. Follow up with PCP and/or other specialists as advised. NEXT STEP: Consider increasing duloxetine pending response/tolerability . Consider increasing prazosin as needed. Consider increasing gabapentin as needed. Consider increasing lamotrigine. Consider other medication adjustments as needed. 10/20/2024 Mood disorder (ICD-10 - F39) Duration (acute/chronic), stability (controlled/uncontrol led): Chronic, subjective improvement with most recent medication adjustments, doesn't feel further adjustments are required at this time, see HPI Current medications/efficacy: Yes Previous medication [...] suicide when relationships have become unstable) RECOMMENDATIONS: Continue/modify medications as prescribed - educated [...] mental health CRISIS, please reach out to [phone] ([facility]), 911, go to the emergency department, or contact the [facility] Crisis Unit/Team. Follow up as scheduled in 8 weeks or sooner if necessary. Follow up with PCP and/or other specialists as advised. NEXT STEP: Consider increasing duloxetine pending response/tolerability . Consider increasing prazosin as needed. Consider increasing gabapentin as needed. Consider increasing lamotrigine. Consider other medication adjustments as needed. 09/23/2024 Anxiety, generalized (ICD-10 - F41.1) See assessment and plan for mood disorder 10/20/2024 Anxiety, generalized (ICD-10 - F41.1) See assessment and plan for mood disorder 08/20/2024 Anxiety, generalized (ICD-10 - F41.1) See assessment and plan for mood disorder 07/28/2024 PTSD (post-traumatic stress disorder) (ICD-10 - F43.10) See assessment and plan for mood disorder 06/17/2024 Anxiety, generalized (ICD-10 - F41.1) See assessment and plan for mood disorder 02/10/2024 Nightmares (ICD-10 - F51.5) Continue Prazosin for nightmare Monitor BP Discussed Sleep Hygiene 04/09/2024 Nightmares (ICD-10 - F51.5) Continue Prazosin [...] aside some time to relax before bedtime. 12/09/2023 Nightmares (ICD-10 - F51.5) Continue Prazosin for nightmare Monitor BP Discussed Sleep Hygiene 11/07/2023 Nightmares (ICD-10 - F51.5) Continue Prazosin for nightmare Monitor BP Discussed Sleep Hygiene 11/07/2023 Anxiety, generalized (ICD-10 - F41.1) Vistaril [...] Need copy of recent labs from PCP 02/10/2024 Anxiety, generalized (ICD-10 - F41.1) Vistaril DC'd due to side effects Refilled bupar and Lexapro 07/28/2024 Nightmares (ICD-10 - F51.5) See assessment and plan for mood disorder 06/17/2024 Nightmares (ICD-10 - F51.5) See assessment and plan for mood disorder 09/23/2024 PTSD (post-traumatic stress disorder) (ICD-10 - F43.10) See assessment and plan for mood disorder 08/20/2024 PTSD (post-traumatic stress disorder) (ICD-10 - F43.10) See assessment and plan for mood disorder 10/20/2024 PTSD (post-traumatic stress disorder) (ICD-10 - F43.10) See assessment and plan for mood disorder 10/20/2024 Nightmares (ICD-10 - F51.5) See assessment and [...] to the emergency department, or contact the [facility] Crisis Unit/Team. Follow up as scheduled in 4 weeks or sooner if necessary. Follow up with PCP and/or other specialists as advised. NEXT STEP: Consider increasing bupropion as needed. Consider alternative treatment as needed. 09/23/2024 Nightmares (ICD-10 - F51.5) See assessment and plan for mood disorder 04/09/2024 Mood disorder (ICD-10 - F39) Denies need for warm handoff to crisis She has crisis contact information Continue Lamotrigine DC if rash develops Continue with therapy Continue Wellbutrin to augment Lexapro Have sign disclosure for recent labs by PCP 06/17/2024 Adult ADHD (ICD-10 - F90.9) Duration [...] to the emergency department, or contact the [facility] Crisis Unit/Team. Follow up as scheduled in 4 weeks or sooner if necessary. Follow up with PCP and/or other specialists as advised. NEXT STEP: Consider increasing bupropion as needed. Consider alternative treatment as needed. 02/10/2024 Mood disorder (ICD-10 - F39) Denies [...] disclosure for recent labs by PCP 11/07/2023 Adult ADHD (ICD-10 - F90.9) Continue Wellbutrin 12/09/2023 Adult ADHD (ICD-10 - F90.9) Continue Wellbutrin 02/10/2024 Adult ADHD (ICD-10 - F90.9) Continue Wellbutrin 04/09/2024 Adult ADHD (ICD-10 - F90.9) Continue [...] to the emergency department, or contact the [facility] Crisis Unit/Team. Follow up as scheduled or sooner if necessary. Follow up with PCP and/or other specialists as advised. NEXT STEP: Consider MAT as needed. 07/28/2024 Nicotine dependence, unspecified, uncomplicated [...] health CRISIS, please reach out to [phone] ([facility]), 911, go to the emergency department, or contact the [facility] Crisis Unit/Team. Follow up as scheduled [...] health CRISIS, please reach out to [phone] ([facility]), 911, go to the emergency department, or contact the [facility] Crisis Unit/Team. Follow up as scheduled in 4 weeks or sooner if necessary. Follow up with PCP and/or other specialists as advised. NEXT STEP: Consider increasing bupropion as needed. Consider alternative treatment as needed. 09/23/2024 Adult ADHD (ICD-10 - F90.9) Duration (acute/chronic), [...] health CRISIS, please reach out to [phone] ([facility]), 911, go to the emergency department, or contact the [facility] Crisis Unit/Team. Follow up as scheduled in 4 weeks or sooner if necessary. Follow up with PCP and/or other specialists as advised. NEXT STEP: Consider increasing bupropion as needed. Consider alternative treatment as needed. 10/20/2024 Adult ADHD (ICD-10 - F90.9) Duration (acute/chronic), [...] to the emergency department, or contact the [facility] Crisis Unit/Team. Follow up as scheduled in 8 weeks or sooner if necessary. Follow up with PCP and/or other specialists as advised. NEXT STEP: Consider increasing bupropion as needed. Consider alternative treatment as needed. 10/20/2024 Nicotine dependence, unspecified, uncomplicated (ICD-10 - F17.200) Duration (acute/chronic), stability (controlled/uncontrol led): Cigars on New and - patient verbalized no intention to [...] to the emergency department, or contact the [facility] Crisis Unit/Team. Follow up as scheduled or sooner if necessary. Follow up with PCP and/or other specialists as advised. NEXT STEP: Consider MAT as needed. 09/23/2024 Nicotine dependence, unspecified, uncomplicated (ICD-10 - F17.200) Duration (acute/chronic), stability (controlled/uncontrol led): Cigars on New 's and birth - patient verbalized no intention to quit [...] to the emergency department, or contact the [facility] Crisis Unit/Team. Follow up as scheduled or sooner if necessary. Follow up with PCP and/or other specialists as advised. NEXT STEP: Consider MAT as needed. 08/20/2024 Nicotine dependence, unspecified, uncomplicated [...] to the emergency department, or contact the [facility] Crisis Unit/Team. Follow up as scheduled or sooner if necessary. Follow up with PCP and/or other specialists as advised. NEXT STEP: Consider MAT as needed. 11/07/2023 Other Patient was edu cated on [...] contact the 24-hour crisis hotline ([facility]), refer to the closest emergency room or [...] contact the 24-hour crisis hotline ([facility]), refer to the closest emergency room or [...] a negative outcome. 02/10/2024 Other Patient was edu cated on diagnosis [...] contact the 24-hour crisis hotline ([facility]), refer to the closest emergency room or [...] Insured Coverage Start Date Coverage End Date [facility] [address] [place] [id number] 1 Maryann Philippe Self - patient is the insured [address] [address] [id number] 1 Maryann Philippe Self - patient is the insured 3 [address] [place] [address] [id number] Maryann Philippe Self - patient is the insured 3 4 [employer] [address] [place] [address] [id number] Maryann Philippe Self - patient is the insured 3 4 Medical (General) History Medical History History ICD Code HTN HLD Asthma Endometriosis Seasonal Allergies Herniated discs in neck Eczema Surgical History Surgery Date(Month/Year) Ear tubes Adenoidectomy [place] tooth extraction Pelvic Laparotomy Head bumps Hospitalization History Reason Date(Month/Year) - November Mental Health- Medicatio n concerns 11/2022 ELICIA Colbert for 2018
--- OUTSIDE RECORDS SUMMARY | 2024-10-28 12:02 | XMS_ITS | Clinical Summary ---
Author Organization [facility] Address [address] [facility] Attn: Epic Prelude ADT [place] [address] Care Team Providers Care Automotive Quality Manager Name Role Phone Unavailable Primary Care Provider Unavailabl e Social History Tobacco Use Types Packs/Day Years Used Date Smoking Tobacco: Never Assessed Comments Unknown Sex and Gender Information Value Date Recorded Sex Assigned at Not on file Legal Sex Female 3:52 AM [employer]EL [employer] Gender Identity Not on file Sexual Orientation Not on file Plan of Treatment Health Maintenance Due Date Last Done Comments DTAP/TDAP/TD VACCINES (1 - Tdap) 01/24/2004 HEPATITIS B VACCINES (1 of 3 - 19+ 3-dose series) 01/24/2004 CERVICAL CANCER SCREENING 2015 INFLUENZA VACCINE (#1) 2024 HPV VACCINES Aged Out No longer eligi ble based on patient's age to complete this topic PNEUMOCOCCAL VACCINE 0-49 YEARS Aged Out No longer eligible based on patient's age to complete this topic
== END 2024-10-28 10:32 | disposition home or self-care (01) ==
LOC: ANHSURGERY 10:36
PROVIDERS: PCP Physician Assistant; Visit Provider Obstetrics & Gynecology
DX: Z01.818 Encounter for other preprocedural examination (principal); N92.0 Excessive and frequent menstruation with regular cycle; E78.00 Pure hypercholesterolemia, unspecified
CPT/HCPCS: 36415; 80053; 86850; 86900; 86901

== ENCOUNTER 2024-12-23 00:57 | Emergency (ER) | payer BC, SELFPAY ==
--- NOTE | ~2024-12-23 | XR_ITS ---
Left foot Technique: AP, oblique, and lateral views were obtained. Clinical History: injury Findings: No acute fracture or dislocation is seen. Osseous alignment is anatomic. Joint spaces are p reserved without erosive or degenerative change. Soft tissues are unremarkable. Impression: Unremarkable left foot radiographs. Reviewed, dictated and finalized at location . Impression: Unremarkable left foot radiographs.
--- OUTSIDE RECORDS SUMMARY | 2024-12-23 00:59 | XMS_ITS | Patient Health Record ---
Author Organization [facility] Address [address] [place] [address] Care Team Providers Care Strategic Planning Analyst Name Role Phone Ede Aguilar Primary Care Provider [phone] Justina Brown Unavailable [phone] Allergies Allergen (clinical drug ingredient) Drug/Non Drug Allergy documented on EMR Reaction Allergy Type Onset Date Status tramadol traMADol HCl Unknown Drug Allergy Acti ve Adhesive blisters Allergy Active Penicillin Rash, Childhood Drug Allergy Active Reason For Referral No Information Medications Medication SIG (Take, Route, Frequency, Duration) Notes Start Date End Date Status Gabapentin 300 MG TAKE 1 CAPSULE BY MO [facility] ONCE DAILY AT BEDTIME TO ASSIST WITH SLEEP for 30 Active Wellbutrin XL 300 MG 1 tablet [...] for 30 days Active Cholecalciferol 50 MCG (1999) 1 capsule Orally Once a day Active Albuterol Sulfate HFA 108 (9 0 Base) MCG/ACT 1 puff as needed Inhalation every 4 hrs Active Cyclobenzaprine HCl 10 MG 1 tablet two t imes every morning and bedtime x7 days then 1 tab daily at bedtime Orally as directed for 30 days Active Cetirizine HCl 10 [...] use: Current some day smoker Section Notes: [place]ed [place] PRESCRIPTION # FILLED WRITTEN DRUG LABEL QTY DAYS STRENGTH MME PRESCRIBER PHARM[facility] REFILL NO. REFILLS STATE 02/27/2023 01/17/2023 Cyclobenzaprine Hcl 30.0 30 10 MG NA Roman [place] Md [id number] [place], [place] NA 0 [place] 1 [id number] 01/17/2023 01/17/2023 Cyclobenzaprine Hcl 30.0 30 10 MG Roman [place] [id number] PRESCRIPTION # FILLED WRITTEN DRUG LABEL QTY DAYS STRENGTH MME PRESCRIBER PHARMAC[facility] REFILL NO. REFILLS STATE 02/27/2023 01/17/2023 Cyclobenzaprine Hcl 30.0 30 10 MG Roman [place] Md [id number] [place], [place] NA 0 [place] 1 [id number] 01/17/2023 01/17/2023 Cyclobenzaprine Hcl 30.0 30 10 MG Roman [place] Problems Problem Type SNOMED Code ICD Code Onset Dates Problem Status W/U Status Risk Notes Problem Tobacco user (446871968) Nicotine dependence, unspecified, uncomplicated (F17.200) Active confirmed Problem Obesity (391449324) Obesity (E66.9) Active confirmed Problem Mood disorder (03051313) Mood disorder (F39) Active confirmed Problem Posttraumatic stress disorder (97173105) PTSD (post-traumatic stress disorder) (F43.10) Active confirmed Problem Nightmares (146521210) Nightmares (F51.5) Active confirmed Problem Generalized anxiety disorder (35850891) Anxiety, generalized (F41.1) Active confirmed Problem Attention deficit hyperactivity disorder (691171649) Adult ADHD (F90.9) Active confirmed Vital Signs Height 65 in 10/20/2024 Weight 230 lbs 10/20/2024 BMI 38.27 kg/m2 10/20/2024 Encounters Encounter Location Date Provider Diagnosis [address] [address] 02/10/2024 Justina Brown Nicotine dependence, unspecified, uncomplicated F17.200 ; Nightmares F51.5 ; Anxiety, generalized F41.1 ; Mood disorder F39 and Adult ADHD F90.[address] [address] 04/09/2024 Justina Brown Nicotine dependence, unspecified, uncomplicated F17.200 ; Nightmares F51.5 ; Anxiety, generalized F41.1 ; Mood disorder F39 and Adult ADHD F90.[address] [address] 06/17/2024 Ede Aguilar Mood disorder F39 ; Anxiety, generalized F41.1 ; Nightmares F51.5 ; Adult ADHD F90.9 and Nicotine dependence, unspecified, uncomplicated F17.[address] [address] 07/28/2024 Ede Aguilar Mood disorder F39 ; Anxiety, generalized F41.1 ; PTSD (post-traumatic stress disorder) F43.10 ; Nightmares F51.5 ; Adult ADHD F90.9 and Nicotine dependence, unspecified, uncomplicated F17.[address] [address] 08/20/2024 Ede Aguilar Mood disorder F39 ; Anxiety, generalized F41.1 ; PTSD (post-traumatic stress disorder) F43.10 ; Nightmares F51.5 ; Adult ADHD F90.9 and Nicotine dependence, unspecified, uncomplicated F17.[address] [address] 09/23/2024 Ede Aguilar Mood disorder F39 ; Anxiety, generalized F41.1 ; PTSD (post-traumatic stress disorder) F43.10 ; Nightmares F51.5 ; Adult ADHD F90.9 and Nicotine dependence, unspecified, uncomplicated F17.[address] [address] 10/20/2024 Ede Aguilar Mood disorder F39 ; Anxiety, generalized F41.1 ; PTSD (post-traumatic stress disorder) F43.10 ; Nightmares F51.5 ; Adult ADHD F90.9 and Nicotine dependence, unspecified, uncomplicated F17.[address] [address] 01/07/2024 Justina Brown Anxiety, generalized F41.1 Assessments Encounter Date Diagnosis (ICD Code) Assessment Notes Treatment Notes Treatment Clinical Notes Section Notes 10/20/2024 Mood disorder (ICD-10 - F39) Duration [...] health CRISIS, please reach out to [phone] ([facility]), 911, go to the emergency department, or contact the [facility] Crisis Unit/Team. Follow up as [...] to the emergency department, or contact the [facility] Crisis Unit/Team. Follow up as [...] assessment and plan for mood disorder 06/17/2024 Mood disorder (ICD-10 - F39) Duration [...] to the emergency department, or contact the [facility] Crisis Unit/Team. Follow up as scheduled in 4 weeks or sooner if necessary. Follow up with PCP and/or other specialists as advised. NEXT STEP: Consider increasing duloxetine pending response/tolerability . Consider switching back to escitalopram pending response/tolerability of change. Consider adding gabapentin as needed. Consider increasing lamotrigine. Consider other medication adjustments as needed. 01/07/2024 Anxiety, generalized (ICD-10 - F41.1) 09/23/2024 Mood disorder (ICD-10 - F39) Duration [...] mental health CRISIS, please reach out to [phone] ([facility]), 911, go to the emergency department, or contact the [facility] Crisis Unit/Team. Follow up as scheduled in 4 weeks or sooner if necessary. Follow up with PCP and/or other specialists as advised. NEXT STEP: Consider increasing duloxetine pending response/tolerability . Consider increasing prazosin as needed. Consider increasing gabapentin as needed. Consider increasing lamotrigine. Consider other medication adjustments as needed. 02/10/2024 Nicotine dependence, unspecified, uncomplicated (ICD-10 - F17.200) 08/20/2024 Mood disorder (ICD-10 - F39) Duration [...] to the emergency department, or contact the [facility] Crisis Unit/Team. Follow up as scheduled in 4 weeks or sooner if necessary. Follow up with PCP and/or other specialists as advised. NEXT STEP: Consider increasing duloxetine pending response/tolerability . Consider increasing prazosin as needed. Consider increasing gabapentin as needed. Consider increasing lamotrigine. Consider other medication adjustments as needed. 04/09/2024 Nicotine dependence, unspecified, uncomplicated (ICD-10 - [...] aside some time to relax before bedtime. 08/20/2024 Anxiety, generalized (ICD-10 - F41.1) See assessment and plan for mood disorder 02/10/2024 Nightmares (ICD-10 - F51.5) Continue Prazosin for nightmare Monitor BP Discussed Sleep Hygiene 09/23/2024 Anxiety, generalized (ICD-10 - F41.1) See [...] assessment and plan for mood disorder 02/10/2024 Anxiety, generalized (ICD-10 - F41.1) Vistaril DC'd due to side effects Refilled bupar and Lexapro 08/20/2024 PTSD (post-traumatic stress disorder) (ICD-10 - F43.10) See assessment and plan for mood disorder 04/09/2024 Anxiety, generalized (ICD-10 - F41.1) Vistaril [...] sign disclosure for recent labs by PCP 08/20/2024 Nightmares (ICD-10 - F51.5) See assessment and plan for mood disorder 02/10/2024 Mood disorder (ICD-10 - F39) Denies need for warm handoff to crisis She has crisis contact information Continue Lamotrigine DC if rash develops Continue with therapy Wellbutrin to augment Lexapro Have sign disclosure for recent labs by PCP 09/23/2024 Nightmares (ICD-10 - F51.5) See assessment [...] health CRISIS, please reach out to [phone] ([facility]), 911, go to the emergency department, or contact the [facility] Crisis Unit/Team. Follow up as scheduled in 4 weeks or sooner if necessary. Follow up with PCP and/or other specialists as advised. NEXT STEP: Consider increasing bupropion as needed. Consider alternative treatment as needed. 07/28/2024 Adult ADHD (ICD-10 - F90.9) Duration [...] health CRISIS, please reach out to [phone] ([facility]), 911, go to the emergency department, or contact the [facility] Crisis Unit/Team. Follow up as scheduled in 4 weeks or sooner if necessary. Follow up with PCP and/or other specialists as advised. NEXT STEP: Consider increasing bupropion as needed. Consider alternative treatment as needed. 10/20/2024 Nightmares (ICD-10 - F51.5) See assessment and plan for mood disorder 10/20/2024 Adult ADHD (ICD-10 - F90.9) Duration [...] health CRISIS, please reach out to [phone] ([facility]), 911, go to the emergency department, or contact the [facility] Crisis Unit/Team. Follow up as [...] health CRISIS, please reach out to [phone] ([facility]), 911, go to the emergency department, or contact the [facility] [employer] Crisis Unit/Team. Follow up as scheduled or sooner if necessary. Follow up with PCP and/or other specialists as advised. NEXT STEP: Consider MAT as needed. 06/17/2024 Nicotine dependence, unspecified, uncomplicated (ICD-10 - F17.200) Duration (acute/chronic), stability (controlled/uncontrol led): Cigars on New Year's and - patient verbalized no intention to [...] to the emergency department, or contact the [facility] Crisis Unit/Team. Follow up as scheduled or sooner if necessary. Follow up with PCP and/or other specialists as advised. NEXT STEP: Consider MAT as needed. 09/23/2024 Adult ADHD (ICD-10 - [...] to the emergency department, or contact the [facility] Crisis Unit/Team. Follow up as scheduled in 4 weeks or sooner if necessary. Follow up with PCP and/or other specialists as advised. NEXT STEP: Consider increasing bupropion as needed. Consider alternative treatment as needed. 02/10/2024 Adult ADHD (ICD-10 - F90.9) Continue Wellbutrin 08/20/2024 Adult ADHD (ICD-10 - F90.9) Duration [...] to the emergency department, or contact the [facility] Crisis Unit/Team. Follow up as scheduled in 4 weeks or sooner if necessary. Follow up with PCP and/or other specialists as advised. NEXT STEP: Consider increasing bupropion as needed. Consider alternative treatment as needed. 04/09/2024 Adult ADHD (ICD-10 - F90.9) Continue Wellbutrin 10/20/2024 Nicotine dependence, unspecified, uncomplicated (ICD-10 - [...] to the emergency department, or contact the [facility] Crisis Unit/Team. Follow up as [...] to the emergency department, or contact the [facility] Crisis Unit/Team. Follow up as [...] to the emergency department, or contact the [facility] Crisis Unit/Team. Follow up as scheduled or sooner if necessary. Follow up with PCP and/or other specialists as advised. NEXT STEP: Consider MAT as needed. 02/10/2024 Other Patient was edu cated on [...] May also contact the 24-hour crisis hotline ([facility]), refer to the closest emergency room [...] May also contact the 24-hour crisis hotline ([facility]), refer to the closest emergency room [...] Insured Coverage Start Date Coverage End Date [place] [id number] [facility] [address] [place] [address] [id number] 1 Maryann Philippe Self - patient is the insured 3 3 [facility] [address] [place] [address] [id number] 1 Maryann Philippe Self - patient is the insured 3 3 MED[employer]ID [address] [place] [address] [id number] Maryann Philippe Self - patient is the insured 3 4 [employer] [address] [place] [address] [id number] Maryann Philippe Self - patient is the insured 3 4 Medical (General) History Medical History History ICD Code HTN HLD Asthma Endometriosis Seasonal Allergies Herniated discs in neck Eczema Surgical History Surgery Date(Month/Year) Ear tubes Adenoidectomy [place] tooth extraction Pelvic Laparotomy Head bumps Hospitalization History Reason Date(Month/Year) - November Mental Health- Medicatio n concerns 11/2022 ELIC[facility] Colbert for 2018
--- OUTSIDE RECORDS SUMMARY | 2024-12-23 00:59 | XMS_ITS | CONTINUITY OF CARE DOCUMENT ---
Author Name josé miguel valdez Address Unknown Organization [facility] Address [address] [place] [address] Phone [phone] Care Team Providers Care Propulsion Motor And Generator Repairer Name Role Phone Mario Rodriguez MD Unavailable [phone] Mario Rodriguez MD Unavailable [phone] SIL SAUCEDO MD Unavailable INSURANCE PROVIDERS Payer name Policy type / Coverage type [employer] red green party ID [place] [employer] Medicare [id number] [facility] [id number]
--- OUTSIDE RECORDS SUMMARY | 2024-12-23 00:59 | XMS_ITS | Data Portability ---
Author Organization [facility] Address [address] [place] [address] Care Team Providers Care Automatic Blocker Name Role Phone VENKATESH MARCELINO Primary Care Provider [phone] Assessment No assessment recorded. Plan of Treatment Reminders Order Date Submit Date Provider Last Modified By Organization Details Last Modified Time Details Appointments None recorded. Lab CBC w/ auto diff 2023 024 [facility] (Lab), [address] [place], [address], 5 05:15:10 CMP, serum or plasma 2023 024 [facility] (Lab), [address] [place], [address], 5 05:15:10 type + screen, serum 2023 024 [facility] (Lab), [address] [place], [address], 5 05:15:11 Referral None recorded. Procedures None recorded. Surgeries robotic assisted hysterectom y with salpingecto my (SURG) [address], [address], 5 16:52:28 oophorectom y (SURG) [address], [address] [place] [address], [address], 10:55:08 Imaging None recorded. Medication Orders None recorded. Patient TargetsNo targets recorded. Patient InstructionsNo instructions recorded. Reason for Referral None Reported. Results Created Date Observation Date Name Description Value Unit Range Abnormal Flag Note LastModifiedBy Organization Detail LastModifiedTime 09/15/1909/15/2024 CBC W/DIF F WBC 7.3 10'3/ uL 3.5-10 .5 Not Available [facility] (Lab) [address], [place], [address], 09/16/2024 05:15:10 09/15/19 25 09/15/2024 CBC W/DIF F RBC 4.53 10'6/ uL (based on docume nted legal sex) 3.80-5 .20 Not Available [facility] (Lab) [address], [place], [address], 09/16/2024 05:15:10 09/15/19 25 09/15/2024 CBC W/DIF F HGB 12.8 g/dL (based on docume nted legal sex) 11.6-1 5.4 Not Available [facility] (Lab) [address], [place], [address], 09/16/2024 05:15:10 09/15/19 25 09/15/2024 CBC W/DIF F HCT 40.4 % (based on docume nted legal sex) 34.0-4 5.0 Not Available [facility] (Lab) [address], [place], [address], 09/16/2024 05:15:10 09/15/19 25 09/15/2024 CBC W/DIF F MCV 89.2 fL 80.0-9 9.0 Not Available [facility] (Lab) [address], [place], [address], 09/16/2024 05:15:10 09/15/19 25 09/15/2024 CBC W/DIF F MCH 28.3 pg 27.0-3 4.0 Not Available [facility] (Lab) [address], [place], [address], 09/16/2024 05:15:10 09/15/19 25 09/15/2024 CBC W/DIF F MCHC 31.7 g/dL 32.0-3 5.5 low Not Available [facility] (Lab) [address], [place], [address], 09/16/2024 05:15:10 09/15/19 25 09/15/2024 CBC W/DIF F RDW 13.0 % 11.0-1 5.0 Not Available [facility] (Lab) [address], [place], [address], 09/16/2024 05:15:10 09/15/19 25 09/15/2024 CBC W/DIF F plt 287 10'3/ uL 150-40 0 Not Available [facility] (Lab) [address], [place], [address], 09/16/2024 05:15:10 09/15/19 25 09/15/2024 CBC W/DIF F MPV 10.9 fL 8.8-12 .1 Not Available [facility] (Lab) [address], [place], [address], 09/16/2024 05:15:10 09/15/19 25 09/15/2024 CBC W/DIF F neutrophils 68.4 % 34.0-7 3.0 Not Available [facility] (Lab) [address], [place], [address], 09/16/2024 05:15:10 09/15/19 25 09/15/2024 CBC W/DIF F lymphocytes 24.3 % 15.0-5 0.0 Not Available [facility] (Lab) [address], [place], [address], 09/16/2024 05:15:10 09/15/19 25 09/15/2024 CBC W/DIF F monocytes 4.5 % 1.0-15 .0 Not Available [facility] (Lab) [address], [place], [address], 09/16/2024 05:15:10 09/15/19 25 09/15/2024 CBC W/DIF F eosinophils 2.1 % 0.0-8. 0 Not Available [facility] (Lab) [address], [place], [address], 09/16/2024 05:15:10 09/15/19 25 09/15/2024 CBC W/DIF F basophils 0.4 % 0.0-2. 0 Not Available [facility] (Lab) [address], [place], [address], 09/16/2024 05:15:10 09/15/19 25 09/15/2024 CBC W/DIF [...] separ ately if prese nt. Not Available [facility] (Lab) [address], [place], [address], 09/16/2024 05:15:10 09/15/19 25 09/15/2024 CBC W/DIF F absolute neutrophils 5.0 10'3/ uL 1.5-8. 0 Not Available [facility] (Lab) [address], [place], [address], 09/16/2024 05:15:10 09/15/19 25 09/15/2024 CBC W/DIF F absolute lymphocytes 1.8 10'3/ uL 1.0-4. 0 Not Available [facility] (Lab) [address], [place], [address], 09/16/2024 05:15:10 09/15/19 25 09/15/2024 CBC W/DIF F absolute monocytes 0.3 10'3/ uL 0.2-1. 0 Not Available [facility] (Lab) [address], [place], [address], 09/16/2024 05:15:10 09/15/19 25 09/15/2024 CBC W/DIF F absolute eosinophils 0.2 10'3/ uL 0.0-0. 6 Not Available [facility] (Lab) [address], [place], [address], 09/16/2024 05:15:10 09/15/19 25 09/15/2024 CBC W/DIF F absolute basophils 0.0 10'3/ uL 0.0-0. 3 Not Available [facility] (Lab) [address], [place], [address], 09/16/2024 05:15:10 09/15/19 25 09/15/2024 CBC W/DIF F absolute immature granulocytes 0.0 10'3/ uL 0.00-0 .10 Refer ence range s for nonbi nary/ inter sex or unspe cifie d gende r patie nts have not been estab lishe d. Pleas e refer to the [facility] table for range s estab lishe d for cisge nder patie nts and evalu ate in the clini jeffry [place] xt of the indiv idual patie nt: https :[email or web address] palma book. nm.or g/Gen derX Not Available [facility] (Lab) [address], [place], [address], 09/16/2024 05:15:10 09/15/19 25 09/15/2024 CMP(C OMPRE HENSI VE METAB OLIC PANEL ) sodium 137 mmol/ L 133-14 6 Not Available [facility] (Lab) [address] [place], [address], 09/16/2024 05:15:10 09/15/19 25 09/15/2024 CMP(C OMPRE HENSI VE METAB OLIC PANEL ) potassium 4.7 mmol/ L 3.5-5. 1 Not Available [facility] (Lab) [address], [place], [address], 09/16/2024 05:15:10 09/15/19 25 09/15/2024 CMP(C OMPRE HENSI VE METAB OLIC PANEL ) chloride 101 mmol/ L 98-107 Not Available [facility] (Lab) [address], [place], [address], 09/16/2024 05:15:10 09/15/19 25 09/15/2024 CMP(C OMPRE HENSI VE METAB OLIC PANEL ) carbon dioxide 29 mmol/ L 21-31 Not Available [facility] (Lab) [address], [place], [address], 09/16/2024 05:15:10 09/15/19 25 09/15/2024 CMP(C OMPRE HENSI VE METAB OLIC PANEL ) anion gap 7 mmol/ L 4-13 Not Available [facility] (Lab) [address], [place], [address], 09/16/2024 05:15:10 09/15/19 25 09/15/2024 CMP(C OMPRE HENSI VE METAB OLIC PANEL ) blood urea nitrogen 23 mg/dL 7-25 Not Available [facility] (Lab) [address] [place], [address], 09/16/2024 05:15:10 09/15/19 25 09/15/2024 CMP(C OMPRE HENSI VE METAB OLIC PANEL ) creatinine 1.22 mg/dL 0.60-1 .30 Not Available [facility] (Lab) [address], [place], [address], 09/16/2024 05:15:10 09/15/19 25 09/15/2024 CMP(C OMPRE HENSI VE METAB OLIC PANEL ) egfrcr (CKD-epi 2020) 58 mL/mi n/1.7 3_m2 >=60 low Not Available [facility] (Lab) [address], [place], [address], 09/16/2024 05:15:10 09/15/19 25 09/15/2024 CMP(C OMPRE HENSI VE METAB OLIC PANEL ) calcium 9.7 mg/dL 8.3-10 .5 Not Available [facility] (Lab) [address], [place], [address], 09/16/2024 05:15:10 09/15/19 25 09/15/2024 CMP(C OMPRE HENSI VE METAB OLIC PANEL ) glucose 120 mg/dL 70-100 high Not Available [facility] (Lab) [address], [place], [address], 09/16/2024 05:15:10 09/15/19 25 09/15/2024 CMP(C OMPRE HENSI VE METAB OLIC PANEL ) protein, total 7.0 g/dL 6.4-8. 3 Not Available [facility] (Lab) [address], [place], [address], 09/16/2024 05:15:10 09/15/19 25 09/15/2024 CMP(C OMPRE HENSI VE METAB OLIC PANEL ) albumin 4.5 g/dL 3.5-5. 0 Not Available [facility] (Lab) [address] [place], [address], 09/16/2024 05:15:10 09/15/19 25 09/15/2024 CMP(C OMPRE HENSI VE METAB OLIC PANEL ) ALT 9 units /L 9-43 Not Available [facility] (Lab) [address] [place], [address], 09/16/2024 05:15:10 09/15/19 25 09/15/2024 CMP(C OMPRE HENSI VE METAB OLIC PANEL ) alkaline phosphatase 61 units /L 34-104 Not Available [facility] (Lab) [address], [place], [address], 09/16/2024 05:15:10 09/15/19 25 09/15/2024 CMP(C OMPRE HENSI VE METAB OLIC PANEL ) AST 12 units /L 13-39 low Not Available [facility] (Lab) [address], [place], [address], 09/16/2024 05:15:10 09/15/19 25 09/15/2024 CMP(C OMPRE HENSI VE METAB OLIC PANEL ) bilirubin, total 0.4 mg/dL 0.2-1. 2 Not Available [facility] (Lab) [address] [place], [address], 09/16/2024 05:15:10 09/15/19 25 09/15/2024 TYPE/ RH/SC REEN ABO/Rh type A POS Not Available [facility] (Lab) [address] [place], [address], 09/16/2024 05:15:11 09/15/19 25 09/15/2024 TYPE/ RH/SC REEN antibody screen NEG Not Available [facility] (Lab) [address] [place], [address], 09/16/2024 05:15:11 09/15/19 25 09/15/2024 TYPE/ RH/SC REEN exp date 2024 23:59 Not Available [facility] (Lab) [address], [place], [address], 09/16/2024 05:15:11 Result Notes None recorded. Problems Name Problem SNOMED Code Status Onset Date Resolution Date Notes Provider Name and Address Organization Details Recorded Time Finding of menstrual bleeding Active 2016 Excessive and frequent menstruati on with regular cycle;Matthew rded Elsewhere: No Locatio n: [facility] rce: EHR Chroni c: N Practice ID: 0001 Billa ble Time: 03:15:00 PM Not Available [facility] 12/21/202 0 17:42:43 Adult health 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 Active 2014 ROUTINE MEDICAL EXAM;Recor ded Elsewhere: No Locatio n: [facility] rce: EHR Chroni c: N Practice ID: 0001 Billa ble Time: 03:15:00 PM Not Available [facility] 0 17:42:43 Endometri osis (clinical ) 458066584 Active 2012 Endometrio sis, site unspecifie d;Recorded Elsewhere: No Locatio n: [facility] rce: EHR Chroni c: N Practice ID: 0001 Billa ble Time: 02:30:00 PM Not Available [facility] 0 17:42:43 Pre-surge ry evaluatio n Active 2012 Pre-operat hira examinatio n, unspecifie d;Recorded Elsewhere: No Locatio n: [facility] rce: EHR Chroni c: N Practice ID: 0001 Billa ble Time: 02:30:00 PM Not Available [facility] 0 17:42:43 Screening for malignant neoplasm of cervix Active 2012 Screening for malignant neoplasms of the cervix;Rec orded Elsewhere: No Locatio n: [facility] rce: EHR Chroni c: N Practice ID: 0001 Billa ble Time: 10:30:00 AM Not Available [facility] 0 17:42:43 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 care managemen t Active 2014 Encounter for other general counseling on procreatio n;Recorded Elsewhere: No Locatio n: [facility] rce: EHR Chroni c: N Practice ID: 0001 Billa ble Time: 03:00:00 PM Not Available [facility] 0 17:42:[address] Concept Active 2016 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 (general) (routine) w/o abn findings;R ecorded Elsewhere: No Locatio n: [facility] rce: EHR Chroni c: N Practice ID: 0001 Billa ble Time: 04:30:00 PM Not Available [facility] 0 17:42:43 Hypertrop hy of uterus 133573997 Active 2012 Hypertroph y of uterus;Rec orded Elsewhere: No Locatio n: [facility] rce: EHR Chroni c: N Practice ID: 0001 Billa ble Time: 02:00:00 PM Not Available [facility] 0 17:42:43 Body mass index 30+ - obesity 372585562 Active 2016 Body mass index (BMI) 33.0-33.9, adult;Matthew rded Elsewhere: No Locatio n: [facility] rce: EHR Chroni c: N Practice ID: 0001 Billa ble Time: 04:30:00 PM Not Available [facility] 0 17:42:43 Specializ ed medical 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 Active 2014 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 N;Recorded Elsewhere: No Locatio n: [facility] rce: EHR Chroni c: N Practice ID: 0001 Billa ble Time: 03:15:00 PM Not Available [facility] 0 17:42:43 Pain in female genitalia Active 2016 Dysmenorrh ea;Recorde d Elsewhere: No Locatio n: [facility] rce: EHR Chroni c: N Practice ID: 0001 Billa ble Time: 03:15:00 PM Not Available [facility] 0 17:42:43 Polyp of corpus uteri 02954750 Active 2012 Polyp of corpus uteri;Matthew rded Elsewhere: No Locatio n: [facility] rce: EHR Chroni c: N Practice ID: 0001 Billa ble Time: 05:00:00 PM Not Available [facility] 0 17:42:[address] Concept Active 2016 Encntr for general adult medical exam w/o abnormal findings;R ecorded Elsewhere: No Locatio n: [facility] rce: EHR Chroni c: N Practice ID: 0001 Billa ble Time: 04:30:00 PM Not Available [facility] 0 17:42:43 test negative 150589947 Active 2014 examinatio n or test, negative result;Rec orded Elsewhere: No Locatio n: [facility] rce: EHR Chroni c: N Practice ID: 0001 Billa ble Time: 03:15:00 PM Not Available [facility] 0 17:42:43 Obesity 877529730 Active 2014 Obesity;Re corded Elsewhere: No Locatio n: [facility] rce: EHR Chroni c: N Practice ID: 0001 Billa ble Time: 03:15:00 PM Not Available [facility] 0 17:42:43 Menstruat ion finding Active 2012 Excessive or frequent menstruati on;Recorde d Elsewhere: No Locatio n: [facility] rce: EHR Chroni c: N Practice ID: 0001 Billa ble Time: 02:30:00 PM Not Available [facility] 0 17:42:44 Radiology result abnormal 112472568 Active 2012 Nonspecifi c abnormal findings on radiologic al and other examinatio n of genitourin augustin organs;Rec orded Elsewhere: No Locatio n: [facility] rce: EHR Chroni c: N Practice ID: 0001 Billa ble Time: 04:30:00 PM Not Available [facility] 0 17:42:44 Female genital organ symptoms 073350213 Active 2012 Unspecifie d symptom associated with female genital organs;Pra ctice ID: 0001 Not Available [facility] 0 17:42:44 Postopera tive follow-up visit Active 2012 Follow-up examinatio n, following other surgery;Pr actice ID: 0001 Not Available [facility] 0 17:42:45 Problem Notes None recorded. Procedures Surgical History Date Name Laterality Status Provider Name and Address Organization Details Recorded Time 5 Most Recent Bone Density completed Jania Timmons [facility] 10/28/2024 15:06:00 3 Date of Last Pap Smear completed Марина [facility] 07/30/2024 15:37:48 0 Laparoscopy completed Марина [facility] 07/30/2024 15:37:59 4 Other completed [facility] 07/30/2024 15:37:59 0 Date of Last Mammogram completed Jania Timmons [facility] 10/28/2024 15:06:00 0 completed [facility] 07/30/2024 15:37:48 0 Date of Last Colonoscopy completed [facility] 07/30/2024 15:37:48 Imaging Results None recorded. Procedure Notes None recorded. Medical Equipment None Reported. Allergies Allergen ID Allergen Name Allergen Category Reaction Reaction Severity Criticality Documentation Date Start Date Code Code System Note Provider Name and Address Organization Details Recorded Time 96054 tramadol medicatio n palpitati ons severe Not available 08/12/2020 37006 [facility]Norm [facility] 4 15:37:36 65470 amoxicill in medicatio n hives severe Not available 08/12/2020 723 RxNorm [facility] 4 15:37:36 Medications Name Sig Start Date Stop Date Status Note LastModified by Organization Details LastModified Time cyclobenz aprine 10 mg tablet TAKE 1 TABLET BY MOUTH AT BEDTIME NEEDED FOR SPASM active Not Available Not Available No t Available Aviane 0.1 mg-20 mcg tablet take 1 tablet by oral route every day 06/01 completed Prescrib nydia Rao e: No Locat ion: [facility] odify By: hortensia villalpando DateTime : 06/01/20 [...] Prescrib ed Elsewher e: No Locat ion: [facility] odify By: [email or web address] h Encoun ter DateTime : 03/29/20 03:15:00 PM Not Available Not Available Not [...] mg capsule TAKE 1 CAPSULE BY MOUTH ONCE DAILY AT BEDTIME TO [...] Prescrib ed Elsewher e: No Locat ion: [facility] odify By: [email or web address] trick En counter [...] Prescrib ed Elsewher e: Yes Loca tion: [facility] odify By: [email or web address] trick En counter DateTime : 11/11/19 15 03:15:00 PM Not Available Not Available Not Available buspirone 15 mg tablet TAKE 1 TABLET BY MOUTH TWICE DAILY active Not Available Not Available No t Available escitalop alia 20 mg tablet TAKE 1 TABLET BY MOUTH DAILY active Not Available Not Available No t Available Calcium Citrate + 315 mg-5 mcg (200 unit) tablet active Not Available Not Available Not Available bupropion [...] Prescrib ed Elsewher e: Yes Loca tion: [facility] odify By: [email or web address] trick En counter [...] Prescrib ed Elsewher e: Yes Loca tion: [facility] odify By: [email or web address] trick En counter DateTime : 04/10/20 13 10:30:00 AM Not Available Not Available Not Available cetirizin e 10 mg capsule active Not Available Not Available Not Available ProChambe r USE DIRECTED 07/30 completed Not Available Not Available Not Available Lo Loestrin Fe 1 mg-10 mcg (24)/10 mcg (2) tablet take 1 tablet by oral route every day 11/18 completed Tomasa Rao e: No [facility] By: louise h Dion villalpando DateTime : 11/15/19 17 05:37:55 PM Not Available Not Available Not Available duloxetin e 60 mg capsule,d elayed release sprinkle 07/30 completed Not Available Not Available Not Available cholecalc iferol (vitamin D3) 50 mcg (2,000 unit) disintegr ating tablet active Not Available Not Available Not Available Vitals Date Recorded Body height Body mass index (BMI) Body weight Systolic blood pressure Diastolic blood pressure Provider Name and Address Organization Details Last Updated DateTime 07/30/2024 165.1 cm 40.3 kg/m2 236338.3 5 g 115 mm[Hg] 78 mm[Hg] Марина Guy [facility] 4 15:37:31 Date Recorded Body height Body mass index (BMI) Body weight Systolic blood pressure Diastolic blood pressure Provider Name and Address Organization Details Last Updated DateTime 10/28/2024 165.1 cm 39.9 kg/m2 147271.4 5 g 136 mm[Hg] 83 mm[Hg] Jania Perezney [facility] 5 14:59:46 Social History Question Answer Notes LastModified by [...] Or The Highest Degree You Have Received? 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 [id number] Information not available 07/30/2024 Do You Use [...] N Thrombophilias N Gynecological History Statement/Question Response Date of Last Mammogram 01/24/2010 Flow Heavy Date of LMP 10/08/2024 N Was last menstrual period normal N STIs/STDs N If Post Menopausal, Age at Menopause 38 Date of control 08/26/2019 Date of Last Colonoscopy 2010 Menopause Desired Control Method Hysterectom y Abnormal Pap N On BCP's at Conception? N HPV Vaccine N Duration of Flow (days) 10 Current Control Method None Are cycles usually normal N Frequency of Cycle (Q days) 20 Most Recent Bone Density 09/17/2024 Sexually Active? Y Menses Monthly Y Age of first menstrual cycle 13 Date of Last Pap Smear 04/26/2023 Sexual Problems? N LMP Approximate 2010 N Obstetrics History GPAL:G 0 P 0 0 0 0 Past Encounters Encounter ID Performer Location Encounter Start Date Encounter Closed Date Diagnosis/Indication Diagnosis SNOMED-CT Code Diagnosis ICD10 Code Diagnosis Note [id number] Frederick Cantu MD [facility] [address],[place] [address] 07/30/2024 14:38:08 07/30/2024 16:36:13 Menorrhagia 544416194 N92.0 This patient is a 39-year-ol d [...] total on the care of this patient. [id number] Frederick Cantu MD [facility] [address],[place] [address] 10/28/2024 14:23:16 10/28/2024 15:36:24 Pre-surgery evaluation 979344984 Z01.818 Menorrhagia 986793199 N9 2.0 THIS PATIENT IS A 39-YEAR-OL D female with severe menorrhagi a. We have agreed to perform robotic assisted hysterecto my with bilateral salpingect doroteo. she understand s the risks, benefits, and alternativ es. She has completed the informed consent process and is ready to proceed. [id number] Frederick Cantu MD [facility] [address] [address] 11/04/2024 09:02:08 11/04/2024 10:58:40 Health Concerns Section Related Observation LastModified by Organization Detai ls LastModified Time None Recorded Concern Status LastModified by Organization Details LastModified Time None Recorded Advance Directives Directive N: Payers Encounter Date Sequence Insurance Name Policy Number Policy Mcclendon Covered Member ID Mcclendon Member ID Guarantor Name 07/30/2024 1 [facility] [id number] Maryann Philippe [id number] Maryann Philippe 10/28/2024 1 [facility] [id number] Maryann Philippe [id number] Maryann Philippe 11/04/2024 1 [facility] [id number] Maryann Philippe [id number] Maryann Philippe Notes Date Note Type Note [...] patient. Frederick Cantu MD [address], [place], [address], [facility] 07/30/2024 16:35:33 10/28/2024 text/html THIS PATIENT IS A 39-YEAR-OLD female with severe menorrhagia. We have agreed to perform robotic assisted hysterectomy with bilateral salpingectomy. The patient understands the procedure. The procedure was described to the patient in great detail. the patient also understands the risks. The risks were also explained in detail. She understands that injuries May occur during surgery. She understands these injuries can result in hospitalization, more surgery, and severe illness. She understands there is risk of hemorrhage and infection. Frederick Cantu MD [address], [place], [address], [facility] 10/28/2024 15:31:50 OBGyn Episode No OBEpisode recorded.
--- OUTSIDE RECORDS SUMMARY | 2024-12-23 00:59 | XMS_ITS | Encounter Summary ---
Author Organization [facility] Address [address] [place] [id number] Care Team Providers Care Nursing Manager Name Role Phone None, Provider Primary Care Provider Merlyn Walter MD Primary Care Provider [phone] Encounter Details Date Type Department Care Team (Latest Contact Info) Description 05/07/2019 Abstract [facility] Trista Patterson MD [address] [place] [address] Social History Tobacco Use Types [...] this encounter Miscellaneous Notes * Letter - Trsita Patterson MD - 05/07/2019 12:00 AM CDT [facility] [address] [facility]. [facility] [place], [place] [address] Date: 05-07-2019 Maryann Philippe [address] [place] [id number] D.O.B: 1985 Dear: Maryann The result of your recent lab work was normal. If you have any questions please call our office at . Sincerely, Trista Patterson M.D. documented in this encounter Plan of Treatment Not on file documented as of this encounter Visit Diagnoses Not on filedocumented in this encounter Care Teams Nursing Manager Relationship Specialty Start Date End Date None, Provider, PCP - General 05/01/19 07/18/20 Merlyn Jeffers MD [facility] [address] [address] PCP - General FAMILY PRACTICE 07/19/20 documented as of this encounter
--- OUTSIDE RECORDS SUMMARY | 2024-12-23 00:59 | XMS_ITS ---
Author Organization [facility] Address [address] [place] [address] Care Team Providers Care Manufacturing Engineering Professor Name Role Phone Ede Aguilar Primary Care Provider [phone] REASON FOR VISIT 4 week F/U Medications [...] Female Encounters Encounter Location Date Provider Diagnosis [address] [place] [address] 09/17/2024 Ede Aguilar Plan Of Treatment No Information Progress Notes * Deysi HANCOCKlaloDOB: [birth year] (39 yo F)Acc No.[id number]:09/17/2024 UNLOCKED PROGRESS NOTE Patient: Christiano KUMARMIQUELDeysi Merinoica Provider: Ailyn Aguilar APN :1985 A ge:39 Y S ex:Female Date:09/17/2024 [id number] Subjective: * Chief Complaints: * 1 . [...] * Electronic signature of Ede Aguilar on 12/23/2024 at 12:59 AM CDT Sign off status: Pending * Provider: Ailyn Aguilar APN Date: 0 09/17/2024 Generated for Kendra stone/Alma/Taon on: 0 12/23/2024 12:59 AM CDT
--- OUTSIDE RECORDS SUMMARY | 2024-12-23 01:00 | XMS_ITS | Clinical Summary ---
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
--- OUTSIDE RECORDS SUMMARY | 2024-12-23 01:00 | XMS_ITS | Data Portability ---
Author Organization [facility] Pappas Address [address] [place] [address] Care Team Providers Care Track Worker Name Role Phone ZAIRA MARCELINO Primary Care Provider [phone] Assessment No assessment recorded. Plan of Treatment Reminders Order Date Submit Date Provider Last Modified By Organization Details Last Modified Time Details Appointments None recorded. Lab CBC w/ auto diff 2024 025 [facility], [address] [place] [address], [place] [address], [place], [address], 5 10:11:22 CMP, serum or plasma 2024 025 [facility], [address] [place] [address], [place] [address], [place], [address], 5 10:11:18 PT/PTT, plasma 2024 025 [facility], [address] [place] [address], [place] [address], [place], [address], 5 10:11:24 ESR (erythrocy te sedimentat ion rate), blood 2024 025 [facility], [address] [place] [address], [facility] [address], [place], [address], 5 10:11:23 hepatitis panel (A+B+C), acute, serum 2024 025 [facility], [address], [address], [place], [place], [address], 5 10:11:16 HIV 1 + 2, meaningful use set 2024 025 [facility], [address], [address], [place], [address], 5 10:11:25 urinalysis , complete 2024 025 [facility], [address], [address], [place], [address], 5 10:11:21 HbA1c (hemoglobi n A1c), blood 2024 025 [facility], [address], [place], [address], 5 10:11:20 CMP, serum or plasma 2023 024 [facility], [address], [place], [address], 4 22:09:46 lipid panel, serum 2023 024 [facility], [address], [place], [address], 4 22:09:45 CBC w/ auto diff 2023 024 [facility], [address], [place], [address], 4 22:09:47 TSH + free T4, serum 2023 024 [facility], [address], [place], [address], 4 10:17:18 HbA1c (hemoglobi n A1c), blood 2023 024 [facility], [address], [place], [address], 4 10:17:19 cytology report, thin prep, smear or scraping, cervical or vaginal 2022 023 [facility], [address] [facility], [address], [place], [address], 3 23:02:55 bacterial vaginosis score, RUKHSANA+probe, vaginal fluid (OBS) 2022 023 [facility], [address] [facility], [address], [place], [address], 3 08:25:05 Referral gynecologi c surgery referral 2023 024 [email or web address] [facility], [address], [place], [address], 4 08:14:04 dermatolog ist referral 2023 024 [email or web address] [facility] [place] [facility], [address] [place] [address] , [place], [address], 4 08:14:05 Procedures electrocar diogram, routine ECG, 12 leads min; interpreta tion and report (PROC) 2024 025 [facility] [address], [place], [address], 5 08:53:34 Surgeries None recorded. Imaging polysomnog alia 2022 023 [facility], [address] [place], [address], 4 15:23:00 Medication Orders albuterol sulfate HFA 90 mcg/actuat ion aerosol inhaler 2023 024 [id number], [address], [place], [place], [id number], 16:09:40 gabapentin 300 mg capsule 2023 024 [id number], [address], [place], [place], [id number], 16:15:30 Patient TargetsNo targets recorded. 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 S kin tag skin tag to L nipple Referring Physician: Zaira Marcelino [facility], Encounter Date: 07/08/2024 Results Created Date Observation Date Name Description Value Unit Range Abnormal Flag Note LastModifiedBy Organization Detail LastModifiedTime 08/07/2008/13/2023 NUA B VG+, HSV atopobium vaginae Low - 0 score Not Available [facility] [address] [facility], [place], [address], 08/15/2023 08:25:05 08/07/2008/13/2023 NUSWA B VG+, HSV bvab 2 Low - 0 score Not Available [facility]) [address] [facility], [place], [address], 08/15/2023 08:25:05 08/07/20 23 08/13/2023 NUSWA B [...] Drug Admin istra tion. Not Available [facility] ([facility]) [address] [place], [address], 08/15/2023 08:25:05 08/07/2008/13/2023 NUSWA B VG+, HSV chris albicans, RUKHSANA Negati ve negati ve Not Available [facility]) [address] [place], [address], 08/15/2023 08:25:05 08/07/20 23 08/13/2023 NUSWA B VG+, HSV chris glabrata, RUKHSANA Negati ve negati ve Not Available [facility] ([facility]) [address] [place], [address], 08/15/2023 08:25:05 08/07/2008/13/2023 NUSWA B VG+, HSV chlamydia trachomatis, RUKHSANA Negati ve negati ve Not Available [facility]) [address] [place], [address], 08/15/2023 08:25:05 08/07/20 23 08/13/2023 NUSWA B VG+, HSV neisseria gonorrhoeae, RUKHSANA Negati ve negati ve Not Available [facility]) [address] [facility], [place], [address], 08/15/2023 08:25:05 08/07/20 23 08/13/2023 NUSWA B VG+, HSV hsv 1 RUKHSANA Negati ve negati ve Not Available [facility]) [address] [facility], [place], [address], 08/15/2023 08:25:05 08/07/20 23 08/13/2023 NUSWA B VG+, HSV hsv 2 RUKHSANA Negati ve negati ve Not Available [facility]) [address] [facility], [place], [address], 08/15/2023 08:25:05 08/07/20 23 08/15/2023 NUSWA B VG+, HSV trich vag by RUKHSANA Negati ve negati ve Not Available [facility]) [address] [facility], [place], [address], 08/15/2023 08:25:05 08/07/20 23 08/09/2023 IGP, APTIM A HPV, RFX 16/18 ,45 diagnosis: Commen t NEGAT BARRON FOR INTRA EPITH ELIAL LESIO N OR MALMICHAEL PERLITA . Not Available [facility]) [address] [facility], [place], [address], 08/15/2023 16:03:28 08/07/20 23 08/09/2023 IGP, APTIM A HPV, RFX 16/18 ,45 specimen adequacy: Commen t Satis facto ry for evalu ation . Endoc ervic al and/o r squam ous metap lasti c cells (endo cervi jeffry compo nent) are prese nt. Not Available [facility]) [address] [facility], [place], [address], 08/15/2023 16:03:28 08/07/20 23 08/09/2023 IGP, APTIM A HPV, RFX 16/18 ,45 clinician provided ICD10: Oksana lechuga Z12.4 Not Available [facility]) [address] [place], [address], 08/15/2023 16:03:28 08/07/20 23 08/09/2023 IGP, APTIM A HPV, RFX 16/18 ,45 performed by: Oksana salcido, Cytoalexandrea lechuga (ASCP ) Not Available [facility]) [address] [place], [address], 08/15/2023 16:03:28 08/07/20 23 08/09/2023 IGP, APTIM A HPV, RFX 16/18 ,45 . . Not Available [facility] [address] [place], [address], 08/15/2023 16:03:28 08/07/20 23 08/09/2023 IGP, APTIM [...] ts do occur . Not Available [facility]) [address] [place], [address], 08/15/2023 16:03:28 08/07/20 23 08/09/2023 IGP, APTIM A HPV, RFX 16/18 ,45 test methodology: Oksana lechuga This liqui d based ThinP rep(R ) pap test was scree beronica with the use of an image guide julia nichole. Not Available [facility]) [address] [facility], [place], [address], 08/15/2023 16:03:28 08/07/20 23 08/09/2023 IGP, APTIM A HPV, RFX 16/18 ,45 HPV aptima Negati ve negati ve This nucle ic acid ampli ficat ion test detec ts fourt een high- risk HPV types (16,1 8,31, 33,35 ,39,4 5,51, 52,56 ,58,5 9,66, 68) witho ut diffe renti ation . Not Available [facility] [address] [facility], [place], [address], 08/15/2023 16:03:28 08/07/20 23 08/09/2023 IGP, APTIM A HPV, RFX 16/18 ,45 HPV genotype reflex Commen t Crite tierra not met, HPV Genot ype not perfo rmed. Not Available [facility]) [address] [facility], [place], [address], 08/15/2023 16:03:28 01/30/20 24 01/30/2024 LIPID PANEL WITH LDL/H DL RATIO cholesterol, total 223 mg/dL 100-19 9 above high normal Not Available [facility] Department [address] [place], [address], 01/30/2024 22:09:45 01/30/20 24 01/30/2024 LIPID PANEL WITH LDL/H DL RATIO triglyceride s 127 mg/dL 0-[address] [facility] Department [address] [place], [address], 01/30/2024 22:09:45 01/30/20 24 01/30/2024 LIPID PANEL WITH LDL/H DL RATIO HDL cholesterol 48 mg/dL 40-999 Not Available [facility] Department [address] [place], [address], 01/30/2024 22:09:45 01/30/20 24 01/30/2024 LIPID PANEL WITH LDL/H DL RATIO VLDL cholesterol jeffry 25 mg/dL 5-[address] [facility] Department [address] [place] [address], [address], 01/30/2024 22:09:45 01/30/20 24 01/30/2024 LIPID PANEL WITH LDL/H DL RATIO LDL chol calc (nih) 168 mg/dL 0-99 above high normal Not Available [facility] Department [address] [place] [address], [address], 01/30/2024 22:09:45 01/30/20 24 01/30/2024 LIPID PANEL WITH LDL/H DL RATIO LDL/HDL ratio 3.5 0-3.2 above high normal Not Available [facility] Department [address] [place] [address], [address], 01/30/2024 22:09:45 01/30/20 24 01/30/2024 COMP. METAB OLIC PANEL (14) glucose 131 mg/dL 70-99 above high normal Not Available [facility] [address] [place] [address], [address], 01/30/2024 22:09:46 01/30/20 24 01/30/2024 COMP. METAB OLIC PANEL (14) BUN 14 mg/dL 6-20 Not Available [facility] [address] [place] [address], [address], 01/30/2024 22:09:46 01/30/20 24 01/30/2024 COMP. METAB OLIC PANEL (14) creatinine 0.87 mg/dL 0.76-1 .27 Not Available [facility] [address] [place] [address], [address], 01/30/2024 22:09:46 01/30/20 24 01/30/2024 COMP. METAB OLIC PANEL (14) eGFR 87 >=60 Units for eGFR value s are mL/mi n/1.7 3 The eGFR Calcu latio n has not been valid ated for patie nts under the age of 18. If test resul ts are displ ayed for a patie nt under the age of 18, disre nina that value . Not Available [facility] [address] [place] [address], [address], 01/30/2024 22:09:46 01/30/20 24 01/30/2024 COMP. METAB OLIC PANEL (14) BUN/creatini ne ratio 16 9-[address] [facility] Department [address] [place] [address], [address], 01/30/2024 22:09:46 01/30/20 24 01/30/2024 COMP. METAB OLIC PANEL (14) sodium 141 mmol/ L 134-14 4 Not Available [facility] [address] [place] [address], [address], 01/30/2024 22:09:46 01/30/20 24 01/30/2024 COMP. METAB OLIC PANEL (14) potassium 4.5 mmol/ L 3.5-5. 2 Not Available [facility] [address] [place] [address], [address], 01/30/2024 22:09:46 01/30/20 24 01/30/2024 COMP. METAB OLIC PANEL (14) chloride 101 mmol/ L 96-106 Not Available [facility] [address] [place] [address], [address], 01/30/2024 22:09:46 01/30/20 24 01/30/2024 COMP. METAB OLIC PANEL (14) carbon dioxide, total 23 mmol/ L 20-29 Not Available [facility] [address] [place] [address], [address], 01/30/2024 22:09:46 01/30/20 24 01/30/2024 COMP. METAB OLIC PANEL (14) calcium 9.9 mg/dL 8.7-10 .2 Not Available [facility] [address] [place] [address], [address], 01/30/2024 22:09:46 01/30/20 24 01/30/2024 COMP. METAB OLIC PANEL (14) protein, total 7.5 g/dL 6.0-8. 5 Not Available [facility] [address] [place], [address], 01/30/2024 22:09:46 01/30/20 24 01/30/2024 COMP. METAB OLIC PANEL (14) albumin 4.6 g/dL 3.9-4. 9 Not Available [facility] [address] [place], [address], 01/30/2024 22:09:46 01/30/20 24 01/30/2024 COMP. METAB OLIC PANEL (14) globulin, total 2.9 g/dL 1.5-4. 5 Not Available [facility] [address] [place], [address], 01/30/2024 22:09:46 01/30/20 24 01/30/2024 COMP. METAB OLIC PANEL (14) A/G ratio 2.0 1.2-2. 2 Not Available [facility] [address] [place], [address], 01/30/2024 22:09:46 01/30/20 24 01/30/2024 COMP. METAB OLIC PANEL (14) bilirubin, total 0.3 mg/dL 0.0-1. 2 Not Available [facility] [address] [place], [address], 01/30/2024 22:09:46 01/30/20 24 01/30/2024 COMP. METAB OLIC PANEL (14) alkaline phosphatase 82 IU/L 44-121 Not Available [facility] Department [address] [place], [address], 01/30/2024 22:09:46 01/30/20 24 01/30/2024 COMP. METAB OLIC PANEL (14) AST (SGOT) 10 IU/L 0-40 Not Available [facility] [address] [place], [address], 01/30/2024 22:09:46 01/30/20 24 01/30/2024 COMP. METAB OLIC PANEL (14) ALT (SGPT) 10 IU/L 0-32 Not Available [facility] [address] [place], [address], 01/30/2024 22:09:46 01/30/20 24 01/30/2024 CBC WITH DIFFE RENTI AL/PL ATELE T WBC 8.4 x10e3 /uL 3.4-10 .8 Not Available [facility] [address] [place], [address], 01/30/2024 22:09:47 01/30/20 24 01/30/2024 CBC WITH DIFFE RENTI AL/PL ATELE T RBC 4.42 x10e6 /uL 3.77-5 .28 Not Available [facility] [address] [place], [address], 01/30/2024 22:09:47 01/30/20 24 01/30/2024 CBC WITH DIFFE RENTI AL/PL ATELE T hemoglobin 12.4 g/dL 11.1-1 5.9 Not Available [facility] [address] [place], [address], 01/30/2024 22:09:47 01/30/20 24 01/30/2024 CBC WITH DIFFE RENTI AL/PL ATELE T hematocrit 39.6 % 34.0-4 6.6 Not Available [facility] [address] [place], [address], 01/30/2024 22:09:47 01/30/20 24 01/30/2024 CBC WITH DIFFE RENTI AL/PL ATELE T MCV 90 fL 79-97 Not Available [facility] [address] [place], [address], 01/30/2024 22:09:47 01/30/20 24 01/30/2024 CBC WITH DIFFE RENTI AL/PL ATELE T MCH 28.1 pg 26.6-3 3.0 Not Available [facility] [address] [place], [address], 01/30/2024 22:09:47 01/30/20 24 01/30/2024 CBC WITH DIFFE RENTI AL/PL ATELE T MCHC 31.3 g/dL 31.5-3 5.7 below low normal Not Available [facility] [address] [place], [address], 01/30/2024 22:09:47 01/30/20 24 01/30/2024 CBC WITH DIFFE RENTI AL/PL ATELE T RDW 12.9 % 11.5-1 4.5 Not Available [facility] [address] [place], [address], 01/30/2024 22:09:47 01/30/20 24 01/30/2024 CBC WITH DIFFE RENTI AL/PL ATELE T platelets 328 x10e3 /uL 150-45 0 Not Available [facility] [address] [place], [address], 01/30/2024 22:09:47 01/30/20 24 01/30/2024 CBC WITH DIFFE RENTI AL/PL ATELE T neutrophils 75 % notest b. Not Available [facility] [address] [place], [address], 01/30/2024 22:09:47 01/30/20 24 01/30/2024 CBC WITH DIFFE RENTI AL/PL ATELE T lymphs 19 % notest b. Not Available [facility] [address] [place], [address], 01/30/2024 22:09:47 01/30/20 24 01/30/2024 CBC WITH DIFFE RENTI AL/PL ATELE T monocytes 4 % notest b. Not Available [facility] [address] [place] [address], [address], 01/30/2024 22:09:47 01/30/20 24 01/30/2024 CBC WITH DIFFE RENTI AL/PL ATELE T eos 1 % notest b. Not Available [facility] [address] [place] [address], [address], 01/30/2024 22:09:47 01/30/20 24 01/30/2024 CBC WITH DIFFE RENTI AL/PL ATELE T basos 1 % notest b. Not Available [facility] [address] [place] [address], [address], 01/30/2024 22:09:47 01/30/20 24 01/30/2024 CBC WITH DIFFE RENTI AL/PL ATELE T neutrophils (absolute) 6.3 x10e3 /uL 1.4-7. 0 Not Available [facility] [address] [place] [address], [address], 01/30/2024 22:09:47 01/30/20 24 01/30/2024 CBC WITH DIFFE RENTI AL/PL ATELE T lymphs (absolute) 1.6 x10e3 /uL 0.7-3. 1 Not Available [facility] [address] [place] [address], [address], 01/30/2024 22:09:47 01/30/20 24 01/30/2024 CBC WITH DIFFE RENTI AL/PL ATELE T monocytes(ab solute) 0.4 x10e3 /uL 0.1-0. 9 Not Available [facility] [address] [place] [address], [address], 01/30/2024 22:09:47 01/30/20 24 01/30/2024 CBC WITH DIFFE RENTI AL/PL ATELE T eos (absolute) 0.1 x10e3 /uL 0.0-0. 4 Not Available [facility] [address] [place] [address], [address], 01/30/2024 22:09:47 01/30/20 24 01/30/2024 CBC WITH DIFFE RENTI AL/PL ATELE T baso (absolute) 0.1 x10e3 /uL 0.0-0. 2 Not Available [facility] [address] [place] [address], [address], 01/30/2024 22:09:47 01/30/20 24 01/30/2024 CBC WITH DIFFE RENTI AL/PL ATELE T immature granulocytes 0.2 % notest b. Not Available [facility] [address] [place] [address], [address], 01/30/2024 22:09:47 01/30/20 24 01/30/2024 CBC WITH DIFFE RENTI AL/PL ATELE T immature grans (abs) 0.0 x10e3 /uL 0.0-0. 1 Not Available [facility] [address] [place] [address], [address], 01/30/2024 22:09:47 01/30/20 24 01/30/2024 CBC WITH DIFFE RENTI AL/PL ATELE T NRBC 0 % 0-0 Not Available [facility] [address] [place] [address], [address], 01/30/2024 22:09:47 01/30/20 24 01/31/2024 TSH+F REE T4 TSH 2.770 uIU/m L 0.450- 4.500 Not Available [facility]) [address] [facility], [place], [address], 01/31/2024 10:17:18 01/30/20 24 01/31/2024 TSH+F REE T4 T4,free(dire ct) 1.03 NG/dL 0.82-1 .77 Not Available [facility]) [address] [facility], [place], [address], 01/31/2024 10:17:18 01/30/20 24 01/31/2024 HEMOG LOBIN A1C hemoglobin A1C 6.4 % 4.8-5. 6 above high normal Predi abete s: 5.7 - 6.4 Diabe david: >6.4 Glyce herminia contr ol for adult s with diabe david: <7.0 Not Available [facility] ([facility]) [address] [facility], [place], [address], 01/31/2024 10:17:19 09/16/19 25 09/17/2024 ACUTE HEPAT ITIS hep A Ab, IgM NEGATI VE negati ve A negat barron anti- HAV IgM resul t sugge sts no recen t or curre nt HAV infec tion. Not Available [facility] ([facility]) [address] [facility], [place], [address], 09/17/2024 10:11:16 09/16/19 25 09/17/2024 ACUTE HEPAT ITIS HBsAg screen NEGATI VE negati ve Not Available [facility]) [address] [place], [address], 09/17/2024 10:11:16 09/16/19 25 09/17/2024 ACUTE HEPAT ITIS hep B core Ab, IgM NEGATI VE negati ve Not Available [facility]) [address] [place], [address], 09/17/2024 10:11:16 09/16/19 25 09/17/2024 ACUTE HEPAT ITIS HCV Ab NON REACTI VE nonrea ctive Not Available [facility] ([facility]) [address] [place], [address], 09/17/2024 10:11:16 09/16/19 25 09/17/2024 INTER PRETA TION: interpretati on: Commen t Not infec rosario with HCV unles s early or acute infec tion is suspe cted (whic h may be delay ed in an immun ocomp romis ed indiv idual ), or other evide nce exist s to indic ate HCV infec tion. Not Available [facility] ([facility]) [address] [place], [address], 09/17/2024 10:11:17 09/16/19 25 09/17/2024 COMP. METAB OLIC PANEL (14) glucose 119 mg/dL 70-99 above high normal Not Available [facility] ([facility]) [address] [place], [address], 09/17/2024 10:11:18 09/16/19 25 09/17/2024 COMP. METAB OLIC PANEL (14) BUN 17 mg/dL 6-20 Not Available [facility] ([facility]) [address] [place], [address], 09/17/2024 10:11:18 09/16/19 25 09/17/2024 COMP. METAB OLIC PANEL (14) creatinine 1.04 mg/dL 0.57-1 .00 above high normal Not Available [facility] ([facility]) [address] [place], [address], 09/17/2024 10:11:18 09/16/19 25 09/17/2024 COMP. METAB OLIC PANEL (14) eGFR 70 mL/mi n/1.7 3 >59 Not Available [facility] ([facility]) [address] [place], [address], 09/17/2024 10:11:18 09/16/19 25 09/17/2024 COMP. METAB OLIC PANEL (14) BUN/creatini ne ratio 16 9-23 Not Available [facility] [address] [place], [address], 09/17/2024 10:11:18 09/16/19 25 09/17/2024 COMP. METAB OLIC PANEL (14) sodium 138 mmol/ L 134-14 4 Not Available [facility] ([facility]) [address] [facility], [place], [address], 09/17/2024 10:11:18 09/16/19 25 09/17/2024 COMP. METAB OLIC PANEL (14) potassium 4.7 mmol/ L 3.5-5. 2 Not Available [facility] ([facility]) [address] [facility], [place], [address], 09/17/2024 10:11:18 09/16/19 25 09/17/2024 COMP. METAB OLIC PANEL (14) chloride 101 mmol/ L 96-106 Not Available [facility] ([facility]) [address] [facility] [place], [address], 09/17/2024 10:11:18 09/16/19 25 09/17/2024 COMP. METAB OLIC PANEL (14) carbon dioxide, total 23 mmol/ L 20-29 Not Available [facility] ([facility]) [address] [facility], [place], [address], 09/17/2024 10:11:18 09/16/19 25 09/17/2024 COMP. METAB OLIC PANEL (14) calcium 9.7 mg/dL 8.7-10 .2 Not Available [facility]) [address] [facility] [place], [address], 09/17/2024 10:11:18 09/16/19 25 09/17/2024 COMP. METAB OLIC PANEL (14) protein, total 7.1 g/dL 6.0-8. 5 Not Available [facility] ([facility]) [address] [facility] [place], [address], 09/17/2024 10:11:18 09/16/19 25 09/17/2024 COMP. METAB OLIC PANEL (14) albumin 4.6 g/dL 3.9-4. 9 Not Available [facility] ([facility]) [address] [place], [address], 09/17/2024 10:11:18 09/16/19 25 09/17/2024 COMP. METAB OLIC PANEL (14) globulin, total 2.5 g/dL 1.5-4. 5 Not Available [facility] ([facility]) [address] [place], [address], 09/17/2024 10:11:18 09/16/19 25 09/17/2024 COMP. METAB OLIC PANEL (14) bilirubin, total <0.2 mg/dL 0.0-1. 2 Not Available [facility]) [address] [place], [address], 09/17/2024 10:11:18 09/16/19 25 09/17/2024 COMP. METAB OLIC PANEL (14) alkaline phosphatase 70 IU/L 44-121 Not Available [facility] [address] [place], [address], 09/17/2024 10:11:18 09/16/19 25 09/17/2024 COMP. METAB OLIC PANEL (14) AST (SGOT) 15 IU/L 0-40 Not Available [facility] ([facility]) [address] [place], [address], 09/17/2024 10:11:18 09/16/19 25 09/17/2024 COMP. METAB OLIC PANEL (14) ALT (SGPT) 14 IU/L 0-32 Not Available [facility] ([facility]) [address] [place], [address], 09/17/2024 10:11:18 09/16/19 25 09/17/2024 MICRO SCOPI C EXAMI NATIO N WBC 0-5 /hpf 0-5 Not Available [facility] ([facility]) [address] [facility], [place], [address], 09/17/2024 10:11:19 09/16/19 25 09/17/2024 MICRO SCOPI C EXAMI NATIO N RBC None seen /hpf 0-2 Not Available [facility] ([facility]) [address] [facility], [place], [address], 09/17/2024 10:11:19 09/16/19 25 09/17/2024 MICRO SCOPI C EXAMI NATIO N epithelial cells (non renal) 0-10 /hpf 0-10 Not Available [facility] ([facility]) [address] [facility], [place], [address], 09/17/2024 10:11:19 09/16/19 25 09/17/2024 MICRO SCOPI C EXAMI NATIO N casts None seen /lpf nonese en Not Available [facility] ([facility]) [address] [facility], [place], [address], 09/17/2024 10:11:19 09/16/19 25 09/17/2024 MICRO SCOPI C EXAMI NATIO N bacteria Modera te nonese en/few abnormal Not Available [facility] ([facility]) [address] [facility], [place], [address], 09/17/2024 10:11:19 09/16/19 25 09/17/2024 HEMOG LOBIN A1C hemoglobin A1C 5.9 % 4.8-5. 6 above high normal Predi abete s: 5.7 - 6.4 Diabe david: >6.4 Glyce herminia contr ol for adult s with diabe david: <7.0 Not Available [facility] ([facility]) [address] [facility], [place], [address], 09/17/2024 10:11:20 09/16/19 25 09/17/2024 URINA LYSIS , COMPL ETE specific gravity 1.008 1.005- 1.030 Not Available [facility] ([facility]) [address] [place], [address], 09/17/2024 10:11:21 09/16/19 25 09/17/2024 URINA LYSIS , COMPL ETE pH 6.0 5.0-7. 5 Not Available [facility] ([facility]) [address] [facility], [place], [address], 09/17/2024 10:11:21 09/16/19 25 09/17/2024 URINA LYSIS , COMPL ETE urine-color YELLOW yellow Not Available [facility] ([facility]) [address] [place], [address], 09/17/2024 10:11:21 09/16/19 25 09/17/2024 URINA LYSIS , COMPL ETE appearance CLEAR clear Not Available [facility] ([facility]) [address] [place], [address], 09/17/2024 10:11:21 09/16/19 25 09/17/2024 URINA LYSIS , COMPL ETE WBC esterase NEGATI VE negati ve Not Available [facility] ([facility]) [address] [place], [address], 09/17/2024 10:11:21 09/16/19 25 09/17/2024 URINA LYSIS , COMPL ETE protein NEGATI VE negati ve/tra ce Not Available [facility] ([facility]) [address] [place], [address], 09/17/2024 10:11:21 09/16/19 25 09/17/2024 URINA LYSIS , COMPL ETE glucose NEGATI VE negati ve Not Available [facility] ([facility]) [address] [place], [address], 09/17/2024 10:11:21 09/16/19 25 09/17/2024 URINA LYSIS , COMPL ETE ketones NEGATI VE negati ve Not Available [facility] ([facility]) [address] [place], [address], 09/17/2024 10:11:21 09/16/19 25 09/17/2024 URINA LYSIS , COMPL ETE occult blood NEGATI VE negati ve Not Available [facility] ([facility]) [address] [facility], [place], [address], 09/17/2024 10:11:21 09/16/19 25 09/17/2024 URINA LYSIS , COMPL ETE bilirubin NEGATI VE negati ve Not Available [facility] ([facility]) [address] [facility], [place], [address], 09/17/2024 10:11:21 09/16/19 25 09/17/2024 URINA LYSIS , COMPL ETE urobilinogen ,semi-qn 0.2 mg/dL 0.2-1. 0 Not Available [facility] ([facility]) [address] [facility], [place], [address], 09/17/2024 10:11:21 09/16/19 25 09/17/2024 URINA LYSIS , COMPL ETE nitrite, urine NEGATI VE negati ve Not Available [facility] ([facility]) [address] [place], [address], 09/17/2024 10:11:21 09/16/19 25 09/17/2024 URINA LYSIS , COMPL ETE microscopic examination COMMEN T Micro scopi c follo ws if indic ated. Not Available [facility] ([facility]) [address] [place], [address], 09/17/2024 10:11:21 09/16/19 25 09/17/2024 URINA LYSIS , COMPL ETE microscopic examination SEE BELOW: Micro scopi c was indic ated and was perfo rmed. Not Available [facility] ([facility]) [address] [facility], [place], [address], 09/17/2024 10:11:21 09/16/19 25 09/17/2024 CBC WITH DIFFE RENTI AL/PL ATELE T WBC 9.2 x10e3 /uL 3.4-10 .8 Not Available [facility] ([facility]) [address] [facility], [place], [address], 09/17/2024 10:11:22 09/16/19 25 09/17/2024 CBC WITH DIFFE RENTI AL/PL ATELE T RBC 4.63 x10e6 /uL 3.77-5 .28 Not Available [facility] ([facility]) [address] [facility], [place], [address], 09/17/2024 10:11:22 09/16/19 25 09/17/2024 CBC WITH DIFFE RENTI AL/PL ATELE T hemoglobin 12.9 g/dL 11.1-1 5.9 Not Available [facility] ([facility]) [address] [facility], [place], [address], 09/17/2024 10:11:22 09/16/19 25 09/17/2024 CBC WITH DIFFE RENTI AL/PL ATELE T hematocrit 40.5 % 34.0-4 6.6 Not Available [facility] ([facility]) [address] [facility], [place], [address], 09/17/2024 10:11:22 09/16/19 25 09/17/2024 CBC WITH DIFFE RENTI AL/PL ATELE T MCV 88 fL 79-97 Not Available [facility] ([facility]) [address] [facility], [place], [address], 09/17/2024 10:11:22 09/16/19 25 09/17/2024 CBC WITH DIFFE RENTI AL/PL ATELE T MCH 27.9 pg 26.6-3 3.0 Not Available [facility] ([facility]) [address] [facility], [place], [address], 09/17/2024 10:11:22 09/16/19 25 09/17/2024 CBC WITH DIFFE RENTI AL/PL ATELE T MCHC 31.9 g/dL 31.5-3 5.7 Not Available [facility] ([facility]) [address] [facility], [place], [address], 09/17/2024 10:11:22 09/16/19 25 09/17/2024 CBC WITH DIFFE RENTI AL/PL ATELE T RDW 13.1 % 11.7-1 5.4 Not Available [facility] ([facility]) [address] [facility], [place], [address], 09/17/2024 10:11:22 09/16/19 25 09/17/2024 CBC WITH DIFFE RENTI AL/PL ATELE T platelets 319 x10e3 /uL 150-45 0 Not Available [facility] ([facility]) [address] [facility], [place], [address], 09/17/2024 10:11:22 09/16/19 25 09/17/2024 CBC WITH DIFFE RENTI AL/PL ATELE T neutrophils 74 % notest ab. Not Available [facility] ([facility]) [address] [facility], [place], [address], 09/17/2024 10:11:22 09/16/19 25 09/17/2024 CBC WITH DIFFE RENTI AL/PL ATELE T lymphs 19 % notest ab. Not Available [facility] ([facility]) [address] [facility], [place], [address], 09/17/2024 10:11:22 09/16/19 25 09/17/2024 CBC WITH DIFFE RENTI AL/PL ATELE T monocytes 4 % notest ab. Not Available [facility] ([facility]) [address] [facility], [place], [address], 09/17/2024 10:11:22 09/16/19 25 09/17/2024 CBC WITH DIFFE RENTI AL/PL ATELE T eos 2 % notest ab. Not Available [facility] ([facility]) [address] [facility], [place], [address], 09/17/2024 10:11:22 09/16/19 25 09/17/2024 CBC WITH DIFFE RENTI AL/PL ATELE T basos 1 % notest ab. Not Available [facility] ([facility]) [address] [place], [address], 09/17/2024 10:11:22 09/16/19 25 09/17/2024 CBC WITH DIFFE RENTI AL/PL ATELE T neutrophils (absolute) 6.8 x10e3 /uL 1.4-7. 0 Not Available [facility] ([facility]) [address] [place], [address], 09/17/2024 10:11:22 09/16/19 25 09/17/2024 CBC WITH DIFFE RENTI AL/PL ATELE T lymphs (absolute) 1.8 x10e3 /uL 0.7-3. 1 Not Available [facility] ([facility]) [address] [place], [address], 09/17/2024 10:11:22 09/16/19 25 09/17/2024 CBC WITH DIFFE RENTI AL/PL ATELE T monocytes(ab solute) 0.4 x10e3 /uL 0.1-0. 9 Not Available [facility] ([facility]) [address] [place], [address], 09/17/2024 10:11:22 09/16/19 25 09/17/2024 CBC WITH DIFFE RENTI AL/PL ATELE T eos (absolute) 0.1 x10e3 /uL 0.0-0. 4 Not Available [facility] ([facility]) [address] [facility] [place], [address], 09/17/2024 10:11:22 09/16/19 25 09/17/2024 CBC WITH DIFFE RENTI AL/PL ATELE T baso (absolute) 0.1 x10e3 /uL 0.0-0. 2 Not Available [facility] ([facility]) [address] [facility], [place], [address], 09/17/2024 10:11:22 09/16/19 25 09/17/2024 CBC WITH DIFFE RENTI AL/PL ATELE T immature granulocytes 0 % notest ab. Not Available [facility] ([facility]) [address] [facility], [place], [address], 09/17/2024 10:11:22 09/16/19 25 09/17/2024 CBC WITH DIFFE RENTI AL/PL ATELE T immature grans (abs) 0.0 x10e3 /uL 0.0-0. 1 Not Available [facility] ([facility]) [address] [facility], [place], [address], 09/17/2024 10:11:22 09/16/19 25 09/17/2024 SEDIM ENTAT ION RATE- WESTE RGREN sedimentatio n rate-westerg zach 9 mm/HR 0-32 Not Available [facility] ([facility]) [address] [facility], [place], [address], 09/17/2024 10:11:23 09/16/19 25 09/17/2024 PT AND [...] range 2.5 - 3.5 Not Available [facility] ([facility]) [address] [facility], [place], [address], 09/17/2024 10:11:24 09/16/19 25 09/17/2024 PT AND PTT prothrombin time 10.6 sec 9.1-12 .0 Not Available [facility] ([facility]) [address] [facility], [place], [address], 09/17/2024 10:11:24 09/16/19 25 09/17/2024 PT AND [...] tory of Noreen milner. Not Available [facility] ([facility]) [address] [facility], [place], [address], 09/17/2024 10:11:24 09/16/19 25 09/17/2024 HIV AB/P2 4 AG WITH REFLE X HIV Ab/P24 Ag screen NON REACTI VE nonrea ctive HIV-1 /HIV- 2 antib odies and HIV-1 p24 antig en were NOT detec rosario. There is no labor atory evide nce of HIV infec tion. HIV Negat barron Not Available [facility] ([facility]) [address] [facility], [place], [address], 09/17/2024 10:11:25 07/12/20 23 07/12/2023 XR, chest , 2 view No observ ation record ed. [address] [place] [address], [address], 07/14/2023 20:19:08 11/28/19 24 11/27/2023 CT, cervi jeffry spine , w/o contr ast No observ ation record ed. [address], [place], [address], 11/28/2023 12:47:28 09/17/19 25 09/16/2024 jam yas brett am, harish ne ECG, 12 leads min; inter preta tion and repor t (PROC ) No observ ation record ed. [facility] ([facility]) [address] [facility] [address], [place], [address], 09/18/2024 08:53:35 Result Notes None recorded. Problems Name Problem SNOMED Code Status Onset Date Resolution Date Notes Provider Name and Address Organization Details Recorded Time History of depression 496409002 Active 2017 Not Available [facility] 11:42:50 Body mass index 40+ - severely obese 577544485 Active 2017 Not Available [facility] 11:42:51 Hearing loss 14365364 Active 2017 Not Available [facility] 11:42:51 Allergic reaction to insect bite Active 2017 Not Available [facility] 11:42:51 Cerebral herniation 25468123 Active 2022 Tiara Lawrence MA null, [place] - [facility] 3 09:53:45 Mixed anxiety and depressive disorder 845072519 Active 2022 CESAR HARRIS Attn: Accounting ,[address], [place], [address] , [place] - [facility] 3 13:52:58 Allergic rhinitis 15361865 Active 2022 CESAR HARRIS Attn: Accounting ,[address], [place], [address] , [place] [facility] 3 13:52:52 Morbid obesity 818631193 Active 2022 CESAR HARRIS Attn: Accounting ,[address], [place], [address] , [place] [facility] 3 13:53:00 Exercise-i nduced asthma 72873589 Active 2022 CEASR HARRIS Attn: Accounting ,[address], [place], [address] , [place] [facility] 3 13:52:56 Essential hypertensi on 71583689 Active 2022 CESAR HARRIS Attn: Accounting ,[address] [facility], [place], [address] , [place] [facility] 3 13:52:54 Chronic neck pain 5614480022467 Active 2022 CESAR HARRIS Attn: Accounting ,[address] [place], [address] , [place] [facility] 3 13:53:45 Gastroesop hageal reflux disease without esophagiti s 886684111 Active 2022 CESAR HARRIS Attn: Accounting ,[address] [place], [address] , [place] [facility] 3 13:54:29 Hyperlipid emia 12314677 Active 2022 CESAR HARRIS Attn: Accounting ,[address] [place], [address] , [place] [facility] 3 10:46:44 Borderline personalit y disorder 23024398 Active 2023 CESAR HARRIS Attn: Accounting ,[address] [place], [address] , [place] [facility] 4 11:10:05 Bipolar II disorder 97566190 Active 2023 CESAR HARRIS Attn: Accounting ,[address] [place], [address] , [place] [facility] 4 21:37:14 Nausea and vomiting 81546079 Active Anna Tucker [place], [place] [facility] 5 09:05:49 Orthostati c headache 602954283 Active Anna Tucker [place], [place] [facility] 5 09:05:49 Diarrhea 98349278 Active Anna Tucker MA null, [place] - [facility] 09:05:49 Problem Notes None recorded. Procedures Surgical History Date Name Laterality Status Provider Name and Address Organization Details Recorded Time 08/07/20 23 Date of Last Pap Smear completed CESAR HARRIS Attn: Accounting,[address], [place], [address], [facility] - [facility] 07/08/2024 16:04:06 04/23/20 18 Endometrial Biopsy completed GEREMIAS Mcallister Attn: Accounting,[address], [place], [address], [facility] - [place] 04/23/2018 10:39:00 Tonsillectomy completed Paris Dumont MA [place] - [facility] 04/10/2018 16:11:28 Other completed Paris Dumont MA [place] - [facility] 04/10/2018 16:11:50 Other completed Paris Dumont MA [facility] 04/10/2018 16:12:20 Imaging Results Imaging Date Name Status LastModified by Organization Details LastModified Time 07/12/2023 XR, chest, 2 view completed [address], [address], 07/14/2023 20:19:08 11/27/2023 CT, cervical spine, w/o contrast completed [address], [address], 11/28/2023 12:47:28 09/16/2024 electrocardiogram, routine ECG, 12 leads min; interpretation and report (PROC) completed [facility] ([facility]) [address] [place] [address], [address], 09/18/2024 08:53:35 Procedure Notes None recorded. Medical Equipment None Reported. Allergies Allergen ID Allergen Name Allergen Category Reaction Reaction Severity Criticality Documentation Date Start Date Code Code System Note Provider Name and Address Organization Details Recorded Time 484902 amoxicill in medicatio n hives Not available Not available 04/10/2018 723 RxNorm Not Available Not Available Not Available 993319 tramadol medicatio n hallucina tions Not available Not available 04/10/2018 23107 RxNorm Not Available Not Available Not Available 258907 grass pollen environme nt,medica tion Not available Not available Not available 01/15/2023 17125 UNK Not Available Not Available Not Available 708895 hydroxyzi ne Not available hallucina tions Not [...] Not Available Not Available Sprintec (28) 0.25 mg-0.035 mg tablet Take 1 tablet every day [...] Updated DateTime 3 165.1 cm 44.1 kg/m2 249151. 98 g 99 % 99 % 82 /min Anna Tucker MA [facility] 3 12:18:22 Date Recorded Respiratory rate Systolic blood pressure Diastolic blood pressure Systolic blood pressure Diastolic blood pressure Provider Name and Address Organization Details Last Updated DateTime 3 18 /min 117 mm[Hg] 86 mm[Hg] 110 mm[Hg] 72 mm[Hg] CESAR HARRIS Attn: Dottie radha,[address] [place], [address], [facility] 3 12:45:34 Date Recorded Body height Body mass index (BMI) Body weight Systolic blood pressure Diastolic blood pressure Provider Name and Address Organization Details Last Updated DateTime 11/08/2023 165.1 cm 41.6 kg/m2 632147.0 9 g 163 mm[Hg] 75 mm[Hg] Anna Tucker MA [facility] 4 17:25:42 Date Recorded Oxygen saturation Oxygen saturation in Arterial blood by Pulse oximetry Heart rate Respiratory rate Systolic blood pressure Diastolic blood pressure Provider Name and Address Organization Details Last Updated DateTime 4 98 % 98 % 96 /min 18 /min 120 mm[Hg] 84 mm[Hg] CESAR HARRIS Attn: Saraparish garcia,[address] [place], [address], [facility] 4 17:37:31 Date Recorded Body height Respiratory rate Body mass index (BMI) Body weight Oxygen saturation Oxygen saturation in Arterial blood by Pulse oximetry Heart rate Systolic blood pressure Diastolic blood pressure Provider Name and Address Organization Details Last Updated DateTime 4 165.1 cm 16 /min 41.9 kg/m2 494047. 48 g 98 % 98 % 102 /min 126 mm[Hg] 81 mm[Hg] Tiara Lawrence MA [facility] 4 10:37:05 Date Recorded Heart rate Provider Name an d Address Organization Details Last Updated DateTime 01/30/2024 94 /min CESAR HARRIS Attn: Accounting,[address] , [place], [address], [facility] 01/30/2024 21:39:17 Date Recorded Body height Body mass index (BMI) Body weight Oxygen saturation Oxygen saturation in Arterial blood by Pulse oximetry Heart rate Respiratory rate Systolic blood pressure Diastolic blood pressure Provider Name and Address Organization Details Last Updated DateTime 4 165.1 cm 40.4 kg/m2 907333. 95 g 98 % 98 % 93 /min 17 /min 123 mm[Hg] 74 mm[Hg] Paola England MA [facility] 4 15:46:07 Date Recorded Body height Body mass index (BMI) Body weight Heart rate Respiratory rate Oxygen saturation Oxygen saturation in Arterial blood by Pulse oximetry Systolic blood pressure Diastolic blood pressure Provider Name and Address Organization Details Last Updated DateTime 5 165.1 cm 38.8 kg/m2 671250. 02 g 104 /min 16 /min 97 % 97 % 144 mm[Hg] 77 mm[Hg] Tiara Lawrence MA [facility] 5 12:29:43 Social History Question Answer Notes LastModified by Organizat ion Details LastModified Time Tobacco Smoking Status Former Smoker Anna Tucker MA null, [facility] 10/14/2020 14:19:07 What Is Your Level Of [...] Anxious, Or Unable To Sleep At Night)? [id number] Information not available 12/20/2020 Do You Use [...] Atrial Fibrillation N High Blood Pressure N Depression Y COPD N Blood Clots N Anxiety Disorder Y Acid Reflux (GERD) N Cancer N Stroke N Headaches N Kidney or Bladder Problems N Eating Disorder N Skin Problems Asthma Y Allergies Y Substance Abuse N Hepatitis N ADHD N High Cholesterol N Liver Disease N Schizophrenia N Thyroid Problems N GI Problems Y Anemia N Heart Attack (DC) N Diabetes N Osteoporosis N Heart Failure N Gynecological [...] 08/07/2023 completed CESAR HARRIS Attn: Accounting,[address] [place], [address], [place] [facility] 08/07/2023 17:01:35 Past Encounters Encounter ID Performer Location Encounter Start Date Encounter Closed Date Diagnosis/Indication Diagnosis SNOMED-CT Code Diagnosis ICD10 Code Diagnosis Note [id number] Olivier Self Saadia 14 IM [address] [facility] [place] [address] 04/10/2018 15:53:35 04/11/2018 10:28:24 History of depression 679211364 Z86.59 Body mass index 40+ - severely obese 826954858 Z68.41 [facility] th examination 181061722 Z00.00 Hearing loss 78953307 H9 1.93 [id number] GEREMIAS Mcallister 14 OB [address] [facility] [place] [address] 04/21/2018 09:25:52 04/21/2018 12:19:31 Routine gynecologic examination done 9156780733 9101 Z01.419 -Educated on the importance of [...] importance of sunscreen. Abnormal u terine bleeding 5883433443 9100 N93.9 CBC and TSH already ordered [...] 04/23/18. Body mass index 30+ - obesity 641416577 Z68.39 Patient counseled on obesity management . Patient reports she has been working on nutrition and exercise and lost 6 lbs in 2 weeks. Patient notified to continue to follow up as needed. Dysmenorrhea 142839540 N 94.6 take ibuprofen 600 mg with food every 8 hours as needed for menstrual cramps. pt educated about menstrual cramps and supported measure like stress reduction, nutrition, exercise. Call office if cramps worsen or pain is not controlled with med [id number] GEREMIAS Mcallister 14 OB [address] [facility] [address] [place], [place] [address], [place] [address] 04/23/2018 09:50:21 04/23/2018 11:45:38 Abnormal uterine bleeding 5344208268 9100 N93.9 CBC negative for anemia and [...] normal then Follow up in 3 months. [id number] Olivier Whitehead 14 IM [address] [facility] [address] [place], [place] [address], [place] [address] 04/24/2018 16:20:23 04/25/2018 10:13:46 Allergic reaction to insect bite 447852404 T78.40XA [id number] Merlyn Jeffers MD [facility] [address] [place] [address] 10/19/2019 15:28:58 10/26/2019 08:40:40 Mixed anxiety and depressive disorder 582479818 F41.8 Iron deficiency 53481269 E61.1 Restless legs 76690648 G 25.81 Menorrhagia 357104536 N9 2.0 Adult heal th examination 671618964 Z00.00 [id number] Merlyn Jeffers MD [facility] [address] [facility] [place] [address] 01/04/2020 10:10:46 01/05/2020 10:42:02 Bronchitis 64847660 J40 Chicken soup, orange juice, popsicles, snow cones, slurpees, ice cream, tea with honey and lemon, hot lemonade, gatorade, and yogurt may make you feel better. [id number] Merlyn Jeffers MD [facility] [address] [place] [address] 10/14/2020 07:55:34 10/19/2020 07:07:23 Anxiety 09986785 F41.9 Exercise-i nduced asthma 68428218 J45.256 [id number] Merlyn Jeffers MD [facility] [address] [place] [address] 12/20/2020 10:26:08 12/23/2020 12:18:28 Acute gastroenteritis 22214193 K52.9 Bananas, rice, applesauce , toast, tea with sugar in it, and yogurt may help calm down an upset stomach. Ginna tea may be helpful, but since you seem to have a systemic reaction, I would hold off on drinking or eating anything until you have been seen at the emergency room. Pruritic rash 34821036 L 28.2 unknown, but the pustules on the fingers are worrisome [id number] CESAR HARRIS [facility] [address] [place] [address] 01/15/2023 09:40:13 01/15/2023 11:48:05 Mixed anxiety and depressive disorder 517252320 F41.8 PHQ 22goes to counseling once a monthattri butes depression due to twin sister moving to [place] and doesn't want to be apart of her family anymoreref ill medstrial bupropion to help with anxiety symptomsf/ u in 1 mo Allergic rhinitis 278399 04 J30.9 nasal congestion , rhinorrhea , cough, watery eyes, itchy throaton claritin w/o relief x2 yrswas on allergy shots in the past, cannot afford nowswitch to yue baker, encouraged to usetrial singulairf /u in 1 mo Gastroesop hageal reflux disease without esophagitis 326277280 K21.9 c/o waking up in the middle of the night with acid in her throattria l PPI Essential hypertension 36742982 I10 went to ED 1 yr ago for HTNliam s PCP put on metoprolol , no issues sinceBP today 122/84 Morbid obesity 619992589 E66.01 routine labs Exercise-i nduced asthma 44912748 J45.990 refill Chronic neck pain 772387 3740 107 M54.2 fell at work 04/2021told she has bulging discs [id number] wing with workman's comp and ortho surgeryin [facility], workman's comp does not want to cover surgeryon flexeril and meloxicam- ortho refillhas done PT and steroid injections [id number] CESAR HARRIS [facility] [address] [place] [address] 02/22/2023 10:32:39 02/22/2023 12:40:38 Morbid obesity 359610895 E66.01 repeat CBC, CMP, lipid -previous did not process Mixed anxi ety and depressive disorder 463394457 F41.8 02/22/23:PH Q 0forgets to take 3rd pill of buspironet rial 15 mg BID- will take 1.5 tabletsf/u in 1 mo 01/15/23:PH Q 22goes to counseling once a monthattri butes depression due to twin sister moving to [place] and doesn't want to be apart of her family anymoreref ill medstrial bupropion to help with anxiety symptomsf/ u in 1 mo Chronic neck pain 623426 4120 107 M54.2 02/22/23:un changed 01/15/23:fe ll at work 04/2021told she has bulging discs [id number] wing with [employer] [facility] and [facility], workman's comp does not want to cover surgeryon flexeril and meloxicam- ortho refillhas done PT and steroid injections Essential hypertension 55168893 I10 02/22/23:BP 120/84keep BP log before and after taking metoprolol to see if can discontinu eadvised to check BP at home, goal BP <130/80, f/u with BP log in 1 wk 01/15/23:we nt to ED 1 yr ago for HTNpresilvio s PCP put on metoprolol , no issues sinceBP today 122/84 Allergic rhinitis 040504 04 J30.9 02/22/23:do ing well with singulair 01/15/23:na iris congestion , rhinorrhea , cough, watery eyes, itchy throaton claritin w/o relief x2 yrswas on allergy shots in the past, cannot afford nowswitch to zyrtechas flonase, encouraged to usetrial singulairf /u in 1 mo Gastroesop hageal reflux disease without esophagitis 613194291 K21.9 02/22/23:re solved with pantoprazo leis not waking up in the middle of the night 01/15/23:c/ o waking up in the middle of the night with acid in her throattria l PPI [id number] CESAR HARRIS [facility] [address] [place] [address] 05/20/2023 15:44:57 05/20/2023 16:07:05 Paronychia of toe of right foot [id number] L03.031 x2 wksPEx- erythema, edema, and purulence surroundin g nail bed of R big toeallergi c to penicillin skeep clean and coveredtri al doxy Hyperlipidemia [id number] E78.5 05/21/23:st ates that atorvastat in is making her anxiety worse, increased irritabili tytrial lower dose, ator 10 02/2023:LDL 189start ator 40 Essential hypertension 85748340 I10 05/20/23:BP today 150/100, 130/85BP at home [...] metoprolol , no issues sinceBP today 122/84 [id number] CESAR HARRIS [facility] [address] [place] [address] 08/07/2023 11:55:21 08/07/2023 12:52:34 Screening for malignant neoplasm of cervix [id number] Z12.4 last pap 2 yrs agoLMP 07/08/23st arted menstrual cycle todayPEx- blood present in vaginal introitus and surroundin g cervix, difficulty visualizin g cervix, attempted to obtain samplenu swab sent Daytime hypersomnia [id number] 7037 G47.19 sleeps with mouth openchroni c sore throatrec' d humidifier in bedroomwou ld like to be tested for sleep apneasent referral Administra tion of influenza vaccine [id number] Z23 [id number] CESAR HARRIS [facility] [address] [place] [address] 11/08/2023 16:56:39 11/08/2023 17:40:55 Postherpetic neuralgia 5275651 B02.29 diagnosed with shingles to L cheek and L arm two weeks agowent to ED, given valtrex for 10 daysstill c/o burning and stinging pain to L cheek and L armPEx- nl, no lesions presenttri al gabapentin for nerve pain, advised of ADR [id number] CESAR HARRIS [facility] [address] [place] [address] 01/30/2024 10:30:26 01/30/2024 11:15:48 Chronic neck pain [id number] 107 M54.2 01/30/24: reports that she won court case, but was then appealed 02/22/23:un changed 01/15/23:fe ll at work 04/2021told she has bulging discs C3-I5jinkc wing with workman's comp and ortho surgeryin appeal, workman's comp does not want to cover surgeryon flexeril and meloxicam- ortho refillhas done PT and steroid injections Essential hypertension 57737370 I10 01/30/24: BP 126/81c/w lisinopril 20 05/20/23:BP [...] no issues sinceBP today 122/84 Morbid obesity 203443457 E66.01 discussed increasing exercise and healthier food options, high protein, low fat dietroutin e labs Mixed anxi ety and depressive disorder 166196744 F41.8 01/30/24: PHQ 8[facility] at [facility] prescribes medsgoes to counseling every 3 wks 02/22/23:PH Q 0forgets to take 3rd pill of buspironet rial 15 mg BID- will take 1.5 tabletsf/u in 1 mo 01/15/23:PH Q 22goes to counseling once a monthattri butes depression due to twin sister moving to [place] and doesn't want to be apart of her family anymoreref ill medstrial bupropion to help with anxiety symptomsf/ u in 1 mo Borderline personality disorder 11194213 F60.3 per pt diagnosed per psych Bipolar II disorder 8322 5003 F31.81 per pt diagnosed per psych [id number] CESAR HARRIS [facility] [address] [place] [address] 07/08/2024 15:21:16 07/08/2024 16:12:03 Endometriosis of pelvis 80876170 N80.9 requesting hysterecto mysent referral Skin tag [id number] L91.8 to Vin garciaame size for 2 yrsflesh colored pedunculat ed skin tag to Vin levin rral sent to Derm Exercise-i nduced asthma 09953207 J45.990 refill Influenza vaccination declined 041411896 Z28.21 Mixed anxi ety and depressive disorder 549040360 F41.8 07/08/24: PHQ 0 01/30/24: PHQ 8Psych at [facility] prescribes medsgoes to counseling every 3 wks 02/22/23:PH Q 0forgets to take 3rd pill of buspironet rial 15 mg BID- will take 1.5 tabletsf/u in 1 mo 01/15/23:PH Q 22goes to counseling once a monthattri butes depression due to twin sister moving to [place] and doesn't want to be apart of her family anymoreref ill medstrial bupropion to help with anxiety symptomsf/ u in 1 mo [id number] CESAR TONG [facility] [address] [place] [place] [address] 09/16/2024 12:25:59 09/16/2024 12:57:54 Pre-surgery evaluation [id number] Z01.818 Maryann is a non-smoker Female here for clearance. having surgery with Dr Lewis at [facility] in [facility]/ for anterior cervical disc replacemen t C3-4, C5-6. She denies cp, sob, palpitatio ns. Exam normal. medication s updated. pending EKG and labs. Needs: CBC, UA W/ MICRO, CMP, SED RATE, viT d, HEPATITIS, HIV , EKGwill go get EKG at [facility] today Obesity 591735658 E66.9 Health Concerns Section Related Observation LastModified by Organization Detai ls LastModified Time None Recorded Concern Status LastModified by Organization Details LastModified Time None Recorded Advance Directives Directive None Recorded Payers Encounter Date Sequence Insurance Name Policy Number Policy Mcclendon Covered Member ID Mcclendon Member ID Guarantor Name 08/07/2023 1 [place] [facility] (MEDICAID REPLACEMENT - HMO) [id number] Maryann Philippe [id number] Maryann Philippe 11/08/2023 1 *SELF PAY* Jhonny Philippe 01/30/2024 2 [place] [employer] [place] Maryann Philippe [id number] Maryann Philippe 01/30/2024 2 [place] Maryann Philippe [id number] Maryann Philippe 07/08/2024 2 [place] Maryann Philippe [id number] Maryann Philippe 07/08/2024 1 [place] [id number] Maryann Philippe [id number] Maryann Philippe 09/16/2024 1 [place] [id number] Maryann Philippe [id number] Maryann Philippe 09/16/2024 2 [facility] [id number] Maryann Philippe [id number] Maryann Philippe Notes Date Note Type Note [...] HARRIS Attn: Accounting,[address], [place], [address], [facility] 08/07/2023 17:05:46 11/08/2023 text/html Pt presents with shingles. Reports 2 wks ago, she developed blisters on her L cheek and L arm. Pt went to ED, diagnosed wtih shingles and given valtrex for 10 days. States that blisters have resolved, but still c/o burning and stinging pain to L cheek and L arm. CESAR HARRIS Attn: Accounting,[address] [address], [place], [address], [facility] 11/11/2023 10:21:26 01/30/2024 text/html Pt presents for annual exam and blood work. Reports that she won court case for injury at work/chronic neck pain and then 2 wks later case was appealed. Denies fever, chills, chest pain, SOB, n/v/d, abd pain, dizziness, weakness, or headaches. CESAR HARRIS Attn: Accounting,[address] [address], [place], [address], [facility] 01/30/2024 21:40:50 07/08/2024 text/html Pt presents for referrals. Requesting referral to for hysterectomy. States that she has history of endometriosis, chronic menstrual pain and irregular cycles. Requesting referral to dermatology for skin tag to L nipple. Endorses that it has remained the same size for 2 yrs. CESAR HARRIS Attn: Accounting,[address] [facility] [address], [place], [address], [facility] 07/08/2024 16:40:13 09/16/2024 text/html Maryann is a [...] CESAR TONG Attn: Accounting[address] [facility] [address] [facility], [place], [address], [facility] 09/16/2024 13:23:19 OBGyn Episode No OBEpisode recorded.
--- OUTSIDE RECORDS SUMMARY | 2024-12-23 01:00 | XMS_ITS | Clinical Summary ---
Author Organization [facility] Address [address] [place] [address] Care Team Providers Care Cnc Mechanic Name Role Phone Merlyn Jeffers MD Primary Care Provider [phone] Allergies Active Allergy Reactions Criticality Noted Date [...] Comments Blood Pressure 154/84 07/19/2020 11:58 AM [employer] Pulse 80 07/19/2020 11:58 AM [employer] Temperature 36.1 C (97 F) 07/19/2020 11:58 AM [employer] Respiratory Rate 16 07/19/2020 11:58 AM [employer] Oxygen Saturation 100% 07/19/2020 11:58 AM [employer] Inhaled Oxygen Concentration - - Weight 102.1 kg (225 lb) 07/19/2020 11:58 AM [employer] Height 165.1 cm (5' 5 ) 07/19/2020 11:58 AM [employer] Body Mass Index 37.44 07/19/2020 11:58 AM [employer] Plan of Treatment Health Maintenance Due Date [...] 2015 COVID-19 Vaccine (2023-2 5 season) 2024 HPV Vaccines Aged Out No longer eligi ble based on patient's age to complete this topic Meningococcal B Vaccine Aged Out No l onger eligible based on patient's age to complete this topic Meningococcal Vaccine Aged Out No jelly edmund eligible based on patient's age to complete this topic Pneumococcal Vaccine: Pediat rics (0 to 5 Years) and At-Risk Patients (6 to 49 Years) Aged Out No longer eligible b ased on patient's age to complete this topic RSV Immunizations Under 20 Months Aged Out No longer eligible based on patient's age to complete this topic Insurance [place]ID [place] Advance Directives * Full Code (Latest Code Status on File) Date Activated Date Inactivated Comments 05/05/2019 10:16 AM 05/05/2019 1:31 PM Care Teams Cnc Mechanic Relationship Specialty Start Date End Date Merlyn Jeffers MD [facility] [id number] [address] PCP - General FAMILY PRACTICE 07/19/20
--- OUTSIDE RECORDS SUMMARY | 2024-12-23 01:00 | XMS_ITS | Encounter Summary ---
Author Organization [email or web address] Address 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
[2024-12-23 01:08] VITALS: BP 149/95; PULSE 101; RESP 16; TEMP 36.7; O2SAT 100
--- NOTE | 2024-12-23 01:12 | ED.LOWEXIN ---
HPI - Extremity Injury (Lower) General Chief Complaint: Extremity Injury, Lower Stated Complaint: left big toe injury Time Seen by Provider: 12/23/24 01:06 Source: patient Mode of arrival: ambulatory Limitations: no limitations History of Present Illness HPI Narrative: Patient is a 39-year-old female who presents the ED with report of left 1st toe pain. Patient reports she stubbed her L 1st toe while walking up the stairs on 10/09. She states she has been having pain throughout her toe since then. Woke up tonight screaming in pain. Is currently on meloxicam for neck issues and taking this for her toe pain. She has been ambulatory since September without issue. Denies numbness. Denies previous hx of gout. Related Data Home Medications ?Medication ?Instructions ?Recorded ?Confirmed ?Last Taken ?Type bupropion HCl 150 mg 24 hr tablet, 150 mg PO DAILY 12/03/22 12/23/24 10/22/24 History extended release buspirone 10 mg tablet 10 mg PO DAILY 12/03/22 12/23/24 10/22/24 History cyclobenzaprine 10 mg tablet 10 mg PO DAILY 12/03/22 10/22/24 Unknown History escitalopram oxalate 20 mg tablet 20 mg PO DAILY 12/03/22 10/22/24 10/22/24 History meloxicam 7.5 mg tablet 7.5 mg PO DAILY 12/03/22 12/23/24 Unknown History atorvastatin 10 mg tablet 10 mg PO DAILY 07/12/23 12/23/24 10/21/24 History lamotrigine 25 mg tablet 25 mg PO DAILY 07/12/23 12/23/24 10/22/24 History montelukast 10 mg tablet 10 mg PO DAILY 07/12/23 10/22/24 10/22/24 History pantoprazole 20 mg tablet,delayed 20 mg PO DAILY 07/12/23 10/22/24 10/22/24 History release prazosin 1 mg capsule 1 mg PO DAILY 07/12/23 10/22/24 10/22/24 History cholecalciferol (vitamin D3) 50 50 mcg PO DAILY 10/22/24 12/23/24 10/22/24 History mcg (2,000 unit) tablet (D3 DOTS) Allergies Allergy/AdvReac Type Severity Reaction Status Date / Time Penicillins Allergy Mild Hives Verified 12/23/24 01:01 adhesive Allergy Unknown Rash Verified 12/23/24 01:01 amoxicillin Allergy Unknown Hives Verified 12/23/24 01:01 tramadol Allergy Unknown Other Verified 12/23/24 01:01 Review of Systems Review of Systems: All systems reviewed & are unremarkable except as noted in HPI. All systems reviewed & are unremarkable except as noted in HPI and below PMFSH Past Medical History Medical History Endometriosis Asthma History of high blood pressure Anxiety and depression Social History Social History Smoking status: Former smoker Tobacco type: cigars and e-cigarettes/vaping Alcohol intake: current Alcohol use details: rare- socially Substance use: current Substance use type: marijuana Living arrangements: with roommate(s) Gender identity (if verbalized by the patient): Female Spiritual care concerns: No Exam Narrative: GENERAL: Well appearing, obese with BMI of 38.4, non-toxic, in no acute distress. HEAD: Normocephalic, atraumatic. RESPIRATORY: Airway patent, respirations nonlabored. CARDIOVASCULAR: Regular rate and rhythm. Pedal pulses intact. MUSCULOSKELETAL: Moves all extremities. No gross deformities. Small abrasion over dorsal foot w/o drainage or signs of infection. Mild TTP over 1st MTP of L foot. No significant swelling. No erythema or warmth over joint. SKIN: Warm, dry, normal color. NEURO: A&O X3. Speech clear. Cranial nerves II-XII grossly intact. Steady gait. No ataxic movements. PSYCHIATRIC: Appropriate mood and affect. Normal interaction. Course Vital Signs Vital signs: Vital Signs Temperature 98.1 F 12/23/24 01:08 Pulse Rate 101 H 12/23/24 01:08 Respiratory Rate 16 12/23/24 01:08 Blood Pressure 149/95 H 12/23/24 01:08 Pulse Oximetry 100 12/23/24 01:08 Temperature 98.1 F 12/23/24 01:08 Pulse Rate 101 H 12/23/24 01:08 Respiratory Rate 16 12/23/24 01:08 Blood Pressure 149/95 H 12/23/24 01:08 Pulse Oximetry 100 12/23/24 01:08 MDM - Extremity Injury (Lower) MDM Narrative Medical decision making narrative: Neurovascularly intact. Patient ambulatory with a steady gait. XR of L foot interpreted by myself without acute fracture. Patient offered postop shoe. Will be referred to Podiatry. Discharged in stable condition. Medical Records Attestation: I reviewed the patient's medical records. Imaging Data Attestation: I personally reviewed and interpreted this imaging study as follows: My impression: XR L Foot: no acute fracture. Discharge Plan Discharge Clinical Impression: Sprain of toe Patient Disposition: Home Condition: Stable Instructions: Antibiotic Form, Toe Fracture (ED), Foot Contusion (ED) Additional Instructions: Your imaging here did not show any evidence of fractures. Continue home meloxicam and Tylenol as needed for toe pain. You may continue to anthony-tape toes to provide support. Follow-up with podiatry for further evaluation if needed. Patient Language: Nigerian Prescriptions: No Action atorvastatin 10 mg tablet 10 mg PO DAILY prazosin 1 mg capsule 1 mg PO DAILY lamotrigine 25 mg tablet 25 mg PO DAILY pantoprazole 20 mg tablet,delayed release (DR/EC) 20 mg PO DAILY montelukast 10 mg tablet 10 mg PO DAILY doxycycline monohydrate 100 mg tablet 100 mg PO BID Qty: 14 0RF (DME) Aerochamber MV Spacer See Rx Instructions .Route Qty: 1 0RF Rx Instructions: As directed cyclobenzaprine 10 mg tablet 10 mg PO DAILY meloxicam 7.5 mg tablet 7.5 mg PO DAILY buspirone 10 mg tablet 10 mg PO DAILY escitalopram oxalate 20 mg tablet 20 mg PO DAILY bupropion HCl 150 mg tablet extended release 24 hr 150 mg PO DAILY acetaminophen 500 mg capsule 1,000 mg PO Q6H PRN (Reason: pain) Qty: 20 0RF ibuprofen 600 mg tablet 600 mg PO TID PRN (Reason: pain) Qty: 20 0RF cholecalciferol (vitamin D3) [D3 DOTS] 50 mcg (2,000 unit) tablet 50 mcg PO DAILY Follow-up/Referrals: David,CESAR Meneses [Primary Care Provider] - Francisco Posey Jr., THEO [Physician] - (PODIATRY) Time of Disposition: 01:36
--- OUTSIDE RECORDS SUMMARY | 2024-12-23 01:17 | XMS_ITS | CONTINUITY OF CARE DOCUMENT ---
Author Name josé miguel valdez Address Unknown Organization [facility] Address [address] [place] [address] Phone [phone] Care Team Providers Care Ammonia Distiller Name Role Phone Mario Rodriguez MD Unavailable [phone] Mario Rodriguez MD Unavailable [phone] SIL SAUCEDO MD Unavailable INSURANCE PROVIDERS Payer name Policy type / Coverage type Mcneal red green party ID [place] [employer] Medicare [id number] [facility] [id number]
[2024-12-23] MEDS: ACETAMINOPHEN 500 MG TABLET 1000 MG PO (01:32)
[2024-12-23 01:45] VITALS: BP 144/83; PULSE 104; RESP 16; TEMP 36.9; O2SAT 100
== END 2024-12-23 01:47 | disposition home or self-care (01) ==
PROVIDERS: Emergency Provider Physician Assistant; PCP Physician Assistant
DX: S93.502A Unspecified sprain of left great toe, initial encounter (principal); J45.909 Unspecified asthma, uncomplicated; I10 Essential (primary) hypertension; N80.9 Endometriosis, unspecified; E66.9 Obesity, unspecified; Z68.38 Body mass index [BMI] 38.0-38.9, adult; F41.9 Anxiety disorder, unspecified; F32.A Depression, unspecified; Z87.891 Personal history of nicotine dependence; Z79.899 Other long term (current) drug therapy; W22.8XXA Striking against or struck by other objects, initial encounter
CPT/HCPCS: 73630; 99283; A9270